=== PATIENT | female | born 1955 | race Caucasian/White ===

== ENCOUNTER → 2016-06-18 | Outpatient (CLI) | payer MEDICARE ==
[~2016-06-18] VITALS: Ht 170.2 cm; Wt 91.6 kg
[~2016-06-18] MED LIST: ADULT LOW DOSE81 MG PO; ALTACE10 M1 PO; AMLO2.5T PO; ASPIRIN 81MG TA81 MG PO; ATORVASTATIN CA20 M1 PO; AZITHROMYCIN250 MG PO; BISOPROLOL 5MG T5 MG PO; BUMETANIDE2 MG PO; BUMEX 1MG TAB1 MG PO; CARVEDILOL3.125 M1 PO; CLONAZEPAM 1MG T1 MG PO; CLOPIDOGREL75 M2 PO; DOXYCYCLINE100 M7 PO; FLEXERIL10 MG PO; FUROSEMIDE80 MG PO; HYDROCODONE W/1 TAB PO; IBUPROFEN800 MG PO; IRON236 MG PO; ISOSORBIDE MONO30 MG PO; ISOSORBIDE MONO60 M1 PO; LEVAQUIN500 MG PO; LIPITOR40 M1 PO; LOPRESSOR 25MG.25 MG PO; LOSARTAN POTAS100 MG PO; METHADONE HYDRO10 MG PO; MIRAPEX 1 MG TAB1 MG PO; NITROGLYCERIN0.4 MG SL; PERCOCET1 TA1 PO; PLAVIX 75MG TAB75 MG PO; PREDNISONE 20MG20 MG PO; PROMETHAZINE D118 ML PO; PROMETHAZINE HC25 M1 PO; PROMETHAZINE12.5 M1 PO; PROTONIX 40MG T40 MG PO; RANEXA500 M1 PO; TESSALON PERLE100 MG PO; TORSEMIDE100 MG PO; TRILEPTAL300 M1 PO; TRILEPTAL600 MG PO; VANCOMYCIN 101000 MG IV; ZITHROMAX Z PA250 MG PO
[2016-06-18 11:00] VITALS: BP 147/90
[2016-06-18 12:00] VITALS: BP 145/94
[2016-06-18 13:03] VITALS: BP 130/113
== END ==
LOC: COP 10:00
DX: T82.7XXA Infection and inflammatory reaction due to other cardiac and vascular devices, implants and grafts, initial encounter (principal); Z48.01 Encounter for change or removal of surgical wound dressing
CPT/HCPCS: G0463

== ENCOUNTER 2016-06-19 09:45 | Outpatient (CLI) | payer MEDICARE ==
[~2016-06-19 09:45] MED LIST changes: -AMLO2.5T PO; -AZITHROMYCIN250 MG PO; -BISOPROLOL 5MG T5 MG PO; -BUMETANIDE2 MG PO; -FUROSEMIDE80 MG PO; -ISOSORBIDE MONO60 M1 PO; -NITROGLYCERIN0.4 MG SL; -PLAVIX 75MG TAB75 MG PO; -PROMETHAZINE D118 ML PO; -PROMETHAZINE HC25 M1 PO; -RANEXA500 M1 PO; -TORSEMIDE100 MG PO
[2016-06-19 10:10] LABS: LYMPH # 2.2 K/mm3 (0.7-4.5); LYMPH % 32.3 % (10-50.0)
[2016-06-19 10:29] LABS: BUN 8 mg/dL (7-18); GFR (ESTIMATED) 46 ML/MIN (59-)
[2016-06-19 11:30] VITALS: BP 114/81
[2016-06-19 11:45] VITALS: BP 120/70
--- NOTE | 2016-06-19 12:10 | CONSULT NOTE ---
Pharmacokinetic Consult Date of consult: 06/19/16 Time of consult: 1208 Referring provider: DR. COATES Reason for consult: VANCOMYCIN TROUGH LEVEL Allergies: Coded Allergies: cephalexin (From KEFLEX) (Mild, 06/13/16) meloxicam (From MOBIC) (Mild, 06/13/16) simvastatin (From ZOCOR) (Mild, 06/13/16) penicillin G (06/13/16) Home Medications: Active Scripts Vancomycin Hcl (Vancomycin 1000MG Adv) 1 Dose IV DAILY #10 INJ Prov: 06/15/16 Reported Medications Cyclobenzaprine Hcl (Flexeril) 10 MG PO BID Pantoprazole Sodium (Protonix 40MG TAB) 40 MG PO DAILY Metoprolol Tartrate (Lopressor) 25 MG PO BID #60 TAB Clonazepam (Clonazepam 1MG) 1 MG PO BIDP PRN NEEDED FOR ANXIETY/SLEEP #60 METHADONE HCL (Methadone Hydrochloride) 10 MG PO 5XDAY #150 TAB Isosorbide Mononitrate (Isosorbide Mononitrate ER) 30 MG PO DAILY #30 Losartan Potassium (Losartan 100MG) 100 MG PO DAILY #30 Atorvastatin Calcium 20 MG PO QHS #30 TAB Discontinued Reported Medications Aspirin (Adult Low Dose Aspirin EC) 81 MG PO DAILY OXYCODONE HCL/ACETAMINOPHEN (Percocet 10-325 MG Tablet) 1 TAB PO Q4HP PRN PAIN Bumetanide (Bumex 1MG Tab) 1 MG PO DAILY PRN DIURETIC CLOPIDOGREL BISULFATE (Clopidogrel) 75 MG PO DAILY #30 DC: 06/15/16 0920 Height (feet): 5 Height (inches): 7.00 Medical History: CAD? Yes Angina: Yes [place]: No Hypertension? Yes Hyperlipidemia? Yes CHF? Yes DVT? No PE? No COPD? Yes Asthma? Yes Anemia? No GERD? Yes Gastric ulcers? No GI Bleed? No Hernia? No Thyroid Problems? No Hypothyroidism? No CVA? Yes Seizures? No Diabetes? No Renal Insuffiency? No UTI? Yes Stones? Yes BPH? No GB Disease: Yes Nephritic Syndrome? No Asplenia? No Hepatitis? No Sickle Cell Disease? No Arthritis? Yes Migraines? No Cataracts? No Glaucoma? No MRSA? No HIV? No TB? No Anxiety? No Depression? No Cancer? No More? No Additional hx: DDD of the lumbar spine cellulitis of the left lower leg Labs: Laboratory Tests 06/19/16 0955: Sodium 142, Potassium 4.0, Chloride 109 H, Carbon Dioxide 27, BUN 8, Creatinine 1.2 H, Estimated GFR (MDRD) 46 L, Glucose 101, Calcium 8.4 L, Total Bilirubin 0.3, AST 17, ALT 19, Alkaline Phosphatase 95, Total Protein 6.9, Albumin 2.9 L, Globulin 4.0 H, Albumin/Globulin Ratio 0.7 L, WBC 6.9, RBC 4.14 L, Hgb 12.0 L, Hct 36.8 L, MCV 88.9, RDW 15.2, Plt Count 280, MPV 9.2, Gran % 57.4, Gran # 4.0, Lymphocytes % 32.3, Monocytes % 4.8, Eosinophils % 4.4, Basophils % 1.0, Lymphocytes # 2.2, Monocytes # 0.3, Eosinophils # 0.3, Basophils # 0.1, PUBS MCHC 32.7, MCH 29.1 06/19/16 0600: Vancomycin Trough 19.8 Problem List: 1. Infected pacemaker Plan: BASED ON VANCOMYCIN TROUGH LEVEL, RECOMMEND DECREASING DOSE TO VANCOMYCIN 1500 MG IV Q24H. PHARMACY WILL CONTINUE TO MONITOR AND ADJUST APPROPRIATE. at 1210
[2016-06-19 12:15] VITALS: BP 120/79
[2016-06-19 12:45] VITALS: BP 115/67
[2016-06-19 13:15] VITALS: BP 129/82
[2016-06-19 13:50] VITALS: BP 152/92
[2016-07-10] MEDS ORDERED: PERCOCET1 TA1 PO (13:04)
[2016-07-20] MEDS ORDERED: BUMETANIDE2 MG PO (10:39)
[2016-07-31] MEDS ORDERED: PLAVIX 75MG TAB75 MG PO (13:57)
[2016-07-31] MEDS ORDERED: ASPIRIN 81MG TA81 MG PO (13:57)
[2016-07-31] MEDS ORDERED: ZITHROMAX Z PA250 MG PO (15:25)
[2016-07-31] MEDS ORDERED: PROMETHAZINE D118 ML PO (15:26)
[2016-08-01] MEDS ORDERED: RANEXA500 M1 PO (16:29)
[2016-08-03] MEDS ORDERED: AZITHROMYCIN250 MG PO (14:14)
[2016-08-21] MEDS ORDERED: PROMETHAZINE HC25 M1 PO (22:31)
[2016-08-21] MEDS ORDERED: LOPRESSOR 25MG.25 MG PO (22:46)
[2016-08-21] MEDS ORDERED: ISOSORBIDE MONO60 M1 PO (22:46)
[2016-09-09] MEDS ORDERED: FUROSEMIDE80 MG PO (22:52)
[2016-09-10] MEDS ORDERED: TORSEMIDE100 MG PO (14:45)
[2016-09-12] MEDS ORDERED: BISOPROLOL 5MG T5 MG PO (09:07)
[2016-09-12] MEDS ORDERED: AMLO2.5T PO (09:08)
== END 2016-06-19 14:00 | disposition home or self-care (01) ==
LOC: COP 09:45
PROVIDERS: Internal Medicine
DX: T82.7XXA Infection and inflammatory reaction due to other cardiac and vascular devices, implants and grafts, initial encounter (principal)
CPT/HCPCS: G0463

== ENCOUNTER 2016-06-20 09:10 | Outpatient (CLI) | payer MEDICARE ==
[2016-06-20 09:55] VITALS: BP 141/93
[2016-06-20 10:30] VITALS: BP 133/82
[2016-06-20 11:00] VITALS: BP 128/79
[2016-06-20 11:26] VITALS: BP 131/99
[2016-06-20 11:30] VITALS: BP 115/79
[2016-06-20 11:50] VITALS: BP 130/84
[2016-07-10] MEDS ORDERED: PERCOCET1 TA1 PO (13:04)
[2016-07-20] MEDS ORDERED: BUMETANIDE2 MG PO (10:39)
[2016-07-31] MEDS ORDERED: ASPIRIN 81MG TA81 MG PO (13:57)
[2016-07-31] MEDS ORDERED: PLAVIX 75MG TAB75 MG PO (13:57)
[2016-07-31] MEDS ORDERED: ZITHROMAX Z PA250 MG PO (15:25)
[2016-07-31] MEDS ORDERED: PROMETHAZINE D118 ML PO (15:26)
[2016-08-01] MEDS ORDERED: RANEXA500 M1 PO (16:29)
[2016-08-03] MEDS ORDERED: AZITHROMYCIN250 MG PO (14:14)
[2016-08-21] MEDS ORDERED: PROMETHAZINE HC25 M1 PO (22:31)
[2016-08-21] MEDS ORDERED: ISOSORBIDE MONO60 M1 PO (22:46)
[2016-08-21] MEDS ORDERED: LOPRESSOR 25MG.25 MG PO (22:46)
[2016-09-09] MEDS ORDERED: FUROSEMIDE80 MG PO (22:52)
[2016-09-10] MEDS ORDERED: TORSEMIDE100 MG PO (14:45)
[2016-09-12] MEDS ORDERED: BISOPROLOL 5MG T5 MG PO (09:07)
[2016-09-12] MEDS ORDERED: AMLO2.5T PO (09:08)
== END 2016-06-20 12:00 | disposition home or self-care (01) ==
LOC: COP 09:10
DX: T82.7XXA Infection and inflammatory reaction due to other cardiac and vascular devices, implants and grafts, initial encounter (principal)
CPT/HCPCS: J3370

== ENCOUNTER 2016-06-21 09:05 | Outpatient (CLI) | payer MEDICARE ==
[2016-06-21] VITALS (8 sets, daily range): BP systolic 93–126; BP diastolic 56–68
[2016-07-10] MEDS ORDERED: PERCOCET1 TA1 PO (13:04)
[2016-07-20] MEDS ORDERED: BUMETANIDE2 MG PO (10:39)
[2016-07-31] MEDS ORDERED: ASPIRIN 81MG TA81 MG PO (13:57)
[2016-07-31] MEDS ORDERED: PLAVIX 75MG TAB75 MG PO (13:57)
[2016-07-31] MEDS ORDERED: ZITHROMAX Z PA250 MG PO (15:25)
[2016-07-31] MEDS ORDERED: PROMETHAZINE D118 ML PO (15:26)
[2016-08-01] MEDS ORDERED: RANEXA500 M1 PO (16:29)
[2016-08-03] MEDS ORDERED: AZITHROMYCIN250 MG PO (14:14)
[2016-08-21] MEDS ORDERED: PROMETHAZINE HC25 M1 PO (22:31)
[2016-08-21] MEDS ORDERED: LOPRESSOR 25MG.25 MG PO (22:46)
[2016-08-21] MEDS ORDERED: ISOSORBIDE MONO60 M1 PO (22:46)
[2016-09-09] MEDS ORDERED: FUROSEMIDE80 MG PO (22:52)
[2016-09-10] MEDS ORDERED: TORSEMIDE100 MG PO (14:45)
[2016-09-12] MEDS ORDERED: BISOPROLOL 5MG T5 MG PO (09:07)
[2016-09-12] MEDS ORDERED: AMLO2.5T PO (09:08)
== END 2016-06-21 12:00 | disposition home or self-care (01) ==
LOC: COP 09:05
DX: T82.7XXA Infection and inflammatory reaction due to other cardiac and vascular devices, implants and grafts, initial encounter (principal); Z48.01 Encounter for change or removal of surgical wound dressing
CPT/HCPCS: G0463; J3370

== ENCOUNTER 2016-06-22 09:30 | Outpatient (CLI) | payer MEDICARE ==
[2016-06-22] VITALS (7 sets, daily range): BP systolic 90–104; BP diastolic 43–64
[2016-06-22 09:58] LABS: BUN 15 mg/dL (7-18); GFR (ESTIMATED) 38 ML/MIN (59-)
--- NOTE | 2016-06-22 10:51 | CONSULT NOTE ---
Pharmacokinetic Consult Date of consult: 06/22/16 Time of consult: 1044 Referring provider: DR. COATES Reason for consult: VANCOMYCIN TROUGH Allergies: Coded Allergies: cephalexin (From KEFLEX) (Mild, 06/13/16) meloxicam (From MOBIC) (Mild, 06/13/16) simvastatin (From ZOCOR) (Mild, 06/13/16) penicillin G (06/13/16) Home Medications: Active Scripts Vancomycin Hcl (Vancomycin 1000MG Adv) 1 Dose IV DAILY #10 INJ Prov: 06/15/16 Reported Medications Cyclobenzaprine Hcl (Flexeril) 10 MG PO BID Pantoprazole Sodium (Protonix 40MG TAB) 40 MG PO DAILY Metoprolol Tartrate (Lopressor) 25 MG PO BID #60 TAB Clonazepam (Clonazepam 1MG) 1 MG PO BIDP PRN NEEDED FOR ANXIETY/SLEEP #60 METHADONE HCL (Methadone Hydrochloride) 10 MG PO 5XDAY #150 TAB Isosorbide Mononitrate (Isosorbide Mononitrate ER) 30 MG PO DAILY #30 Losartan Potassium (Losartan 100MG) 100 MG PO DAILY #30 Atorvastatin Calcium 20 MG PO QHS #30 TAB Discontinued Reported Medications Aspirin (Adult Low Dose Aspirin EC) 81 MG PO DAILY OXYCODONE HCL/ACETAMINOPHEN (Percocet 10-325 MG Tablet) 1 TAB PO Q4HP PRN PAIN Bumetanide (Bumex 1MG Tab) 1 MG PO DAILY PRN DIURETIC CLOPIDOGREL BISULFATE (Clopidogrel) 75 MG PO DAILY #30 DC: 06/15/16 0920 Height (feet): 5 Height (inches): 7.00 Medical History: CAD? Yes Angina: Yes [place]: No Hypertension? Yes Hyperlipidemia? Yes CHF? Yes DVT? No PE? No COPD? Yes Asthma? Yes Anemia? No GERD? Yes Gastric ulcers? No GI Bleed? No Hernia? No Thyroid Problems? No Hypothyroidism? No CVA? Yes Seizures? No Diabetes? No Renal Insuffiency? No UTI? Yes Stones? Yes BPH? No GB Disease: Yes Nephritic Syndrome? No Asplenia? No Hepatitis? No Sickle Cell Disease? No Arthritis? Yes Migraines? No Cataracts? No Glaucoma? No MRSA? No HIV? No TB? No Anxiety? No Depression? No Cancer? No More? No Additional hx: DDD of the lumbar spine cellulitis of the left lower leg Labs: Laboratory Tests 06/22/16 0935: Sodium 142, Potassium 4.0, Chloride 111 H, Carbon Dioxide 24, BUN 15, Creatinine 1.4 H, Estimated GFR (MDRD) 38 L, Glucose 90, Calcium 7.9 L, Vancomycin Trough 19.3 Problem List: 1. Infected pacemaker Plan: BASED ON PATIENT FACTORS AND TROUGH LEVEL, RECOMMEND DECREASING VANCOMYCIN DOSE TO 1250MG IV Q24H. PHARMACY WILL CONTINUE TO MONITOR AND ADJUST DOSE NEEDED. at 1053
[2016-07-10] MEDS ORDERED: PERCOCET1 TA1 PO (13:04)
[2016-07-20] MEDS ORDERED: BUMETANIDE2 MG PO (10:39)
[2016-07-31] MEDS ORDERED: ASPIRIN 81MG TA81 MG PO (13:57)
[2016-07-31] MEDS ORDERED: PLAVIX 75MG TAB75 MG PO (13:57)
[2016-07-31] MEDS ORDERED: ZITHROMAX Z PA250 MG PO (15:25)
[2016-07-31] MEDS ORDERED: PROMETHAZINE D118 ML PO (15:26)
[2016-08-01] MEDS ORDERED: RANEXA500 M1 PO (16:29)
[2016-08-03] MEDS ORDERED: AZITHROMYCIN250 MG PO (14:14)
[2016-08-21] MEDS ORDERED: PROMETHAZINE HC25 M1 PO (22:31)
[2016-08-21] MEDS ORDERED: LOPRESSOR 25MG.25 MG PO (22:46)
[2016-08-21] MEDS ORDERED: ISOSORBIDE MONO60 M1 PO (22:46)
[2016-09-09] MEDS ORDERED: FUROSEMIDE80 MG PO (22:52)
[2016-09-10] MEDS ORDERED: TORSEMIDE100 MG PO (14:45)
[2016-09-12] MEDS ORDERED: BISOPROLOL 5MG T5 MG PO (09:07)
[2016-09-12] MEDS ORDERED: AMLO2.5T PO (09:08)
== END 2016-06-22 13:15 | disposition home or self-care (01) ==
LOC: COP 09:30
PROVIDERS: Internal Medicine Adolescent Medicine
DX: T82.7XXA Infection and inflammatory reaction due to other cardiac and vascular devices, implants and grafts, initial encounter (principal); Z48.01 Encounter for change or removal of surgical wound dressing
CPT/HCPCS: J3370

== ENCOUNTER 2016-06-23 10:23 | Outpatient (CLI) | payer MEDICARE ==
[2016-06-23 11:30] VITALS: BP 97/49
[2016-06-23 12:00] VITALS: BP 98/59
[2016-06-23 12:30] VITALS: BP 90/59
[2016-06-23 13:15] VITALS: BP 104/61
[2016-06-23 13:33] VITALS: BP 93/63
[2016-07-10] MEDS ORDERED: PERCOCET1 TA1 PO (13:04)
[2016-07-20] MEDS ORDERED: BUMETANIDE2 MG PO (10:39)
[2016-07-31] MEDS ORDERED: ASPIRIN 81MG TA81 MG PO (13:57)
[2016-07-31] MEDS ORDERED: PLAVIX 75MG TAB75 MG PO (13:57)
[2016-07-31] MEDS ORDERED: ZITHROMAX Z PA250 MG PO (15:25)
[2016-07-31] MEDS ORDERED: PROMETHAZINE D118 ML PO (15:26)
[2016-08-01] MEDS ORDERED: RANEXA500 M1 PO (16:29)
[2016-08-03] MEDS ORDERED: AZITHROMYCIN250 MG PO (14:14)
[2016-08-21] MEDS ORDERED: PROMETHAZINE HC25 M1 PO (22:31)
[2016-08-21] MEDS ORDERED: ISOSORBIDE MONO60 M1 PO (22:46)
[2016-08-21] MEDS ORDERED: LOPRESSOR 25MG.25 MG PO (22:46)
[2016-09-09] MEDS ORDERED: FUROSEMIDE80 MG PO (22:52)
[2016-09-10] MEDS ORDERED: TORSEMIDE100 MG PO (14:45)
[2016-09-12] MEDS ORDERED: BISOPROLOL 5MG T5 MG PO (09:07)
[2016-09-12] MEDS ORDERED: AMLO2.5T PO (09:08)
== END 2016-06-23 13:15 | disposition home or self-care (01) ==
LOC: COP 10:23
DX: T82.7XXA Infection and inflammatory reaction due to other cardiac and vascular devices, implants and grafts, initial encounter (principal); Z48.01 Encounter for change or removal of surgical wound dressing
CPT/HCPCS: J3370

== ENCOUNTER 2016-06-24 09:48 | Outpatient (CLI) | payer MEDICARE ==
[2016-06-24 10:15] VITALS: BP 129/59
[2016-06-24 10:44] VITALS: BP 129/59
[2016-06-24 12:09] VITALS: BP 115/71
[2016-07-10] MEDS ORDERED: PERCOCET1 TA1 PO (13:04)
[2016-07-20] MEDS ORDERED: BUMETANIDE2 MG PO (10:39)
[2016-07-31] MEDS ORDERED: PLAVIX 75MG TAB75 MG PO (13:57)
[2016-07-31] MEDS ORDERED: ASPIRIN 81MG TA81 MG PO (13:57)
[2016-07-31] MEDS ORDERED: ZITHROMAX Z PA250 MG PO (15:25)
[2016-07-31] MEDS ORDERED: PROMETHAZINE D118 ML PO (15:26)
[2016-08-01] MEDS ORDERED: RANEXA500 M1 PO (16:29)
[2016-08-03] MEDS ORDERED: AZITHROMYCIN250 MG PO (14:14)
[2016-08-21] MEDS ORDERED: PROMETHAZINE HC25 M1 PO (22:31)
[2016-08-21] MEDS ORDERED: LOPRESSOR 25MG.25 MG PO (22:46)
[2016-08-21] MEDS ORDERED: ISOSORBIDE MONO60 M1 PO (22:46)
[2016-09-09] MEDS ORDERED: FUROSEMIDE80 MG PO (22:52)
[2016-09-10] MEDS ORDERED: TORSEMIDE100 MG PO (14:45)
[2016-09-12] MEDS ORDERED: BISOPROLOL 5MG T5 MG PO (09:07)
[2016-09-12] MEDS ORDERED: AMLO2.5T PO (09:08)
== END 2016-06-24 12:13 | disposition home or self-care (01) ==
LOC: COP 09:48
DX: T82.7XXA Infection and inflammatory reaction due to other cardiac and vascular devices, implants and grafts, initial encounter (principal); Z48.01 Encounter for change or removal of surgical wound dressing
CPT/HCPCS: G0463; J3370

== ENCOUNTER 2016-06-25 09:15 | Outpatient (CLI) | payer MEDICARE ==
[2016-06-25 09:51] VITALS: BP 131/90
[2016-06-25 11:48] VITALS: BP 116/70
[2016-07-10] MEDS ORDERED: PERCOCET1 TA1 PO (13:04)
[2016-07-20] MEDS ORDERED: BUMETANIDE2 MG PO (10:39)
[2016-07-31] MEDS ORDERED: PLAVIX 75MG TAB75 MG PO (13:57)
[2016-07-31] MEDS ORDERED: ASPIRIN 81MG TA81 MG PO (13:57)
[2016-07-31] MEDS ORDERED: ZITHROMAX Z PA250 MG PO (15:25)
[2016-07-31] MEDS ORDERED: PROMETHAZINE D118 ML PO (15:26)
[2016-08-01] MEDS ORDERED: RANEXA500 M1 PO (16:29)
[2016-08-03] MEDS ORDERED: AZITHROMYCIN250 MG PO (14:14)
[2016-08-21] MEDS ORDERED: PROMETHAZINE HC25 M1 PO (22:31)
[2016-08-21] MEDS ORDERED: LOPRESSOR 25MG.25 MG PO (22:46)
[2016-08-21] MEDS ORDERED: ISOSORBIDE MONO60 M1 PO (22:46)
[2016-09-09] MEDS ORDERED: FUROSEMIDE80 MG PO (22:52)
[2016-09-10] MEDS ORDERED: TORSEMIDE100 MG PO (14:45)
[2016-09-12] MEDS ORDERED: BISOPROLOL 5MG T5 MG PO (09:07)
[2016-09-12] MEDS ORDERED: AMLO2.5T PO (09:08)
== END 2016-06-25 11:50 | disposition home or self-care (01) ==
LOC: COP 09:15
DX: T82.7XXA Infection and inflammatory reaction due to other cardiac and vascular devices, implants and grafts, initial encounter (principal); Z48.01 Encounter for change or removal of surgical wound dressing
CPT/HCPCS: J3370

== ENCOUNTER 2016-06-26 09:50 | Outpatient (CLI) | payer MEDICARE ==
[2016-06-26 10:05] VITALS: BP 130/74
[2016-06-26 10:40] LABS: HEMOGLOBIN 10.9 g/dL (12.2-16.2); LYMPH # 1.6 K/mm3 (0.7-4.5)
[2016-06-26 10:53] LABS: BUN 15 mg/dL (7-18); GFR (ESTIMATED) 38 ML/MIN (59-)
[2016-07-10] MEDS ORDERED: PERCOCET1 TA1 PO (13:04)
[2016-07-20] MEDS ORDERED: BUMETANIDE2 MG PO (10:39)
[2016-07-31] MEDS ORDERED: PLAVIX 75MG TAB75 MG PO (13:57)
[2016-07-31] MEDS ORDERED: ASPIRIN 81MG TA81 MG PO (13:57)
[2016-07-31] MEDS ORDERED: ZITHROMAX Z PA250 MG PO (15:25)
[2016-07-31] MEDS ORDERED: PROMETHAZINE D118 ML PO (15:26)
[2016-08-01] MEDS ORDERED: RANEXA500 M1 PO (16:29)
[2016-08-03] MEDS ORDERED: AZITHROMYCIN250 MG PO (14:14)
[2016-08-21] MEDS ORDERED: PROMETHAZINE HC25 M1 PO (22:31)
[2016-08-21] MEDS ORDERED: ISOSORBIDE MONO60 M1 PO (22:46)
[2016-08-21] MEDS ORDERED: LOPRESSOR 25MG.25 MG PO (22:46)
[2016-09-09] MEDS ORDERED: FUROSEMIDE80 MG PO (22:52)
[2016-09-10] MEDS ORDERED: TORSEMIDE100 MG PO (14:45)
[2016-09-12] MEDS ORDERED: BISOPROLOL 5MG T5 MG PO (09:07)
[2016-09-12] MEDS ORDERED: AMLO2.5T PO (09:08)
== END 2016-06-26 10:42 | disposition home or self-care (01) ==
LOC: COP 09:50
PROVIDERS: Internal Medicine Adolescent Medicine
DX: T82.7XXA Infection and inflammatory reaction due to other cardiac and vascular devices, implants and grafts, initial encounter (principal)
CPT/HCPCS: G0463

== ENCOUNTER → 2016-06-27 | Outpatient (CLI) | payer MEDICARE ==
[~2016-06-27] MED LIST changes: +AMLO2.5T PO; +AZITHROMYCIN250 MG PO; +BISOPROLOL 5MG T5 MG PO; +BUMETANIDE2 MG PO; +FUROSEMIDE80 MG PO; +ISOSORBIDE MONO60 M1 PO; +NITROGLYCERIN0.4 MG SL; +PLAVIX 75MG TAB75 MG PO; +PROMETHAZINE D118 ML PO; +PROMETHAZINE HC25 M1 PO; +RANEXA500 M1 PO; +TORSEMIDE100 MG PO
== END ==
LOC: COP 09:00
DX: T82.7XXA Infection and inflammatory reaction due to other cardiac and vascular devices, implants and grafts, initial encounter (principal); Z48.01 Encounter for change or removal of surgical wound dressing

== ENCOUNTER 2016-06-30 13:35 | Outpatient (CLI) | payer MEDICARE ==
[~2016-06-30 13:35] MED LIST changes: -AMLO2.5T PO; -AZITHROMYCIN250 MG PO; -BISOPROLOL 5MG T5 MG PO; -BUMETANIDE2 MG PO; -FUROSEMIDE80 MG PO; -ISOSORBIDE MONO60 M1 PO; -NITROGLYCERIN0.4 MG SL; -PLAVIX 75MG TAB75 MG PO; -PROMETHAZINE D118 ML PO; -PROMETHAZINE HC25 M1 PO; -RANEXA500 M1 PO; -TORSEMIDE100 MG PO
[2016-07-10] MEDS ORDERED: PERCOCET1 TA1 PO (13:04)
[2016-07-20] MEDS ORDERED: BUMETANIDE2 MG PO (10:39)
[2016-07-31] MEDS ORDERED: PLAVIX 75MG TAB75 MG PO (13:57)
[2016-07-31] MEDS ORDERED: ASPIRIN 81MG TA81 MG PO (13:57)
[2016-07-31] MEDS ORDERED: ZITHROMAX Z PA250 MG PO (15:25)
[2016-07-31] MEDS ORDERED: PROMETHAZINE D118 ML PO (15:26)
[2016-08-01] MEDS ORDERED: RANEXA500 M1 PO (16:29)
[2016-08-03] MEDS ORDERED: AZITHROMYCIN250 MG PO (14:14)
[2016-08-21] MEDS ORDERED: PROMETHAZINE HC25 M1 PO (22:31)
[2016-08-21] MEDS ORDERED: ISOSORBIDE MONO60 M1 PO (22:46)
[2016-08-21] MEDS ORDERED: LOPRESSOR 25MG.25 MG PO (22:46)
[2016-09-09] MEDS ORDERED: FUROSEMIDE80 MG PO (22:52)
[2016-09-10] MEDS ORDERED: TORSEMIDE100 MG PO (14:45)
[2016-09-12] MEDS ORDERED: BISOPROLOL 5MG T5 MG PO (09:07)
[2016-09-12] MEDS ORDERED: AMLO2.5T PO (09:08)
== END 2016-06-30 15:00 | disposition home or self-care (01) ==
LOC: COP 13:35
DX: T82.7XXA Infection and inflammatory reaction due to other cardiac and vascular devices, implants and grafts, initial encounter (principal); Z48.01 Encounter for change or removal of surgical wound dressing
CPT/HCPCS: G0463

== ENCOUNTER → 2016-07-01 | Outpatient (CLI) | payer MEDICARE ==
[~2016-07-01] MED LIST changes: +AMLO2.5T PO; +AZITHROMYCIN250 MG PO; +BISOPROLOL 5MG T5 MG PO; +BUMETANIDE2 MG PO; +FUROSEMIDE80 MG PO; +ISOSORBIDE MONO60 M1 PO; +NITROGLYCERIN0.4 MG SL; +PLAVIX 75MG TAB75 MG PO; +PROMETHAZINE D118 ML PO; +PROMETHAZINE HC25 M1 PO; +RANEXA500 M1 PO; +TORSEMIDE100 MG PO
[2016-07-01 11:30] VITALS: BP 136/93
== END ==
LOC: COP 11:34
DX: T82.7XXA Infection and inflammatory reaction due to other cardiac and vascular devices, implants and grafts, initial encounter (principal); Z48.01 Encounter for change or removal of surgical wound dressing
CPT/HCPCS: G0463

== ENCOUNTER → 2016-07-02 | Outpatient (CLI) | payer MEDICARE ==
[2016-07-02 11:50] VITALS: BP 144/96
== END ==
LOC: COP 11:37
DX: T82.7XXA Infection and inflammatory reaction due to other cardiac and vascular devices, implants and grafts, initial encounter (principal); Z48.01 Encounter for change or removal of surgical wound dressing
CPT/HCPCS: G0463

== ENCOUNTER 2016-07-03 11:05 | Outpatient (CLI) | payer MEDICARE ==
[~2016-07-03 11:05] MED LIST changes: -AMLO2.5T PO; -AZITHROMYCIN250 MG PO; -BISOPROLOL 5MG T5 MG PO; -BUMETANIDE2 MG PO; -FUROSEMIDE80 MG PO; -ISOSORBIDE MONO60 M1 PO; -NITROGLYCERIN0.4 MG SL; -PLAVIX 75MG TAB75 MG PO; -PROMETHAZINE D118 ML PO; -PROMETHAZINE HC25 M1 PO; -RANEXA500 M1 PO; -TORSEMIDE100 MG PO
[2016-07-10] MEDS ORDERED: PERCOCET1 TA1 PO (13:04)
[2016-07-20] MEDS ORDERED: BUMETANIDE2 MG PO (10:39)
[2016-07-31] MEDS ORDERED: PLAVIX 75MG TAB75 MG PO (13:57)
[2016-07-31] MEDS ORDERED: ASPIRIN 81MG TA81 MG PO (13:57)
[2016-07-31] MEDS ORDERED: ZITHROMAX Z PA250 MG PO (15:25)
[2016-07-31] MEDS ORDERED: PROMETHAZINE D118 ML PO (15:26)
[2016-08-01] MEDS ORDERED: RANEXA500 M1 PO (16:29)
[2016-08-03] MEDS ORDERED: AZITHROMYCIN250 MG PO (14:14)
[2016-08-21] MEDS ORDERED: PROMETHAZINE HC25 M1 PO (22:31)
[2016-08-21] MEDS ORDERED: ISOSORBIDE MONO60 M1 PO (22:46)
[2016-08-21] MEDS ORDERED: LOPRESSOR 25MG.25 MG PO (22:46)
[2016-09-09] MEDS ORDERED: FUROSEMIDE80 MG PO (22:52)
[2016-09-10] MEDS ORDERED: TORSEMIDE100 MG PO (14:45)
[2016-09-12] MEDS ORDERED: BISOPROLOL 5MG T5 MG PO (09:07)
[2016-09-12] MEDS ORDERED: AMLO2.5T PO (09:08)
== END 2016-07-03 11:40 | disposition home or self-care (01) ==
LOC: COP 11:05
DX: T82.7XXA Infection and inflammatory reaction due to other cardiac and vascular devices, implants and grafts, initial encounter (principal); Z48.01 Encounter for change or removal of surgical wound dressing
CPT/HCPCS: G0463

== ENCOUNTER 2016-07-05 15:00 | Outpatient (CLI) | payer MEDICARE ==
[2016-07-10] MEDS ORDERED: PERCOCET1 TA1 PO (13:04)
[2016-07-20] MEDS ORDERED: BUMETANIDE2 MG PO (10:39)
[2016-07-31] MEDS ORDERED: PLAVIX 75MG TAB75 MG PO (13:57)
[2016-07-31] MEDS ORDERED: ASPIRIN 81MG TA81 MG PO (13:57)
[2016-07-31] MEDS ORDERED: ZITHROMAX Z PA250 MG PO (15:25)
[2016-07-31] MEDS ORDERED: PROMETHAZINE D118 ML PO (15:26)
[2016-08-01] MEDS ORDERED: RANEXA500 M1 PO (16:29)
[2016-08-03] MEDS ORDERED: AZITHROMYCIN250 MG PO (14:14)
[2016-08-21] MEDS ORDERED: PROMETHAZINE HC25 M1 PO (22:31)
[2016-08-21] MEDS ORDERED: LOPRESSOR 25MG.25 MG PO (22:46)
[2016-08-21] MEDS ORDERED: ISOSORBIDE MONO60 M1 PO (22:46)
[2016-09-09] MEDS ORDERED: FUROSEMIDE80 MG PO (22:52)
[2016-09-10] MEDS ORDERED: TORSEMIDE100 MG PO (14:45)
[2016-09-12] MEDS ORDERED: BISOPROLOL 5MG T5 MG PO (09:07)
[2016-09-12] MEDS ORDERED: AMLO2.5T PO (09:08)
== END 2016-07-05 15:30 | disposition home or self-care (01) ==
LOC: COP 15:00
DX: T82.7XXA Infection and inflammatory reaction due to other cardiac and vascular devices, implants and grafts, initial encounter (principal); Z48.01 Encounter for change or removal of surgical wound dressing
CPT/HCPCS: G0463

== ENCOUNTER → 2016-07-06 | Outpatient (CLI) | payer MEDICARE ==
[~2016-07-06] MED LIST changes: +AMLO2.5T PO; +AZITHROMYCIN250 MG PO; +BISOPROLOL 5MG T5 MG PO; +BUMETANIDE2 MG PO; +FUROSEMIDE80 MG PO; +ISOSORBIDE MONO60 M1 PO; +NITROGLYCERIN0.4 MG SL; +PLAVIX 75MG TAB75 MG PO; +PROMETHAZINE D118 ML PO; +PROMETHAZINE HC25 M1 PO; +RANEXA500 M1 PO; +TORSEMIDE100 MG PO
== END ==
LOC: COP 14:00
DX: T82.7XXA Infection and inflammatory reaction due to other cardiac and vascular devices, implants and grafts, initial encounter (principal); Z48.01 Encounter for change or removal of surgical wound dressing
CPT/HCPCS: G0463

== ENCOUNTER 2016-07-07 12:00 | Outpatient (CLI) | payer MEDICARE ==
[~2016-07-07 12:00] MED LIST changes: -AMLO2.5T PO; -AZITHROMYCIN250 MG PO; -BISOPROLOL 5MG T5 MG PO; -BUMETANIDE2 MG PO; -FUROSEMIDE80 MG PO; -ISOSORBIDE MONO60 M1 PO; -NITROGLYCERIN0.4 MG SL; -PLAVIX 75MG TAB75 MG PO; -PROMETHAZINE D118 ML PO; -PROMETHAZINE HC25 M1 PO; -RANEXA500 M1 PO; -TORSEMIDE100 MG PO
[2016-07-10] MEDS ORDERED: PERCOCET1 TA1 PO (13:04)
[2016-07-20] MEDS ORDERED: BUMETANIDE2 MG PO (10:39)
[2016-07-31] MEDS ORDERED: ASPIRIN 81MG TA81 MG PO (13:57)
[2016-07-31] MEDS ORDERED: PLAVIX 75MG TAB75 MG PO (13:57)
[2016-07-31] MEDS ORDERED: ZITHROMAX Z PA250 MG PO (15:25)
[2016-07-31] MEDS ORDERED: PROMETHAZINE D118 ML PO (15:26)
[2016-08-01] MEDS ORDERED: RANEXA500 M1 PO (16:29)
[2016-08-03] MEDS ORDERED: AZITHROMYCIN250 MG PO (14:14)
[2016-08-21] MEDS ORDERED: PROMETHAZINE HC25 M1 PO (22:31)
[2016-08-21] MEDS ORDERED: LOPRESSOR 25MG.25 MG PO (22:46)
[2016-08-21] MEDS ORDERED: ISOSORBIDE MONO60 M1 PO (22:46)
[2016-09-09] MEDS ORDERED: FUROSEMIDE80 MG PO (22:52)
[2016-09-10] MEDS ORDERED: TORSEMIDE100 MG PO (14:45)
[2016-09-12] MEDS ORDERED: BISOPROLOL 5MG T5 MG PO (09:07)
[2016-09-12] MEDS ORDERED: AMLO2.5T PO (09:08)
== END 2016-07-07 12:30 | disposition home or self-care (01) ==
LOC: COP 12:00
DX: T82.7XXA Infection and inflammatory reaction due to other cardiac and vascular devices, implants and grafts, initial encounter (principal); Z48.01 Encounter for change or removal of surgical wound dressing; Z45.2 Encounter for adjustment and management of vascular access device
CPT/HCPCS: G0463

== ENCOUNTER 2016-07-08 12:52 | Outpatient (CLI) | payer MEDICARE ==
[2016-07-10] MEDS ORDERED: PERCOCET1 TA1 PO (13:04)
[2016-07-20] MEDS ORDERED: BUMETANIDE2 MG PO (10:39)
[2016-07-31] MEDS ORDERED: PLAVIX 75MG TAB75 MG PO (13:57)
[2016-07-31] MEDS ORDERED: ASPIRIN 81MG TA81 MG PO (13:57)
[2016-07-31] MEDS ORDERED: ZITHROMAX Z PA250 MG PO (15:25)
[2016-07-31] MEDS ORDERED: PROMETHAZINE D118 ML PO (15:26)
[2016-08-01] MEDS ORDERED: RANEXA500 M1 PO (16:29)
[2016-08-03] MEDS ORDERED: AZITHROMYCIN250 MG PO (14:14)
[2016-08-21] MEDS ORDERED: PROMETHAZINE HC25 M1 PO (22:31)
[2016-08-21] MEDS ORDERED: ISOSORBIDE MONO60 M1 PO (22:46)
[2016-08-21] MEDS ORDERED: LOPRESSOR 25MG.25 MG PO (22:46)
[2016-09-09] MEDS ORDERED: FUROSEMIDE80 MG PO (22:52)
[2016-09-10] MEDS ORDERED: TORSEMIDE100 MG PO (14:45)
[2016-09-12] MEDS ORDERED: BISOPROLOL 5MG T5 MG PO (09:07)
[2016-09-12] MEDS ORDERED: AMLO2.5T PO (09:08)
== END 2016-07-08 13:10 | disposition home or self-care (01) ==
LOC: COP 12:52
DX: T82.7XXA Infection and inflammatory reaction due to other cardiac and vascular devices, implants and grafts, initial encounter (principal); Z48.01 Encounter for change or removal of surgical wound dressing
CPT/HCPCS: G0463

== ENCOUNTER 2016-07-09 12:30 | Outpatient (CLI) | payer MEDICARE ==
[2016-07-10] MEDS ORDERED: PERCOCET1 TA1 PO (13:04)
[2016-07-20] MEDS ORDERED: BUMETANIDE2 MG PO (10:39)
[2016-07-31] MEDS ORDERED: PLAVIX 75MG TAB75 MG PO (13:57)
[2016-07-31] MEDS ORDERED: ASPIRIN 81MG TA81 MG PO (13:57)
[2016-07-31] MEDS ORDERED: ZITHROMAX Z PA250 MG PO (15:25)
[2016-07-31] MEDS ORDERED: PROMETHAZINE D118 ML PO (15:26)
[2016-08-01] MEDS ORDERED: RANEXA500 M1 PO (16:29)
[2016-08-03] MEDS ORDERED: AZITHROMYCIN250 MG PO (14:14)
[2016-08-21] MEDS ORDERED: PROMETHAZINE HC25 M1 PO (22:31)
[2016-08-21] MEDS ORDERED: LOPRESSOR 25MG.25 MG PO (22:46)
[2016-08-21] MEDS ORDERED: ISOSORBIDE MONO60 M1 PO (22:46)
[2016-09-09] MEDS ORDERED: FUROSEMIDE80 MG PO (22:52)
[2016-09-10] MEDS ORDERED: TORSEMIDE100 MG PO (14:45)
[2016-09-12] MEDS ORDERED: BISOPROLOL 5MG T5 MG PO (09:07)
[2016-09-12] MEDS ORDERED: AMLO2.5T PO (09:08)
== END 2016-07-09 12:55 | disposition home or self-care (01) ==
LOC: COP 12:30
DX: T82.7XXA Infection and inflammatory reaction due to other cardiac and vascular devices, implants and grafts, initial encounter (principal); Z45.2 Encounter for adjustment and management of vascular access device
CPT/HCPCS: G0463

== ENCOUNTER 2016-07-12 13:00 | Outpatient (CLI) | payer MEDICARE ==
[2016-07-12 13:05] VITALS: BP 104/70
[2016-07-12] MEDS ORDERED: NITROGLYCERIN0.4 MG SL (13:53)
[2016-07-20] MEDS ORDERED: BUMETANIDE2 MG PO (10:39)
[2016-07-31] MEDS ORDERED: ASPIRIN 81MG TA81 MG PO (13:57)
[2016-07-31] MEDS ORDERED: PLAVIX 75MG TAB75 MG PO (13:57)
[2016-07-31] MEDS ORDERED: ZITHROMAX Z PA250 MG PO (15:25)
[2016-07-31] MEDS ORDERED: PROMETHAZINE D118 ML PO (15:26)
[2016-08-01] MEDS ORDERED: RANEXA500 M1 PO (16:29)
[2016-08-03] MEDS ORDERED: AZITHROMYCIN250 MG PO (14:14)
[2016-08-21] MEDS ORDERED: PROMETHAZINE HC25 M1 PO (22:31)
[2016-08-21] MEDS ORDERED: LOPRESSOR 25MG.25 MG PO (22:46)
[2016-08-21] MEDS ORDERED: ISOSORBIDE MONO60 M1 PO (22:46)
[2016-09-09] MEDS ORDERED: FUROSEMIDE80 MG PO (22:52)
[2016-09-10] MEDS ORDERED: TORSEMIDE100 MG PO (14:45)
[2016-09-12] MEDS ORDERED: BISOPROLOL 5MG T5 MG PO (09:07)
[2016-09-12] MEDS ORDERED: AMLO2.5T PO (09:08)
== END 2016-07-12 13:30 | disposition home or self-care (01) ==
LOC: COP 13:00
DX: T82.7XXA Infection and inflammatory reaction due to other cardiac and vascular devices, implants and grafts, initial encounter (principal); Z45.2 Encounter for adjustment and management of vascular access device

== ENCOUNTER 2016-07-13 14:20 | Outpatient (CLI) | payer MEDICARE ==
[2016-07-13 14:20] VITALS: BP 112/79
[~2016-07-13 14:20] MED LIST changes: +NITROGLYCERIN0.4 MG SL
[2016-07-20] MEDS ORDERED: BUMETANIDE2 MG PO (10:39)
[2016-07-31] MEDS ORDERED: PLAVIX 75MG TAB75 MG PO (13:57)
[2016-07-31] MEDS ORDERED: ASPIRIN 81MG TA81 MG PO (13:57)
[2016-07-31] MEDS ORDERED: ZITHROMAX Z PA250 MG PO (15:25)
[2016-07-31] MEDS ORDERED: PROMETHAZINE D118 ML PO (15:26)
[2016-08-01] MEDS ORDERED: RANEXA500 M1 PO (16:29)
[2016-08-03] MEDS ORDERED: AZITHROMYCIN250 MG PO (14:14)
[2016-08-21] MEDS ORDERED: PROMETHAZINE HC25 M1 PO (22:31)
[2016-08-21] MEDS ORDERED: ISOSORBIDE MONO60 M1 PO (22:46)
[2016-08-21] MEDS ORDERED: LOPRESSOR 25MG.25 MG PO (22:46)
[2016-09-09] MEDS ORDERED: FUROSEMIDE80 MG PO (22:52)
[2016-09-10] MEDS ORDERED: TORSEMIDE100 MG PO (14:45)
[2016-09-12] MEDS ORDERED: BISOPROLOL 5MG T5 MG PO (09:07)
[2016-09-12] MEDS ORDERED: AMLO2.5T PO (09:08)
== END 2016-07-13 15:00 | disposition home or self-care (01) ==
LOC: COP 14:20
DX: T82.7XXA Infection and inflammatory reaction due to other cardiac and vascular devices, implants and grafts, initial encounter (principal); Z45.2 Encounter for adjustment and management of vascular access device
CPT/HCPCS: G0463

== ENCOUNTER 2016-07-14 13:00 | Outpatient (CLI) | payer MEDICARE ==
[2016-07-20] MEDS ORDERED: BUMETANIDE2 MG PO (10:39)
[2016-07-31] MEDS ORDERED: ASPIRIN 81MG TA81 MG PO (13:57)
[2016-07-31] MEDS ORDERED: PLAVIX 75MG TAB75 MG PO (13:57)
[2016-07-31] MEDS ORDERED: ZITHROMAX Z PA250 MG PO (15:25)
[2016-07-31] MEDS ORDERED: PROMETHAZINE D118 ML PO (15:26)
[2016-08-01] MEDS ORDERED: RANEXA500 M1 PO (16:29)
[2016-08-03] MEDS ORDERED: AZITHROMYCIN250 MG PO (14:14)
[2016-08-21] MEDS ORDERED: PROMETHAZINE HC25 M1 PO (22:31)
[2016-08-21] MEDS ORDERED: LOPRESSOR 25MG.25 MG PO (22:46)
[2016-08-21] MEDS ORDERED: ISOSORBIDE MONO60 M1 PO (22:46)
[2016-09-09] MEDS ORDERED: FUROSEMIDE80 MG PO (22:52)
[2016-09-10] MEDS ORDERED: TORSEMIDE100 MG PO (14:45)
[2016-09-12] MEDS ORDERED: BISOPROLOL 5MG T5 MG PO (09:07)
[2016-09-12] MEDS ORDERED: AMLO2.5T PO (09:08)
== END 2016-07-14 13:30 | disposition home or self-care (01) ==
LOC: COP 13:00
DX: T82.7XXA Infection and inflammatory reaction due to other cardiac and vascular devices, implants and grafts, initial encounter (principal); Z48.01 Encounter for change or removal of surgical wound dressing
CPT/HCPCS: G0463

== ENCOUNTER 2016-07-21 13:33 | Observation (INO) | payer MEDICARE ==
[~2016-07-21] VITALS: Ht 170.2 cm; Wt 104.9 kg
[~2016-07-21 13:33] MED LIST changes: +BUMETANIDE2 MG PO
[2016-07-21 13:34] VITALS: BP 125/68
--- NOTE | 2016-07-21 13:54 | Emergency Room Report ---
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 N Clinical Suspician of Infection? N Mental Status: 1 - Regular (Normal Baseline) Sepsis Risk:Low Sepsis Risk Have you (or family members/close friends) recently traveled outside the [place]? N If Yes, where/when: Have you had exposure to infectious disease within the past month? TB? Other? Specify: Patient seen in ED on 07/20/16 for similar episode; work up negative, including EKG and cardiac enzymes, D Dimer. Patient in elevator in hospital today when had acute SSCP radiating to jaw. Arrives appearing uncomfortable. States has had similar episodes in the past and this is not as severe as prior episodes. She is not SOB and no n/v. Hx stents as well as chronic renal insufficiency. ALLERGIES Coded Allergies: cephalexin (From KEFLEX) (Mild, 06/23/16) meloxicam (From MOBIC) (Mild, 06/23/16) simvastatin (From ZOCOR) (Mild, 06/23/16) penicillin G (06/23/16) Uncoded Allergies: CLOTH TAPE AND SILK TAPE (Mild, I-RASH 07/20/16) Home Medications Reported Medications Cyclobenzaprine Hcl (Flexeril) 10 MG PO BID Pantoprazole Sodium (Protonix 40MG TAB) 40 MG PO DAILY Metoprolol Tartrate (Lopressor) 25 MG PO BID #60 TAB NITROGLYCERIN (Nitrostat) 0.4 MG SL [id number] PRN CHEST PAIN Clonazepam (Clonazepam 1MG) 1 MG PO BIDP PRN NEEDED FOR ANXIETY/SLEEP #60 Bumetanide 2 MG PO DAILY #30 METHADONE HCL (Methadone Hydrochloride) 10 MG PO 5XDAY #150 TAB Isosorbide Mononitrate (Isosorbide Mononitrate ER) 30 MG PO DAILY #30 Losartan Potassium (Losartan 100MG) 100 MG PO DAILY #30 Atorvastatin Calcium 20 MG PO QHS #30 TAB History Medical History General CAD? Yes Angina: Yes [place]: No Hypertension? Yes Hyperlipidemia? Yes CHF? Yes DVT? No PE? No COPD? Yes Asthma? Yes Anemia? No GERD? Yes Gastric ulcers? No GI Bleed? No Hernia? No Thyroid Problems? No Hypothyroidism? No CVA? Yes Seizures? No Diabetes? No Renal Insuffiency? No End Stage Renal Disease? No UTI? Yes Stones? Yes BPH? No GB Disease: Yes Nephritic Syndrome? No Asplenia? No Hepatitis? No Sickle Cell Disease? No Arthritis? Yes Migraines? No Cataracts? No Glaucoma? No MRSA? No HIV? No TB? No Anxiety? No Depression? No Cancer? No More? No Additional hx: DDD of the lumbar spine cellulitis of the left lower leg Immunization Hx Ped.Immunizations UTD Yes DT/Tetanus Unknown Flu 2015-FSN Pneumonia Received In Past Surgical Hx Previous Surgery?Y HYSTERECTOMY R KNEE SURGERY GASTRIC BYPASS FLAP REMOVED FROM ABD CARDIAC STENTS X2 KIDNEY STENTS AND REMOVED PACE MAKER PLACEMENT Family History Family Hx Diabetes Yes CAD Yes Hypertension Yes Hyperlipidemia Yes Cancer Yes TB No Social History Smoking Hx Smoker: Never Smoker Tobacco: No Type N/A Packs/day N/A Alcohol Alcohol: No Review of Systems All Other Systems Reviewed and Negative Cardiovascular see HPI, other (PM recently removed: infected) Physical Exam Vital Signs Vital Signs Date Time Temp Pulse Resp B/P Pulse O2 O2 Flow FiO2 Ox Delivery Rate 07/21 1552 74 18 107/70 95 2 /03 1540 72 18 90/64 97 02/03 1539 72 18 90/65 98 02/03 1500 73 18 98/64 96 02/03 1402 76 18 99/71 96 02/03 1351 18 02/03 1334 97.8 71 18 125/68 92 General Appearance normal appearance, WD/WN, no apparent distress Eye Exam - bilateral eye normal exam, bilateral eye PERRL Neck normal inspection, non-tender, supple Respiratory Status Yes: trachea midline, chest symmetrical. No: respiratory distress, tender on palpation, use of accessory muscles, pain on inspiration, pain on expiration, productive cough. Lung Sounds bilateral: normal breath sounds, lungs clear. Cardiovascular normal exam, regular rate/rhythm, no peripheral edema, no gallop, no JVD, no murmur, no rub, normal peripheral pulses Peripheral Pulses Pulses normal Yes Gastrointestinal normal bowel sounds, normal exam, non tender, soft Extremities non-tender, normal range of motion, normal inspection, normal capillary refill, no calf tenderness, no pedal edema Neurologic alert, normal exam, no motor/sensory deficits, oriented x 3 Glascow Coma Scale Glascow Coma Scale Response Value EYE response: 4 Spontaneously 4 MOTOR response: 6 OBEYS 6 VERBAL response: 5 Oriented & Converses 5 Total 15 Skin intact (ant chest dressing clean/dry), pallor Medical Decision Making LABS/Meds/Orders Pt receiving controlled substance in ED? No [place] was queried for this patient? No Results/Orders Laboratory Tests 07/21/16 1538: Troponin I 0.02 07/21/16 1245: Sodium 140, Potassium 4.7, Chloride 105, Carbon Dioxide 29, BUN 40 H, Creatinine 1.8 H, Estimated Creat Clear 52, Estimated GFR (MDRD) 29 L, Glucose 84, Calcium 8.8, Total Bilirubin 0.1 L, AST 13 L, ALT 16, Alkaline Phosphatase 102, Creatine Kinase 58, CK-MB (CK-2) Rel Index 2.6, CK and CKMB Interp 1.5, Troponin I < 0.02, Total Protein 7.0, Albumin 3.2 L, Globulin 3.8 H, Albumin/ Globulin Ratio 0.8 L, WBC 7.6, RBC 4.15 L, Hgb 11.8 L, Hct 36.2 L, MCV 87.2, RDW 16.1, Plt Count 203, Gran % 59.1, Gran # 4.5, Lymphocytes % 33.9, Monocytes % 7.0, Lymphocytes # 2.6, Monocytes # 0.5, PUBS MCHC 32.6, MCH 28.4 Current Medication Orders Sig/Jaclyn Start time Last Medication Dose Route Stop Time Status Admin Sodium Chloride 1,000 ML .STK-MED ONE 07/21 1542 DC IV Morphine Sulfate 0 .STK-MED ONE 07/21 1541 DC .ROUTE Aspirin 243 MG ONCE ONE 07/21 1400 DCr 07/21 PO 07/21 1401 1352 Nitroglycerin 0.4 MG ONCE ONE 07/21 1345 DC 07/21 SL 07/21 1346 1351 Sodium Chloride 10 ML PRN PRN 07/21 1345 DC IV 07/22 1334 Aspirin 0 .STK-MED ONE 07/21 1338 DCr .ROUTE Orders Procedure Date/time Status TROPONIN I 07/21 1530 Complete HOLTER MONITOR BESSON-48HR 07/21 1515 Active CHEST(2 VIEWS-NOT PORTABLE) 07/21 1510 Active HOLTER MONITOR REQUEST 07/21 1453 Active ELECTROCARDIOGRAM REQUEST 07/21 1335 Active CBC WITH AUTO DIFF 07/21 1335 Complete CARDIAC ENZYMES 07/21 1335 Complete CHEM 12 PROFILE 07/21 1335 Complete 12 LEAD EKG-BESSON (INITIAL) 07/21 UNK Active CM/EKG CM/EKG EKG rate, NSR, rhythm, no evid. of ischemic chgs, no ectopy, normal QRS, normal MT, normal EKG, compared w/(date of old) ( poor R w progression), rate 71 XRAY/CT/US XRAY/CT/US XRAY chest XR interpretation by reviewed by me Xray Results no infiltrates (chronic changes seen 07/20/16), normal heart size, normal lung inflation amol Consult MD Physician Consult Time Called 1445 Reason Pt. Condition, Cardiology eval/care Comments repeat trop 2 hrs, 48 hr Holter, f/u Dr. Figueroa 07/24/16 per d/w Samuel. Progress ED Progress Notes 1 Date 07/21/16 Time 1604 Comment Complete relief s/p NTG x one SL; has PRN NTG already prescribed but didn't have it with her today ED Progress Notes 2 Date 07/21/16 Time 1604 Comment Second troponin normal. Holter placed. Resting comfortably. Departure Departure Time of Disposition 1605 Disposition DC Home or Self Care(routine) Clinical Impression Primary Impression: Stable angina Condition STABLE Referrals FRANK SEGUNDO (Family) Jose Figueroa MD Patient Instructions DI for Angina Additional Instructions Carry your nitroglycerin with you at all times. 48 Holter monitor, see Dr. Figueroa on July 24, 2016, call for appointment. ER MD spoke with Samuel about this today. Discharge Counseling Counseled pt/family regarding diagnosis, test results, medications/RX, home care, follow up needs ED Critical Care Critical Care No at 1600
[2016-07-21 14:09] LABS: HEMOGLOBIN 11.8 g/dL (12.2-16.2)
[2016-07-21 14:10] LABS: LYMPH # 2.6 K/mm3 (0.7-4.5); LYMPH % 33.9 % (10-50.0)
[2016-07-21 14:18] LABS: BUN 40 mg/dL (7-18)
[2016-07-21 14:34] LABS: GFR (ESTIMATED) 29 ML/MIN (59-)
--- NOTE | 2016-07-21 15:06 | RADIOLOGY REPORT PS360 ---
CHEST-PORTABLE HISTORY: Chest pain CP ORDERING PHYSICIAN: My Rodriguez MD PATIENT AGE: 61 years COMPARISON: 07-20-16 FINDINGS: Study is underpenetrated. There are low lung volumes. Patchy density noted in the right upper lobe suspicious for infiltrate. Please correlate clinically. Could be due to combination of hypoventilation and overlying soft tissue attenuation with poor penetration. Consider upright PA and lateral chest for further evaluation. The remaining lungs are clear. IMPRESSION: Suspect patchy right upper lobe infiltrate, see above
--- NOTE | 2016-07-21 16:27 | RADIOLOGY REPORT PS360 ---
CHEST(2 VIEWS-NOT PORTABLE) HISTORY: Chest pain; no fever no cough, follow-up abnormal chest ORDERING PHYSICIAN: My Rodriguez MD PATIENT AGE: 61 years COMPARISON: 07/21/2016 FINDINGS: The cardiomediastinal silhouette and pulmonary vascularity are within normal limits. No lobar consolidation or collapse is evident. Previously noted increased density right upper lobe is less apparent and was likely due to artifact from under penetration. No evidence of pneumothorax. Left upper 70 PICC line is present with the tip in region of SVC. Mild atelectatic changes are present in the right middle lobe. No acute bony abnormalities. IMPRESSION: Mild right middle lobe atelectasis otherwise negative
[2016-07-21 18:51] VITALS: BP 111/64
[2016-07-21 18:52] VITALS: BP 111/64
[2016-07-21 19:45] VITALS: BP 107/63
[2016-07-21 19:50] VITALS: BP 113/75
[2016-07-21 23:43] VITALS: BP 98/70
[2016-07-22] VITALS (9 sets, daily range): BP systolic 84–103; BP diastolic 47–78
[2016-07-22 06:52] LABS: LYMPH # 2.7 K/mm3 (0.7-4.5); LYMPH % 41.7 % (10-50.0)
[2016-07-22 07:22] LABS: HEMOGLOBIN 10.6 g/dL (12.2-16.2)
--- NOTE | 2016-07-22 08:44 | Discharge Summary Standard ---
Demographics: Admit date: 08/11/16 Chief complaint: Chest pain PRIMARY DIAGNOSIS: ANGINA Allergies: Coded Allergies: cephalexin (From KEFLEX) (Mild, 07/21/16) meloxicam (From MOBIC) (Mild, 07/21/16) simvastatin (From ZOCOR) (Mild, 07/21/16) penicillin G (07/21/16) Uncoded Allergies: CLOTH TAPE AND SILK TAPE (Mild, I-RASH 07/20/16) History of present illness: History of present illness: 61-year-old white female with recent complicated course RT cardiology services, who's had recurrent chest pain and orthostasis with presyncope. Pacemaker was placed for sinus node dysfunction about 6 weeks ago, but in spite of its efficacy RE chest pain syndrome and orthostasis symptoms this was removed because of a significant hematoma that had developed that became infected. She currently does not have a pacemaker and is going through evaluation with cardiology service to see about the need for replacement and timing of replacement given her recent skin infection/severe pacemaker pocket abscess. She came to the emergency department yesterday for the second time in 3 days for chest pain. She was evaluated with electrocardiogram and troponin testing that was repeated, and discharged from the ER but in the parking lot getting into her car had another episode of spreading chest pain that starts in the upper epigastric area and spreads to both costal margins in the upper chest and down both arms. She reports that this is the same pain that she had before her pacemaker was placed but apparently pacemaker placement and activation resolve these episodes of pain. She came back in the emergency department and it was decided to keep her overnight for monitoring. Also of note, she currently is wearing a Holter monitor that was placed early yesterday morning to evaluate her need for pacemaker implantation. She continues to wear this in the hospital setting. Currently she is pain-free, resting comfortably. Past medical history: Family HX Diabetes Yes CAD Yes Hypertension Yes Hyperlipidemia Yes Cancer Yes TB No Immunization HX Ped.Immunizations UTD Yes DT/Tetanus > 10 Years Ago Flu 2015-FSN Pneumonia Received In Past TB Test in last year No General CAD? Yes Angina: Yes [place]: No Hypertension? Yes Hyperlipidemia? Yes CHF? Yes DVT? No PE? No COPD? Yes Asthma? Yes Anemia? No GERD? Yes Gastric ulcers? No GI Bleed? No Hernia? No Thyroid Problems? No Hypothyroidism? No CVA? Yes Seizures? No Diabetes? No Renal Insuffiency? No UTI? Yes Stones? Yes BPH? No GB Disease: Yes Nephritic Syndrome? No Asplenia? No Hepatitis? No Sickle Cell Disease? No Arthritis? Yes Migraines? No Cataracts? No Glaucoma? No MRSA? No HIV? No TB? No Anxiety? No Depression? No Cancer? No More? Yes Additional hx: DDD of the lumbar spine cellulitis of the left lower leg Past Surgical HX Previous Surgery?Y HYSTERECTOMY R KNEE SURGERY GASTRIC BYPASS FLAP REMOVED FROM ABD CARDIAC STENTS X2 KIDNEY STENTS AND REMOVED PACE MAKER PLACEMENT Current home meds: Reported Medications Cyclobenzaprine Hcl (Flexeril) 10 MG PO BID Pantoprazole Sodium (Protonix 40MG TAB) 40 MG PO DAILY Metoprolol Tartrate (Lopressor) 25 MG PO BID #60 TAB NITROGLYCERIN (Nitrostat) 0.4 MG SL [id number] PRN CHEST PAIN Clonazepam (Clonazepam 1MG) 1 MG PO BIDP PRN NEEDED FOR ANXIETY/SLEEP #60 Bumetanide 2 MG PO DAILY #30 METHADONE HCL (Methadone Hydrochloride) 10 MG PO 5XDAY #150 TAB Isosorbide Mononitrate (Isosorbide Mononitrate ER) 30 MG PO DAILY #30 Losartan Potassium (Losartan 100MG) 100 MG PO DAILY #30 Atorvastatin Calcium 20 MG PO QHS #30 TAB Social Hx: Smoking HX Tobacco No Type N/A Packs/day N/A Are you/the child exposed to second-hand smoke: No Alcohol Alcohol: No Hx of Drug Use Drug Use? No Patien't marital status is Patient's support system is good Review of systems: Constitutional malaise, weakness. No: fever. Respiratory see HPI. Cardiovascular see HPI Gastrointestinal/Abdominal No no symptoms reported Genitourinary No: no symptoms reported. Musculoskeletal No: no symptoms reported. Neurological No: see HPI. Exam: Lab data for last 24 hours: Laboratory Tests 07/22/16 0620: Sodium 142, Potassium 4.2, Chloride 108 H, Carbon Dioxide 30, BUN 37 H, Creatinine 1.4 H, Estimated Creat Clear 70, Estimated GFR (MDRD) 38 L, Glucose 98, Calcium 8.4 L, WBC 6.5, RBC 3.83 L, Hgb 10.6 L, Hct 34.6 L, MCV 90.4, RDW 15.2, Plt Count 194, MPV 10.0, Gran % 47.5, Gran # 3.1, Lymphocytes % 41.7, Monocytes % 5.3, Eosinophils % 4.7, Basophils % 0.8, Lymphocytes # 2.7, Monocytes # 0.3, Eosinophils # 0.3, Basophils # 0.1, PUBS MCHC 30.6 L, MCH 27.7 07/21/16 1850: Troponin I 0.02 07/21/16 1538: Troponin I 0.02 07/21/16 1245: Sodium 140, Potassium 4.7, Chloride 105, Carbon Dioxide 29, BUN 40 H, Creatinine 1.8 H, Estimated Creat Clear 52, Estimated GFR (MDRD) 29 L, Glucose 84, Calcium 8.8, Total Bilirubin 0.1 L, AST 13 L, ALT 16, Alkaline Phosphatase 102, Creatine Kinase 58, CK-MB (CK-2) Rel Index 2.6, CK and CKMB Interp 1.5, Troponin I < 0.02, Total Protein 7.0, Albumin 3.2 L, Globulin 3.8 H, Albumin/ Globulin Ratio 0.8 L, WBC 7.6, RBC 4.15 L, Hgb 11.8 L, Hct 36.2 L, MCV 87.2, RDW 16.1, Plt Count 203, Gran % 59.1, Gran # 4.5, Lymphocytes % 33.9, Monocytes % 7.0, Lymphocytes # 2.6, Monocytes # 0.5, PUBS MCHC 32.6, MCH 28.4 Admission vital signs: 1ST Vital Signs Result Date Time Pulse Ox 92 07/21 1334 B/P 125/68 07/21 1334 Temp 97.8 07/21 1334 Pulse 71 07/21 1334 Resp 18 07/21 1334 O2 Flow Rate 2 07/21 1552 O2 Delivery ROOM AIR 07/21 1851 Additional information: Patient is pleasant, morbidly obese with BMI greater than 35, alert, oriented 3. Oropharynx clear, no JVD. Heart rate regular. Soft 2/6 holosystolic murmur as previously noted. Pacemaker wound site is open and being packed on a daily basis. Good granulation tissue, no stigmata of current infection with good healing and exudate around the edge of the wound. No distal red streaking. Abdomen is soft and nontender, no peripheral edema or clubbing. Neurologic exam intact with symmetric cranial nerves and good movement of all 4 extremities. Hospital Course Hospital Course: Patient was admitted overnight and troponins were negative for myocardial infarction and her electrocardiograms were unchanged. This morning she is comfortable. 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 I've instructed her to be sure that she is very detailed about her diary journal entries and to make sure she returns a Holter monitor so that her cardiovascular invasive specialist can evaluate her need for further pacemaker. Her chest pain has responded to nitroglycerin and she has a good supply of this at home. I instructed her on needs/situations in which she should return to the emergency department. Medications Medications: Discharge meds are as noted. Follow up Follow up in office in: 2 DAYS with: Jose Figueroa MD at 0844
[2016-07-31] MEDS ORDERED: PLAVIX 75MG TAB75 MG PO (13:57)
[2016-07-31] MEDS ORDERED: ASPIRIN 81MG TA81 MG PO (13:57)
[2016-07-31] MEDS ORDERED: ZITHROMAX Z PA250 MG PO (15:25)
[2016-07-31] MEDS ORDERED: PROMETHAZINE D118 ML PO (15:26)
[2016-08-01] MEDS ORDERED: RANEXA500 M1 PO (16:29)
[2016-08-03] MEDS ORDERED: AZITHROMYCIN250 MG PO (14:14)
[2016-08-21] MEDS ORDERED: PROMETHAZINE HC25 M1 PO (22:31)
[2016-08-21] MEDS ORDERED: LOPRESSOR 25MG.25 MG PO (22:46)
[2016-08-21] MEDS ORDERED: ISOSORBIDE MONO60 M1 PO (22:46)
[2016-09-09] MEDS ORDERED: FUROSEMIDE80 MG PO (22:52)
[2016-09-10] MEDS ORDERED: TORSEMIDE100 MG PO (14:45)
[2016-09-12] MEDS ORDERED: BISOPROLOL 5MG T5 MG PO (09:07)
[2016-09-12] MEDS ORDERED: AMLO2.5T PO (09:08)
== END 2016-07-22 11:36 | disposition home or self-care (01) ==
LOC: ER 13:33 → 2ND 17:52
PROVIDERS: Emergency Medicine
DX: I20.9 Angina pectoris, unspecified (principal); R07.9 Chest pain, unspecified; T82.7XXA Infection and inflammatory reaction due to other cardiac and vascular devices, implants and grafts, initial encounter; I44.2 Atrioventricular block, complete; I47.2 Ventricular tachycardia; I25.110 Atherosclerotic heart disease of native coronary artery with unstable angina pectoris; J44.9 Chronic obstructive pulmonary disease, unspecified; G89.4 Chronic pain syndrome; I10 Essential (primary) hypertension
CPT/HCPCS: G0378; G0463

== ENCOUNTER 2016-08-07 13:00 | Outpatient (CLI) | payer MEDICARE ==
[~2016-08-07 13:00] MED LIST changes: +AZITHROMYCIN250 MG PO; +PLAVIX 75MG TAB75 MG PO; +PROMETHAZINE D118 ML PO; +RANEXA500 M1 PO
[2016-08-21] MEDS ORDERED: PROMETHAZINE HC25 M1 PO (22:31)
[2016-08-21] MEDS ORDERED: ISOSORBIDE MONO60 M1 PO (22:46)
[2016-08-21] MEDS ORDERED: LOPRESSOR 25MG.25 MG PO (22:46)
[2016-09-09] MEDS ORDERED: FUROSEMIDE80 MG PO (22:52)
[2016-09-10] MEDS ORDERED: TORSEMIDE100 MG PO (14:45)
[2016-09-12] MEDS ORDERED: BISOPROLOL 5MG T5 MG PO (09:07)
[2016-09-12] MEDS ORDERED: AMLO2.5T PO (09:08)
== END 2016-08-07 13:30 | disposition home or self-care (01) ==
LOC: COP 13:00
DX: T82.7XXA Infection and inflammatory reaction due to other cardiac and vascular devices, implants and grafts, initial encounter (principal); Z48.01 Encounter for change or removal of surgical wound dressing

== ENCOUNTER 2016-10-15 18:12 | Emergency (ER) | payer MEDICARE ==
[~2016-10-15] VITALS: Ht 170.2 cm; Wt 101.6 kg
[~2016-10-15 18:12] MED LIST changes: +AMLO2.5T PO; +BISOPROLOL 5MG T5 MG PO; +FUROSEMIDE80 MG PO; +ISOSORBIDE MONO60 M1 PO; +PROMETHAZINE HC25 M1 PO; +TORSEMIDE100 MG PO
[2016-10-15 18:27] LABS: HEMOGLOBIN 10.5 g/dL (12.2-16.2); LYMPH # 2.2 K/mm3 (0.7-4.5); LYMPH % 35.1 % (10-50.0)
--- NOTE | 2016-10-15 18:28 | Emergency Room Report ---
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 N Clinical Suspician of Infection? N Mental Status: 1 - Regular (Normal Baseline) Sepsis Risk:Low Sepsis Risk Have you (or family members/close friends) recently traveled outside the [place]? N If Yes, where/when: Have you had exposure to infectious disease within the past month? N TB? Other? Specify: Source patient, RN notes reviewed Exam Limitations no limitations Comment [facility] of substernal chest pain that started about 1 hour ago while just walking through her house. She took 1 NTG when the chest pain started and took 1 baby ASA this AM and now comes to the ED stating her Chest pain is now rated 4/10 when it was 8/10. She has a history of CAD and has 3 stents and had a pacemaker put in in Apr but had to be removed in May. because it got infected. She is morbidly obese inspite of having had a Gastric Bypass in the past. She is not diaphoretic and her EKG does not show anything at this time that looks acute Cardiac Chest Pain Chest pain indicative of cardiac Yes Timing/Duration 1 hour Severity/Quality moderate ALLERGIES Coded Allergies: adhesive tape (Intermediate, I-RASH +CLOTH TAPE 09/10/16) cephalexin (From KEFLEX) (Mild, 08/21/16) meloxicam (From MOBIC) (Mild, 08/21/16) simvastatin (From ZOCOR) (Mild, 08/21/16) penicillin G (08/21/16) Home Medications Active Scripts BISOPROLOL FUMARATE (Bisoprolol 5MG) 5 MG PO DAILY #30 TAB Ref 1 Prov: 09/12/16 Amlodipine Besylate 2.5 MG PO DAILY #30 TAB Ref 1 Prov: 09/12/16 Reported Medications Pantoprazole Sodium (Protonix 40MG TAB) 40 MG PO QHS Cyclobenzaprine Hcl (Flexeril) 10 MG PO BID Isosorbide Mononitrate (Isosorbide Mononitrate ER) 60 MG PO DAILY #30 TAB PROMETHAZINE HCL (Promethazine 25mg Tab) 12.5 MG PO PRN PRN NAUSEA Torsemide 50 MG PO BID #30 TAB NITROGLYCERIN (Nitrostat) 0.4 MG SL [id number] PRN CHEST PAIN Clonazepam (Clonazepam 1MG) 1 MG PO BIDP PRN NEEDED FOR ANXIETY/SLEEP #60 METHADONE HCL (Methadone Hydrochloride) 10 MG PO 5XDAY #150 TAB Atorvastatin Calcium 20 MG PO QHS #30 TAB ASPIRIN (Aspirin) 81 MG PO DAILY CLOPIDOGREL BISULFATE (PLAVIX) 75 MG PO DAILY History Medical History General CAD? Yes Angina: Yes PR: No Hypertension? Yes Hyperlipidemia? Yes CHF? Yes DVT? No PE? No COPD? Yes Asthma? Yes Anemia? No GERD? Yes Gastric ulcers? No GI Bleed? No Hernia? Yes Thyroid Problems? No Hypothyroidism? No CVA? Yes Seizures? No Diabetes? No Renal Insuffiency? No End Stage Renal Disease? No UTI? Yes Stones? Yes GB Disease: Yes Nephritic Syndrome? No Asplenia? No Hepatitis? No Sickle Cell Disease? No Arthritis? Yes Migraines? No Cataracts? No Glaucoma? No MRSA? No HIV? No TB? No Anxiety? No Depression? No Cancer? No More? Yes Additional hx: 1. DDD of the lumbar spine 2. Cellulitis of the left lower leg 3. Pacemaker removal d/t infection 07/16/2016 4. Cardiac stents x 3 5. Neuropathy 6. 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 Family History Family Hx Diabetes Yes CAD Yes Hypertension Yes Hyperlipidemia Yes Cancer Yes TB No Social History Smoking Hx Smoker: Never Smoker Tobacco: No Packs/day N/A Alcohol Alcohol: No Review of Systems All Other Systems Reviewed and Negative Constitutional no symptoms reported, see HPI Cardiovascular see HPI Physical Exam Vital Signs Vital Signs Date Time Temp Pulse Resp B/P Pulse O2 O2 Flow FiO2 Ox Delivery Rate 10/15 1952 74 18 146/67 94 10/15 1857 72 18 146/74 94 10/15 182 77 18 131/77 92 10/15 1824 18 10/16 1811 98.1 77 18 131/86 93 General Appearance normal appearance, WD/WN, no apparent distress, obese Respiratory Status No: respiratory distress. Lung Sounds bilateral: normal breath sounds. 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 No Results/Orders Laboratory Tests 10/15/161829: B-Natriuretic Peptide 188 H, PT 10.4, INR 0.97 10/15/161819: Sodium 143, Potassium 3.6, Chloride 104, Carbon Dioxide 31, BUN 29 H, Creatinine 1.9 H, Estimated Creat Clear 50, Estimated GFR (MDRD) 27 L, Glucose 108 H, Calcium 8.0 L, Total Bilirubin 0.4, AST 17, ALT 19, Alkaline Phosphatase 113, Creatine Kinase 95, CK-MB (CK-2) Rel Index 0.9, CK and CKMB Interp 0.9, Troponin I < 0.02, Total Protein 7.8, Albumin 3.2 L, Globulin 4.6 H, Albumin/Globulin Ratio 0.7 L, WBC 6.2, RBC 3.63 L, Hgb 10.5 L, Hct 31.7 L , MCV 87.3, RDW 15.2, Plt Count 244, MPV 7.6, Gran % 54.2, Gran # 3.4, Lymphocytes % 35.1, Monocytes % 5.6, Eosinophils % 4.1, Basophils % 1.0, Lymphocytes # 2.2, Monocytes # 0.3, Eosinophils # 0.3, Basophils # 0.1, PUBS MCHC 33.1, MCH 28.9 Current Medication Orders Sig/Jaclyn Start time Last Medication Dose Route Stop Time Status Admin Aspirin 243 MG ONCE ONE 10/15 1829 DCr 10/15 PO 10/15 Nitroglycerin 0.4 MG [id number] PRN 10/15 1829 AC 10/15 SL 1824 Aspirin 0 .STK-MED ONE 10/15 1816 DCr .ROUTE Sodium Chloride 10 ML PRN PRN 10/15 1814 AC IV 10/16 1814 Orders Procedure Date/time Status PROTHROMBIN TIME 10/15 182 Complete BRAIN NATRIURETIC PEPTIDE 10/15 182 Complete ELECTROCARDIOGRAM REQUEST 10/16 1815 Active IV SALINE LOCK 10/16 1815 Active COMPLETE METABOLIC PANEL 10/16 1815 Complete CBC WITH AUTO DIFF 10/16 1815 Complete CARDIAC ENZYMES 10/16 1815 Complete 12 LEAD EKG-BESSON (INITIAL) 10/15 UNK Active CM/EKG CM/EKG EKG rate (77), NSR, NSR with LAFB and poor R wave progression Departure Departure Time of Disposition 2005 Disposition DC Home or Self Care(routine) Clinical Impression Primary Impression: CAD (coronary artery disease) Qualifiers: Coronary Disease-Associated Artery/Lesion type: unspecified vessel or lesion type [place] vs. transplanted heart: [place] heart Associated angina: with unspecified angina Qualified Code: I25.119 - Atherosclerotic heart disease of [place] coronary artery with unspecified angina pectoris Secondary Impressions: Atypical chest pain Condition STABLE Referrals Jose Figueroa MD Patient Instructions DI for Atypical Chest Pain Additional Instructions Advised to followup with Dr. Figueroa for re-evaluation but do not see anything acute at this time Discharge Counseling Counseled pt/family regarding diagnosis, test results, home care, follow up needs ED Critical Care Critical Care No If Critical Care minutes are documented, the time involved in the performance of seperately reportable procedures was not counted toward critical care time documented. I directly delivered medical care to this critically ill and/or injured patient. Timely evaluation and treatment was necessary to address the significant organ system(s) dysfunction present in this patient. at 2008
--- NOTE | 2016-10-15 18:28 | Emergency Room Report ---
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 N Clinical Suspician of Infection? N Mental Status: 1 - Regular (Normal Baseline) Sepsis Risk:Low Sepsis Risk Have you (or family members/close friends) recently traveled outside the [place]? N If Yes, where/when: Have you had exposure to infectious disease within the past month? N TB? Other? Specify: Source patient, RN notes reviewed Exam Limitations no limitations Comment [facility] substernal chest pain that started about 1 hour ago while just walking through her house. She took 1 NTG when the chest pain started and took 1 baby ASA this AM and now comes to the ED stating her Chest pain is now rated 4/10 when it was 8/10. She has a history of CAD and has 3 stents and had a pacemaker put in in Apr but had to be removed in May. because it got infected. She is morbidly obese inspite of having had a Gastric Bypass in the past. She is not diaphoretic and her EKG does not show anything at this time that looks acute Cardiac Chest Pain Chest pain indicative of cardiac Yes Timing/Duration 1 hour Severity/Quality moderate ALLERGIES Coded Allergies: adhesive tape (Intermediate, I-RASH +CLOTH TAPE 09/10/16) cephalexin (From KEFLEX) (Mild, 08/21/16) meloxicam (From MOBIC) (Mild, 08/21/16) simvastatin (From ZOCOR) (Mild, 08/21/16) penicillin G (08/21/16) Home Medications Active Scripts BISOPROLOL FUMARATE (Bisoprolol 5MG) 5 MG PO DAILY #30 TAB Ref 1 Prov: 09/12/16 Amlodipine Besylate 2.5 MG PO DAILY #30 TAB Ref 1 Prov: 09/12/16 Reported Medications Pantoprazole Sodium (Protonix 40MG TAB) 40 MG PO QHS Cyclobenzaprine Hcl (Flexeril) 10 MG PO BID Isosorbide Mononitrate (Isosorbide Mononitrate ER) 60 MG PO DAILY #30 TAB PROMETHAZINE HCL (Promethazine 25mg Tab) 12.5 MG PO PRN PRN NAUSEA Torsemide 50 MG PO BID #30 TAB NITROGLYCERIN (Nitrostat) 0.4 MG SL [id number] PRN CHEST PAIN Clonazepam (Clonazepam 1MG) 1 MG PO BIDP PRN NEEDED FOR ANXIETY/SLEEP #60 METHADONE HCL (Methadone Hydrochloride) 10 MG PO 5XDAY #150 TAB Atorvastatin Calcium 20 MG PO QHS #30 TAB ASPIRIN (Aspirin) 81 MG PO DAILY CLOPIDOGREL BISULFATE (PLAVIX) 75 MG PO DAILY History Medical History General CAD? Yes Angina: Yes [place]: No Hypertension? Yes Hyperlipidemia? Yes CHF? Yes DVT? No PE? No COPD? Yes Asthma? Yes Anemia? No GERD? Yes Gastric ulcers? No GI Bleed? No Hernia? Yes Thyroid Problems? No Hypothyroidism? No CVA? Yes Seizures? No Diabetes? No Renal Insuffiency? No End Stage Renal Disease? No UTI? Yes Stones? Yes GB Disease: Yes Nephritic Syndrome? No Asplenia? No Hepatitis? No Sickle Cell Disease? No Arthritis? Yes Migraines? No Cataracts? No Glaucoma? No MRSA? No HIV? No TB? No Anxiety? No Depression? No Cancer? No More? Yes Additional hx: 1. DDD of the lumbar spine 2. Cellulitis of the left lower leg 3. Pacemaker removal d/t infection 07/16/2016 4. Cardiac stents x 3 5. Neuropathy 6. 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 Family History Family Hx Diabetes Yes CAD Yes Hypertension Yes Hyperlipidemia Yes Cancer Yes TB No Social History Smoking Hx Smoker: Never Smoker Tobacco: No Packs/day N/A Alcohol Alcohol: No Review of Systems All Other Systems Reviewed and Negative Constitutional no symptoms reported, see HPI Cardiovascular see HPI Physical Exam Vital Signs Vital Signs Date Time Temp Pulse Resp B/P Pulse O2 O2 Flow FiO2 Ox Delivery Rate 10/15 1952 74 18 146/67 94 10/15 1857 72 18 146/74 94 10/15 182 77 18 131/77 92 10/15 1824 18 10/16 1811 98.1 77 18 131/86 93 General Appearance normal appearance, WD/WN, no apparent distress, obese Respiratory Status No: respiratory distress. Lung Sounds bilateral: normal breath sounds. 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 No Results/Orders Laboratory Tests 10/15/161829: B-Natriuretic Peptide 188 H, PT 10.4, INR 0.97 10/15/161819: Sodium 143, Potassium 3.6, Chloride 104, Carbon Dioxide 31, BUN 29 H, Creatinine 1.9 H, Estimated Creat Clear 50, Estimated GFR (MDRD) 27 L, Glucose 108 H, Calcium 8.0 L, Total Bilirubin 0.4, AST 17, ALT 19, Alkaline Phosphatase 113, Creatine Kinase 95, CK-MB (CK-2) Rel Index 0.9, CK and CKMB Interp 0.9, Troponin I < 0.02, Total Protein 7.8, Albumin 3.2 L, Globulin 4.6 H, Albumin/Globulin Ratio 0.7 L, WBC 6.2, RBC 3.63 L, Hgb 10.5 L, Hct 31.7 L , MCV 87.3, RDW 15.2, Plt Count 244, MPV 7.6, Gran % 54.2, Gran # 3.4, Lymphocytes % 35.1, Monocytes % 5.6, Eosinophils % 4.1, Basophils % 1.0, Lymphocytes # 2.2, Monocytes # 0.3, Eosinophils # 0.3, Basophils # 0.1, PUBS MCHC 33.1, MCH 28.9 Current Medication Orders Sig/Jaclyn Start time Last Medication Dose Route Stop Time Status Admin Aspirin 243 MG ONCE ONE 10/15 1829 DCr 10/15 PO 10/15 Nitroglycerin 0.4 MG [id number] PRN 10/15 1829 AC 10/15 SL 1824 Aspirin 0 .STK-MED ONE 10/15 1816 DCr .ROUTE Sodium Chloride 10 ML PRN PRN 10/15 1814 AC IV 10/16 1814 Orders Procedure Date/time Status PROTHROMBIN TIME 10/15 182 Complete BRAIN NATRIURETIC PEPTIDE 10/15 182 Complete ELECTROCARDIOGRAM REQUEST 10/16 1815 Active IV SALINE LOCK 10/16 1815 Active COMPLETE METABOLIC PANEL 10/16 1815 Complete CBC WITH AUTO DIFF 10/16 1815 Complete CARDIAC ENZYMES 10/16 1815 Complete 12 LEAD EKG-BESSON (INITIAL) 10/15 UNK Active CM/EKG CM/EKG EKG rate (77), NSR, NSR with LAFB and poor R wave progression Departure Departure Time of Disposition 2005 Disposition DC Home or Self Care(routine) Clinical Impression Primary Impression: CAD (coronary artery disease) Qualifiers: Coronary Disease-Associated Artery/Lesion type: unspecified vessel or lesion type [place] vs. transplanted heart: [place] heart Associated angina: with unspecified angina Qualified Code: I25.119 - Atherosclerotic heart disease of [place] coronary artery with unspecified angina pectoris Secondary Impressions: Atypical chest pain Condition STABLE Referrals Jose Figueroa MD Patient Instructions DI for Atypical Chest Pain Additional Instructions Advised to followup with Dr. Figueroa for re-evaluation but do not see anything acute at this time Discharge Counseling Counseled pt/family regarding diagnosis, test results, home care, follow up needs ED Critical Care Critical Care No If Critical Care minutes are documented, the time involved in the performance of seperately reportable procedures was not counted toward critical care time documented. I directly delivered medical care to this critically ill and/or injured patient. Timely evaluation and treatment was necessary to address the significant organ system(s) dysfunction present in this patient. at 2008
[2016-10-15 18:57] LABS: BUN 29 mg/dL (7-18); GFR (ESTIMATED) 27 ML/MIN (59-)
--- NOTE | 2016-10-15 19:10 | RADIOLOGY REPORT PS360 ---
CHEST-PORTABLE COMPARISON: Portable upright chest 09/09/2016 HISTORY: S pain TECHNIQUE: Portable upright chest FINDINGS: The patient is rather large and this is a somewhat poor inspiration. However the lung peña are grossly clear of infiltrate. Cardiac size is normal considering the body habitus and the vascularity is normal. There is no pleural fluid. IMPRESSION: Somewhat poor inspiration otherwise grossly negative portable chest
[2016-10-15 20:18] VITALS: BP 146/67
--- OUTSIDE RECORDS SUMMARY | 2016-10-16 07:56 | External Medical Summary Rpt ---
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 COMPL 0 RADIOLOGY SURENDRA AQT ABD W/S/E/D VIEWS 1 VIEW CH CHLORIDE 31982 [facility] BLD [address] [place] [address] CREATINE 87694 [facility] KINASE [address] [place] [address] TOTAL CREATININ 42556 [facility] BLOOD [address] [place] [address] RADIOLOGI 02698 [place] VINNIE MAT C 0 RADIOLOGY EXAMINATI ON CHEST SINGLE VIEW FRONTAL THER 81901 [facility] PROPH/DX [address] [place] [address] NJX IV PUSH SINGLE/1S T SBST/DRUG POTASSIUM [address] PLASMA/[place] [address] [facility] UREA [address] [place] [address] NITROGEN QUANTITAT STEFANO CREATINE 58522 [facility] KINASE MB [address] [place] [address] FRACTION ONLY INTRDUCR/ C1894 [facility] SHEATH [address] [place] [address] NOT GUID INTRACARD EP NON-LASR PLCMT G0269 [facility] OCCL DEVC [address] [place] [address] ROHAN/ART POST SURG/INTR VNL PROC ECG 68461 [facility] J ROUTINE 0 [place] ECG CLINIC W/LEAST PSC 12 LDS I&R ONLY BLOOD 59339 [facility] COUNT [address] [place] [address] COMPLETE AUTOMATED CLOSURE C1760 [facility] DEVICE [address] [place] [address] [place] [address] CARDIOLOG YARELY C-CATHJ 0 Y JR GAR F/SLCTV C ASSOCIATE ANGRPH S OF [facility] I SI&R 08392 CARDIOLOG YARELY F/NJX PX 0 Y JR GAR DURING ASSOCIATE C-CATHJ S OF [facility] VENTR&/AT R ANGRPH I SI&R 17062 CARDIOLOG YARELY F/NJX PX 0 Y JR GAR DURING ASSOCIATE C-CATHJ S OF [facility] PULM&/[place] [address] [facility] TROPONIN [address] [place] [address] QUANTITAT STEFANO SODIUM [address] PLASMA OR WHOLE BLOOD OBSERVATI 64276 CARDIOLOG LORRIE ON/INPATI 0 Y ADR ENT ASSOCIATE [facility] CARE 55 MINUTES INJECTION 24749 CARDIOLOG YARELY CARDIAC 0 Y JR GAR CATHJ L ASSOCIATE VENTR/L S OF [facility] ATR ANGIOGRAP H ECG 26888 [facility] ROUTINE [address] [place] [address] ECG W/LEAST 12 LDS TRCG ONLY W/O I&R L HRT 92425 CARDIOLOG YARELY CATHETERI 0 Y JR AL MURRIETA ASSOCIATE [facility] S [facility] E BRACHIAL PERQ BLOOD 35856 [facility] GASES ANY [address] [place] [address] COMBINATI ON PH PCO2 PO2 CO2 HCO3 URNLS DIP [address] STICK/TAB LET REAGENT AUTO MICROSCOP Y GLUCOSE 40918 [facility] QUANTITAT [address] [place] [address] STEFANO BLOOD XCPT REAGENT STRIP THERAPEUT 65467 [facility] IC 0 [place] PROPHYLAC TIC/DX INJECTION SUBQ/IM AVULSION 82673 [facility] NAIL 0 [facility] PLATE PARTIAL/C OMPLETE SIMPLE 1 RADEX TOE 55220 [facility] MINIMUM 0 [place] 2 VIEWS BASIC 09729 TALIB SEGUNDO METABOLIC 0 FAMILY CHU Ivan PANEL MEDICINE CALCIUM @ TATES TOTAL [place] INJECTION J3420 TALIB SEGUNDO, VIT B-12 0 FAMILY CHU Ivan MEDICINE CYANOCOBA @ TATES SID TO [place] 1000 MCG THERAPEUT 74236 T[facility] SEGUNDO IC 0 FAMILY CHU Ivan PROPHYLAC MEDICINE TIC/DX @ TATES INJECTION [place] SUBQ/[place] [address] [facility] SEGUNDO THYROID 0 FAMILY CHU Ivan STIMULATI MEDICINE NG @ TATES HORMONE [place] TSH COLLECTIO 22027 Maverick DIEZ VENOUS 0 FAMILY CHU Ivan BLOOD MEDICINE VENIPUNCT @ TATES URE [place] SEDIMENTA 51075 [facility] OF TION RATE 0 [facility] RBC AUTOMATED BLOOD 87839 [facility] SEGUNDO COUNT 0 FAMILY FLORES COMPLETE MEDICINE AUTO&AUTO @ TA DIFRNTL WBC BLOOD 00090 [facility] SEGUNDO, COUNT 0 FAMILY FLORESN Moncho COMPLETE MEDICINE AUTO&AUTO @ TATES DIFRNTL [place] WBC COLLECTIO 56724 Maverick DIEZ VENOUS 0 FAMILY CHU Ivan BLOOD MEDICINE VENIPUNCT @ [place] [address] TALIB SEGUNDO THYROID 0 FAMILY CHU Ivan STIMULATI MEDICINE NG @ TATES HORMONE [place] TSH COMPREHEN 55926 TALIB SEGUNDO SIVE 0 FAMILY CHU Ivan METABOLIC MEDICINE PANEL @ TATES [place] THERAPEUT 54680 TALIB SEGUNDO, IC 0 FAMILY CHU Ivan PROPHYLAC MEDICINE TIC/DX @ TATES INJECTION [place] SUBQ/IM INJECTION J3420 TALIB SEGUNDO VIT B-12 0 FAMILY CHU Ivan MEDICINE CYANOCOBA @ TATES SID TO [place] 1000 MCG INJECTION J3420 TALIB SEGUNDO VIT B-12 0 FAMILY CHU Ivan MEDICINE CYANOCOBA @ TATES SID TO [place] 1000 MCG THERAPEUT 39086 TALIB SEGUNDO, IC 0 FAMILY CHU Ivan PROPHYLAC MEDICINE TIC/DX @ TATES INJECTION [place] SUBQ/IM HOSPITAL 00277 [facility], DISCHARGE 0 INPATIENT [facility] MEDICINE MANAGEMEN ASSOC T 30 MIN/< ECG 55311 TALIB ROY, ROUTINE 0 FAMILY HUY A ECG MEDICINE W/LEAST @ TATES 12 LDS [place] W/I&R SBSQ 89751 [facility] 0 INPATIENT [facility] 25 ASSOC MINUTES SBSQ 89895 [facility] 0 [facility]PATIENT [facility] 15 ASSOC MINUTES SBSQ 06634 [facility] 0 L SURGIAL [facility] CARE/DAY 15 ASSOCIATE MINUTES S SBSQ 21285 [facility] 0 INPATIENT [facility] MEDICINE 25 ASSOC MINUTES LEVEL III 97781 MICK JOSE MANUEL, SURG 0 [facility]Y CLINIC PSC GROSS&KEITH ROSCOPIC EXAM LAPAROSCO 45122 [facility] 0 JESSICA Temple CHOLECYST SURGICAL ECTOMY ASSOCIATE S ANES 86794 ANESTHESI POWERS, INTRAPERI 0 Sara Montaño TONEAL ASSOCIATE UPPER S, PSC ABDOMEN W/LAPS NOS ECG 84995 INTERNAL KO, ROUTINE 0 MED MAUREEN ECG ASSOCIATE W/LEAST S 12 LDS I&R ONLY LAPAROSCO 5451 [facility] PIC LYSIS 0 [facility] L ADHESIONS LAPAROSCO 5123 [facility] PIC 0 HOSPITAL HOSPITAL CHOLECYST ECTOMY INITIAL 49066 [facility] 0 [facility] CARE/DAY SURGICAL 50 ASSOCIATE MINUTES S SBSQ 92996 [facility] 0 INPATIENT CARE/DAY MEDICINE 25 ASSOC MINUTES SBSQ 50471 [facility] 0 [facility] CARE/DAY 15 ASSOCIATE MINUTES S SBSQ 26893 [facility] 0 [facility] CARE/DAY 15 ASSOCIATE MINUTES S SBSQ 61962 [facility] 0 INPATIENT CARE/DAY MEDICINE 25 ASSOC MINUTES HEPATBL 03841 [facility] [place] JONASERFIE DUX SYS 0 RADIOLOGY LD, A D IMG GLBLDR 52895 [facility] [place] WE[place] ABDOMINAL 0 RADIOLOGY LD, A D REAL TIME W/IMAGE LIMITED SBSQ 95810 [facility] 0 INPATIENT CARE/DAY MEDICINE 25 ASSOC MINUTES SBSQ [address] [facility] [facility], [facility] 0 L [facility] CARE/DAY 15 ASSOCIATE MINUTES S SBSQ [address] CARE/DAY CLINIC 15 PSC MINUTES RADEX ABD 45224 [facility] [place] DAISY, COMPL 0 RADIOLOGY AURY R AQT ABD W/S/E/D VIEWS 1 VIEW CH SBSQ [address] [facility], [facility] 0 L [facility] CARE/DAY 15 ASSOCIATE MINUTES S SBSQ 44512 [facility] 0 INPATIENT CARE/DAY MEDICINE [place] [address] [facility] [place] KOSTELIC, TRACT UPR 0 RADIOLOGY ERLIN K W/SM INT W/MULT SERIAL IMAGES ESOPHAGOG 58252 [facility] ASTRODUOD 0 [facility] ENOSCOPY CLINIC TRANSORAL PSC DIAGNOSTI C OTHER 4513 [facility] ENDOSCOPY 0 [facility] OF SMALL INTESTINE INITIAL 63220 [facility] 0 [place] S[facility] S CARE/DAY CLINIC 50 PSC MINUTES SBSQ 07673 [facility], [facility] 0 L SURGIAL JEANIE CARE/DAY 25 ASSOCIATE MINUTES S SBSQ 94502 [facility] 0 INPATIENT CARE/DAY MEDICINE 25 ASSOC MINUTES SBSQ 59261 [facility], [facility] 0 L SURGIAL [facility] CARE/DAY [address] PELVIS 58583 [facility] GABE ACOSTA, 0 RADIOLOGY ANI Goldsmith W/[place] [address] [facility] [place] KARLA, ABDOMEN 0 RADIOLOGY ANI W W/CONTRAS T MATERIAL INITIAL 01143 [facility] 0 INPATIENT ROEL CARE/DAY MEDICINE [address] PELVIS 49092 [facility] GABE GROSS, 0 RADIOLOGY PRIMITIVO Sharpe W/[place] [address] [facility] [place], ABDOMEN 0 RADIOLOGY PRIMITIVO Sharpe W/CONTRAS T MATERIAL RADIOLOGI 77178 Danyel OROPEZA EXAM 0 [place] [facility] COMPLETE PSC 4/MORE VIEWS RADIOLOGI 24908 Danyel COMBS EXAM 0 RADIOLOGY AURY R KNEE COMPLETE 4/[place] [address] TALIB SEGUNDO THYROID 9 FAMILY CHU Ivan STIMULATI MEDICINE NG @ TAT HORMONE [place] TSH COLLECTIO 53451 Maverick DIEZ VENOUS 9 FAMILY CHU Ivan BLOOD MEDICINE VENIPUNCT @ TATES URE [place] COMPREHEN 39776 MELISSA DIEZ 9 FAMILY CHU Ivan METABOLIC MEDICINE PANEL @ TATES [place] INJECTION J3420 TALIB SEGUNDO VIT B-12 9 FAMILY CHU Ivan MEDICINE CYANOCOBA @ [facility] [place] 1000 MCG THERAPEUT 16948 BENITEZ DIEZ 9 FAMILY CHU Ivan PROPHYLAC MEDICINE TIC/DX @ TATES INJECTION [place] SUBQ/IM LIPID 99842 BOGDAN DIEZ 9 FAMILY CHU Ivan MEDICINE @ SERENA [place] BLOOD 14020 TALIB SEGUNDO, COUNT 9 FAMILY CHU Ivan COMPLETE MEDICINE AUTO&AUTO @ SERENA DIFRNTL [place] WBC THERAPEUT 97148 TALIB SEGUNDO IC 9 FAMILY CHU Ivan PROPHYLAC MEDICINE TIC/DX @ [facility] INJECTION [place] SUBQ/IM INJECTION J3420 TALIB SEGUNDO, VIT B-12 9 FAMILY CHU Ivan MEDICINE CYANOCOBA @ [facility] SID TO [place] 1000 MCG IAADIADOO 65113 TALIB SEGUNDO, 9 FAMILY CHU Ivan INFLUENZA MEDICINE @ [facility] [place] ALBUTEROL J7613 TERRY DRAPER INHAL 9 PHARMACY PHARMACY NON-CP PROD THRU DME U DOSE 1 MG PHARM G0333 TERRY DRAPER DISPEN 9 PHARMACY PHARMACY FEE INHAL RX; INITIAL 30-DAY [facility] 11331 CARDIOLOG LORRIE, DISCHARGE 9 Y CARRIE W DAY ASSOCIATE MANAGEMEN S OF T 30 [place] MIN/< ECHO 74435 CARDIOLOG JACKIE N TTHRC R-T 9 Y A 2D ASSOCIATE W/WOM-MOD S OF E COMPL [place] SPEC&COLR D ECG 04793 CARDIOLOG Maverick MEJIA ROUTINE 9 Y A ECG ASSOCIATE W/LEAST S OF 12 LDS [place] I&R ONLY ECG 32568 [facility] JOSE, ROUTINE 9 EMERGENCY SHELBI J ECG PHYS PSC W/LEAST 12 LDS I&R ONLY RADIOLOGI 00450 [facility] JAKE C 9 RADIOLOGY J S EXAMINATI ASSOC ON CHEST SINGLE VIEW FRONTAL RADEX 29037 MARION FARRELL FINGR 9 JAMAICA O, MINIMUM 2 &THEODORA SHERMAN VIEWS [facility] PROTHROMB 97491 [facility] IN TIME 9 [facility] H[facility]P CREATINE 22571 [facility] KINASE MB 9 EPISCOPALIAN EPISCOPALIAN FRACTION HOSP HOSP ONLY COLLECTIO 86301 [facility] N VENOUS 9 EPISCOPALIAN EPISCOPALIAN BLOOD HOSP HOSP VENIPUNCT URE COMPREHEN 88969 [facility] SIVE 9 EPISCOPALIAN EPISCOPALIAN METABOLIC HOSP HOSP PANEL ECG 16153 [facility] FORMAN, ROUTINE 9 EMERGENCY RENE J ECG PHYS PSC W/LEAST 12 LDS I&R ONLY BLOOD 94437 [facility] COUNT 9 EPISCOPALIAN EPISCOPALIAN COMPLETE HOSP HOSP AUTO&[place] [address] [facility] TROPONIN 9 EPISCOPALIAN EPISCOPALIAN QUANTITAT HOSP HOSP STEFANO MYOGLOBIN 05730 [facility] 9 EPISCOPALIAN EPISCOPALIAN HOSP HOSP THROMBOPL 20502 [facility] ASTIN 9 EPISCOPALIAN EPISCOPALIAN TIME HOSP HOSP PARTIAL PLASMA/WH OLE BLOOD ECG 10153 [facility] ROUTINE 9 EPISCOPALIAN EPISCOPALIAN ECG HOSP HOSP W/LEAST 12 LDS TRCG ONLY W/O I&R RADEX 85368 MARION FARRELL FINGR 9 JAMAICA O, MINIMUM 2 &[address] LANE VIE[facility] RADEX 98932 MARLA KELLEY 9 TRAVIS S MINIMUM 2 RADIOLOGY VIEWS ASSOCIATE S [facility] RADEX 47884 [facility] SPINE 9 EPISCOPALIAN EPISCOPALIAN CERVICAL HOSP HOSP 2 OR 3 VIEWS EXPLORATI 07091 [facility] ON 9 EPISCOPALIAN EPISCOPALIAN PENETRATI HOSP [place] [address] HEMA PETTIT HEAD/BRAI 9 TRAVIS S N W/O RADIOLOGY CONTRAST MATERIAL ASSOCIATE S [facility] RADEX 00340 [facility] JOSEPH, HAND 9 RADIOLOGY J S MINIMUM 3 ASSOC VIEWS INJECTION 89696 [facility] STAN ANEBraden 9 EMERGENCY MALACHI A OTHER PHYS PSC PERIPHERA L NERVE/BRA NCH CT ORBIT 86524 [facility] SELLA/POS 9 EPISCOPALIAN EPISCOPALIAN T HOSP HOSP FOSSA/EAR W/O CONTRAST MATRL RADEX 11868 HEMA PETTIT SPINE 9 TRAVIS S CERVICAL RADIOLOGY 4 OR 5 VIEWS ASSOCIATE S [facility] GROUND A0425 [facility] MILEAGE 9 [facility] STATUTE MILE AMBULANCE A0429 [facility] SERVICE 9 [facility] EMERGENCY TRANSPORT RADEX ABD 41675 [facility] MELENDEZ, COMPL 9 RADIOLOGY VI AQT ABD ASSOC C W/S/E/D VIEWS 1 [place] [address] LAB [facility] HOMOCYSTE 9 AMERIC [place] [address] [facility] THYROXINE 9 AMERIC AMERIC TOTAL HOLDING HOLDING CYANOCOBA 43157 [facility] SID 9 AMERIC AMERIC VITAMIN HOLDING HOLDING B-12 ORGANIC 38478 [facility] ACID 1 9 AMERIC AMERIC QUANTITAT HOLDING HOLDING STEFANO EXTRACTAB 74988 [facility] LE 9 AMERIC AMERIC NUCLEAR HOLDING HOLDING [place] [address] [facility] THYROID 9 AMERIC AMERIC STIMULATI HOLDING HOLDING NG HORMONE TSH COLLECTIO 46499 [facility] N VENOUS 9 AMERIC AMERIC BLOOD [place] [address] [facility] FOLIC 9 AMERIC AMERIC ACID HOLDING HOLDING SERUM ANGIOTENS 36484 [facility] IN 9 AMERIC AMERIC I-CONVERT HOLDING HOLDING ING ENZYME COMPREHEN 24921 [facility] SIVE 9 AMERIC AMERIC METABOLIC HOLDING HOLDING PANEL IMMUNOFIX 25651 [facility] J 9 AMERIC AMERIC ELECTROPH HOLDING HOLDING ORESIS SERUM BLOOD 03459 [facility] COUNT 9 AMERIC AMERIC COMPLETE HOLDING HOLDING AUTO&AUTO DIFRNTL WBC THYROID 82955 [facility] HORM 9 AMERIC AMERIC UPTK/THYR HOLDING HOLDING OID HORMONE BINDING RATIO SEDIMENTA 13312 [facility] TION RATE 9 AMERIC AMERIC RBC HOLDING HOLDING AUTOMATED ANTINUCLE 75637 [facility] AR 9 AMERIC AMERIC ANTIBODIE HOLDING HOLDING S CARLOS ENRIQUE ANTIBODY 92517 LAB [facility] LAB REM[facility] BORRELIA 9 AMERIC AMERIC BURGDORFE HOLDING [place] [address] [facility] GAMMAGLOB 9 AMERIC AMERIC ULIN IGA HOLDING HOLDING IGD IGG IGM EACH MYOGLOBIN 30818 [facility] 8 [place] [address] [facility] INFUSION 8 EPISCOPALIAN EPISCOPALIAN HYDRATION HOSP HOSP INITIAL 31 MIN-1 HR NONINVASI 13007 [facility] VE 8 EPISCOPALIAN EPISCOPALIAN EAR/PULSE HOSP HOSP OXIMETRY MULTIPLE DETER THROMBOPL 70059 [facility] ASTIN 8 EPISCOPALIAN EPISCOPALIAN TIME HOSP HOSP PARTIAL PLASMA/WH OLE BLOOD ECG 14754 [facility] ROUTINE 8 EPISCOPALIAN EPISCOPALIAN ECG HOSP HOSP W/LEAST 12 LDS TRCG ONLY W/O I&[place] [address] [facility] TROPONIN 8 EPISCOPALIAN EPISCOPALIAN QUANTITAT HOSP HOSP STEFANO BLOOD 00413 [facility] COUNT 8 EPISCOPALIAN EPISCOPALIAN COMPLETE HOSP HOSP AUTO&[place] [address] [facility] AMYLASE 8 EPISCOPALIAN EPISCOPALIAN HOSP HOSP COMPREHEN 39578 [facility] SIVE 8 EPISCOPALIAN EPISCOPALIAN METABOLIC HOSP HOSP PANEL COLLECTIO 83632 [facility] N VENOUS 8 EPISCOPALIAN EPISCOPALIAN BLOOD HOSP HOSP VENIPUNCT URE CREATINE 87016 [facility] KINASE MB 8 EPISCOPALIAN EPISCOPALIAN [place] [address] [facility]EN[facility] THYROID 8 EPISCOPALIAN EPISCOPALIAN STIMULATI HOSP HOSP NG HORMONE TSH PROTHROMB 60941 [facility] IN TIME 8 EPISCOPALIAN [place] [address] [facility]EN[facility] LIPASE 8 EPISCOPALIAN EPISCOPALIAN HOSP HOSP RADIOLOGI 44527 [facility] C 8 EPISCOPALIAN EPISCOPALIAN EXAMINATI HOSP HOSP ON CHEST SINGLE VIEW FRONTAL ANOSCOPY 29060 [facility], DX 8 L SURGIAL JEANIE More W/COLLJ SPEC ASSOCIATE BR/WA SPX S WHEN PRFRMD NATRIURET 21908 [facility] IC 8 [facility] PEPTIDE THER 33099 [facility] PROPH/DX 8 [facility] NJX EA SEQL IV PUSH SBST/DRUG SUBCUTANE 28636 [facility] OUS 8 [facility] INFUSION EACH ADDITIONA L IV PUSH THER [address] JESSICA PROPH/DX 8 [facility] NJX IV PUSH 1ST SBST/DRUG ECG [address] JESSICA ROUTINE 8 [facility] ECG W/LEAST 12 LDS TRCG ONLY W/O I&R IV NFUS [address] JESSICA HYDRATION 8 [facility] [address] JESSICA TROPONIN 8 [facility] QUANTITAT STEFANO BLOOD [address] JESSICA COUNT 8 [facility] COMPLETE AUTO&AUTO DIFRNTL WBC GROUND A0425 [facility] MILEAGE 8 [place] PER URBAN URBAN STATUTE COGOVT COGOVT MILE ECG 44393 MICK KENNY, ROUTINE 8 [place] [facility] P ECG CLINIC W/LEAST PSC 12 LDS I&R ONLY AMB A0427 LUIS LUIS SERVICE 8 FAYETTE FAYETTE ALS [facility] EMERGENCY [facility] COGOVT TRANSPORT LEVEL [address] PELVIS [address]681 [facility] [place], W/O 8 RADIOLOGY VALERIANO D CONTRAST MATERIAL RADIOLOGI [address] JESSICA C 8 [facility] EXAMINATI ON [place] [address] JESSICA LIPASE 8 [facility] CREATINE [address] JESSICA KINASE 8 [place] [place] [address] [facility] [place], ABDOMEN 8 RADIOLOGY VALERIANO D W/O CONTRAST MATERIAL INJECTION J2765 [address] JESSICA 8 [facility] METOCLOPR AMIDE HCL UP TO [address] JESSICA SIVE 8 [facility] [place] [address] JESSICA AMYLASE 8 [facility] CREATINE [address] JESSICA KINASE MB 8 [facility] FRACTION ONLY INJECTION J24[address] JESSICA 8 [facility] ONDANSETR ON HCL PER [address] JESSICA 8 [facility] PROMETHAZ INE HCL UP TO 50 MG ECG 53704 CARDIOLOG LORRIE, ROUTINE 8 Y CARRIE W ECG ASSOCIATE W/LEAST S OF 12 [facility] W/I&R RADEX 34118 NASREEN SLIM, ANKLE 8 MEDICAL GREGG P COMPLETE IMAGING MINIMUM 3 ASSOCIATE VIEWS S RADEX 16093 NASREEN SMALLS, FOOT 8 MEDICAL GREGG P COMPLETE IMAGING MINIMUM 3 ASSOCIATE VIEWS S RADIOLOGI 99025 CENTRAL CENTRAL C 8 RADIOLOGY RADIOLOGY EXAMINATI ASSOC ASSOC ON KNEE 1/[address] [place] [address] CENTRAL CENTRAL HEAD/BRAI 8 RADIOLOGY RADIOLOGY N W/[place] [address] CENTRAL CENTRAL HEAD/BRAI 8 RADIOLOGY RADIOLOGY N W/O ASSOC ASSOC CONTRAST MATERIAL RADIOLOGI 29162 CENTRAL CENTRAL C 8 RADIOLOGY RADIOLOGY EXAMINATI ASSOC ASSOC ON CHEST SINGLE VIEW FRONTAL INJECTION J1170 CENTRAL CENTRAL 8 EPISCOPALIAN EPISCOPALIAN HYDROMORP HOSP HOSP MING UP [place] 4 [place] [address] CENTRAL CENTRAL LIPASE 8 EPISCOPALIAN EPISCOPALIAN HOSP HOSP PROTHROMB 72048 CENTRAL CENTRAL IN TIME 8 EPISCOPALIAN EPISCOPALIAN HOSP HOSP CREATINE 03800 CENTRAL CENTRAL KINASE MB 8 EPISCOPALIAN EPISCOPALIAN FRACTION HOSP HOSP ONLY COLLECTIO 93372 CENTRAL CENTRAL N VENOUS 8 EPISCOPALIAN EPISCOPALIAN BLOOD HOSP HOSP VENIPUNCT URE INJECTION J2550 CENTRAL CENTRAL 8 EPISCOPALIAN EPISCOPALIAN PROMETHAZ HOSP HOSP INE HCL UP TO [address] [place] [address] CENTRAL CENTRAL AMYLASE 8 EPISCOPALIAN EPISCOPALIAN HOSP HOSP COMPREHEN 23549 CENTRAL CENTRAL SIVE 8 EPISCOPALIAN EPISCOPALIAN METABOLIC HOSP HOSP PANEL THER 77584 CENTRAL CENTRAL PROPH/DX 8 EPISCOPALIAN EPISCOPALIAN NJX IV HOSP HOSP PUSH 1ST SBST/DRUG SUBCUTANE 84557 CENTRAL CENTRAL OUS 8 EPISCOPALIAN EPISCOPALIAN INFUSION HOSP HOSP EACH ADDITIONA L IV PUSH THER 01381 CENTRAL CENTRAL PROPH/DX 8 EPISCOPALIAN EPISCOPALIAN NJX EA HOSP HOSP SEQL IV PUSH SBST/DRUG NONINVASI 70105 CENTRAL CENTRAL VE 8 EPISCOPALIAN EPISCOPALIAN EAR/PULSE HOSP HOSP OXIMETRY MULTIPLE DETER MYOGLOBIN 29485 CENTRAL CENTRAL 8 EPISCOPALIAN EPISCOPALIAN HOSP HOSP IV NFUS 75628 CENTRAL CENTRAL HYDRATION 8 EPISCOPALIAN EPISCOPALIAN EA HR HOSP HOSP THROMBOPL 11030 CENTRAL CENTRAL ASTIN 8 EPISCOPALIAN EPISCOPALIAN TIME HOSP HOSP PARTIAL PLASMA/WH OLE BLOOD ECG 40043 CENTRAL CENTRAL ROUTINE 8 EPISCOPALIAN EPISCOPALIAN ECG HOSP HOSP W/LEAST 12 LDS TRCG ONLY W/O I&R AMB A0427 LUIS LUIS SERVICE 8 FAYETTE FAYETTE [facility] COG[facility]T TRANSPORT LEVEL 1 GROUND A0425 LUIS LUIS MILEAGE 8 FAYETTE FAYETTE PER URBAN URBAN STATUTE COGOVT COGOVT MILE BLOOD 20846 CENTRAL [facility]TRAL COUNT 8 EPISCOPALIAN EPISCOPALIAN COMPLETE HOSP HOSP AUTO&[place] [address] C[facility]AL [facility]TR[facility] TROPONIN 8 EPISCOPALIAN EPISCOPALIAN QUANTITAT HOSP HOSP STEFANO Encounters Encounter Start End Date Code Location Performer Type Date OFFICE 18848 [facility]COP[facility] OUTPATIEN 1 1 FAMILY ALA T VISIT MEDICINE 15 @ TA MINUTES OFFICE 32354 EPISCOP[facility] SANY[facility] OUTPATIEN 1 1 FAMILY ALA T VISIT MEDICINE 15 @ [facility] - 1 1 [facility] T OFFICE 93437 [facility] OUTPATIEN 1 1 FAMILY ALA T VISIT MEDICINE 25 @ TA MINUTES EMERGENCY 89029 [facility] DEPT 0 0 INES KRI VISIT EMERGENCY HIGH SERV SEVERITY& THREAT [facility] [place] [address] HOSPITAL OUTPATIEN T EMERGENCY [address] DEPARTMEN T VISIT HIGH/URGE NT SEVERITY EMERGENCY [address]31 [place] [address] 0 INES KRI DEPARTMEN EMERGENCY T VISIT SERVI HIGH/URGE NT SEVERITY [facility] - 0 0 HOSPITAL OUTPATIEN T EMERGENCY 62745 [facility] 0 0 INES KRI DEPARTMEN EMERGENCY T VISIT SERV MODERATE SEVERITY [facility] - 0 0 HOSPITAL OUTPATI T OFFICE 35171 [facility] OUTPATIEN 0 0 JESSICA ADR T VISIT CARDIOLOG 25 Y CLINIC MINUTES EMERGENCY 75649 [facility] DEPT 0 0 INES VISIT EMERGENCY HIGH PHYS SEVERITY& THREAT FUN EMERGENCY 16102 [place] [address] 0 [facility] DEPARTMEN T VISIT HIGH/URGE NT SEVERITY [facility] 0 0 [facility] EP[facility] OUTPATIEN 0 0 FAMILY ALA T VISIT MEDICINE 25 @ TA MINUTES OFFICE 37950 [facility] OUTPATIEN 0 0 FAMILY ALA T VISIT MEDICINE 15 @ TA MINUTES EMERGENCY 26956 [facility] DEPT 0 0 INES VISIT EMERGENCY HIGH PHYS SEVERITY& THREAT [facility] 0 0 HOSPITAL INPATIENT OFFICE 24531 EPISCOP[facility]IAN SANYA OUTPATIEN 0 0 FAMILY ALA T VISIT MEDICINE 15 @ TA MINUTES EMERGENCY 62039 [facility] DEPT 0 0 HOSPITAL VISIT HIGH SEVERITY& THREAT [facility] 0 0 [facility] - 0 0 [facility] EMERGENCY 42991 [facility] 0 0 [facility] VISIT MODERATE SEVERITY OFFICE 20034 EPISCOP[facility]IAN SANY[facility], OUTPATIEN 0 0 FAMILY CHU D T VISIT MEDICINE 25 @ TATES MINUTES [facility] OFFICE 48975 EPISCOP[facility]IAN SANY[facility], OUTPATIEN 0 0 FAMILY CHU D T VISIT MEDICINE 25 @ TATES MINUTES [place] OFFICE 59842 TALIB SEGUNDO OUTPATIEN 0 0 FAMILY CHU D T VISIT MEDICINE 15 @ TATES MINUTES [place] OFFICE 73885 TALIB SEGUNDO OUTPATIEN 0 0 FAMILY CHU D T VISIT MEDICINE 15 @ TATES MINUTES [place] OFFICE 85670 TALIB SEGUNDO OUTPATIEN 0 0 FAMILY CHU D T VISIT MEDICINE 25 @ TATES MINUTES [facility] OFFICE 12812 [facility] BYNUMPATIEN 0 0 FAMILY HUY A T VISIT MEDICINE 15 @ TATES MINUTES [facility] [address] INPATIENT HOSPITAL [address] OUTPATIEN T EMERGENCY [address] DEPARTMEN T VISIT LOW/MODER SEVERITY OFFICE 53780 MICK NANCE OUTPATIEN 0 0 SAVITA MILES C T NEW 30 CLINIC MINUTES PSC OFFICE 41709 [place] [facility] OUTPATIEN 0 0 [place] MARYCRUZ A T NEW 30 CLINIC MINUTES PSC OFFICE 39176 JUAN DIEZ 9 9 FAMILY CHU D T VISIT MEDICINE 25 @ TATES MINUTES [place] OFFICE 95471 JUAN DIEZ 9 9 FAMILY CHU D T VISIT MEDICINE 25 @ TATES MINUTES [place] OFFICE 97528 JUAN GOETZ 9 9 FAMILY ALIZE R T VISIT MEDICINE 15 @ TATES MINUTES [place] OFFICE 54802 JUAN DIEZ 9 9 FAMILY CHU D T VISIT MEDICINE 25 @ TATES MINUTES [place] OFFICE 55264 [facility]OC IN JUAN HARRISON 9 9 NEUROLOGY MARYCRUZ A T VISIT PSC 40 MINUTES EMERGENCY 43830 [facility] JOSE DEPT 9 9 EMERGENCY SHELBI J VISIT PHYS PSC HIGH SEVERITY& THREAT [facility] OFFICE 81428 MARION FARRELL OUTPATIEN 9 9 JAMAICA Lockett T VISIT &THEODORA SHERMAN 15 DCARE MINUTES [facility] - 9 9 EPISCOPALIAN OUTPATIEN HOSP T EMERGENCY 90683 [facility] DEPT 9 9 EPISCOPALIAN VISIT HOSP HIGH SEVERITY& THREAT [facility] OFFICE 41626 MARION FARRELL CONSULTAT 9 9 JAMAICA Lockett ION &THEODORA SHERMAN NEW/ESTAB [facility] PATIENT PLL 40 MIN EMERGENCY 29958 [facility] 9 9 EPISCOPALIAN DEPARTMEN HOSP T VISIT MODERATE SEVERITY EMERGENCY 46744 [facility] STAN DEPT 9 9 EMERGENCY [place]ACH[place] A VISIT PHYS PSC HIGH SEVERITY& THREAT [facility] - 9 9 EPISCOPALIAN OUTPATIEN HOSP T EMERGENCY 92598 [facility] JOSE DEPT 9 9 EMERGENCY SHELBI J VISIT PHYS PSC HIGH SEVERITY& THREAT [facility] OFFICE 82238 [facility]OC IN [place], CONSULTAT 9 9 NEUROLOGY MARYCRUZ A ION PSC NEW/ESTAB PATIENT 60 MIN EMERGENCY 26046 [facility] DEPT 8 8 EPISCOPALIAN VISIT HOSP HIGH SEVERITY& THREAT [facility] [place] - 8 8 EPISCOPALIAN OUTPATIEN HOSP T OFFICE 50131 COLORECTA SHANNON OUTMAIDA 8 8 L SURGIAL JEANIE T T VISIT 10 ASSOCIATE MINUTES S EMERGENCY 29083 LARRY EDMONDSON, DEPT 8 8 PRIMARY MARA C VISIT CARE HIGH PHYSICANS SEVERITY& [place]ST THREAT PSC [facility] - 8 8 EAST OUTPATI T EMERGENCY 50219 [facility] 8 8 EAST DEPARTMEN T VISIT MODERATE SEVERITY OFFICE 91929 CARDIOLOG JUAN ANDREW 8 8 Y CARRIE Goldsmith T VISIT ASSOCIATE 25 S OF MINUTES [place] EMERGENCY 79686 [place] 8 8 [facility] VISIT LOW/MODER SEVERITY [facility] - 8 8 [facility] 8 8 EPISCOPALIAN OUTPATIEN HOSP T EMERGENCY 70881 [facility] EPISCOPALIAN VISIT HOSP HIGH SEVERITY& THREAT [facility] 8 8 EPISCOPALIAN OUTPATIEN HOSP T
--- OUTSIDE RECORDS SUMMARY | 2016-10-16 07:56 | External Medical Summary Rpt ---
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 0 L SURGIAL [facility] CARE/DAY [address] PELVIS 42693 [facility] GABE ACOSTA, 0 RADIOLOGY ANI Goldsmith W/[place] [address] [facility] [place] KARLA, ABDOMEN 0 RADIOLOGY ANI W W/CONTRAS T MATERIAL INITIAL 17700 [facility] 0 INPATIENT ROEL CARE/DAY MEDICINE [address] PELVIS 27972 [facility] GABE GROSS, 0 RADIOLOGY PRIMITIVO Sharpe W/[place] [address] [facility] [place] GROSS, ABDOMEN 0 RADIOLOGY PRIMITIVO Sharpe W/CONTRAS T MATERIAL RADIOLOGI 73911 Danyel OROPEZA EXAM 0 [facility] COMPLETE PSC 4/MORE VIEWS RADIOLOGI 77243 Danyel COMBS EXAM 0 RADIOLOGY AURY R KNEE COMPLETE 4/[place] [address] TALIB SEGUNDO THYROID 9 FAMILY CHU Ivan STIMULATI MEDICINE NG @ TAT HORMONE [place] TSH COLLECTIO 31459 Maverick DIEZ VENOUS 9 FAMILY CHU Ivan BLOOD MEDICINE VENIPUNCT @ TATES URE [place] COMPREHEN 77189 MELISSA DIEZ 9 FAMILY CHU Ivan METABOLIC MEDICINE PANEL @ TATES [place] INJECTION J3420 TALIB SEGUNDO VIT B-12 9 FAMILY CHU Ivan MEDICINE CYANOCOBA @ [facility] S[facility] [place] 1000 MCG THERAPEUT 93876 BENITEZ DIEZ 9 FAMILY CHU Ivan PROPHYLAC MEDICINE TIC/DX @ TATES INJECTION [place] SUBQ/IM LIPID 49988 BOGDAN DIEZ 9 FAMILY CHU Ivan MEDICINE @ SERENA [place] BLOOD 16117 TALIB SEGUNDO, COUNT 9 FAMILY CHU Ivan COMPLETE MEDICINE AUTO&AUTO @ SERENA DIFRNTL [place] WBC THERAPEUT 77925 TALIB SEGUNDO IC 9 FAMILY CHU Ivan PROPHYLAC MEDICINE TIC/DX @ [facility] INJECTION [place] SUBQ/IM INJECTION J3420 TALIB SEUGNDO, VIT B-12 9 FAMILY CHU Ivan MEDICINE CYANOCOBA @ [facility] SID TO [place] 1000 MCG IAADIADOO 61913 TALIB SEGUNDO, 9 FAMILY CHU Ivan INFLUENZA MEDICINE @ [facility] [place] ALBUTEROL J7613 TERRY DRAPER INHAL 9 PHARMACY PHARMACY NON-CP PROD THRU DME U DOSE 1 MG PHARM G0333 TERRY DRAPER DISPEN 9 PHARMACY PHARMACY FEE INHAL RX; INITIAL 30-[facility] 67807 CARDIOLOG LORRIE, DISCHARGE 9 Y CARRIE W DAY ASSOCIATE MANAGEMEN S OF T 30 [place] MIN/< ECHO 75389 CARDIOLOG JACKIE N TTHRC R-T 9 Y A 2D ASSOCIATE W/WOM-MOD S OF E COMPL [place] SPEC&COLR D ECG 67652 CARDIOLOG Maverick MEJIA ROUTINE 9 Y A ECG ASSOCIATE W/LEAST S OF 12 LDS [place] I&R ONLY ECG 55693 [facility] JOSE, ROUTINE 9 EMERGENCY SHELBI J ECG PHYS PSC W/LEAST 12 LDS I&R ONLY RADIOLOGI 49564 [facility] JAKE C 9 RADIOLOGY J S EXAMINATI ASSOC ON CHEST SINGLE VIEW FRONTAL RADEX 21260 MARION FARRELL FINGR 9 JAMAICA O, MINIMUM 2 &THEODORA SHERMAN VIEWS [facility] PROTHROMB 65139 [facility] IN TIME 9 [facility]P CREATINE 36492 [facility] KINASE MB 9 [facility]ARSANISM Y[facility]ISM FRACTION HOSP HOSP ONLY COLLECTIO 21683 [facility] N VENOUS 9 YARSANISM YARSANISM BLOOD HOSP HOSP VENIPUNCT URE COMPREHEN 65306 [facility] SIVE 9 YARSANISM Y[facility]ISM METABOLIC HOSP HOSP PANEL ECG 82528 [facility] FORMAN, ROUTINE 9 EMERGENCY RENE J ECG PHYS PSC W/LEAST 12 LDS I&R ONLY BLOOD 48548 [facility] COUNT 9 YARSANISM YARSANISM COMPLETE HOSP HOSP AUTO&[place] [address] [facility] TROPONIN 9 YARSANISM YARS[facility]ISM QUANTITAT HOSP HOSP STEFANO MYOGLOBIN 14049 [facility]AL 9 [facility] HOSP THROMBOPL 31409 [facility] ASTIN 9 YARSANISM YARSANISM TIME HOSP HOSP PARTIAL PLASMA/WH OLE BLOOD ECG 70589 [facility] ROUTINE 9 YARSANISM YARSANISM ECG HOSP HOSP W/LEAST 12 LDS TRCG ONLY W/O I&R RADEX 54706 MARION FARRELL FINGR 9 JAMAICA O, MINIMUM 2 &ASSOCHAN LANE VIE[facility] RADEX 20857 MARLA KELLEY 9 TRAVIS S MINIMUM 2 RADIOLOGY VIEWS ASSOCIATE S [facility] RADEX 10559 [facility]EN[facility] SPINE 9 YARSANISM YARSANISM CERVICAL HOSP HOSP 2 OR 3 VIEWS EXPLORATI 44599 [facility] ON 9 YARSANISM YARSANISM PENETRATI HOSP [place] [address] HEMA PETTIT HEAD/BRAI 9 TRAVIS S N W/O RADIOLOGY CONTRAST MATERIAL ASSOCIATE S [facility] RADEX 35381 C[facility]AL JOSEPH, HAND 9 RADIOLOGY J S MINIMUM 3 ASSOC VIEWS INJECTION 16725 CENTRAL STAN ANEBraden 9 EMERGENCY MALACHI A OTHER PHYS PSC PERIPHERA L NERVE/BRA NCH CT ORBIT 16359 CENTRAL CENTRAL SELLA/POS 9 YARSANISM YARSANISM T HOSP HOSP FOSSA/EAR W/O CONTRAST MATRL RADEX 99283 HEMA PETTIT SPINE 9 TRAVIS S CERVICAL RADIOLOGY 4 OR 5 VIEWS ASSOCIATE S [facility] GROUND A0425 [facility] MILEAGE 9 [facility] STATUTE MILE AMBULANCE A0429 [facility] SERVICE 9 EMS [facility] EMERGENCY TRANSPORT RADEX ABD 89667 CENTRAL MELENDEZ, COMPL 9 RADIOLOGY VI AQT ABD ASSOC C W/S/E/D VIEWS 1 [place] [address] [facility] HOMOCYSTE 9 AMERIC [place] [address] [facility] THYROXINE 9 AMERIC AMERIC TOTAL HOLDING HOLDING CYANOCOBA 68056 [facility] SID 9 AMERIC AMERIC VITAMIN HOLDING HOLDING B-12 ORGANIC 34113 [facility] ACID 1 9 AMERIC AMERIC QUANTITAT HOLDING HOLDING STEFANO EXTRACTAB 42560 [facility] LE 9 AMERIC AMERIC NUCLEAR HOLDING HOLDING [place] [address] [facility] THYROID 9 AMERIC AMERIC STIMULATI HOLDING HOLDING NG HORMONE TSH COLLECTIO 22889 [facility] N VENOUS 9 AMERIC AMERIC BLOOD [place] [address] [facility] FOLIC 9 AMERIC AMERIC ACID HOLDING HOLDING SERUM ANGIOTENS 10119 [facility] IN 9 AMERIC AMERIC I-CONVERT HOLDING HOLDING ING ENZYME COMPREHEN 58249 [facility] SIVE 9 AMERIC AMERIC METABOLIC HOLDING HOLDING PANEL IMMUNOFIX 45086 [facility] J 9 AMERIC AMERIC ELECTROPH HOLDING HOLDING ORESIS SERUM BLOOD 88445 [facility] COUNT 9 AMERIC AMERIC COMPLETE HOLDING HOLDING AUTO&AUTO DIFRNTL WBC THYROID 93707 [facility] HORM 9 AMERIC AMERIC UPTK/THYR HOLDING HOLDING OID HORMONE BINDING RATIO SEDIMENTA 86135 LAB [facility] TION RATE 9 AMERIC AMERIC RBC HOLDING HOLDING AUTOMATED ANTINUCLE 96688 LAB [facility] AR 9 AMERIC AMERIC ANTIBODIE HOLDING HOLDING S CARLOS ENRIQUE ANTIBODY 91351 LAB [facility] BORRELIA 9 AMERIC AMERIC BURGDORFE HOLDING [place] [address] [facility] GAMMAGLOB 9 AMERIC AMERIC ULIN IGA HOLDING HOLDING IGD IGG IGM EACH MYOGLOBIN 03122 [facility] CENTRAL 8 [place] [address] CENTRAL [facility]TR[facility] INFUSION 8 YARSANISM Y[facility]ISM HYDRATION HOSP HOSP INITIAL 31 MIN-1 HR NONINVASI 92935 [facility]EN[facility]AL [facility] VE 8 YARSANISM YARSANISM EAR/PULSE HOSP HOSP OXIMETRY MULTIPLE DETER THROMBOPL 03456 CENTRAL [facility]ENTRAL ASTIN 8 YARSANISM YARSANISM TIME HOSP HOSP PARTIAL PLASMA/WH OLE BLOOD ECG 74107 CEN[facility]AL [facility] ROUTINE 8 YARSANISM YARSANISM ECG HOSP HOSP W/LEAST 12 LDS TRCG ONLY W/O I&[place] [address] CENTRAL [facility] TROPONIN 8 YARSANISM YARSANISM QUANTITAT HOSP HOSP STEFANO BLOOD 36460 CENTRAL [facility] COUNT 8 YARSANISM YARSANISM COMPLETE HOSP HOSP AUTO&[place] [address] CENTRAL [facility] AMYLASE 8 [facility]ANISM YARSANISM HOSP HOSP COMPREHEN 45566 CENTRAL CENTR[facility] SIVE 8 YARSANISM YARSANISM METABOLIC HOSP HOSP PANEL COLLECTIO 87241 CENTRAL CENTRAL N VENOUS 8 YARSANISM YARSANISM BLOOD HOSP HOSP VENIPUNCT URE CREATINE 99957 CENTRAL CENTRAL KINASE MB 8 YARSANISM YARSANISM [place] [address] CENTRAL CENTRAL THYROID 8 YARSANISM YARSANISM STIMULATI HOSP HOSP NG HORMONE TSH PROTHROMB 06397 CENTRAL [facility] IN TIME 8 [facility]ARS[facility] [address] CENTRAL CENTRAL LIPASE 8 YARSANISM YARSANISM HOSP HOSP RADIOLOGI 12783 CENTRAL CENTRAL C 8 YARSANISM YARSANISM EXAMINATI HOSP HOSP ON CHEST SINGLE VIEW FRONTAL ANOSCOPY 42155 [facility] SHANNON, DX 8 L SURGIAL JEANIE More W/COLLJ SPEC ASSOCIATE BR/WA SPX S WHEN PRFRMD NATRIURET 19559 [facility] IC 8 [facility] PEPTIDE THER 61943 [facility] PROPH/DX 8 [facility] NJX EA SEQL IV PUSH SBST/DRUG SUBCUTANE 61469 [facility] OUS 8 [facility] EACH ADDITIONA L IV PUSH THER [address] JESSICA PROPH/DX 8 [facility] NJX IV PUSH 1ST SBST/DRUG ECG [address] JESSICA ROUTINE 8 [facility] ECG W/LEAST 12 LDS TRCG ONLY W/O I&R IV NFUS [address] JESSICA HYDRATION 8 [facility] [place] [address] JESSICA TROPONIN 8 [facility] QUANTITAT STEFANO BLOOD [address] JESSICA COUNT 8 [facility] COMPLETE AUTO&AUTO DIFRNTL WBC GROUND A0425 [facility] MILEAGE 8 [place]AY[place] FAYETTE PER URBAN URBAN STATUTE COGOVT COGOVT MILE ECG 88618 MICK KENNY, ROUTINE 8 [place] YILING P ECG CLINIC W/LEAST PSC 12 LDS I&R ONLY AMB A0427 LUIS LUIS SERVICE 8 FAYETTE FAYETTE ALS URBAN URBAN EMERGENCY COGOVT COGOVT TRANSPORT LEVEL [address] PELVIS 67994 [facility] [place] RELL, W/O 8 RADIOLOGY VALERIANO D CONTRAST MATERIAL RADIOLOGI [address] JESSICA C 8 [facility] EXAMINATI ON [place] [address] JESSICA LIPASE 8 [facility] CREATINE [address] JESSICA KINASE 8 [place] [address] [place] RELL, ABDOMEN 8 RADIOLOGY VALERIANO D W/O CONTRAST MATERIAL INJECTION J2765 [address] JESSICA [address] JESSICA 8 [facility] METOCLOPR AMIDE HCL UP TO [address] JESSICA SIVE 8 [facility] [place] [address] JESSICA AMYLASE 8 [facility] CREATINE [address] JESSICA KINASE MB 8 [facility] FRACTION ONLY INJECTION J24[address] JESSICA 8 [facility] ONDANSETR ON HCL PER [address] JESSICA 8 [facility] PROMETHAZ INE HCL UP TO 50 MG ECG 76391 CARDIOLOG LORRIE, ROUTINE 8 Y CARRIE W ECG ASSOCIATE W/LEAST S OF 12 [facility] W/I&R RADEX 55731 NASREEN SLIM, ANKLE 8 MEDICAL GREGG P COMPLETE IMAGING MINIMUM 3 ASSOCIATE VIEWS S RADEX 71660 NASREEN SMALLS, FOOT 8 MEDICAL GREGG P COMPLETE IMAGING MINIMUM 3 ASSOCIATE VIEWS S RADIOLOGI 81519 [facility] C 8 RADIOLOGY RADIOLOGY EXAMINATI ASSOC ASSOC ON KNEE 1/[address] [place] [address] CENTRAL C[facility]TR[facility] HEAD/BRAI 8 RADIOLOGY RADIOLOGY N W/[place] [address] CENTRAL CENTRAL HEAD/BRAI 8 RADIOLOGY RADIOLOGY N W/O ASSOC ASSOC CONTRAST MATERIAL RADIOLOGI 97023 CENTRAL C[facility]TRAL C 8 RADIOLOGY RADIOLOGY EXAMINATI ASSOC ASSOC ON CHEST SINGLE VIEW FRONTAL INJECTION J1170 CENTRAL CENTRAL 8 [facility]ARSANISM YARSANISM HYDROMORP HOSP HOSP MING UP TO 4 [place] [address] CENTRAL C[facility] LIPASE 8 [facility]ISM YARS[facility]ISM HOSP HOSP PROTHROMB 72694 CENTRAL CENTRAL IN TIME 8 YARSANISM YARSANISM HOSP HOSP CREATINE 71910 CENTRAL CENTRAL KINASE MB 8 YARSANISM YARSANISM FRACTION HOSP HOSP ONLY COLLECTIO 60188 CENTRAL CENTRAL N VENOUS 8 YARSANISM YARSANISM BLOOD HOSP HOSP VENIPUNCT URE INJECTION J2550 CENTRAL CENTRAL 8 YARSANISM YARSANISM PROMETHAZ HOSP HOSP INE HCL UP TO 50 [place] [address] CENTRAL CENTRAL AMYLASE 8 [facility]ISM HOSP HOSP COMPREHEN 11932 CENTRAL [facility] SIVE 8 [facility]ARSANISM Y[facility]ISM METABOLIC HOSP HOSP PANEL THER 27531 CEN[facility]AL [facility] PROPH/DX 8 [facility]ARSANISM YARSANISM NJX IV HOSP HOSP PUSH 1ST SBST/DRUG SUBCUTANE 95001 CEN[facility]AL [facility] OUS 8 YARSANISM YARSANISM INFUSION HOSP HOSP EACH ADDITIONA L IV PUSH THER 95506 CENTRAL [facility] PROPH/DX 8 YARSANISM Y[facility]ISM NJX EA HOSP HOSP SEQL IV PUSH SBST/DRUG NONINVASI 27651 CENTRAL C[facility]TR[facility] VE 8 YARSANISM YARSANISM EAR/PULSE HOSP HOSP OXIMETRY MULTIPLE DETER MYOGLOBIN 70479 CENTRAL CENTRAL 8 YARSANISM YARSANISM HOSP HOSP IV NFUS 82112 CENTRAL [facility] HYDRATION 8 YARSANISM YARSANISM EA HR HOSP HOSP THROMBOPL 55455 CENTRAL CENTRAL ASTIN 8 YARSANISM YARSANISM TIME HOSP HOSP PARTIAL PLASMA/WH OLE BLOOD ECG 97648 CENTRAL [facility] ROUTINE 8 YARSANISM YARSANISM ECG HOSP HOSP W/LEAST 12 LDS TRCG ONLY W/O I&R AMB A0427 LUIS LUIS SERVICE 8 FAYETTE FAYETTE ALS [facility] EMERGENCY COGOVT COGOVT TRANSPORT LEVEL 1 GROUND A0425 LUIS LUIS MILEAGE 8 FAYETTE FAYETTE PER URBAN URBAN STATUTE COGOVT COGOVT MILE BLOOD 21327 CENTRAL [facility]TR[facility] COUNT 8 [facility]ARSANISM Y[facility]ISM COMPLETE HOSP HOSP AUTO&[place] [address] CENTRAL [facility] TROPONIN 8 [facility]ANISM Y[facility] QUANTITAT HOSP HOSP STEFANO Encounters Encounter Start End Date Code Location Performer Type Date OFFICE 49395 YARSANISM SANYA OUTPATIEN 1 1 FAMILY ALA T VISIT MEDICINE 15 @ TA MINUTES OFFICE 11156 YARSANISM SANYA OUTPATIEN 1 1 FAMILY ALA T VISIT MEDICINE 15 @ TA MINUTES [facility]OSPITAL [facility] - 1 1 [facility] OUTPATIEN HOSP T OFFICE 85088 YARSANISM SANYA OUTPATIEN 1 1 FAMILY ALA T VISIT MEDICINE 25 @ TA MINUTES EMERGENCY 98861 [facility] DEPT 0 0 INES KRI VISIT EMERGENCY HIGH SERV SEVERITY& THREAT [facility] [place] [address] HOSPITAL OUTPATIEN T EMERGENCY [address] DEPARTMEN T VISIT HIGH/URGE NT SEVERITY EMERGENCY [address]10[address] [place] [address] 0 INES KRI DEPARTMEN EMERGENCY T VISIT SERVI HIGH/URGE NT SEVERITY [place] [facility] - 0 0 HOSPITAL OUTPATIEN T EMERGENCY 60219 [facility] 0 0 INES KRI DEPARTMEN EMERGENCY T VISIT SERV MODERATE SEVERITY HOSPITAL [facility] - 0 0 HOSPITAL OUTPATI T OFFICE 58164 [facility] 0 0 JESSICA ADR T VISIT CARDIOLOG 25 Y CLINIC MINUTES EMERGENCY 26725 [facility] DEPT 0 0 INES VISIT EMERGENCY HIGH PHYS SEVERITY& THREAT FUN EMERGENCY [address] [place] [address] 0 [place] [facility] DEPARTMEN T VISIT HIGH/URGE NT SEVERITY [facility]OSPITAL [facility] 0 0 [place] [facility] 84769 YARSANISM SANYA OUTPATIEN 0 0 FAMILY ALA T VISIT MEDICINE 25 @ TA MINUTES OFFICE 92155 YARSANISM SANYA OUTPATIEN 0 0 FAMILY ALA T VISIT MEDICINE 15 @ TA MINUTES EMERGENCY 83276 [facility] DEPT 0 0 INES VISIT EMERGENCY HIGH PHYS SEVERITY& THREAT [facility] 0 0 HOSPITAL INPATIENT OFFICE 65395 YARSANISM SANYA OUTPATIEN 0 0 FAMILY ALA T VISIT MEDICINE 15 @ TA MINUTES EMERGENCY 99830 [facility] DEPT 0 0 HOSPITAL VISIT HIGH SEVERITY& THREAT [facility] 0 0 [place] [facility] [address] [facility] EMERGENCY 86642 [facility] MODERATE SEVERITY OFFICE 65790 YARSANISM SANYA, OUTPATIEN 0 0 FAMILY CHU D T VISIT MEDICINE 25 @ TATES MINUTES [place] OFFICE 60540 YARSANISM SANYA, OUTPATIEN 0 0 FAMILY CHU D T VISIT MEDICINE 25 @ TATES MINUTES [place] OFFICE 91881 TALIB SEGUNDO OUTPATIEN 0 0 FAMILY CHU D T VISIT MEDICINE 15 @ TATES MINUTES [place] OFFICE 45439 TALIB SEGUNDO OUTPATIEN 0 0 FAMILY CHU D T VISIT MEDICINE 15 @ TATES MINUTES [place] OFFICE 86490 TALIB SEGUNDO OUTPATIEN 0 0 FAMILY CHU D T VISIT MEDICINE 25 @ TATES MINUTES [place] OFFICE 95784 [facility] BYNUMPATIEN 0 0 FAMILY HUY A T VISIT MEDICINE 15 @ TATES MINUTES [facility] [address] INPATIENT HOSPITAL [address] OUTPATIEN T EMERGENCY [address] DEPARTMEN T VISIT LOW/MODER SEVERITY OFFICE 73888 MICK NANCE OUTPATIEN 0 0 SAVITA MILES C T NEW 30 CLINIC MINUTES PSC OFFICE 58508 [facility] OUTPATIEN 0 0 [place] MARYCRUZ A T NEW 30 CLINIC MINUTES PSC OFFICE 11778 JUAN DIEZ 9 9 FAMILY CHU D T VISIT MEDICINE 25 @ TATES MINUTES [place] OFFICE 67093 JUAN DIEZ 9 9 FAMILY CHU D T VISIT MEDICINE 25 @ TATES MINUTES [place] OFFICE 96597 JUAN GOETZ 9 9 FAMILY ALIZE R T VISIT MEDICINE 15 @ TATES MINUTES [place] OFFICE 19106 JUAN DIEZ 9 9 FAMILY CHU D T VISIT MEDICINE 25 @ TATES MINUTES [place] OFFICE 89951 ASSOC IN JUAN HARRISON 9 9 NEUROLOGY MARYCRUZ A T VISIT PSC 40 MINUTES EMERGENCY 24712 [facility] JOSE DEPT 9 9 EMERGENCY SHELBI J VISIT PHYS PSC HIGH SEVERITY& THREAT [facility] OFFICE 26422 MARION FARRELL OUTPATIEN 9 9 JAMAICA Lockett T VISIT &THEODORA SHERMAN 15 DCARE MINUTES [facility] CENTRAL - 9 9 YARSANISM OUTPATIEN HOSP T EMERGENCY 04094 [facility]ENTR[facility] DEPT 9 9 YARSANISM VISIT HOSP HIGH SEVERITY& THREAT [facility] OFFICE 10407 MARION FARRELL CONSULTAT 9 9 JAMAICA Lockett ION &THEODORA SHERMNA NEW/ESTAB DCARE PATIENT PLL 40 MIN EMERGENCY 77163 [facility]AL 9 9 YARSANISM DEPARTMEN HOSP T VISIT MODERATE SEVERITY EMERGENCY 90932 [facility] STAN DEPT 9 9 EMERGENCY MALACHI A VISIT PHYS PSC HIGH SEVERITY& THREAT [facility] CENTRAL - 9 9 YARSANISM OUTPATIEN HOSP T EMERGENCY 48279 [facility] JOSE DEPT 9 9 EMERGENCY SHELBI J VISIT PHYS PSC HIGH SEVERITY& THREAT [facility] OFFICE 61528 ASSOC IN [place], CONSULTAT 9 9 NEUROLOGY MARYCRUZ A ION PSC NEW/ESTAB PATIENT 60 MIN EMERGENCY 87797 [facility]AL DEPT 8 8 YARSANISM VISIT HOSP HIGH SEVERITY& THREAT [facility] OPHIR - 8 8 [facility]ISM OUTPATIEN HOSP T OFFICE 17908 COLORECTA SHANNON OUTMAIDA 8 8 L SURGIAL JEANIE T T VISIT 10 ASSOCIATE MINUTES S EMERGENCY 53081 LARRY EDMONDSON, DEPT 8 8 PRIMARY MARA C VISIT CARE HIGH PHYSICANS SEVERITY& MIDWEST THREAT PSC [facility] - 8 8 EAST OUTPATI T EMERGENCY 53952 [facility] 8 8 EAST DEPARTMEN T VISIT MODERATE SEVERITY OFFICE 24480 CARDIOLOG JUAN ANDREW 8 8 Y CARRIE Goldsmith T VISIT ASSOCIATE 25 S OF MINUTES [place] EMERGENC[facility] [address]3391 [place] 8 8 [facility] VISIT LOW/MODER SEVERITY [facility]OSPITAL [place] - 8 8 [facility] 8 8 YARSANISM OUTPATIEN HOSP T EMERGENCY 29983 [facility] 8 YARSANISM VISIT HOSP HIGH [facility]VERITY& THREAT [facility] 8 8 Y[facility]ISM OUTPATIEN HOSP T
--- OUTSIDE RECORDS SUMMARY | 2016-10-16 08:01 | External Medical Summary Rpt ---
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 [place] [address] [facility] GABE GROSS, ABDOMEN 0 RADIOLOGY PRIMITIVO Sharpe W/CONTRAS T MATERIAL CT PELVIS 84316 [facility] GABE GROSS, 0 RADIOLOGY PRIMITIVO Sharpe W/CONTRAS T MATERIAL RADIOLOGI 59385 Danyel OROPEZA EXAM 0 [facility] COMPLETE PSC 4/MORE VIEWS RADIOLOGI 42776 [facility] Danyel BERNAL EXAM 0 RADIOLOGY AURY Hansen KNEE COMPLETE 4/[place] [address] TALIB SEGUNDO THYROID 9 FAMILY CHU Ivan STIMULATI MEDICINE NG @ TATES HORMONE PALA TSH INJECTION J3420 TALIB SEGUNDO VIT B-12 9 FAMILY CHU Ivan MEDICINE CYANOCOBA @ TATMARY ANN SID TO PALA 1000 MCG BLOOD 72210 TALIB SEGUNDO, COUNT 9 FAMILY CHU Ivan COMPLETE MEDICINE AUTO&AUTO @ TATES DIFRNTL PALA WBC THERAPEUT 33324 BENITEZ DIEZ 9 FAMILY CHU Ivan PROPHYLAC MEDICINE TIC/DX @ TATES INJECTION PALA SUBQ/IM LIPID 02299 TALIB SEGUNDO, PANEL 9 FAMILY CHU Ivan MEDICINE @ TATES PALA COLLECTIO 56017 Maverick DIEZ VENOUS 9 FAMILY CHU Ivan BLOOD MEDICINE VENIPUNCT @ TATES URE PALA COMPREHEN 04097 LEN DIEZE 9 FAMILY CHU Ivan METABOLIC MEDICINE PANEL @ TATES PALA THERAPEUT 51792 BENITEZ DIEZ 9 FAMILY CHU Ivan PROPHYLAC MEDICINE TIC/DX @ TATES INJECTION PALA SUBQ/IM INJECTION J3420 TALIB SEGUNDO, VIT B-12 9 FAMILY CHU Ivan MEDICINE CYANOCOBA @ [facility] 1000 MCG IAADIADOO 85574 TALIB SEGUNDO, 9 FAMILY CHU Ivan INFLUENZA MEDICINE @ TATES PALA PHARM G0333 TERRY DRAPER DISPEN 9 PHARMACY PHARMACY FEE INHAL 278 RX; INITIAL 30-DAY SUPPLY ALBUTEROL J7613 TERRY DRAPER INHAL 9 PHARMACY PHARMACY NON-CP 10278 PROD THRU DME U DOSE 1 MG ECHO 19717 CARDIOLOG Maverick MEJIA TTHRC R-T 9 Y A 2D ASSOCIATE W/WOM-MOD S OF E COMPL [place] SPEC&COLR D ECG 34207 CARDIOLOG Maverick MEJIA ROUTINE 9 Y A ECG ASSOCIATE W/LEAST S OF 12 PS[facility]AT[facility]IC I&R ONLY HOSPITAL 90445 CARDIOLOG LORRIE, DISCHARGE 9 Y CARRIE W DAY ASSOCIATE MANAGEMEN S OF T 30 [place] MIN/< ECG 28617 [facility]AL JOSE, ROUTINE 9 EMERGENCY SHELBI J ECG PHYS PSC W/LEAST 12 LDS I&R ONLY RADIOLOGI 45242 [facility] Danyel JOSEPH 9 RADIOLOGY J S EXAMINATI ASSOC ON CHEST SINGLE VIEW FRONTAL RADEX 12289 MARION FARRELL FINGR 9 JAMAICA O, MINIMUM 2 &ASSOCHAN LANE VIEWS [facility] ECG 78058 [facility]AL FORMAN, ROUTINE 9 EMERGENCY RENE J ECG PHYS PSC W/LEAST 12 LDS I&R ONLY BLOOD 87447 [facility] COUNT 9 [facility] COMPLETE HOSP HOSP AUTO&[place] [address] [facility] TROPONIN 9 YAZDANISM [facility] QUANTITAT HOSP HOSP STEFANO ECG 37489 [facility] ROUTINE 9 [facility]ANISM [facility] ECG HOSP HOSP W/LEAST 12 LDS TRCG ONLY W/O I&R PROTHROMB 22798 [facility] IN TIME 9 [facility] HOSP HOSP THROMBOPL 41094 [facility] ASTIN 9 [facility] TIME HOSP HOSP PARTIAL PLASMA/WH OLE BLOOD COMPREHEN 99323 [facility] SIVE 9 [facility] METABOLIC HOSP HOSP PANEL COLLECTIO 44365 [facility] N VENOUS 9 [facility]ISM [facility] BLOOD HOSP HOSP VENIPUNCT URE CREATINE 79161 [facility]EN[facility]ENTRAL KINASE MB 9 Y[facility]ANISM [facility] FRACTION HOSP HOSP ONLY MYOGLOBIN 80049 [facility]ENTRAL CENTRAL 9 [facility]ISM [facility]ISM HOSP HOSP RADEX 35611 MARION FARRELL FINGR 9 JAMAICA O, MINIMUM 2 &ASSOCH[address] LANE [facility] RADEX 88850 [facility]EN[facility]AL [facility]AL SPINE 9 [facility] CERVICAL HOSP HOSP 2 OR 3 VIEWS INJECTION 44472 CENTRAL SPANDARLYN ANEBraden 9 EMERGENCY MALACHI A OTHER PHYS PSC PERIPHERA L NERVE/BRA NCH CT ORBIT 12391 CENTRAL [facility]TR[facility] SELLA/POS 9 YAZDANISM YAZDANISM T HOSP HOSP FOSSA/EAR W/O CONTRAST MATRL RADEX 99734 CENTRAL JOSEPH, SPINE 9 RADIOLOGY J S CERVICAL ASSOC 4 OR 5 VIEWS RADEX 00921 MARLA KELLEY 9 TRAVIS S MINIMUM 2 RADIOLOGY VIEWS ASSOCIATE S PSC RADEX 78509 [facility] JOSEPH, HAND 9 RADIOLOGY J S MINIMUM [address] [place] [address] [place] PET[facility], HEAD/BRAI 9 TRAVIS S N W/O RADIOLOGY CONTRAST MATERIAL ASSOCIATE S PSC EXPLORATI CENTRAL CENTRAL ON 9 [facility]ISM [facility] PENETRATI HOSP HOSP NG WOUND SPX EXTREMITY GROUND A0425 [facility] MILEAGE 9 EMS [facility] STATUTE MILE AMBULANCE A0429 [facility] SERVICE 9 [facility] EMERGENCY TRANSPORT RADEX ABD 41575 CENTRAL MELENDEZ, COMPL 9 RADIOLOGY VI AQT ABD ASSOC C W/S/E/D VIEWS 1 VIEW CH IMMUNOFIX 08967 [facility] J 9 AMERIC AMERIC ELECTROPH HOLDING HOLDING ORESIS SERUM BLOOD 13254 [facility] COUNT 9 AMERIC AMERIC COMPLETE HOLDING HOLDING AUTO&AUTO DIFRNTL WBC THYROID 21298 [facility] HORM 9 AMERIC AMERIC UPTK/THYR HOLDING HOLDING [place] [address] [facility] THYROID 9 AMERIC AMERIC STIMULATI HOLDING [place] [address] [facility] FOLIC 9 AMERIC AMERIC ACID HOLDING HOLDING SERUM ANGIOTENS 58101 [facility] IN 9 AMERIC AMERIC I-CONVERT [place] [address] [facility] GAMMAGLOB 9 AMERIC AMERIC ULIN IGA HOLDING HOLDING IGD IGG IGM EACH ANTINUCLE 38829 [facility] AR 9 AMERIC AMERIC ANTIBODIE HOLDING HOLDING S CARLOS ENRIQUE ANTIBODY 06539 [facility] BORRELIA 9 AMERIC AMERIC BURGDORFE HOLDING HOLDING RI LYME DISEASE COLLECTIO 07254 [facility] N VENOUS 9 AMERIC AMERIC BLOOD HOLDING HOLDING VENIPUNCT URE COMPREHEN 03743 [facility] SIVE 9 AMERIC AMERIC METAB[place] [address] [facility] HOMOCYSTE 9 AMERIC AMERIC INE HOLDING HOLDING ORGANIC 16468 [facility] ACID 1 9 AMERIC AMERIC QUANTITAT HOLDING HOLDING STEFANO CYANOCOBA 16975 [facility] SID 9 AMERIC AMERIC VITAMIN HOLDING HOLDING B-12 [place] [address] [facility] THYROXINE 9 AMERIC AMERIC TOTAL HOLDING HOLDING SEDIMENTA 72135 [facility] TION RATE 9 AMERIC AMERIC RBC HOLDING HOLDING AUTOMATED EXTRACTAB 51700 [facility] LE 9 AMERIC AMERIC NUCLEAR HOLDING HOLDING ANTIGEN ANTIBODY ANY METHOD PROTHROMB 05417 CENTRAL [facility]TRAL IN TIME 8 [facility] [place] [address] CENTRAL [facility] LIPASE 8 [facility] HOSP HOSP COLLECTIO 47836 CENTRAL [facility]TRAL N VENOUS 8 [facility] BLOOD HOSP HOSP VENIPUNCT URE COMPREHEN 57868 [facility]EN[facility]AL [facility] SIVE 8 [facility] METABOLIC HOSP HOSP PANEL THROMBOPL 79233 [facility]EN[facility] ASTIN 8 [facility]ISM Y[facility]ISM TIME HOSP HOSP PARTIAL PLASMA/[place] [address] CENTRAL CENTRAL AMYLASE 8 YAZ[facility]ANISM YAZ[facility]ANISM HOSP HOSP MYOGLOBIN 46843 CENTRAL CENTRAL 8 Y[facility]ISM [facility]ISM HOSP HOSP NONINVASI 39234 CENTRAL CENTRAL VE 8 YAZDANISM YAZDANISM EAR/PULSE HOSP HOSP [place] [address] CENTRAL CENTRAL THYROID 8 YAZDANISM YAZDANISM STIMULATI HOSP HOSP NG HORMONE TSH ECG 42187 CENTRAL CENTRAL ROUTINE 8 YAZDANISM YAZDANISM ECG HOSP HOSP W/LEAST 12 LDS TRCG ONLY W/O I&R CREATINE 37949 CENTRAL CENTRAL KINASE MB 8 YAZDANISM YAZDAN[place] [address] CENTRAL CENTRAL INFUSION 8 YAZDANISM [facility]ISM HYDRATION HOSP HOSP INITIAL 31 MIN-1 [place] [address] CENTRAL CENTRAL TROPONIN 8 YAZDANISM Y[facility] QUANTITAT HOSP HOSP STEFANO RADIOLOGI 21279 CENTRAL CENTRAL C 8 Y[facility]ANISM Y[facility] EXAMINATI HOSP HOSP ON CHEST SINGLE VIEW FRONTAL BLOOD 66930 CEN[facility]AL C[facility]TRAL COUNT 8 [facility]ISM [facility] COMPLETE HOSP HOSP AUTO&AUTO DIFRNTL WBC ANOSCOPY 72789 [facility] SHANNON, DX 8 L SURGIAL JEANIE T W/COLLJ SPEC ASSOCIATE BR/WA SPX S WHEN PRFRMD AMB A0427 LUIS LUIS SERVICE 8 FAYETTE FAYETTE ALS URBAN URBAN EMERGENCY COGOVT COGOVT TRANSPORT LEVEL 1 COMPREHEN [address] [facility] [address] JESSICA SIVE 8 [facility] METABOLIC PANEL NATRIURET [address] [facility] [address] JESSICA IC 8 [facility] PEPTIDE GROUND A0425 LUIS LUIS MILEAGE 8 FAYETTE FAYETTE PER URBAN URBAN [place] [address] [facility] [address] JESSICA AMYLASE 8 [place] [address] [facility] [address] JESSICA LIPASE 8 [facility] CREATINE [address] [facility] [address] JESSICA KINASE 8 [facility] TOTAL BLOOD [address] [facility] [address] JESSICA COUNT 8 [facility] COMPLETE AUTO&AUTO DIFRNTL WBC ECG 11167 JOSEPH SCHWARTZ 8 [facility] CLINIC W/LEAST PSC 12 LDS I&R ONLY IV NFUS [address] [facility] [address] JESSICA HYDRATION 8 [facility] EA HR RADIOLOGI 07693 [facility] [place] [facility] 8 RADIOLOGY LD, A D EXAMINATI ON CHEST SINGLE VIEW FRONTAL CT PELVIS [address] [facility] [address] JESSICA W/O [address] [place] [address] [place] [address] [facility] [address] JESSICA TROPONIN 8 [facility] QUANTITAT STEFANO THER [address] JESSICA PROPH/DX 8 [facility] NJX IV PUSH 1ST SBST/DRUG INJECTION J2550 [facility] JESSICA 8 [facility] PROMETHAZ INE HCL UP TO [address] [address] JESSICA 8 [facility] METOCLOPR AMIDE HCL UP TO [address] JESSICA PROPH/DX 8 [facility] NJX EA SEQL IV PUSH SBST/[place] [address] [facility] [address] JESSICA ABDOMEN 8 [facility] W/O CONTRAST MATERIAL SUBCUTANE [address] J[facility] OUS 8 [facility] INFUSION EACH ADDITIONA L IV PUSH CREATINE 76136 [facility] KINASE MB 8 [facility] FRACTION ONLY ECG 90429 [facility] ROUTINE 8 [facility]AST [facility] ECG W/LEAST 12 LDS TRCG ONLY W/O I&R INJECTION J2405 [facility] 8 [facility] [place] ONDANSETR ON HCL PER 1 MG ECG 09368 CARDIOLOG MESSERRANJANA, ROUTINE 8 Y CARRIE W ECG ASSOCIATE W/LEAST S OF 12 LDS [place] W/I&R RADEX 80367 CHAITANYA TAVARES ANKLE 8 MEM HOSP MEM HOSP COMPLETE INC INC MINIMUM 3 VIEWS RADEX 43814 NASREEN SMALLS, FOOT 8 MEDICAL GREGG P COMPLETE IMAGING MINIMUM 3 ASSOCIATE VIEWS S RADIOLOGI 57547 [facility] C 8 [facility]ISM [facility] EXAMINATI HOSP HOSP ON KNEE 1/[address] [place] [address] CENTRAL CENTRAL HEAD/BRAI 8 RADIOLOGY RADIOLOGY N W/[place] [address] CENTRAL CENTRAL HEAD/BRAI 8 RADIOLOGY RADIOLOGY N W/O ASSOC ASSOC CONTRAST MATERIAL GROUND A0425 LUIS LUIS MILEAGE 8 FAYETTE FAYETTE PER URBAN URBAN STATUTE COGOVT COGOVT MILE MYOGLOBIN 73852 [facility] CENTRAL 8 [facility] HOSP HOSP CREATINE 73627 [facility] KINASE MB 8 [facility] [place] [address] CENTRAL C[facility]TRAL AMYLASE 8 [facility]ISM [facility]ISM HOSP HOSP COMPREHEN 58448 CEN[facility]AL [facility] SIVE 8 [facility]ISM [facility] METABOLIC HOSP HOSP PANEL COLLECTIO 61747 CENTRAL CENTRAL N VENOUS 8 [facility] BLOOD [place] [address] CENTRAL C[facility]TR[facility] LIPASE 8 [facility] HOSP HOSP AMB A0427 LUIS LUIS SERVICE 8 FAYETTE FAYETTE ALS URBAN URBAN EMERGENCY COGOVT COGOVT TRANSPORT LEVEL 1 THROMBOPL 66989 [facility]EN[facility]TRAL ASTIN 8 [facility] TIME HOSP HOSP PARTIAL PLASMA/WH OLE BLOOD PROTHROMB 34963 [facility] IN TIME 8 [facility] HOSP HOSP IV NFUS 94310 [facility] HYDRATION 8 [facility]ISM [facility]ISM EA HR HOSP HOSP BLOOD 81821 [facility] COUNT 8 [facility] COMPLETE HOSP HOSP AUTO&AUTO DIFRNTL WBC THER 11735 [facility]TR[facility] PROPH/DX 8 [facility]ISM Y[facility]ISM NJX IV HOSP HOSP PUSH 1ST SBST/[place] [address] CENTRAL CENTRAL TROPONIN 8 Y[facility]ANISM Y[facility] QUANTITAT HOSP HOSP STEFANO RADIOLOGI 73683 CENTRAL CENTRAL C 8 [facility]ISM [facility] EXAMINATI HOSP HOSP ON CHEST SINGLE VIEW FRONTAL INJECTION J1170 CENTRAL CENTRAL 8 [facility]ISM [facility] HYDROMORP HOSP HOSP MING UP TO 4 MG THER 85012 CEN[facility]AL [facility]TRAL PROPH/DX 8 [facility]DANISM NJX EA HOSP HOSP SEQL IV PUSH SBST/DRUG SUBCUTANE 82577 CENTRAL [facility]TRAL OUS 8 [facility] INFUSION HOSP HOSP EACH ADDITIONA L IV PUSH INJECTION J2550 CENTRAL CENTRAL 8 [facility]ISM [facility] PROMETHAZ HOSP HOSP INE HCL UP TO 50 MG ECG 61337 [facility] ROUTINE 8 [facility]ISM [facility]ISM ECG HOSP HOSP W/LEAST 12 LDS TRCG ONLY W/O I&R NONINVASI 71587 [facility] VE 8 [facility]ISM [facility] EAR/PULSE HOSP HOSP OXIMETRY MULTIPLE DETER Encounters Encounter Start End Date Code Location Performer Type Date OFFICE 34525 [facility] OUTPATIEN 1 1 FAMILY ALA T VISIT MEDICINE 15 @ TA MINUTES OFFICE 51735 [facility] OUTPATIEN 1 1 FAMILY ALA T VISIT MEDICINE 15 @ TA MINUTES [facility]OSPITAL [facility] - 1 1 [facility] HOSP T OFFICE 59417 [facility] OUTPATIEN 1 1 FAMILY ALA T VISIT MEDICINE 25 @ TA MINUTES EMERGENCY 11609 [facility] 0 0 INES KRI VISIT EMERGENCY HIGH SERV SEVERITY& THREAT FUNCJ EMERGENCY 75785 [facility] 0 0 HOSPITAL DEPARTMEN T VISIT HIGH/URGE NT SEVERITY [facility] [place] [address] 0 [facility]OSPITAL OUTPAT[facility]EN T [facility] [place] [address] 0 [facility] 35778 [facility] 0 0 INES KRI DEPARTMEN EMERGENCY T VISIT SERVI HIGH/URGE NT SEVERITY EMERGENCY 36019 [facility] 0 0 INES KRI DEPARTMEN EMERGENCY T VISIT SERV MODERATE SEVERITY [facility] [place] [address] 0 [facility] 79920 [facility] 0 JESSICA ADR T VISIT CARDIOLOG 25 Y CLINIC MINUTES EMERGENCY [address]9947 [place] [address] 0 HOSPITAL DEPARTMEN T VISIT HIGH/URGE NT SEVERITY [facility] [place] [address] 0 [facility] 42409 [facility] 0 INES VISIT EMERGENCY HIGH PHYS SEVERITY& THREAT FUNCJ OFFICE 42481 [facility]ANY[facility] OUTPATIEN 0 0 FAMILY ALA T VISIT MEDICINE 25 @ TA MINUTES OFFICE 12561 [facility] OUTPATIEN 0 0 FAMILY ALA T VISIT MEDICINE 15 @ TA MINUTES [facility] [place] [address] 0 HOSPITAL INPATIENT EMERGENCY 71935 [facility] DEPT 0 0 INES VISIT EMERGENCY HIGH PHYS SEVERITY& THREAT FUNCJ OFFICE 23789 [facility] OUTPATIEN 0 0 FAMILY ALA T VISIT MEDICINE 15 @ TA MINUTES [facility] [place] [address] 0 [facility] 19837 [facility] DEPT 0 0 HOSPITAL VISIT HIGH SEVERITY& THREAT FUNCJ EMERGENCY 32908 [place] [address] 0 [facility] C[facility]TRAL T VISIT MODERATE SEVERITY [facility] 0 0 [facility] 67337 CHRISTOS DIEZPATIEN 0 0 FAMILY CHU D T VISIT MEDICINE 25 @ TATES MINUTES PALA OFFICE 54881 CHRISTOS DIEZPATINIKKO 0 0 FAMILY CHU D T VISIT MEDICINE 25 @ TATES MINUTES PALA OFFICE 85483 [facility]DANISMCHRISTOS KEANEPATIEN 0 0 FAMILY CHU D T VISIT MEDICINE 15 @ TATES MINUTES PALA OFFICE 01006 JUAN DIEZ 0 0 FAMILY CHU D T VISIT MEDICINE 15 @ TATES MINUTES PALA OFFICE 51975 JUAN DIEZ 0 0 FAMILY CHU D T VISIT MEDICINE 25 @ TATES MINUTES PALA OFFICE 91454 JUAN BYNUM 0 0 FAMILY HUY A T VISIT MEDICINE 15 @ TATES MINUTES [facility] [address] INPATIENT EMERGENCY [address] DEPARTMERIT HEALTH CENTRAL T VISIT LOW/MODER SEVERITY HOSPITAL [address] OUTPATIEN T OFFICE 02048 [facility]ICK NANCE OUTPATIEN 0 0 SAVITA Montaño T NEW 30 CLINIC MINUTES [facility] OFFICE 20330 MICK HARRISON OUTPATIEN 0 0 SAVITA Ruiz T NEW 30 CLINIC MINUTES PSC OFFICE 10599 JUAN DIEZ 9 9 FAMILY CHU D T VISIT MEDICINE 25 @ TATES MINUTES [facility] OFFICE 51391 JUAN DIEZ 9 9 FAMILY CHU D T VISIT MEDICINE 25 @ TATES MINUTES [facility] OFFICE 11236 MAXWELL GOETZEN 9 9 FAMILY ALIZE More VISIT MEDICINE 15 @ TATES MINUTES [facility] OFFICE 19245 YAZDANISM SANYA OUTPATIEN 9 9 FAMILY CHU Ivan T VISIT MEDICINE 25 @ TATES MINUTES [facility] OFFICE 09923 [facility], OUTPATIEN 9 9 NEUROLOGY MARYCRUZ A T VISIT PSC 40 MINUTES EMERGENCY 97491 [facility] JOSE, DEPT 9 9 EMERGENCY SHELBI J VISIT PHYS PSC HIGH SEVERITY& THREAT FUNCJ OFFICE 16493 MARION FARRELL OUTPATIEN 9 9 Argenis HERNÁNDEZ VISIT &THEODORA SHERMAN 15 DCARE MINUTES PLL HOSPITAL [facility] - 9 9 YAZDANISM OUTPATIEN HOSP T EMERGENCY 40503 OROFINO DASIA DEPT 9 9 EMERGENCY RENE J VISIT PHYS PSC HIGH SEVERITY& THREAT FUNCJ OFFICE 59099 MARION AFRRELL CONSULTAT 9 9 RADHA HERNÁNDEZ &THEODORA SHERMAN NEW/ESTAB [facility] PATIENT PLL[facility] 40 MIN EMERGENCY 88791 [facility] STAN DEPT 9 9 EMERGENCY MALACHI A VISIT PHYS PSC HIGH SEVERITY& THREAT FUNCJ EMERGENCY 80165 [facility] 9 9 YAZDANISM DEPARTMEN HOSP T VISIT MODERATE SEVERITY HOSPITAL [facility] - 9 9 YAZDANISM OUTPATIEN HOSP T EMERGENCY 86455 [facility] JOSE DEPT 9 9 EMERGENCY SHELBI J VISIT PHYS PSC HIGH SEVERITY& THREAT FUNCJ OFFICE 31403 [facility], CONSULTAT 9 9 NEUROLOGY MARYCRUZ A ION PSC NEW/ESTAB PATIENT 60 MIN HOSPITAL [facility] - 8 8 YAZDANISM OUTPATIEN HOSP T EMERGENCY 07903 [facility] DEPT 8 8 YAZDANISM VISIT HOSP HIGH SEVERITY& THREAT FUNCJ OFFICE 62309 JUAN BRANDON 8 8 L SURGIAL JEANIE T VISIT 10 ASSOCIATE MINUTES S EMERGENCY 44960 LARRY EDMONDSON, DEPT 8 8 PRIMARY MARA Montaño VISIT CARE HIGH PHYSICANS SEVERITY& MIDWEST THREAT PSC FUNJ EMERGENCY 78549 [facility] 8 8 [facility] VISIT MODERATE SEVERITY HOSPITAL [facility] - 8 8 [facility] OFFICE 85248 CARDIOLOG JUAN ANDREW 8 8 Y CARRIE Goldsmith T VISIT ASSOCIATE 25 S OF MINUTES [facility] [facility] 18668 [facility] 8 8 [facility] VISIT LOW/MODER SEVERITY HOSPITAL [facility] - [address] [facility] - 8 8 YAZDANISM OUTPATIEN [facility] - 8 8 YAZDANISM OUTPATIEN HOSP EMERGENCY 58172 [facility] DEPT 8 8 YAZDANISM VISIT HOSP HIGH SEVERITY& THREAT FUNJ
--- OUTSIDE RECORDS SUMMARY | 2016-10-16 08:01 | External Medical Summary Rpt ---
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 COMPLETE MEDICINE AUTO&AUTO @ TATES DIFRNTL COUNCIL WBC THERAPEUT 53871 BENITEZ DIEZ 9 FAMILY CHU Ivan PROPHYLAC MEDICINE TIC/DX @ TATES INJECTION COUNCIL SUBQ/IM LIPID 25546 TALIB SEGUNDO, PANEL 9 FAMILY CHU Ivan MEDICINE @ TATES COUNCIL COLLECTIO 13669 Maverick DIEZ VENOUS 9 FAMILY CHU Ivan BLOOD MEDICINE VENIPUNCT @ TATES URE COUNCIL COMPREHEN 04821 LEN DIEZE 9 FAMILY HCU Ivan METABOLIC MEDICINE PANEL @ TATES COUNCIL THERAPEUT 52986 BENITEZ DIEZ 9 FAMILY CHU Ivan PROPHYLAC MEDICINE TIC/DX @ TATES INJECTION COUNCIL SUBQ/IM INJECTION J3420 TALIB SEGUNDO, VIT B-12 9 FAMILY CHU Ivan [facility]IC[facility]BA [facility] 1000 MCG IAADIADOO 38581 TALIB SEGUNDO, 9 FAMILY CHU Ivan INFLUENZA MEDICINE @ TATES COUNCIL PHARM G0333 TERRY DRAPER DISPEN 9 PHARMACY PHARMACY FEE INHAL 278 RX; INITIAL 30-DAY SUPPLY ALBUTEROL J7613 TERRY DRAPER INHAL 9 PHARMACY PHARMACY NON-CP 10278 PROD THRU DME U DOSE 1 MG ECHO 05468 CARDIOLOG Maverick MEJIA TTHRC R-T 9 Y A 2D ASSOCIATE W/WOM-MOD S OF E COMPL [place] SPEC&COLR D ECG 92877 CARDIOLOG Maverick MEJIA ROUTINE 9 Y A ECG ASSOCIATE W/LEAST S OF 12 [facility] I&R ONLY HOSPITAL 63892 CARDIOLOG LORRIE, DISCHARGE 9 Y CARRIE W DAY ASSOCIATE MANAGEMEN S OF T 30 [place] MIN/< ECG 72909 [facility] JOSE, ROUTINE 9 EMERGENCY SHELBI J ECG PHYS PSC W/LEAST 12 LDS I&R ONLY RADIOLOGI 75473 [facility] Danyel JOSEPH 9 RADIOLOGY J S EXAMINATI ASSOC ON CHEST SINGLE VIEW FRONTAL RADEX 71651 MARION FARRELL FINGR 9 JAMAICA O, MINIMUM 2 &ASSOCH[address] LANE VIEWS [facility] ECG 95555 [facility] FORMAN, ROUTINE 9 EMERGENCY RENE J ECG PHYS PSC W/LEAST 12 LDS I&R ONLY BLOOD 97910 [facility] COUNT 9 [facility]TE [facility] HOSP AUTO&[place] [address] [facility] TROPONIN 9 [facility] QUANTITAT HOSP HOSP STEFANO ECG 73290 [facility] ROUTINE 9 [facility]ATION[facility] ECG HOSP HOSP W/LEAST 12 LDS TRCG ONLY W/O I&R PROTHROMB 98553 [facility] IN TIME 9 [facility] HOSP THROMBOPL 24845 [facility] ASTIN 9 [facility] TIME [facility]OSP HOSP PARTIAL PLASMA/WH OLE BLOOD COMPREHEN 69891 [facility] SIVE 9 [facility] METABOLIC HOSP HOSP PANEL COLLECTIO 49974 [facility] N VENOUS 9 [facility] BLOOD HOSP HOSP VENIPUNCT URE CREATINE 99120 [facility] KINASE MB 9 [facility] FRACTION HOSP HOSP ONLY MYOGLOBIN 40324 [facility] CENTRAL 9 [facility] HOSP RADEX 75122 MARION FARRELL FINGR 9 JAMAICA O, MINIMUM 2 &[address] LANE [facility] RADEX 99612 [facility] SPINE 9 [facility] CERVICAL [facility]P HOSP 2 OR 3 VIEWS INJECTION 14762 CENTRAL SPANDARLYN ANEBraden 9 EMERGENCY MALACHI A OTHER PHYS PSC PERIPHERA L NERVE/BRA NCH CT ORBIT 07288 [facility] SELLA/POS 9 [facility] T HOSP HOSP FOSSA/EAR W/O CONTRAST MATRL RADEX 85668 [facility] JOSEPH, SPINE 9 RADIOLOGY J S CERVICAL ASSOC 4 OR 5 VIEWS RADEX 14026 MARLA KELLEY 9 TRAVIS S MINIMUM 2 RADIOLOGY VIEWS ASSOCIATE S PSC RADEX 04711 [facility] JOSEPH, HAND 9 RADIOLOGY J S MINIMUM [address] [place] [address] [place] PETTIT, HEAD/BRAI 9 TRAVIS S N W/O RADIOLOGY CONTRAST MATERIAL ASSOCIATE S PSC EXPLORATI CENTRAL [facility] ON 9 [facility] PENETRATI HOSP HOSP NG WOUND SPX EXTREMITY GROUND A0425 [facility] MILEAGE 9 EMS [facility] STATUTE MILE AMBULANCE A0429 [facility] SERVICE 9 [facility] EMERGENCY TRANSPORT RADEX ABD 24861 [facility]AL MELENDEZ, COMPL 9 RADIOLOGY VI AQT ABD ASSOC C W/S/E/D VIEWS 1 VIEW CH IMMUNOFIX 74373 LAB [facility] LAB REMBERTO J 9 AMERIC AMERIC ELECTROPH HOLDING HOLDING ORESIS SERUM BLOOD 87598 LAB [facility] LAB REMBERTO COUNT 9 AMERIC AMERIC COMPLETE HOLDING HOLDING AUTO&AUTO DIFRNTL WBC THYROID 86496 [facility] LAB REM[facility]ERT[facility] HORM 9 AMERIC AMERIC UPTK/THYR HOLDING HOLDING [place] [address] LAB [facility] LAB [facility] THYROID 9 AMERIC AMERIC STIMULATI HOLDING [place] [address] [facility] LAB [facility] FOLIC 9 AMERIC AMERIC ACID HOLDING HOLDING SERUM ANGIOTENS 32700 LAB [facility] LAB REMBERT[facility] IN 9 AMERIC AMERIC I-CONVERT [place] [address] LAB [facility] LAB [facility] GAMMAGLOB 9 AMERIC AMERIC ULIN IGA HOLDING HOLDING IGD IGG IGM EACH ANTINUCLE 98221 [facility] LAB REMBERTO AR 9 AMERIC AMERIC ANTIBODIE HOLDING HOLDING S CARLOS ENRIQUE ANTIBODY 24487 [facility] LAB REMBERTO BORRELIA 9 AMERIC AMERIC BURGDORFE HOLDING HOLDING RI LYME DISEASE COLLECTIO 90061 [facility] LAB REM[facility]ERT[facility] N VENOUS 9 AMERIC AMERIC BLOOD HOLDING HOLDING VENIPUNCT URE COMPREHEN 18727 LAB [facility] LAB REMBERTO SIVE 9 AMERIC AMERIC [place] [address] LAB [facility] LAB REMBERT[facility] HOMOCYSTE 9 AMERIC AMERIC INE HOLDING HOLDING ORGANIC 82879 LAB [facility] LAB REMBERTO ACID 1 9 AMERIC AMERIC QUANTITAT HOLDING HOLDING STEFANO CYANOCOBA 10054 LAB [facility] LAB REMBERTO SID 9 AMERIC AMERIC VITAMIN HOLDING HOLDING B-12 [place] [address] LAB REM[facility] LAB [facility] THYROXINE 9 AMERIC AMERIC TOTAL HOLDING HOLDING SEDIMENTA 97930 LAB [facility] LAB REMBERT[facility] TION RATE 9 AMERIC AMERIC RBC HOLDING HOLDING AUTOMATED EXTRACTAB 98911 LAB [facility] LAB REMBERTO LE 9 AMERIC AMERIC NUCLEAR HOLDING HOLDING ANTIGEN ANTIBODY ANY METHOD PROTHROMB 89120 [facility]EN[facility] IN TIME 8 [facility] [place] [address] CENTRAL [facility] LIPASE 8 [facility]P HOSP COLLECTIO 20854 [facility]EN[facility]AL [facility] N VENOUS 8 [facility]IST [facility]IST BLOOD HOSP HOSP VENIPUNCT URE COMPREHEN 39459 CENTRAL [facility] SIVE 8 [facility] METABOLIC HOSP HOSP PANEL THROMBOPL 37127 CENTRAL CENTRAL ASTIN 8 REST[facility]IST RESTORATIONIST TIME HOSP HOSP PARTIAL PLASMA/[place] [address] CENTRAL CENTRAL AMYLASE 8 [facility]IST RESTORATIONIST HOSP HOSP MYOGLOBIN 68162 CENTRAL CENTRAL 8 [facility]ORATIONIST HOSP HOSP NONINVASI 06831 CENTRAL CENTRAL VE 8 RESTORATIONIST RESTORATIONIST EAR/PULSE HOSP HOSP [place] [address] CENTRAL CENTRAL THYROID 8 RESTORATIONIST RESTORATIONIST STIMULATI HOSP HOSP NG HORMONE TSH ECG 97850 CEN[facility]AL [facility] ROUTINE 8 [facility]ATIONIST RESTORATIONIST ECG HOSP HOSP W/LEAST 12 LDS TRCG ONLY W/O I&R CREATINE 93360 CEN[facility]AL CENTRAL KINASE MB 8 [facility]ATIONIST REST[place]ATION[place] [address] CENTRAL [facility] INFUSION 8 [facility]IST [facility] HYDRATION HOSP HOSP INITIAL 31 MIN-1 [place] [address] CENTRAL CENTRAL TROPONIN 8 RESTORATIONIST [facility]IST QUANTITAT HOSP HOSP STEFANO RADIOLOGI 47814 CENTRAL CENTRAL C 8 [facility]ORATIONIST RESTORATIONIST EXAMINATI HOSP HOSP ON CHEST SINGLE VIEW FRONTAL BLOOD 25410 [facility]AL [facility] COUNT 8 [facility]IST [facility]IST COMPLETE HOSP HOSP AUTO&AUTO DIFRNTL WBC ANOSCOPY 21021 [facility] SHANNON, DX 8 L SURGIAL JEANIE T W/COLLJ SPEC ASSOCIATE BR/WA SPX S WHEN PRFRMD AMB A0427 LUIS LUIS SERVICE 8 [facility]AY[facility]TE FAYETTE ALS URBAN URBAN EMERGENCY COGOVT COGOVT TRANSPORT LEVEL [address] [facility] [address] JESSICA SIVE 8 [facility] METABOLIC PANEL NATRIURET [address] [facility] [address] JESSICA IC 8 [facility] PEPTIDE GROUND A0425 LUIS LUIS MILEAGE 8 FAYETTE FAYETTE PER URBAN URBAN [place] [address] [facility] [address] JESSICA AMYLASE 8 [facility] [place] [address] [facility] [address] JESSICA LIPASE 8 [facility] CREATINE [address] [facility] [address] JESSICA KINASE 8 [facility] TOTAL BLOOD [address] [facility] [address] JESSICA COUNT 8 [facility] COMPLETE AUTO&AUTO DIFRNTL WBC ECG 08999 [facility]PH SCHWARTZ 8 [facility] W/LEAST PSC 12 LDS I&R ONLY IV NFUS [address] [facility] [address] JESSICA HYDRATION 8 [facility] EA HR RADIOLOGI 00384 [facility] [place] [facility] 8 RADIOLOGY LD, A D EXAMINATI ON CHEST SINGLE VIEW FRONTAL CT PELVIS [address] [facility] [address] JESSICA W/O [address] [place] [address] [place] [address] [facility] [address] JESSICA TROPONIN 8 [facility] QUANTITAT STEFANO THER [address] JESSICA PROPH/DX 8 [facility] NJX IV PUSH 1ST SBST/DRUG INJECTION J2550 [facility] JESSICA 8 [facility] PROMETHAZ INE HCL UP TO [address] JESSICA 8 [facility] METOCLOPR AMIDE HCL UP TO [address] JESSICA PROPH/DX 8 [facility] NJX EA SEQL IV PUSH SBST/[place] [address] [facility] [address] JESSICA ABDOMEN 8 [facility] W/O CONTRAST MATERIAL SUBCUTANE [address] JESSICA OUS 8 [facility] INFUSION EACH ADDITIONA L IV PUSH CREATINE 63446 [facility] KINASE MB 8 [facility] FRACTION ONLY ECG 72892 [facility] ROUTINE 8 [facility] ECG W/LEAST 12 LDS TRCG ONLY W/O I&R INJECTION J2405 [facility] 8 [facility] [place] ONDANSETR ON HCL PER 1 MG ECG 75366 CARDIOLOG MESSERRANJANA, ROUTINE 8 Y CARRIE W ECG ASSOCIATE W/LEAST S OF 12 LDS [place] W/I&R RADEX 28271 CHAITANYA TAVARES ANKLE 8 MEM [facility] MEM HOSP COMPLETE INC INC MINIMUM 3 VIEWS RADEX 86460 NASREEN SMALLS, FOOT 8 MEDICAL GREGG P COMPLETE IMAGING MINIMUM 3 ASSOCIATE VIEWS S RADIOLOGI 04085 [facility] C 8 [facility]IST REST[facility] EXAMINATI HOSP HOSP ON KNEE 1/[address] [place] [address] C[facility]AL [facility] HEAD/BRAI 8 RADIOLOGY RADIOLOGY N W/[place] [address] [facility] HEAD/BRAI 8 RADIOLOGY RADIOLOGY N W/O ASSOC ASSOC CONTRAST MATERIAL GROUND A0425 LUIS LUIS MILEAGE 8 FAYETTE FAYETTE PER URBAN URBAN STATUTE COGOVT COGOVT MILE MYOGLOBIN 34836 [facility] CENTRAL 8 [facility] HOSP CREATINE 16688 [facility]AL KINASE MB 8 [facility]IST [place] [address] CENTRAL [facility] AMYLASE 8 [facility] HOSP COMPREHEN 88811 CEN[facility]AL [facility] SIVE 8 [facility] METABOLIC HOSP HOSP PANEL COLLECTIO 91823 CEN[facility]AL [facility] N VENOUS 8 [facility] BLOOD [place] [address] CENTRAL [facility] LIPASE 8 [facility] H[facility]P HOSP AMB A0427 LUIS LUIS SERVICE 8 FAYETTE FAYETTE ALS URBAN URBAN EMERGENCY COGOVT COGOVT TRANSPORT LEVEL 1 THROMBOPL 26561 [facility]AL [facility]TRAL ASTIN 8 [facility] TIME HOSP HOSP PARTIAL PLASMA/WH OLE BLOOD PROTHROMB 80476 [facility] IN TIME 8 [facility]P HOSP IV NFUS 96574 [facility] HYDRATION 8 [facility]IST RESTORATIONIST EA HR HOSP HOSP BLOOD 00445 [facility]AL [facility] COUNT 8 [facility] COMPLETE HOSP HOSP AUTO&AUTO DIFRNTL WBC THER 20059 [facility] PROPH/DX 8 [facility]IST RESTORATIONIST NJX IV HOSP HOSP PUSH 1ST SBST/[place] [address] CENTRAL CENTRAL TROPONIN 8 RESTORATIONIST RESTORATIONIST QUANTITAT HOSP HOSP STEFANO RADIOLOGI 61701 CEN[facility]AL CENTRAL C 8 [facility]ORATIONIST RESTORATIONIST EXAMINATI HOSP HOSP ON CHEST SINGLE VIEW FRONTAL INJECTION J1170 CENTRAL CENTRAL 8 [facility]IST RESTORATIONIST HYDROMORP HOSP HOSP MING UP TO 4 MG THER 64172 [facility] PROPH/DX 8 [facility]ORATIONIST RESTORATIONIST NJX EA HOSP HOSP SEQL IV PUSH SBST/DRUG SUBCUTANE 96905 [facility]EN[facility]AL [facility] OUS 8 [facility] INFUSION HOSP HOSP EACH ADDITIONA L IV PUSH INJECTION J2550 CEN[facility]AL CENTRAL 8 [facility]IST [facility]ATIONIST PROMETHAZ HOSP HOSP INE HCL UP TO 50 MG ECG 04110 [facility] ROUTINE 8 [facility]IST RESTORATIONIST ECG HOSP HOSP W/LEAST 12 LDS TRCG ONLY W/O I&R NONINVASI 42414 [facility] VE 8 [facility]IST RESTORATIONIST EAR/PULSE HOSP HOSP OXIMETRY MULTIPLE DETER Encounters Encounter Start End Date Code Location Performer Type Date OFFICE 63126 [facility] 1 1 FAMILY ALA T VISIT MEDICINE 15 @ TA MINUTES OFFICE 81919 [facility] OUTPAT[facility] 1 1 FAMILY ALA T VISIT MEDICINE 15 @ TA MINUTES [facility]OSPITAL [facility] - 1 1 [facility] T OFFICE 98954 [facility] OUTPATIEN 1 1 FAMILY ALA T VISIT MEDICINE 25 @ TA MINUTES EMERGENCY 65826 [facility] 0 0 INES KRI VISIT EMERGENCY HIGH SERV SEVERITY& THREAT FUNCJ EMERGENCY 41669 [facility] 0 HOSPITAL DEPARTMEN T VISIT HIGH/URGE NT SEVERITY [facility] [place] [address] 0 [facility] OUTPAT[facility] [place] [address] [facility] 48988 [facility] 0 0 INES KRI DEPARTMEN EMERGENCY T VISIT SERVI HIGH/URGE NT SEVERITY EMERGENCY 08308 [facility] 0 0 INES KRI DEPARTMEN EMERGENCY T VISIT SERV MODERATE SEVERITY [facility] [place] [address] 0 [facility] 83613 [facility] JESSICA ADR T VISIT CARDIOLOG 25 Y CLINIC MINUTES EMERGENCY 68867 [place] [address] 0 HOSPITAL DEPARTMEN T VISIT HIGH/URGE NT SEVERITY [facility] [place] [address] 0 [facility] 87948 [facility] DE[facility] 0 0 INES VISIT EMERGENCY HIGH PHYS SEVERITY& THREAT FUNCJ OFFICE 51715 [facility] OUT[facility] 0 0 FAMILY ALA T VISIT MEDICINE 25 @ TA MINUTES OFFICE 68777 [facility] OUTPAT[facility]EN 0 0 FAMILY ALA T VISIT MEDICINE 15 @ TA MINUTES [facility] [place] [address] 0 HOSPITAL INPATIENT EMERGENCY 49989 [facility] ADRIANE W DEPT 0 0 INES VISIT EMERGENCY HIGH PHYS SEVERITY& THREAT FUNCJ OFFICE 32134 [facility] OUTPATIEN 0 0 FAMILY ALA T VISIT MEDICINE 15 @ TA MINUTES [facility] [place] [address] 0 [facility] 94045 [facility] 0 0 HOSPITAL VISIT HIGH SEVERITY& THREAT FUNCJ EMERGENCY 14421 [place] [address] 0 [facility] V[facility] MODERATE SEVERITY [facility] 0 0 [facility] 20181 [facility] DIEZPATIEN 0 0 FAMILY CHU D T VISIT MEDICINE 25 @ TATES MINUTES COUNCIL OFFICE 92147 CHRISTOS DIEZPATINIKKO 0 0 FAMILY CHU D T VISIT MEDICINE 25 @ TATES MINUTES COUNCIL OFFICE 25624 [facility] KEANEPATIEN 0 0 FAMILY CHU D T VISIT MEDICINE 15 @ TATES MINUTES COUNCIL OFFICE 89555 JUAN DIEZ 0 0 FAMILY CHU D T VISIT MEDICINE 15 @ TATES MINUTES COUNCIL OFFICE 22701 JUAN DIEZ 0 0 FAMILY CHU D T VISIT MEDICINE 25 @ TATES MINUTES COUNCIL OFFICE 38020 JUAN BYNUM 0 0 FAMILY HUY A T VISIT MEDICINE 15 @ TATES MINUTES [facility] [address] INPATIENT EMERGENCY [address] [facility] T VISIT LOW/MODER SEVERITY HOSPITAL [address] OUTPATIEN T OFFICE 81838 [facility] OUTPATIEN 0 0 SAVITA Montaño T NEW 30 CLINIC MINUTES [facility] OFFICE 45483 MICK [facility]ARRISON OUTPATIEN 0 0 SAVITA Ruiz T NEW 30 CLINIC MINUTES PSC OFFICE 76351 JUAN DIEZ 9 9 FAMILY CHU D T VISIT MEDICINE 25 @ TATES MINUTES COUNCIL OFFICE 09878 JUAN DIEZ 9 9 FAMILY CHU D T VISIT MEDICINE 25 @ TATES MINUTES COUNCIL OFFICE 68553 MAXWELL GOETZEN 9 9 FAMILY ALIZE More VISIT MEDICINE 15 @ TATES MINUTES COUNCIL OFFICE 13005 [facility] OUTPATIEN 9 9 FAMILY CHU Ivan T VISIT MEDICINE 25 @ TATES MINUTES COUNCIL OFFICE 99663 [facility] [place], OUTPATIEN 9 9 NEUROLOGY MARYCRUZ A T VISIT PSC 40 MINUTES EMERGENCY 99621 [facility] JOSE, DEPT 9 9 EMERGENCY SHELBI J VISIT PHYS PSC HIGH SEVERITY& THREAT FUNCJ OFFICE 64114 [facility] FARRELL OUTPATIEN 9 9 Argenis HERNÁNDEZ VISIT &THEODORA SHERMAN 15 DCARE MINUTES PLL HOSPITAL [facility] - 9 9 [facility] OUTPATIEN HOSP T EMERGENCY 20008 [place] DASIA DEPT 9 9 EMERGENCY RENE J VISIT PHYS PSC HIGH SEVERITY& THREAT FUNCJ OFFICE 42579 [facility] FARRELL CONSULTAT 9 9 RADHA HERNÁNDEZ &THEODORA SHERMAN NEW/ESTAB [facility] PATIENT PLLC 40 MIN EMERGENCY 62527 [facility] STAN DEPT 9 9 EMERGENCY MALACHI A VISIT PHYS PSC HIGH SEVERITY& THREAT FUNCJ EMERGENCY 24461 [facility] 9 9 [facility] VISIT MODERATE SEVERITY [facility]OSPITAL [facility] - 9 9 [facility] EMERGENCY 89153 [facility] JOSE DEPT 9 9 EMERGENCY SHELBI J VISIT PHYS PSC HIGH SEVERITY& THREAT FUNCJ OFFICE 91361 [facility] [place], CONSULTAT 9 9 NEUROLOGY MARYCRUZ A ION PSC NEW/ESTAB PATIENT 60 MIN [facility] - 8 8 [facility] EMERGENCY 03307 [facility] DE[facility] 8 8 [facility]IST VISIT HOSP HIGH SEVERITY& THREAT FUNCJ OFFICE 16448 JUAN BRANDON 8 8 L SURGIAL JEANIE T VISIT 10 ASSOCIATE MINUTES S EMERGENCY 66546 [facility]Y ED[facility], DEPT 8 8 PRIMARY MARA Montaño VISIT CARE HIGH PHYSICANS SEVERITY& MIDWEST THREAT PSC FUNJ EMERGENCY 59493 [facility] 8 8 [facility] VISIT MODERATE [facility]VERITY [facility] - 8 8 [facility] OFFICE 12859 CARDIOLOG JUAN ANDREW 8 8 Y CARRIE Goldsmith T VISIT ASSOCIATE 25 S OF MINUTES [facility] 92294 [place] 8 8 [facility] VISIT LOW/MODER SEVERITY [facility]OSPITAL [facility] - 8 8 [facility] - 8 8 [facility]IST OUTPATIEN [facility] - 8 8 [facility] OUTPATIEN HOSP EMERGENCY 51914 [facility] DEPT 8 8 [facility] VISIT HOSP HIGH SEVERITY& THREAT FUNJ
--- OUTSIDE RECORDS SUMMARY | 2016-10-16 08:02 | External Medical Summary Rpt ---
Author Author [facility], [employer] Organization [employer] Address Unknown Phone Unavailable
--- OUTSIDE RECORDS SUMMARY | 2016-10-16 08:02 | External Medical Summary Rpt ---
Demographics Preferred Language [place] Marital Status Unknown Jainism Affiliation Unknown Race Unknown Ethnic Group Unknown Author Author , Organization [employer] Address Unknown Phone Unavailable Purpose Continuity of Care Document - through 2016 Immunization No patient found.
--- OUTSIDE RECORDS SUMMARY | 2016-10-16 08:02 | External Medical Summary Rpt ---
Demographics Preferred Language Italian Marital Status Unknown [facility] Affiliation Unknown Race Unknown Ethnic Group Unknown Author Author , Organization [employer] Address Unknown Phone Unavailable Purpose Continuity of Care Document - through 2016 Immunization No patient found.
--- OUTSIDE RECORDS SUMMARY | 2016-10-16 08:10 | External Medical Summary Rpt ---
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 EXAMINATI ON CHEST SINGLE VIEW FRONTAL L HRT 31169 CARDIOLOG YARELY CATHETERI 0 Y JR GAR ZATION ASSOCIATE [place]ROGR[place] [address] CARDIOLOG YARELY C-CATHJ 0 Y JR GAR F/SLCTV C ASSOCIATE ANGRPH S OF [place] I SI&R 63552 CARDIOLOG YARELY F/NJX PX 0 Y JR GAR DURING ASSOCIATE C-CATHJ S OF [place] VENTR&/AT R ANGRPH I SI&R 40607 CARDIOLOG YARELY F/NJX PX 0 Y JR GAR DURING ASSOCIATE C-CATHJ S [facility] [place] PULM&/OR SELECT CREATINE 48544 [facility] KINASE MB [address] [place] [address] FRACTION ONLY CLOSURE C1760 [facility] DEVICE [address] [place] [address] VASCULAR THER 09760 [facility] PROPH/DX [address] [place] [address] NJX IV PUSH SINGLE/1S T SBST/DRUG BLOOD 90646 [facility] COUNT [address] [place] [address] COMPLETE AUTOMATED SODIUM [address] [address] [facility] TROPONIN [address] [place] [address] QUANTITAT STEFANO INJECTION 93388 CARDIOLOG YARELY CARDIAC 0 Y JR GAR CATHJ L ASSOCIATE VENTR/L S OF [place] ATR ANGIOGRAP H PLCMT G0269 [facility] OCCL DEVC [address] [place] [address] ROHAN/ART POST SURG/INTR VNL PROC ECG 00932 [facility] J ROUTINE 0 [place] ECG CLINIC W/LEAST PSC 12 LDS I&R ONLY POTASSIUM [address] PLASMA/WH OLE BLOOD OBSERVATI 34323 CARDIOLOG LORRIE ON/INPATI 0 Y ADR ENT ASSOCIATE [facility] CARE 55 MINUTES INTRDUCR/ C1894 [facility] SHEATH [address] [place] [address] NOT GUID INTRACARD EP NON-LASR URNLS DIP [address] STICK/TAB LET REAGENT AUTO MICROSCOP Y GLUCOSE 63445 [facility] QUANTITAT [address] [place] [address] STEFANO BLOOD XCPT REAGENT STRIP CHLORIDE 06547 [facility] BLD [address] [place] [address] BLOOD 18485 [facility] GASES ANY [address] [place] [address] COMBINATI ON PH PCO2 PO2 CO2 HCO3 ECG 97272 [facility] ROUTINE [address] [place] [address] ECG W/LEAST 12 LDS TRCG ONLY W/O I&R CREATINE 01736 [facility] KINASE [address] [place] [address] TOTAL CREATININ 31259 [facility] E BLOOD [address] [place] [address] THERAPEUT 46769 [facility] IC 0 [place] PROPHYLAC TIC/DX INJECTION SUBQ/IM AVULSION 35524 [facility] NAIL 0 [facility] PLATE PARTIAL/C OMPLETE SIMPLE 1 RADEX TOE 18799 [facility] MINIMUM 0 [place] 2 VIEWS INJECTION J3420 TALIB SEGUNDO, VIT B-12 0 FAMILY CHU Ivan MEDICINE CYANOCOBA @ TAT SID TO [facility] 1000 MCG THERAPEUT 16446 TALIB SEGUNDO IC 0 FAMILY CHU Ivan PROPHYLAC MEDICINE TIC/DX @ TATES INJECTION MCGRATH SUBQ/IM COLLECTIO 07249 Maverick DIEZ VENOUS 0 FAMILY CHU Ivan BLOOD MEDICINE VENIPUNCT @ [place] [address] TALIB SEGUNDO THYROID 0 FAMILY CHU Ivan STIMULATI MEDICINE NG @ TATES HORMONE [facility] TSH SEDIMENTA 80208 [facility] OF TION RATE 0 [facility] RBC AUTOMATED BASIC 14546 TALIB SEGUNDO METABOLIC 0 FAMILY CHU Ivan PANEL MEDICINE CALCIUM @ TATES TOTAL [facility] BLOOD 08603 TALIB SEGUNDO COUNT 0 FAMILY FLORES COMPLETE MEDICINE AUTO&AUTO @ TA DIFRNTL WBC BLOOD 94188 TALIB SEGUNDO, COUNT 0 FAMILY FLORESN Moncho COMPLETE MEDICINE AUTO&AUTO @ [place] [address] TALIB SEGUNDO THYROID 0 FAMILY CHU Ivan STIMULATI MEDICINE NG @ TATES HORMONE [facility] TSH COLLECTIO 39216 Maverick DIEZ VENOUS 0 FAMILY CHU Ivan BLOOD MEDICINE VENIPUNCT @ TATES URE [facility] THERAPEUT 09319 TALIB SEGUNDO, IC 0 FAMILY CHU Ivan PROPHYLAC MEDICINE TIC/DX @ TATES INJECTION [facility] SUBQ/IM INJECTION J3420 TALIB SEGUNDO, VIT B-12 0 FAMILY CHU Ivan MEDICINE CYANOCOBA @ TATES SID TO [facility] 1000 MCG COMPREHEN 93549 TALIB SEGUNDO SIVE 0 FAMILY CHU Ivan METABOLIC MEDICINE PANEL @ TATES [facility] INJECTION J3420 TALIB SEGUNDO VIT B-12 0 FAMILY CHU Ivan MEDICINE CYANOCOBA @ TATES SID TO [facility] 1000 MCG THERAPEUT 68139 TALIB SEGUNDO, IC 0 FAMILY CHU Ivan PROPHYLAC MEDICINE TIC/DX @ TATES INJECTION [facility] SUBQ/IM [facility]OSP[facility] 78111 [facility] 0 INPATIENT [facility] MEDICINE MANAGEMEN ASSOC T 30 MIN/< ECG 48830 TALIB ROY, JOSEPH 0 FAMILY HUY A ECG MEDICINE W/LEAST @ TATES 12 LDS [facility] W/I&R SBS 60572 [facility] 0 INPATIENT [facility] MEDICINE 25 ASSOC MINUTES SBSQ 13493 [facility] 0 INPATIENT [facility] MEDICINE 15 ASSOC MINUTES SBSQ 03860 [facility] 0 L SURGIAL JEANIE T CARE/DAY 15 ASSOCIATE MINUTES S LAPAROSCO 5451 [facility] PIC LYSIS 0 [facility] ADHESIONS LAPAROSCO 5123 [facility] 0 [facility] CHOLECYST ECTOMY LEVEL III 07636 [facility] [place], SURG 0 [place] [facility] PSC GROSS&KEITH ROSCOPIC EXAM SBSQ 23786 [facility] 0 INPATIENT [facility] MEDICINE 25 ASSOC MINUTES LAPAROSCO 87166 [facility] 0 JESSICA RISHI N CHOLECYST SURGICAL ECTOMY ASSOCIATE S ECG 32930 INTERNAL KO, ROUTINE 0 MED MAUREEN ECG ASSOCIATE W/LEAST S 12 LDS I&R ONLY ANES 74768 ANESTHESI POWERS, INTRAPERI 0 A CRICKET C TONEAL ASSOCIATE UPPER S, PSC ABDOMEN W/LAPS NOS SBSQ 58533 [facility] 0 INPATIENT CARE/DAY MEDICINE 25 ASSOC MINUTES INITIAL 86468 [facility] 0 [facility] N CARE/DAY SURGICAL 50 ASSOCIATE MINUTES S SBSQ 81816 [facility] 0 L [facility] CARE/DAY 15 ASSOCIATE MINUTES S SBSQ 92831 [facility] 0 L [facility] CARE/DAY 15 ASSOCIATE MINUTES S HEPATBL 90766 [facility] [place] [facility] 0 RADIOLOGY LD, A D [facility]G [facility] 24129 [facility] 0 INPATIENT CARE/DAY [place] [address] [facility] [place] ABDOMINAL 0 RADIOLOGY LD, A D REAL TIME W/IMAGE LIMITED SBSQ 74151 [facility] 0 INPATIENT CARE/DAY MEDICINE 25 ASSOC MINUTES SBSQ 41224 [facility] 0 L SURGIAL [facility] CARE/DAY 15 ASSOCIATE MINUTES S SBSQ 75937 [facility] 0 L SURGIAL [facility] CARE/DAY 15 ASSOCIATE MINUTES S RADEX ABD 50853 [facility] [place] DAIS[place], COMPL 0 RADIOLOGY AURY R AQT ABD W/S/E/D V[place]WS 1 [place] [address] [facility] [place], TRACT UPR 0 RADIOLOGY ERLIN K W/SM INT W/MULT SERIAL IMAGES ESOPHAGOG 74583 [facility] RODRIGUEZ 0 SAVITA Feliciano ENOSCOPY CLINIC TRANSORAL PSC DIAGNOSTI C SBSQ 30411 [facility] 0 L SURGIAL JEANIE T CARE/DAY 15 ASSOCIATE MINUTES S OTHER 4513 [facility] ENDOSCOPY 0 [facility] INTESTINE SBSQ 44022 [facility] 0 INPATIENT CARE/DAY MEDICINE 25 ASSOC MINUTES SBSQ 45637 [facility] 0 INPATIENT CARE/DAY MEDICINE 25 ASSOC MINUTES INITIAL 90719 [facility] 0 [facility] CARE/DAY CLINIC [address] [place] [address] [facility] [place], ABDOMEN 0 RADIOLOGY ANI W W/CONTRAS T MATERIAL CT PELVIS 47037 [facility] [place], 0 RADIOLOGY ANI W W/CONTRAS T MATERIAL SBSQ 44215 [facility] 0 [facility] CARE/DAY 35 ASSOCIATE MINUTES S SBSQ 83014 [facility] 0 INPATIENT CARE/DAY MEDICINE 25 ASSOC MINUTES INITIAL 68745 [facility] 0 INPATIENT ROEL CARE/DAY MEDICINE [address] PELVIS 06266 [facility] GABE [facility], 0 RADIOLOGY PRIMITIVO Sharpe W/[place] [address] [facility] GABE [facility], ABDOMEN 0 RADIOLOGY PRIMITIVO Sharpe W/CONTRAS T MATERIAL RADIOLOGI 14970 Danyel OROPEZA EXAM 0 [facility] KNEE CLINIC COMPLETE PSC 4/MORE VIEWS RADIOLOGI 32957 CNTRDanyel FRANCO EXAM 0 RADIOLOGY AURY R KNEE COMPLETE 4/MORE VIEWS THERAPEUT 65162 BENITEZ DIEZ 9 FAMILY CHU Ivan PROPHYLAC MEDICINE TIC/DX @ TATES INJECTION [facility] SUBQ/IM INJECTION J3420 LAURA DIEZ B-12 9 FAMILY CHU Ivan MEDICINE CYANOCOBA @ TAT SID TO [facility] 1000 MCG COMPREHEN 64407 MELISSA DIEZ 9 FAMILY CHU Ivan METABOLIC MEDICINE PANEL @ TATES [facility] LIPID 81196 BOGDAN DIEZ 9 FAMILY CHU Ivan MEDICINE @ TATES [facility] COLLECTIO 34611 Maverick DIEZ VENOUS 9 FAMILY CHU Ivan BLOOD MEDICINE VENIPUNCT @ [facility] [place] [address] TALIB SEGUNDO, THYROID 9 FAMILY CHU Ivan STIMULATI MEDICINE NG @ [facility] HORMONE [facility] TSH BLOOD 98968 TALIB SEGUNDO, COUNT 9 FAMILY CHU Ivan COMPLETE MEDICINE AUTO&AUTO @ [facility] DIFRNTL [facility] WBC IAADIADOO 65914 TALIB SEGUNDO, 9 FAMILY CHU Ivan INFLUENZA MEDICINE @ TATES [facility] INJECTION J3420 TALIB SEGUNDO, VIT B-12 9 FAMILY CHU Ivan MEDICINE CYANOCOBA @ [facility] SID TO [facility] 1000 MCG THERAPEUT 09712 TALIB SEGUNDO, IC 9 FAMILY CHU Ivan PROPHYLAC MEDICINE TIC/DX @ TAT INJECTION [facility] SUBQ/IM ALBUTEROL J7613 TERRY DRAPER INHAL 9 PHARMACY PHARMACY NON-CP PROD THRU DME U DOSE 1 MG PHARM G0333 TERRY STEWART MART DISPEN 9 PHARMACY PHARMACY FEE INHAL RX; INITIAL 30-DAY SUPPLY ECHO 53761 CARDIOLOG Maverick MEJIA TTHRC R-T 9 Y A 2D ASSOCIATE W/WOM-MOD S OF E COMPL [place] SPEC&COLR D ECG 28343 CARDIOLOG Maverick MEJIA ROUTINE 9 Y A ECG ASSOCIATE W/LEAST S OF 12 [facility] I&R ONLY HOSPITAL 74178 CARDIOLOG LORRIE, DISCHARGE 9 Y CARRIE W DAY ASSOCIATE MANAGEMEN S OF T 30 [place] MIN/< ECG 81788 [facility] JOSE, ROUTINE 9 EMERGENCY SHELBI J ECG PHYS PSC W/LEAST 12 LDS I&R ONLY RADIOLOGI 52848 [facility] Danyel JOSEPH 9 RADIOLOGY J S EXAMINATI ASSOC ON CHEST SINGLE VIEW FRONTAL RADEX 01178 MARION FARRELL FINGR 9 JAMAICA O, MINIMUM [address] V[facility]WS [facility] MYOGLOBIN 88238 [facility] COMPREHEN 80059 [facility] SIVE 9 [facility] METABOLIC [facility]OSP PANEL CREATINE 69815 [facility] KINASE MB 9 [facility] FRACTION [facility] HOSP ONLY COLLECTIO 27962 [facility] N VENOUS 9 [facility] BLOOD [facility]P HOSP VENIPUNCT URE ECG 07969 [facility] ROUTINE 9 [facility] ECG [facility]OSP HOSP W/LEAST 12 LDS TRCG ONLY W/O I&R ECG 86876 [facility] FORMAN, ROUTINE 9 EMERGENCY RENE J ECG PHYS PSC W/LEAST 12 LDS I&R ONLY BLOOD 95207 [facility] COUNT 9 [facility] COMPLETE [facility]OS[facility] HOSP AUTO&[place] [address] [facility] TROPONIN 9 [facility] QUANTITAT [facility] HOSP STEFANO PROTHROMB 25182 [facility] IN TIME 9 [facility] THROMBOPL 05605 [facility] ASTIN 9 [facility] TIME [facility] HOSP PARTIAL PLASMA/WH OLE BLOOD RADEX 02286 MARION FARRELL FINGR 9 JAMAICA O, MINIMUM 2 &[address] VIEWS [facility] RADEX 86176 MARLA KELLEY S MINIMUM 2 RADIOLOGY VIEWS ASSOCIATE S [facility] RADEX 09398 [facility] SPINE 9 [facility] CERVICAL [facility]OS[facility] HOSP 2 OR 3 VIEWS INJECTION 21495 [facility] STEPHANIA PIERCE 9 EMERGENCY MALACHI A OTHER PHYS PSC PERIPHERA L NERVE/BRA NCH CT ORBIT 27970 [facility] SELLA/POS 9 [facility] T [facility]OSP FOSSA/EAR W/O CONTRAST MATRL RADEX 02770 [facility] JOSEPH, SPINE 9 RADIOLOGY J S CERVICAL ASSOC 4 OR 5 VIEWS RADEX 76408 [facility] JOSEPH, HAND 9 RADIOLOGY J S MINIMUM 3 ASSOC VIEWS EXPLORATI 62825 [facility] ON 9 [facility] PENETRATI [facility] [address] HEMA PETTIT HEAD/BRAI 9 TRAVIS S N W/O RADIOLOGY CONTRAST MATERIAL ASSOCIATE S [facility] AMBULANCE A0429 [facility] SERVICE 9 [facility] EMERGENCY TRANSPORT GROUND A0425 [facility] MILEAGE 9 [facility] STATUTE MILE RADEX ABD 34802 [facility] MELENDEZ, COMPL 9 RADIOLOGY VI AQT ABD ASSOC C W/S/E/D VIEWS 1 VIEW CH COMPREHEN 38328 LAB [facility] LAB REM[facility] SIVE 9 AMERIC AMERIC [place]AB[place] [address] [facility] FOLIC 9 AMERIC AMERIC ACID HOLDING HOLDING SERUM ANGIOTENS 29748 [facility] IN 9 AMERIC AMERIC I-CONVERT HOLDING HOLDING ING ENZYME ORGANIC 58102 [facility] ACID 1 9 AMERIC AMERIC QUANTIT[place] [address] [facility] THYROID 9 AMERIC AMERIC STIMULATI HOLDING HOLDING NG HORMONE TSH COLLECTIO 28878 [facility] N VENOUS 9 AMERIC AMERIC BLOOD HOLDING HOLDING VENIPUNCT URE CYANOCOBA 42377 [facility] SID 9 AMERIC AMERIC VITAMIN HOLDING HOLDING B-12 [place] [address] [facility] GAMMAGLOB 9 AMERIC AMERIC ULIN IGA HOLDING [place] [address] [facility] THYROXINE 9 AMERIC AMERIC TOTAL HOLDING HOLDING SEDIMENTA 11457 [facility] TION RATE 9 AMERIC AMERIC RBC HOLDING HOLDING AUTOMATED IMMUNOFIX 14785 [facility] LAB REM[facility]ERT[facility] J 9 AMERIC AMERIC ELECTROPH HOLDING HOLDING ORESIS SERUM THYROID 86553 [facility] HORM 9 AMERIC AMERIC UPTK/THYR HOLDING HOLDING OID HORMONE BINDING RATIO BLOOD 59204 [facility] LAB REM[facility] COUNT 9 AMERIC AMERIC COMPLETE HOLDING HOLDING AUTO&AUTO DIFRNTL WBC ANTINUCLE 13515 [facility] AR 9 AMERIC AMERIC ANTIBODIE HOLDING HOLDING S CARLOS ENRIQUE ANTIBODY 78948 [facility] BORRELIA 9 AMERIC AMERIC BURGDORFE HOLD[place] [address] [facility] HOMOCYSTE 9 AMERIC AMERIC INE HOLDING HOLDING EXTRACTAB 39236 [facility] LE 9 AMERIC AMERIC NUCLEAR HOLDING HOLDING ANTIGEN ANTIBODY ANY METHOD PROTHROMB 59517 [facility] IN TIME 8 [facility] THROMBOPL 74975 [facility] ASTIN 8 [facility] TIME [facility] HOSP PARTIAL PLASMA/WH OLE BLOOD BLOOD 53109 [facility] COUNT 8 [facility] COMPLETE [facility]OSP HOSP AUTO&[place] [address] [facility] TROPONIN 8 [facility] QUANTITAT HOSP HOSP STEFANO ECG 18381 [facility] ROUTINE 8 [facility] ECG HOSP HOSP W/LEAST 12 LDS TRCG ONLY W/O I&[place] [address] [facility] LIPASE 8 [facility]P COLLECTIO 49144 [facility] N VENOUS 8 [facility] BLOOD [place] [address] [facility] THYROID 8 [facility] STIMULATI HOSP HOSP NG HORMONE TSH RADIOLOGI 52242 [facility] C 8 [facility] EXAMINATI HOSP HOSP [place] [address] [facility] AMYLASE 8 [facility]P NONINVASI 82411 [facility] VE 8 [facility] EAR/PULSE HOSP HOSP OXIMETRY MULTIPLE DETER CREATINE 80524 [facility] KINASE MB 8 [facility] FRACTION [facility]OS[facility] HOSP ONLY COMPREHEN 83545 [facility] SIVE 8 [facility] METABOLIC HOSP HOSP PANEL MYOGLOBIN 42876 [facility]AL 8 [place] [address] [facility] INFUSION 8 [facility] HYDRATION HOSP HOSP INITIAL 31 MIN-1 HR ANOSCOPY 30154 [facility], DX 8 L JENNIFER More W/FELIPA SPEC ASSOCIATE BR/WA SPX S WHEN PRFRMD COMPREHEN 23103 [facility] SIVE 8 [facility] METABOLIC PANEL GROUND A0425 [facility] MILEAGE 8 [place] PER URBAN URBAN STATUTE COGOVT COGOVT MILE CREATINE [address] JESSICA KINASE MB 8 [facility] [place] [address] JESSICA LIPASE 8 [place] [address] JESSICA AMYLASE 8 [facility] SUBCUTANE [address] JESSICA OUS 8 [facility] INFUSION EACH ADDITIONA L IV PUSH THER [address] JESSICA PROPH/DX 8 [facility] NJX EA SEQL IV PUSH SBST/DRUG NATRIURET [address] JESSICA IC [address] [facility] [address] P[address]VIS [address] JESSICA W/O 8 [facility] CONTRAST MATERIAL INJECTION J2550 [address] JESSICA 8 [facility] PROMETHAZ INE HCL UP TO [address] JESSICA 8 [facility] METOCLOPR AMIDE HCL UP [place] [address] [place] [address] JESSICA ABDOMEN 8 [facility] W/O CONTRAST MATERIAL INJECTION J24[address] JESSICA 8 [facility] ONDANSETR ON HCL PER 1 MG RADIOLOGI 38075 [facility] C 8 RADIOLOGY LD, A D EXAMINATI ON CHEST SINGLE VIEW FRONTAL AMB A0427 [facility] SERVICE 8 [facility] ALS URBAN URBAN EMERGENCY COGOVT COGOVT TRANSPORT LEVEL [address] JESSICA KINASE 8 [facility] TOTAL ECG [address] JESSICA ROUTINE 8 [facility] ECG W/LEAST 12 LDS TRCG ONLY W/O I&[place] [address] JESSICA TROPONIN 8 [facility] QUANTITAT STEFANO BLOOD [address] JESSICA COUNT 8 [facility] COMPLETE AUTO&AUTO DIFRNTL WBC ECG 12871 MICK KENNY, ROUTINE 8 [place] YILING P ECG CLINIC W/LEAST PSC 12 LDS I&R ONLY IV NFUS [address] JESSICA HYDRATION 8 [facility] EA HR THER [address] JESSICA PROPH/DX 8 [facility] NJX IV PUSH 1ST SBST/DRUG ECG 32409 CARDIOLOG MESSERLI, ROUTINE 8 Y CARRIE W ECG ASSOCIATE W/LEAST S OF 12 LDS [place] W/I&R RADEX 97127 CHAITANYA TAVARES ANKLE 8 [facility] COMPLETE INC INC MINIMUM 3 VIEWS RADEX 36116 NASREEN SLIM, FOOT 8 MEDICAL GREGG P COMPLETE IMAGING MINIMUM 3 ASSOCIATE VIEWS S RADIOLOGI 95646 [facility] C 8 [facility] EXAMINATI [facility]P HOSP ON KNEE 1/[address] [place] [address] [facility] HEAD/BRAI 8 RADIOLOGY RADIOLOGY N W/[place] [address] [facility] CENTRAL HEAD/BRAI 8 RADIOLOGY RADIOLOGY N W/O ASSOC ASSOC CONTRAST MATERIAL RADIOLOGI 37593 [facility] C 8 [facility] EXAMINATI [facility] HOSP [place] [address] [facility] LIPASE 8 [facility] HOSP COLLECTIO 54477 [facility] N VENOUS 8 [facility] BLOOD [facility] HOSP VENIPUNCT URE ECG 05748 [facility] ROUTINE 8 [facility] ECG [facility]OSP HOSP W/LEAST 12 LDS TRCG ONLY W/O I&R AMB [id number] LUIS LUIS SERVICE 8 JASWINDERPaul [facility] COG[facility]T TRANSPORT LEVEL 1 THER 06436 [facility] PROPH/DX 8 [facility] NJX IV HOSP HOSP PUSH 1ST SBST/DRUG PROTHROMB 50216 [facility] IN TIME 8 [facility] H[facility]P THROMBOPL 47598 [facility] ASTIN 8 [facility] TIME [facility]OSP HOSP PARTIAL PLASMA/[place] B[place] NFUS 66633 [facility] HYDRATION 8 [facility] EA HR [facility]OSP HOSP BLOOD 84535 [facility] COUNT 8 [facility] COMPLETE [facility] HOSP AUTO&[place] [address] [facility] TROPONIN 8 [facility] QUANTITAT [facility] HOSP STEFANO MYOGLOBIN 15363 [facility] 8 [facility] SUBCUTANE 53307 [facility] OUS 8 [facility] INFUSION [facility] HOSP EACH ADDITIONA L IV PUSH THER 69044 [facility] PROPH/DX 8 [facility] NJX EA HOSP HOSP SEQL [place] PUSH SBST/[place] [address] [facility] AMYLASE 8 [facility]P NONINVASI 20675 [facility] VE 8 [facility] EAR/PULSE HOSP HOSP OXIMETRY MULTIPLE DETER CREATINE 40621 [facility] KINASE MB 8 [facility] FRACTION [facility] ONLY COMPREHEN 53313 [facility] SIVE 8 [facility] METABOLIC [facility]P PANEL GROUND A0425 LUIS LUIS MILEAGE 8 [place]AY[place] FAYETTE PER URBAN URBAN STATUTE COGOVT COGOVT MILE INJECTION J2550 [facility]AL 8 [facility] PROMETHAZ [facility] HOSP INE HCL UP TO 50 MG INJECTION J1170 [facility] 8 [facility] HYDROMORP [facility] HOSP MING UP TO 4 MG Encounters Encounter Start End Date Code Location Performer Type Date OFFICE 89741 [facility] 1 1 FAMILY ALA T VISIT MEDICINE 15 @ TA MINUTES OFFICE 69309 [facility] 1 1 FAMILY ALA T VISIT MEDICINE 15 @ TA MINUTES [facility] 1 1 [facility] T OFFICE 48752 [facility] 1 1 FAMILY ALA T VISIT MEDICINE 25 @ [facility] VISIT EMERGENCY HIGH SERV SEVERITY& THREAT FUN EMERGENCY [address] VISIT HIGH/URGE NT [facility] [address] [facility] - 0 0 HOSPITAL OUTPATIEN T EMERGENCY 02575 [facility] 0 0 INES KRI DEPARTMEN EMERGENCY T VISIT SERVI HIGH/URGE NT SEVERITY EMERGENCY 55143 [facility] 0 0 INES KRI DEPARTMEN EMERGENCY T VISIT SERV MODERATE SEVERITY HOSPITAL [facility] - 0 0 [facility] OUTPATIEN T OFFICE 17543 [facility] OUTPATIEN 0 0 JESSICA ADR T VISIT CARDIOLOG 25 Y CLINIC MINUTES EMERGENCY 18670 [facility] 0 0 HOSPITAL DEPARTMEN T VISIT HIGH/URGE NT SEVERITY EMERGENCY 33283 [facility] DEPT 0 0 INES VISIT EMERGENCY HIGH PHYS SEVERITY& THREAT [facility] - 0 0 [facility] T OFFICE 12543 [facility] 0 0 FAMILY ALA T VISIT MEDICINE 25 @ TA MINUTES OFFICE 16076 [facility] OUTPATIEN 0 0 FAMILY ALA T VISIT MEDICINE 15 @ TA MINUTES EMERGENCY 70540 [facility] W DEPT 0 0 INES VISIT EMERGENCY HIGH PHYS SEVERITY& THREAT [facility] - 0 0 HOSPITAL INPATIENT OFFICE 52006 [facility] OUTPATIEN 0 0 FAMILY ALA T VISIT MEDICINE 15 @ TA MINUTES EMERGENCY 51641 [facility] DEPT 0 0 HOSPITAL VISIT HIGH SEVERITY& THREAT [facility] - 0 0 [facility] [facility] - 0 0 [facility] 57080 [facility] 0 0 [facility] DEPARTMEN T VISIT MODERATE SEVERITY OFFICE 48908 TEMPLECHRISTOS CESARPATIEN 0 0 FAMILY CHU D T VISIT MEDICINE 25 @ TATES MINUTES [facility] OFFICE 57856 TEMPLEBEENA SEGUNDO OUTPATIEN 0 0 FAMILY CHU D T VISIT MEDICINE 25 @ TATES MINUTES [facility] OFFICE 45607 [facility] SANYA OUTPATIEN 0 0 FAMILY CHU D T VISIT MEDICINE 15 @ TATES MINUTES [facility] OFFICE 73873 TEMPLECHRISTOS KEANEPATIEN 0 0 FAMILY CHU D T VISIT MEDICINE 15 @ TATES MINUTES [facility] OFFICE 61162 [facility] SANYA OUTPATIEN 0 0 FAMILY CHU D T VISIT MEDICINE 25 @ TATES MINUTES [facility] OFFICE 62376 CHRISTOS BYNUMPATINIKKO 0 0 FAMILY HUY A T VISIT MEDICINE 15 @ TATES MINUTES [facility] [address] INPATIENT EMERGENCY [id number] DEPARTMEN T VISIT LOW/MODER SEVERITY HOSPITAL [address] OUTPATIEN T OFFICE 69905 [place], OUTPATIEN 0 0 SAVITA Montaño T NEW 30 CLINIC MINUTES [facility] OFFICE 02997 [place] HARRISONPATIEN 0 0 [facility] CLINIC MINUTES [facility] OFFICE 24068 JUAN DIEZ 9 9 FAMILY CHU D T VISIT MEDICINE 25 @ TATES MINUTES [facility] OFFICE 47672 CHRISTOS DIEZPATINIKKO 9 9 FAMILY CHU D T VISIT MEDICINE 25 @ TATES MINUTES [facility] OFFICE 44130 JUAN GOETZ 9 9 FAMILY ALIZE R T VISIT MEDICINE 15 @ TATES MINUTES [facility] OFFICE 58524 JUAN DIEZ 9 9 FAMILY CHU D T VISIT MEDICINE 25 @ TATES MINUTES [facility] OFFICE 38987 [facility] [place], OUTPATIEN 9 9 NEUROLOGY MARYCRUZ A T VISIT PSC 40 MINUTES EMERGENCY 95447 [facility] JOSE DEPT 9 9 EMERGENCY SHELBI J VISIT PHYS PSC HIGH SEVERITY& THREAT FUNCJ OFFICE 54574 [facility] FARRELL OUTPATIEN 9 9 Argenis HERNÁNDEZ VISIT &THEODORA SHERMAN 15 DCARE MINUTES PLLC EMERGENCY 70204 [place] DASIA DEPT 9 9 EMERGENCY RENE J VISIT PHYS PSC HIGH SEVERITY& THREAT FUNCJ HOSP[facility] - 9 9 [facility] T OFFICE 31242 [facility] CONSULTAT 9 9 RADHA HERNÁNDEZ &THEODORA SHERMAN NEW/ESTAB [facility] PATIENT [facility] 40 MIN [facility] - 9 9 [facility] EMERGENCY 52586 [place] 9 [facility] MODERATE SEVERITY EMERGENCY 66945 [place] STAN DEPT 9 9 EMERGENCY MALACHI A VISIT PHYS PSC HIGH SEVERITY& THREAT FUN EMERGENCY 28128 [place] RADHA GARCIAT 9 9 EMERGENCY SHELBI J VISIT PHYS PSC HIGH SEVERITY& THREAT FUNJ OFFICE 73246 [facility] [place], CONSULTAT 9 9 NEUROLOGY MARYCRUZ A ION PSC NEW/ESTAB PATIENT 60 MIN [facility] - 8 8 [facility] T EMERGENCY 70424 [facility] DEPT 8 8 [facility] VISIT HOSP HIGH SEVERITY& THREAT FUNJ OFFICE 46064 TANNER ORTEGA OUTMAIDA 8 8 L SURGIAL JEANIE T T VISIT 10 ASSOCIATE MINUTES S EMERGENCY 92423 [facility] 8 8 EAST DEPARTMEN T VISIT MODERATE SEVERITY EMERGENCY 76991 [facility], DEPT 8 8 PRIMARY MARA C VISIT CARE HIGH PHYSICANS SEVERITY& [place] THREAT [facility] - 8 8 [facility] OUTPATIEN T OFFICE 33916 CARDIOLOG JUAN ANDREW 8 8 Y CARRIE Goldsmith T VISIT ASSOCIATE 25 S OF MINUTES [facility] - 8 8 [facility] OUTPATIEN INC T EMERGENCY 85950 VENICE 8 8 [facility] DEPARTMEN INC T VISIT LOW/MODER SEVERITY [facility] [place] - 8 8 [facility] T EMERGENCY 17371 [facility] DEPT 8 8 [facility] VISIT HOSP HIGH SEVERITY& THREAT [facility] [place] - 8 8 [facility] OUT[facility] HOSP T
--- OUTSIDE RECORDS SUMMARY | 2016-10-16 08:10 | External Medical Summary Rpt ---
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 [facility] 0 [facility] CARE/DAY 35 ASSOCIATE MINUTES S SBSQ 23107 [facility] 0 INPATIENT CARE/DAY MEDICINE 25 ASSOC MINUTES INITIAL 60327 [facility] 0 INPATIENT ROEL CARE/DAY MEDICINE [address] PELVIS 31950 [facility] GAB[facility], 0 RADIOLOGY PRIMITIVO Sharpe W/[place] [address] [facility] GABE [facility], ABDOMEN 0 RADIOLOGY PRIMITIVO Sharpe W/CONTRAS T MATERIAL RADIOLOGI 11935 Danyel OROPEZA EXAM 0 [facility] KNEE CLINIC COMPLETE PSC 4/MORE VIEWS RADIOLOGI 32425 CNTRDanyel FRANCO EXAM 0 RADIOLOGY AURY R KNEE COMPLETE 4/MORE VIEWS THERAPEUT 60208 BENITEZ DIEZ 9 FAMILY CHU Ivan PROPHYLAC MEDICINE TIC/DX @ TATES INJECTION [place] SUBQ/IM INJECTION J3420 LAURA DIEZ B-12 9 FAMILY CHU Ivan MEDICINE CYANOCOBA @ TAT SID TO [place] 1000 MCG COMPREHEN 49727 MELISSA DIEZ 9 FAMILY CHU Ivan METABOLIC MEDICINE PANEL @ TATES [place] LIPID 98499 BOGDAN DIEZ 9 FAMILY CHU Ivan MEDICINE @ TATES [place] COLLECTIO 18070 Maverick DIEZ VENOUS 9 FAMILY CHU Ivan BLOOD MEDICINE VENIPUNCT @ [facility] [place] [address] TALIB SEGUNDO, THYROID 9 FAMILY CHU Ivan STIMULATI MEDICINE NG @ [facility] HORMONE [place] TSH BLOOD 56645 TALIB SEGUNDO, COUNT 9 FAMILY CHU Ivan COMPLETE MEDICINE AUTO&AUTO @ [facility] DIFRNTL [place] WBC IAADIADOO 23647 TALIB SEGUNDO, 9 FAMILY CHU Ivan INFLUENZA MEDICINE @ TATES [place] INJECTION J3420 TALIB SEGUNDO, VIT B-12 9 FAMILY CHU Ivan MEDICINE CYANOCOBA @ [facility] SID TO [place]UH[place]VIATAM 1000 MCG THERAPEUT 84088 TALIB SEGUNDO, IC 9 FAMILY CHU Ivan PROPHYLAC MEDICINE TIC/DX @ TAT INJECTION Y[place] SUBQ/IM ALBUTEROL J7613 TERRY DRAPER INHAL 9 PHARMACY PHARMACY NON-CP PROD THRU DME U DOSE 1 MG PHARM G0333 TERRY STEWART MART DISPEN 9 PHARMACY PHARMACY FEE INHAL RX; INITIAL 30-DAY SUPPLY ECHO 16672 CARDIOLOG Maverick MEJIA TTHRC R-T 9 Y A 2D ASSOCIATE W/WOM-MOD S OF E COMPL [place] SPEC&COLR D ECG 10242 CARDIOLOG Maverick MEJIA ROUTINE 9 Y A ECG ASSOCIATE W/LEAST S OF 12 [facility] I&R ONLY HOSPITAL 31831 CARDIOLOG LORRIE, DISCHARGE 9 Y CARRIE W DAY ASSOCIATE MANAGEMEN S OF T 30 [place] MIN/< ECG 67691 [facility] JOSE, ROUTINE 9 EMERGENCY SHELBI J ECG PHYS PSC W/LEAST 12 LDS I&R ONLY RADIOLOGI 35616 [facility] Danyel JOSEPH 9 RADIOLOGY J S EXAMINATI ASSOC ON CHEST SINGLE VIEW FRONTAL RADEX 56636 [facility] FARRELL FINGR 9 JAMAICA O, MINIMUM 2 &[address] L[address] [facility] MYOGLOBIN 48469 [facility] 9 [facility] COMPREHEN 01079 [facility] SIVE 9 [facility] METABOLIC HOSP HOSP PANEL CREATINE 60241 CENTRAL [facility]AL KINASE MB 9 MOR[facility]ISM [facility] FRACTION HOSP HOSP ONLY COLLECTIO 65850 C[facility] N VENOUS 9 [facility] BLOOD HOSP HOSP VENIPUNCT URE ECG 21318 [facility] ROUTINE 9 [facility] ECG HOSP HOSP W/LEAST 12 LDS TRCG ONLY W/O I&R ECG 73897 [facility] FORMAN, ROUTINE 9 EMERGENCY RENE J ECG PHYS PSC W/LEAST 12 LDS I&R ONLY BLOOD 41256 [facility] COUNT 9 [facility] COMPLETE HOSP HOSP AUTO&[place] [address] [facility] TROPONIN 9 [facility] QUANTITAT HOSP HOSP STEFANO PROTHROMB 65299 [facility] IN TIME 9 [facility] HOSP THROMBOPL 66219 [facility] ASTIN 9 [facility] TIME HOSP HOSP PARTIAL PLASMA/WH OLE BLOOD RADEX 91791 MARION FARRELL FINGR 9 JAMAICA O, MINIMUM 2 &ASSO[address] LANE [facility] RADEX 14815 MARLA KELLEY S MINIMUM 2 RADIOLOGY VIEWS ASSOCIATE S [facility] RADEX 68203 CEN[facility] SPINE 9 [facility] CERVICAL HOSP HOSP 2 OR 3 VIEWS INJECTION 53754 CEN[facility]AL STEPHANIA PIERCE 9 EMERGENCY MALACHI A OTHER PHYS PSC PERIPHERA L NERVE/BRA NCH CT ORBIT 38881 [facility] SELLA/POS 9 [facility] T HOSP HOSP FOSSA/EAR W/O CONTRAST MATRL RADEX 04421 [facility] JOSEPH, SPINE 9 RADIOLOGY J S CERVICAL ASSOC 4 OR 5 VIEWS RADEX 17181 [facility] JOSEPH, HAND 9 RADIOLOGY J S MINIMUM 3 ASSOC VIEWS EXPLORATI 81842 [facility] ON 9 [facility] PENETRATI HOSP [place] [address] HEMA PETTIT HEAD/BRAI 9 TRAVIS S N W/O RADIOLOGY CONTRAST MATERIAL ASSOCIATE S [facility] AMBULANCE A0429 [facility] SERVICE 9 [facility] EMERGENCY TRANSPORT GROUND A0425 [facility] MILEAGE 9 [facility] STATUTE MILE RADEX ABD 01013 CENTRAL MELENDEZ, COMPL 9 RADIOLOGY VI AQT ABD ASSOC C W/S/E/D VIEWS 1 VIEW CH COMPREHEN 73117 [facility] SIVE 9 AMERIC AMERIC METAB[place] [address] [facility] FOLIC 9 AMERIC AMERIC ACID HOLDING HOLDING SERUM ANGIOTENS 09078 [facility] IN 9 AMERIC AMERIC I-CONVERT HOLDING HOLDING ING ENZYME ORGANIC 35421 [facility] ACID 1 9 AMERIC AMERIC QUANTIT[place] [address] [facility] THYROID 9 AMERIC AMERIC STIMULATI HOLDING HOLDING NG HORMONE TSH COLLECTIO 83289 [facility] N VENOUS 9 AMERIC AMERIC BLOOD HOLDING HOLDING VENIPUNCT URE CYANOCOBA 17833 [facility] REM[facility] SID 9 AMERIC AMERIC VITAMIN HOLDING HOLDING B-12 [place] [address] [facility] GAMMAGLOB 9 AMERIC AMERIC ULIN IGA HOLDING [place] [address] [facility] THYROXINE 9 AMERIC AMERIC TOTAL HOLDING HOLDING SEDIMENTA 57270 [facility] TION RATE 9 AMERIC AMERIC RBC HOLDING HOLDING AUTOMATED IMMUNOFIX 82441 [facility] J 9 AMERIC AMERIC ELECTROPH HOLDING HOLDING ORESIS SERUM THYROID 54489 [facility] HORM 9 AMERIC AMERIC UPTK/THYR HOLDING HOLDING OID HORMONE BINDING RATIO BLOOD 78633 [facility] COUNT 9 AMERIC AMERIC COMPLETE HOLDING HOLDING AUTO&AUTO DIFRNTL WBC ANTINUCLE 94749 [facility] AR 9 AMERIC AMERIC ANTIBODIE HOLDING HOLDING S CARLOS ENRIQUE ANTIBODY 59771 [facility] BORRELIA 9 AMERIC AMERIC BURGDORFE HOLD[place] [address] [facility] HOMOCYSTE 9 AMERIC AMERIC INE HOLDING HOLDING EXTRACTAB 94437 [facility] LE 9 AMERIC AMERIC NUCLEAR HOLDING HOLDING ANTIGEN ANTIBODY ANY METHOD PROTHROMB 35241 [facility] IN TIME 8 [facility]ISM HOSP HOSP THROMBOPL 56956 [facility] ASTIN 8 [facility] TIME HOSP HOSP PARTIAL PLASMA/WH OLE BLOOD BLOOD 14511 [facility] COUNT 8 [facility] COMPLETE HOSP HOSP AUTO&[place] [address] CEN[facility]AL [facility] TROPONIN 8 MORMONISM [facility] QUANTITAT HOSP HOSP STEFANO ECG 09584 CEN[facility]AL [facility] ROUTINE 8 MORMONISM MORMONISM ECG HOSP HOSP W/LEAST 12 LDS TRCG ONLY W/O I&[place] [address] [facility] LIPASE 8 [facility]P HOSP COLLECTIO 44492 [facility] N VENOUS 8 [facility] [place]OD [place] [address] CENTRAL [facility] THYROID 8 MORMONISM MORMONISM STIMULATI HOSP HOSP NG HORMONE TSH RADIOLOGI 49165 CENTRAL [facility]TR[facility] C 8 MORMONISM MORMONISM EXAMINATI HOSP HOSP [place] [address] CENTRAL [facility] AMYLASE 8 [facility]ISM HOSP HOSP NONINVASI 74098 [facility] VE 8 [facility] EAR/PULSE HOSP HOSP OXIMETRY MULTIPLE DETER CREATINE 87183 CENTRAL CENTRAL KINASE MB 8 [facility]ISM [facility] FRACTION HOSP HOSP ONLY COMPREHEN 36289 [facility]AL [facility] SIVE 8 [facility] METABOLIC HOSP HOSP PANEL MYOGLOBIN 50418 CENTRAL CENTRAL 8 [place] [address] [facility]ENTRAL [facility] INFUSION 8 [facility] HYDRATION HOSP HOSP INITIAL 31 MIN-1 HR ANOSCOPY 63062 [facility], DX 8 L JENNIFER More W/FELIPA SPEC ASSOCIATE BR/WA SPX S WHEN PRFRMD COMPREHEN 84856 [facility] SIVE 8 [facility] METABOLIC PANEL GROUND A0425 LUIS LUIS MILEAGE 8 [place] PER URBAN URBAN STATUTE COGOVT COGOVT MILE CREATINE [address] JESSICA KINASE MB 8 [facility] [place] [address] JESSICA LIPASE 8 [place] [address] JESSICA AMYLASE 8 [facility] SUBCUTANE [address] JESSICA OUS 8 [facility] INFUSION EACH ADDITIONA L IV PUSH THER [address] JESSICA PROPH/DX 8 [facility] NJX EA SEQL IV PUSH SBST/DRUG NATRIURET [address] JESSICA IC [address] [facility] [address] JESSICA W/O 8 [facility] CONTRAST MATERIAL INJECTION J2550 [address] JESSICA 8 [facility] PROMETHAZ INE HCL UP TO [address] JESSICA 8 [facility] METOCLOPR AMIDE HCL UP [place] [address] [place] [address] JESSICA ABDOMEN 8 [facility] W/O CONTRAST MATERIAL INJECTION J24[address] JESSICA 8 [facility] ONDANSETR ON HCL PER 1 MG RADIOLOGI 70884 [facility] C 8 RADIOLOGY LD, A D EXAMINATI ON CHEST SINGLE VIEW FRONTAL AMB A0427 LUIS LUIS SERVICE 8 [facility] ALS URBAN URBAN EMERGENCY COGOVT COGOVT TRANSPORT LEVEL [address] JESSICA KINASE 8 [facility] TOTAL ECG [address] JESSICA ROUTINE 8 [facility] ECG W/LEAST 12 LDS TRCG ONLY W/O I&[place] [address] JESSICA TROPONIN 8 [facility] QUANTITAT STEFANO BLOOD [address] JESSICA COUNT 8 [facility] COMPLETE AUTO&AUTO DIFRNTL WBC ECG 30438 MICK KENNY, ROUTINE 8 [place] YILING P ECG CLINIC W/LEAST PSC 12 LDS I&R ONLY [place] NFUS [address] JESSICA HYDRATION 8 [facility] EA HR THER [address] JESSICA PROPH/DX 8 [facility] NJX IV PUSH 1ST SBST/DRUG ECG 14830 CARDIOLOG MESSERLI, ROUTINE 8 Y CARRIE W ECG ASSOCIATE W/LEAST S OF 12 LDS [place] W/I&R RADEX 33033 CHAITANYA TAVARES ANKLE 8 [facility] COMPLETE INC INC MINIMUM 3 VIEWS RADEX 47352 NASREEN SLIM, FOOT 8 MEDICAL GREGG P COMPLETE IMAGING MINIMUM 3 ASSOCIATE VIEWS S RADIOLOGI 05169 [facility] C 8 [facility] EXAMINATI HOSP HOSP ON KNEE 1/[address] [place] [address] C[facility] HEAD/BRAI 8 RADIOLOGY RADIOLOGY N W/[place] [address] CEN[facility]AL [facility] HEAD/BRAI 8 RADIOLOGY RADIOLOGY N W/O ASSOC ASSOC CONTRAST MATERIAL RADIOLOGI 28633 [facility] C 8 [facility] EXAMINATI HOSP HOSP [place] [address] CENTRAL [facility] LIPASE 8 [facility] MORMONISM HOSP HOSP COLLECTIO 95279 CENTRAL [facility] N VENOUS 8 [facility] BLOOD HOSP HOSP VENIPUNCT URE ECG 22375 [facility] ROUTINE 8 [facility]ISM ECG HOSP HOSP W/LEAST 12 LDS TRCG ONLY W/O I&R AMB A0427 LUIS LUIS SERVICE 8 JASWINDERPaul [facility]Paul ALS URBAN URBAN EMERGENCY COGOVT COGOVT TRANSPORT LEVEL 1 THER 27013 [facility] PROPH/DX 8 [facility] NJX IV HOSP HOSP PUSH 1ST SBST/DRUG PROTHROMB 72514 [facility] IN TIME 8 [facility] HOSP HOSP THROMBOPL 11135 [facility] ASTIN 8 [facility] TIME HOSP HOSP PARTIAL PLASMA/WH OLE BLOOD IV NFUS 14498 [facility] HYDRATION 8 [facility] EA HR HOSP HOSP BLOOD 40412 [facility] COUNT 8 [facility] COMPLETE HOSP HOSP AUTO&[place] [address] CENTRAL [facility] TROPONIN 8 [facility] QUANTITAT HOSP HOSP STEFANO MYOGLOBIN 25242 CENTRAL CENTRAL 8 [facility]ISM HOSP HOSP SUBCUTANE 41902 [facility]EN[facility]AL [facility] OUS 8 [facility] INFUSION HOSP HOSP EACH ADDITIONA L IV PUSH THER 08679 [facility]EN[facility]AL [facility] PROPH/DX 8 [facility] NJX EA HOSP HOSP SEQL IV PUSH SBST/[place] [address] CENTRAL [facility] AMYLASE 8 [facility] HOSP HOSP NONINVASI 03050 [facility] VE 8 [facility] EAR/PULSE HOSP HOSP OXIMETRY MULTIPLE DETER CREATINE 24160 CENTRAL CENTRAL KINASE MB 8 [facility] FRACTION HOSP HOSP ONLY COMPREHEN 34456 CEN[facility]AL [facility] SIVE 8 [facility] METABOLIC HOSP HOSP PANEL GROUND A0425 LUIS LUIS MILEAGE 8 [place] PER URBAN URBAN STATUTE COGOVT COGOVT MILE INJECTION J2550 CENTRAL CENTRAL 8 [facility] PROMETHAZ HOSP HOSP INE HCL UP TO 50 MG INJECTION J1170 CEN[facility]AL CENTRAL 8 [facility] HYDROMORP HOSP HOSP MING UP TO 4 MG Encounters Encounter Start End Date Code Location Performer Type Date OFFICE 10789 [facility] 1 1 FAMILY ALA T VISIT MEDICINE 15 @ TA MINUTES OFFICE 55745 [facility] 1 1 FAMILY ALA T VISIT MEDICINE 15 @ TA MINUTES [facility]OSPITAL [facility] - 1 1 [facility]P T OFFICE 37774 [facility] OUTPATIEN 1 1 FAMILY ALA T VISIT MEDICINE 25 @ TA MINUTES [facility]GENCY 47600 [facility] V[facility] EMERGENCY HIGH SERV SEVERITY& THREAT FUN EMERGENCY [address] VISIT HIGH/URGE NT [facility] [address] JESSICA - 0 0 HOSPITAL OUTPATIEN T EMERGENCY 24286 [facility] 0 0 INES KRI DEPARTMEN EMERGENCY T VISIT SERVI HIGH/URGE NT SEVERITY EMERGENCY 05986 [facility] 0 0 INES KRI DEPARTMEN EMERGENCY T VISIT SERV MODERATE SEVERITY HOS[facility]ITAL [facility] 0 [facility] OUTPATI[facility] T OFFICE 52656 [facility] OUTPATIEN 0 0 JESSICA ADR T VISIT CARDIOLOG 25 Y CLINIC MINUTES EMERGENCY 40394 [facility] 0 0 HOSPITAL DEPARTMEN T VISIT HIGH/URGE NT SEVERITY EMERGENCY 97223 [facility] DEPT 0 0 INES VISIT EMERGENCY HIGH PHYS SEVERITY& THREAT [facility] 72908 [facility] SEGUNDO OUTPATIEN 0 0 FAMILY ALA T VISIT MEDICINE 25 @ TA MINUTES OFFICE 45982 [facility] OUTPATIEN 0 0 FAMILY ALA T VISIT MEDICINE 15 @ TA MINUTES EMERGENCY 72881 [facility] W DEPT 0 0 INES VISIT EMERGENCY HIGH PHYS SEVERITY& THREAT [facility] HOSPITAL INPATIENT OFFICE 35160 [facility]ISMArgenis SEGUNDO OUTPATIEN 0 0 FAMILY ALA T VISIT MEDICINE 15 @ TA MINUTES EMERGENCY 32542 [facility] 0 0 HOSPITAL VISIT HIGH SEVERITY& THREAT [facility] 70963 [facility] 0 0 [facility] DEPARTMEN T VISIT MODERATE SEVERITY OFFICE 75448 [facility]ISM[facility]RISTOS CESARPATIEN 0 0 FAMILY CHU D T VISIT MEDICINE 25 @ TATES MINUTES [place] OFFICE 55440 MORMONISMBEENA SEGUNDO OUTPATIEN 0 0 FAMILY CHU D T VISIT MEDICINE 25 @ TATES MINUTES [place] OFFICE 46004 [facility] OUTPATIEN 0 0 FAMILY CHU D T VISIT MEDICINE 15 @ TATES MINUTES [place] OFFICE 42484 [facility]MONISMCHRISTOS KEANEPATIEN 0 0 FAMILY CHU D T VISIT MEDICINE 15 @ TATES MINUTES [place] OFFICE 10233 [facility] SANAY OUTPATIEN 0 0 FAMILY CHU D T VISIT MEDICINE 25 @ TATES MINUTES [place] OFFICE 30139 [facility] BYNUMPATINIKKO 0 0 FAMILY HUY A T VISIT MEDICINE 15 @ TATES MINUTES [facility] [address] INPATIENT EMERGENCY [address] DEPARTMEN T VISIT LOW/MODER SEVERITY HOSPITAL [address] OUTPATIEN T OFFICE 75637 [place], OUTPATIEN 0 0 SAVITA Montaño T NEW 30 CLINIC MINUTES [facility] OFFICE 98315 [facility] HARRISONPATIEN 0 0 COUNT INCLUDES [facility] T NEW 30 CLINIC MINUTES [facility] OFFICE 53253 JUAN DIEZ 9 9 FAMILY CHU D T VISIT MEDICINE 25 @ TATES MINUTES [facility] OFFICE 59669 CHRISTOS DIEZPATINIKKO 9 9 FAMILY CHU D T VISIT MEDICINE 25 @ TATES MINUTES [facility] OFFICE 96514 JUAN GOETZ 9 9 FAMILY ALIZE R T VISIT MEDICINE 15 @ TATES MINUTES [facility] OFFICE 09211 JUAN DIEZ 9 9 FAMILY CHU D T VISIT MEDICINE 25 @ TATES MINUTES [facility] OFFICE 75161 [facility] [place], OUTPATIEN 9 9 NEUROLOGY MARYCRUZ A T VISIT PSC 40 MINUTES EMERGENCY 03105 [facility] JOSE DEPT 9 9 EMERGENCY SHELBI J VISIT PHYS PSC HIGH SEVERITY& THREAT FUNCJ OFFICE 60424 MARION FARRELL OUTPATIEN 9 9 Argenis HERNÁNDEZ VISIT &THEODORA SHERMAN 15 DCARE MINUTES PLLC EMERGENCY 55213 [facility] DASIA DEPT 9 9 EMERGENCY RENE J VISIT PHYS PSC HIGH SEVERITY& THREAT FUNCJ HOSPITAL [facility] - 9 9 [facility] T OFFICE 95676 [facility] FARRELL CONSULTAT 9 9 RADHA HERNÁNDEZ &THEODORA SHERMAN NEW/ESTAB DCARE PATIENT PLLC 40 MIN [facility] - 9 9 [facility] OUT[facility] T EMERGENCY 14692 [facility] MODERATE SEVERITY EMERGENCY 51392 [facility] STAN DEPT 9 9 EMERGENCY MALACHI A VISIT PHYS PSC HIGH SEVERITY& THREAT FUN EMERGENCY 29043 [facility] RADHA GARCIAT 9 9 EMERGENCY SHELBI J VISIT PHYS PSC HIGH SEVERITY& THREAT FUNJ OFFICE 20064 [facility] [place], CONSULTAT 9 9 NEUROLOGY MARYCRUZ A ION PSC NEW/ESTAB PATIENT 60 MIN [facility] - 8 8 [facility] OUT[facility]IEN [facility] T EMERGENCY 92250 [facility] DEPT 8 8 [facility] VISIT HOSP HIGH SEVERITY& THREAT FUNJ OFFICE 42641 TANNER ORTEGA OUTMAIDA 8 8 L SURGIAL JEANIE T T VISIT 10 ASSOCIATE MINUTES S EMERGENCY 12661 [facility] 8 8 EAST DEPARTMEN T VISIT MODERATE SEVERITY EMERGENCY 62914 [facility], DEPT 8 8 PRIMARY MARA C VISIT CARE HIGH PHYSICANS SEVERITY& MIDWEST THREAT [facility] 8 8 [facility] OUTPATIEN T OFFICE 62650 CARDIOLOG JUAN ANDREW 8 8 Y CARRIE Goldsmith T VISIT ASSOCIATE 25 S OF MINUTES [facility] - 8 8 [facility] OUTPATIEN INC T EMERGENCY 58890 [place] [facility] 8 8 [facility] DEPARTMEN INC T VISIT LOW/MODER SEVERITY [facility] - 8 8 [facility] OUTPATIEN HOSP T EMERGENCY 08380 [facility] DE[facility] 8 8 [facility] VISIT HOSP HIGH SEVERITY& THREAT [facility] - 8 8 [facility] OUTPATIEN HOSP T
--- OUTSIDE RECORDS SUMMARY | 2016-10-16 08:16 | External Medical Summary Rpt ---
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 W/CONTRAS T MATERIAL SBSQ 16716 [facility] 0 [facility]/DAY [address] PELVIS 29728 [facility] GABE ACOSTA, 0 RADIOLOGY ANI Goldsmith W/CONTRAS T MATERIAL INITIAL 07664 [facility] 0 INPATIENT ROEL CARE/DAY MEDICINE [address] PELVIS 17611 [facility] GABE GROSS, 0 RADIOLOGY PRIMITIVO Sharpe W/[place] [address] [facility] GABE GROSS, ABDOMEN 0 RADIOLOGY PRIMITIVO Sharpe W/CONTRAS T MATERIAL RADIOLOGI 26836 Danyel OROPEZA EXAM 0 [facility] KNEE [facility] COMPLETE PSC 4/MORE VIEWS RADIOLOGI 10532 FELICITARDanyel FRANCO EXAM 0 RADIOLOGY AURY Hansen KNEE COMPLETE 4/MORE VIEWS LIPID 02136 TALIB SEGUNDO, PANEL 9 FAMILY CHU Ivan MEDICINE @ [place] [address] TALIB SEGUNDO, THYROID 9 FAMILY CHU Ivan STIMULATI MEDICINE NG @ Etece HORMONE [place] TSH COLLECTIO 77013 Maverick DIEZ VENOUS 9 FAMILY CHU Ivan BLOOD MEDICINE VENIPUNCT @ TATES URE [place] THERAPEUT 11401 TALIB SEGUNDO, IC 9 FAMILY CHU Ivan PROPHYLAC MEDICINE TIC/DX @ TATES INJECTION [place] SUBQ/IM COMPREHEN 26306 LEN DIEZE 9 FAMILY CHU Ivan METABOLIC MEDICINE PANEL @ TATES [place] INJECTION J3420 TALIB SEGUNDO, VIT B-12 9 FAMILY CHU Ivan MEDICINE CYANOCOBA @ TATES SID TO [place] 1000 MCG BLOOD 50898 TALIB SEGUNDO COUNT 9 FAMILY CHU Ivan COMPLETE MEDICINE AUTO&AUTO @ TATES DIFRNTL [place] WBC INJECTION J3420 TALIB SEGUNDO, VIT B-12 9 FAMILY CHU Ivan MEDICINE CYANOCOBA @ TATES SID TO [place] 1000 MCG THERAPEUT 84205 TALIB SEGUNDO, BENITEZ 9 FAMILY CHU Ivan PROPHYLAC MEDICINE TIC/DX @ TATES INJECTION [place] SUBQ/IM IAADIADOO 14238 TALIB SEGUNDO, 9 FAMILY CHU Ivan INFLUENZA MEDICINE @ TATES [place] PHARM G0333 TERRY DRAPER DISPEN 9 PHARMACY PHARMACY FEE INHAL 278 RX; INITIAL 30-DAY SUPPLY ALBUTEROL J7613 TERRY DRAPER INHAL 9 PHARMACY PHARMACY NON-CP 10278 PROD THRU DME U DOSE 1 MG ECG 74989 CARDIOLOG Maverick MEJIA ROUTINE 9 Y A ECG ASSOCIATE W/LEAST S OF 12 LDS [place] I&R ONLY ECHO 24371 CARDIOLOG Maverick MEJIA TTHRC R-T 9 Y A 2D ASSOCIATE W/WOM-MOD S OF E COMPL [place] [facility] 14836 CARDIOLOG LORRIE, DISCHARGE 9 Y CARRIE W DAY ASSOCIATE MANAGEMEN S OF T 30 SAVITA MIN/< RADIOLOGI 09122 [facility], C 9 RADIOLOGY J S EXAMINATI ASSOC ON CHEST SINGLE VIEW FRONTAL ECG 67615 [facility] JOSE, ROUTINE 9 EMERGENCY SHELBI J ECG PHYS PSC W/LEAST 12 LDS I&R ONLY RADEX 76221 MARION FARRELL FINGR 9 JAMAICA O, MINIMUM 2 &[address] VIEWS [facility] THROMBOPL 46418 [facility] ASTIN 9 [facility] TIME [facility] HOSP PARTIAL PLASMA/WH OLE BLOOD ECG 92254 [facility] ROUTINE 9 [facility] ECG HOSP HOSP W/LEAST 12 LDS TRCG ONLY W/O I&R ECG 74355 [facility] FORMAN, ROUTINE 9 EMERGENCY RENE J ECG PHYS PSC W/LEAST 12 LDS I&R ONLY BLOOD 24240 [facility] COUNT 9 [facility] COMPLETE HOSP HOSP AUTO&[place] [address] [facility] TROPONIN 9 [facility] QUANTITAT HOSP HOSP STEFANO COMPREHEN 75800 C[facility] SIVE 9 [facility] METABOLIC HOSP HOSP PANEL CREATINE 44453 [facility] KINASE MB 9 [facility] FRACTION HOSP HOSP ONLY COLLECTIO 33460 [facility] N VENOUS 9 [facility] BLOOD HOSP HOSP VENIPUNCT URE PROTHROMB 04298 [facility] IN TIME 9 [facility] HOSP MYOGLOBIN 91051 [facility]EN[facility]AL 9 [facility] HOSP RADEX 42995 MARION FARRELL FINGR 9 JAMAICA O, MINIMUM 2 &ASSMARK SHERMAN VIEWS [facility] RADEX 75083 MANDY KELLEYR 9 TRAVIS S MINIMUM 2 RADIOLOGY VIEWS [place]OCI[place] [address] HEMA PETTIT, HEAD/BRAI 9 TRAVIS S N W/O RADIOLOGY CONTRAST MATERIAL ASSOCIATE S PSC RADEX 97235 [facility] SPINE 9 [facility] CERVICAL HOSP HOSP 2 OR 3 VIEWS EXPLORATI 20093 [facility] ON 9 [facility] PENETRATI HOSP HOSP NG WOUND SPX EXTREMITY INJECTION 23558 [facility] STEPHANIA PIERCE 9 EMERGENCY MALACHI A OTHER PHYS PSC PERIPHERA L NERVE/BRA IDH CT ORBIT 34651 [facility] SELLA/POS 9 [facility] T HOSP HOSP FOSSA/EAR W/O CONTRAST MATRL RADEX 36531 [facility], SPINE 9 RADIOLOGY J S CERVICAL ASSOC 4 OR 5 VIEWS RADEX 11833 [facility], HAND 9 RADIOLOGY J S MINIMUM 3 ASSOC VIEWS GROUND A0425 [facility] MILEAGE 9 [facility] STATUTE MILE AMBULANCE A0429 [facility] SERVICE 9 [facility] EMERGENCY TRANSPORT RADEX ABD 99551 [facility] MELENDEZ, COMPL 9 RADIOLOGY VI AQT ABD ASSOC C W/S/E/D VIEWS 1 VIEW CH ANTINUCLE 73377 LAB [facility] AR 9 AMERIC AMERIC ANTIBODIE HOLDING HOLDING S CARLOS ENRIQUE ANTIBODY 27812 [facility] BORRELIA 9 AMERIC AMERIC BURGDORFE HOLDING HOLDING RI LYME DISEASE THYROID 27720 [facility] HORM 9 AMERIC AMERIC UPTK/THYR HOLDING HOLDING [place] [address] [facility] HOMOCYSTE 9 AMERIC AMERIC INE HOLDING HOLDING BLOOD 55539 [facility] COUNT 9 AMERIC AMERIC COMPLETE HOLDING HOLDING AUTO&AUTO DIFRNTL WBC IMMUNOFIX 70955 [facility] J 9 AMERIC AMERIC ELECTROPH [place] [address] LAB [facility] THYROXINE 9 AMERIC AMERIC TOTAL HOLDING HOLDING SEDIMENTA 18033 LAB [facility] TION RATE 9 AMERIC AMERIC [place] [address] [facility] GAMMAGLOB 9 AMERIC AMERIC ULIN IGA HOLDING [place] [address] LAB [facility] THYROID 9 AMERIC AMERIC STIMULATI HOLDING HOLDING NG HORMONE TSH EXTRACTAB 15945 [facility] LE 9 AMERIC AMERIC NUCLEAR HOLDING HOLDING ANTIGEN ANTIBODY ANY METHOD COLLECTIO 91813 [facility] N VENOUS 9 AMERIC AMERIC BLOOD HOLDING HOLDING VENIPUNCT URE ANGIOTENS 15911 LAB [facility] IN 9 AMERIC AMERIC I-CONVERT HOLDING HOLDING ING ENZYME COMPREHEN 52671 LAB [facility] LAB REM[facility] SIVE 9 AMERIC AMERIC METAB[place] [address] LAB REM[facility] LAB [facility] FOLIC 9 AMERIC AMERIC ACID HOLDING HOLDING SERUM ORGANIC 67283 LAB [facility] ACID 1 9 AMERIC AMERIC QUANTITAT HOLDING HOLDING STEFANO CYANOCOBA 27371 LAB [facility] LAB REMBERT[facility] SID 9 AMERIC AMERIC VITAMIN HOLDING HOLDING B-12 [place] [address] CENTRAL [facility] LIPASE 8 [facility] HOSP CREATINE 69441 CEN[facility]AL [facility] KINASE MB 8 [facility] FRACTION HOSP HOSP ONLY NONINVASI 25090 [facility] VE 8 [facility] EAR/PULSE HOSP HOSP OXIMETRY MULTIPLE DETER COMPREHEN 39809 [facility] SIVE 8 [facility] [place]AB[place] [address] CENTRAL C[facility] AMYLASE 8 [facility] HOSP COLLECTIO 22511 CENTRAL CENTRAL N VENOUS 8 BUD[facility]IST BUDDHIST BLOOD HOSP HOSP VENIPUNCT URE PROTHROMB 31788 CENTRAL [facility] IN TIME 8 [facility] [address] CENTRAL CENTRAL THYROID 8 [facility]UD[facility] STIMULATI HOSP HOSP NG HORMONE TSH MYOGLOBIN 38496 CENTRAL CENTRAL 8 [place] [address] CENTRAL [facility] INFUSION 8 [facility] HYDRATION HOSP HOSP INITIAL 31 MIN-1 [place] [address] CENTRAL [facility]AL TROPONIN 8 [facility]UD[facility] QUANTITAT HOSP HOSP STEFANO BLOOD 80196 [facility]AL [facility] COUNT 8 [facility] COMPLETE HOSP HOSP AUTO&AUTO DIFRNTL WBC THROMBOPL 91016 [facility]AL ASTIN 8 [facility]UD[facility] TIME HOSP HOSP PARTIAL PLASMA/WH OLE BLOOD RADIOLOGI 29085 [facility] C 8 [facility] BUD[facility]IST EXAMINATI HOSP HOSP ON CHEST SINGLE VIEW FRONTAL ECG 67940 [facility]EN[facility] ROUTINE 8 [facility]UD[facility]IST BUDDHIST ECG HOSP HOSP W/LEAST 12 LDS TRCG ONLY W/O I&R ANOSCOPY 74904 COLORECTA SHANNON, DX 8 L SURGIAL JEANIE T W/COLLJ SPEC ASSOCIATE BR/WA SPX S WHEN PRFRMD CREATINE [address] JESSICA KINASE MB 8 [facility] FRACTION ONLY CREATINE [address] JESSICA KINASE 8 [facility] [place] [address] [facility]ESS[facility] AMYLASE 8 [facility] COMPREHEN [address] JESSICA SIVE 8 [facility] [place] [address] JESSICA LIPASE 8 [facility] THER [address] JESSICA PROPH/DX 8 [facility] NJX EA SEQL IV PUSH SBST/[place] [address] JESSICA ABDOMEN 8 [facility] W/O CONTRAST MATERIAL SUBCUTANE [address] JESSICA OUS 8 [facility] INFUSION EACH ADDITIONA L IV PUSH NATRIURET [address] JESSICA IC 8 [facility] PEPTIDE ECG [address] JESSICA ROUTINE 8 [facility] ECG W/LEAST 12 LDS TRCG ONLY W/O I&R THER [address] JESSICA PROPH/DX 8 [facility] NJX IV PUSH 1ST SBST/DRUG RADIOLOGI 18585 [facility] [place] DRAYTONERE C 8 RADIOLOGY LD, A D EXAMINATI ON CHEST SINGLE VIEW FRONTAL CT PELVIS [address] JESSICA W/O [address] [place] [address] CONTRAST MATERIAL [place] NFUS [address] JESSICA HYDRATION 8 [facility] EA HR BLOOD [address] JESSICA COUNT 8 [facility] COMPLETE AUTO&[place] [address] JESSICA TROPONIN 8 [facility] QUANTITAT STEFANO GROUND A0425 LUIS LUIS MILEAGE 8 [place] PER URBAN URBAN STATUTE COGOVT COGOVT MILE AMB A0427 LUIS LUIS SERVICE 8 [place] ALS URBAN URBAN EMERGENCY COGOVT COGOVT TRANSPORT LEVEL [address] JESSICA 8 [facility] PROMETHAZ INE HCL UP TO 50 MG INJECTION J2765 [facility] 8 [facility] METOCLOPR AMIDE HCL UP TO 10 MG ECG 68125 MICK KENNY, ROUTINE 8 [place] MEIR P ECG CLINIC W/LEAST PSC 12 LDS I&R ONLY INJECTION J2405 [facility] 8 [facility] ONDANSETR ON HCL PER 1 MG ECG 51922 CARDIOLOG LORRIE, ROUTINE 8 Y CARRIE W ECG ASSOCIATE W/LEAST S OF 12 LDS [place] W/I&R RADEX 86518 CHAITANYA TAVARES ANKLE 8 [facility]OS[facility] COMPLETE INC INC MINIMUM 3 VIEWS RADEX 22395 NASREEN SMALLS, FOOT 8 MEDICAL GREGG P COMPLETE IMAGING MINIMUM 3 ASSOCIATE VIEWS S RADIOLOGI 10220 [facility] C 8 [facility] EXAMINATI HOSP HOSP ON KNEE 1/[address] [place] [address] [facility] HEAD/BRAI 8 RADIOLOGY RADIOLOGY N W/[place] [address] [facility] HEAD/BRAI 8 RADIOLOGY RADIOLOGY N W/O ASSOC ASSOC CONTRAST MATERIAL THROMBOPL 33583 [place] [facility] ASTIN 8 [facility] TIME HOSP HOSP PARTIAL PLASMA/WH OLE BLOOD RADIOLOGI 08428 [facility] C 8 [facility] EXAMINATI HOSP HOSP ON CHEST SINGLE [place]AL [place] NFUS 37523 [facility] HYDRATION 8 [facility] EA HR HOSP HOSP THER 01771 [facility] PROPH/DX 8 [facility] NJX IV HOSP HOSP PUSH 1ST SBST/DRUG ECG 90007 [place] [facility] ROUTINE 8 [facility] ECG HOSP HOSP W/LEAST 12 LDS TRCG ONLY W/O I&R INJECTION J1170 [facility] CENTRAL 8 [facility] HYDROMORP HOSP HOSP MING UP TO 4 MG INJECTION J2550 [facility] 8 [facility]UD[facility]IST BUD[facility]IST PROMETHAZ HOSP HOSP INE HCL UP TO 50 MG AMB A0427 LUIS LUIS SERVICE 8 [place] EZEKIEL ALS URBAN URBAN EMERGENCY COGOVT COGOVT TRANSPORT LEVEL 1 GROUND A0425 LUIS LUIS MILEAGE 8 [place]AY[place] FAYETTE PER URBAN URBAN [place] [address] CENTRAL CENTRAL TROPONIN 8 [facility] QUANTITAT HOSP HOSP STEFANO BLOOD 43220 [facility] COUNT 8 [facility] COMPLETE HOSP HOSP AUTO&AUTO DIFRNTL WBC SUBCUTANE 72628 CEN[facility]AL [facility] OUS 8 [facility] INFUSION HOSP HOSP EACH ADDITIONA L IV PUSH THER 95194 [facility] PROPH/DX 8 [facility] NJX EA HOSP HOSP SEQL IV PUSH SBST/DRUG MYOGLOBIN 55436 [facility] CENTRAL 8 [facility] HOSP HOSP PROTHROMB 18641 [facility] IN TIME 8 [facility]P HOSP COLLECTIO 15072 CEN[facility] N VENOUS 8 [facility] [place]LOOD [place] [address] CEN[facility] LIPASE 8 [facility] HOSP HOSP COMPREHEN 44484 CENTRAL [facility] SIVE 8 [facility] [place] [address] CENTRAL CENTRAL AMYLASE 8 [facility] HOSP HOSP CREATINE 14523 CENTRAL CENTRAL KINASE MB 8 [facility] FRACTION HOSP HOSP ONLY NONINVASI 64123 [facility] VE 8 [facility] EAR/PULSE HOSP HOSP OXIMETRY MULTIPLE DETER Encounters Encounter Start End Date Code Location Performer Type Date OFFICE 69775 [facility] 1 1 FAMILY ALA T VISIT MEDICINE 15 @ TA MINUTES OFFICE 63786 [facility] 1 1 FAMILY ALA T VISIT MEDICINE 15 @ TA MINUTES HOSPITAL [facility] - 1 1 [facility] T OFFICE 46575 [facility] OUT[facility] 1 1 FAMILY ALA T VISIT MEDICINE 25 @ TA MINUTES EMERGENCY 75158 [facility] DE[facility] 0 0 INES KRI VISIT EMERGENCY HIGH SERV SEVERITY& THREAT [facility] [place] [address] 0 [facility] [address] DEPARTMEN T VISIT HIGH/URGE NT SEVERITY EMERGENCY 60454 [facility] 0 0 INES KRI DEPARTMEN EMERGENCY T VISIT SERVI HIGH/URGE NT SEVERITY HOSPITAL [address] [facility] 19791 [facility] 0 0 INES KRI DEPARTMEN EMERGENCY T VISIT SERV MODERATE SEVERITY HOSPITAL [address] OFFICE [address] T VISIT CARDIOLOG 25 Y CLINIC MINUTES EMERGENCY [address] DEPARTMEN T VISIT HIGH/URGE NT SEVERITY EMERGENCY 04095 [facility] DEPT 0 0 INES VISIT EMERGENCY HIGH PHYS SEVERITY& THREAT [facility] [address] OFFICE [address]142 [facility] 0 FAMILY ALA T VISIT MEDICINE 25 @ TA MINUTES OFFICE 59864 [facility] OUT[facility] 0 0 FAMILY ALA T VISIT MEDICINE 15 @ TA MINUTES HOSPITAL [place] [address] HOSPITAL INPATIENT EMERGENCY 06944 [facility] ADRIANE W DEPT 0 0 INES VISIT EMERGENCY HIGH PHYS SEVERITY& THREAT [facility] OFFICE 97876 [facility] OUTPATIEN 0 0 FAMILY ALA T VISIT MEDICINE 15 @ TA MINUTES EMERGENCY 53656 [facility] DEPT 0 0 HOSPITAL VISIT HIGH SEVERITY& THREAT [facility] [address] [facility] [place] [address] 0 [facility] T EMERGENCY [address] [place] [address] 0 [facility] T VISIT MODERATE SEVERITY OFFICE 21142 [facility] DIEZPATIEN 0 0 FAMILY CHU D T VISIT MEDICINE 25 @ TATES MINUTES [place] OFFICE 91668 [facility] DIEZPATIEN 0 0 FAMILY CHU D T VISIT MEDICINE 25 @ TATES MINUTES [place] OFFICE 11465 [facility] KEANEPATIEN 0 0 FAMILY CHU D T VISIT MEDICINE 15 @ TATES MINUTES [place] OFFICE 18661 [facility]OS DIEZPATINIKKO 0 0 FAMILY CHU D T VISIT MEDICINE 15 @ TATES MINUTES [place] OFFICE 91708 JUAN DIEZ 0 0 FAMILY CHU D T VISIT MEDICINE 25 @ TATES MINUTES [place] OFFICE 77690 JUAN BYNUM 0 0 FAMILY HUY A T VISIT MEDICINE 15 @ TATES MINUTES [facility] [place] [address] HOSPITAL INPATIENT HOSPITAL [address] [facility] [address] T VISIT LOW/MODER SEVERITY OFFICE 19245 [place], OUTPATIEN 0 0 SAVITA Montaño T NEW 30 CLINIC MINUTES PSC OFFICE 93838 MICK HARRISON OUTPATIEN 0 0 SAVITA Ruiz T NEW 30 CLINIC MINUTES PSC OFFICE 54799 JUAN DIEZ 9 9 FAMILY CHU D T VISIT MEDICINE 25 @ TATES MINUTES [facility] OFFICE 86219 JUAN DIEZ 9 9 FAMILY CHU D T VISIT MEDICINE 25 @ TATES MINUTES [facility] OFFICE 02933 MAXWELL GOETZEN 9 9 FAMILY ALIZE More VISIT MEDICINE 15 @ TATES MINUTES [facility] OFF[facility] 53761 [facility] SANYA OUTPATIEN 9 9 FAMILY CHU Ivan T VISIT MEDICINE 25 @ TATES MINUTES [facility] OFFICE 01244 [facility] [place], OUTPATIEN 9 9 NEUROLOGY MARYCRUZ A T VISIT PSC 40 MINUTES EMERGENCY 66729 [facility], DEPT 9 9 EMERGENCY SHELBI J VISIT PHYS PSC HIGH SEVERITY& THREAT FUNCJ OFFICE 66771 MARION FARRELL OUTPATIEN 9 9 Argenis HERNÁNDEZ VISIT &THEODORA SHERMAN 15 DCARE MINUTES PLLC EMERGENCY 65368 DENVER DASIA DEPT 9 9 EMERGENCY RENE J VISIT PHYS PSC HIGH SEVERITY& THREAT [facility] - 9 9 [facility] OUT[facility] T OFFICE 39778 [facility] FARRELL CONSULTAT 9 9 RADHA HERNÁNDEZ &THEODORA SHERMAN NEW/ESTAB [facility] PAT[facility] 40 MIN EMERGENCY 81173 [facility] STAN DEPT 9 9 EMERGENCY MALACHI A VISIT PHYS PSC HIGH SEVERITY& THREAT [facility] - 9 9 [facility] T EMERGENCY 54263 [facility] MODERATE SEVERITY EMERGENCY 55136 [facility] JOSE DEPT 9 9 EMERGENCY SHELBI J VISIT PHYS PSC HIGH SEVERITY& THREAT FUNJ OFFICE 66634 [facility] [place], CONSULTAT 9 9 NEUROLOGY MARYCRUZ A ION PSC NEW/ESTAB PATIENT 60 MIN [facility]OSPITAL [facility] - 8 8 [facility] OUT[facility] T EMERGENCY 72085 [facility] DEPT 8 8 [facility] VISIT HOSP HIGH SEVERITY& THREAT FUNCJ OFFICE 84150 JUAN BRANDON 8 8 L SURGIAL JEAINE T T VISIT 10 ASSOCIATE MINUTES S EMERGENCY 66897 LARRY EDMONDSON, DEPT 8 8 PRIMARY MARA Montaño VISIT CARE HIGH PHYSICANS SEVERITY& [facility] THREAT [facility] EMERGENCY 43832 [facility] 8 8 [facility] VISIT MODERATE [facility]VERITY [facility]OSPITAL [facility] - 8 8 [facility] 71347 CARDIOLOG JUAN ANDREW 8 8 Y CARRIE Goldsmith T VISIT ASSOCIATE 25 S OF MINUTES [facility] - 8 8 [facility] T EMERGENCY 56463 [facility] 8 8 [facility] T VISIT LOW/MODER SEVERITY [facility]OSPITAL [facility] - 8 8 [facility] T EMERGENCY 55903 [facility] DEPT 8 8 [facility] VISIT HOSP HIGH SEVERITY& THREAT [facility] - 8 8 [facility] T
--- OUTSIDE RECORDS SUMMARY | 2016-10-16 08:16 | External Medical Summary Rpt ---
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 LIPID 15192 TALIB SEGUNDO, PANEL 9 FAMILY CHU Ivan MEDICINE @ [place] [address] TALIB SEGUNDO, THYROID 9 FAMILY CHU Ivan STIMULATI MEDICINE NG @ [employer] HORMONE [facility] TSH COLLECTIO 96905 Maverick DIEZ VENOUS 9 FAMILY CHU Ivan BLOOD MEDICINE VENIPUNCT @ TATES URE [facility] THERAPEUT 91536 TALIB SEGUNDO, IC 9 FAMILY CHU Ivan PROPHYLAC MEDICINE TIC/DX @ TATES INJECTION [facility] SUBQ/IM COMPREHEN 95755 LEN DIEZE 9 FAMILY CHU Ivan METABOLIC MEDICINE PANEL @ TATES [facility] INJECTION [id number] TALIB SEGUNDO, VIT B-12 9 FAMILY CHU Ivna MEDICINE CYANOCOBA @ TATES SID TO [facility] 1000 MCG BLOOD 99750 TALIB SEGUNDO COUNT 9 FAMILY CHU Ivan COMPLETE MEDICINE AUTO&AUTO @ TATES DIFRNTL [facility] WBC INJECTION J3420 TALIB SEGUNDO, VIT B-12 9 FAMILY CHU Ivan MEDICINE CYANOCOBA @ TATES SID TO [facility] 1000 MCG THERAPEUT 62920 TALIB SEGUNDO, BENITEZ 9 FAMILY CHU Ivan PROPHYLAC MEDICINE TIC/DX @ TATES INJECTION [facility] SUBQ/IM IAADIADOO 85333 TALIB SEGUNDO, 9 FAMILY CHU Ivan INFLUENZA MEDICINE @ TATES [facility] PHARM G0333 TERRY DRAPER DISPEN 9 PHARMACY PHARMACY FEE INHAL 278 RX; INITIAL 30-DAY SUPPLY ALBUTEROL J7613 TERRY DRAPER INHAL 9 PHARMACY PHARMACY NON-CP 10278 PROD THRU DME U DOSE 1 MG ECG 24462 CARDIOLOG Maverick MEJIA ROUTINE 9 Y A ECG ASSOCIATE W/LEAST S OF 12 LDS VEVAY I&R ONLY ECHO 59158 CARDIOLOG Maverick MEJIA TTHRC R-T 9 Y A 2D ASSOCIATE W/WOM-MOD S OF E COMPL VEVAY [facility] 43586 CARDIOLOG LORRIE, DISCHARGE 9 Y CARRIE W DAY ASSOCIATE MANAGEMEN S OF T 30 SAVITA MIN/< RADIOLOGI 58329 [facility] JOSEPH, C 9 RADIOLOGY J S EXAMINATI ASSOC ON CHEST SINGLE VIEW FRONTAL ECG 99826 [facility] JOSE, ROUTINE 9 EMERGENCY SHELBI J ECG PHYS PSC W/LEAST 12 LDS I&R ONLY RADEX 43124 MARION FARRELL FINGR 9 JAMAICA O, MINIMUM 2 &[address] L[address] VIEWS [facility] THROMBOPL 47132 [facility] ASTIN 9 WORSHIP [facility] TIME HOSP HOSP PARTIAL PLASMA/WH OLE BLOOD ECG 51211 [facility] ROUTINE 9 WORSHIP WORSHIP ECG HOSP HOSP W/LEAST 12 LDS TRCG ONLY W/O I&R ECG 03329 [facility] FORMAN, ROUTINE 9 EMERGENCY RENE J ECG PHYS PSC W/LEAST 12 LDS I&R ONLY BLOOD 02971 [facility] COUNT 9 [facility]IP [facility]IP COMPLETE HOSP HOSP AUTO&[place] [address] [facility] TROPONIN 9 WORSHIP WORSHIP QUANTITAT HOSP HOSP STEFANO COMPREHEN 91066 [facility] SIVE 9 WORSHIP WORSHIP METABOLIC HOSP HOSP PANEL CREATINE 05128 CEN[facility] KINASE MB 9 WORSHIP WORSHIP FRACTION HOSP HOSP ONLY COLLECTIO 62245 [facility] N VENOUS 9 WORSHIP WORSHIP BLOOD HOSP HOSP VENIPUNCT URE PROTHROMB 78479 [facility] IN TIME 9 WORSHIP WORSHIP HOSP HOSP MYOGLOBIN 57631 [facility] 9 WORSHIP WORSHIP HOSP HOSP RADEX 60363 MARION FARRELL FINGR 9 JAMAICA O, MINIMUM 2 &ASSMARK SHERMAN VIE[facility] RADEX 83746 MANDY KELLEYR 9 TRAVIS S MINIMUM 2 RADIOLOGY VIEWS ASSOCIATE [place] [address] HEMA PETTIT, HEAD/BRAI 9 TRAVIS S N W/O RADIOLOGY CONTRAST MATERIAL ASSOCIATE S PSC RADEX 03180 [facility] SPINE 9 WORSHIP WOR[facility]IP CERVICAL HOSP HOSP 2 OR 3 VIEWS EXPLORATI 20093 [facility] ON 9 WORSHIP WORSHIP PENETRATI HOSP HOSP NG WOUND SPX EXTREMITY INJECTION 18750 [facility] STEPHANIA PIERCE 9 EMERGENCY MALACHI A OTHER PHYS PSC PERIPHERA L NERVE/BRA OHH CT ORBIT 91239 [facility] SELLA/POS 9 WORSHIP WORSHIP T HOSP HOSP FOSSA/EAR W/O CONTRAST MATRL RADEX 47541 [facility] JOSEPH, SPINE 9 RADIOLOGY J S CERVICAL ASSOC 4 OR 5 VIEWS RADEX 23290 [facility], HAND 9 RADIOLOGY J S MINIMUM 3 ASSOC VIEWS GROUND A0425 [facility] MILEAGE 9 [facility] STATUTE MILE AMBULANCE A0429 [facility] SERVICE 9 [facility] EMERGENCY TRANSPORT RADEX ABD 28238 [facility] MELENDEZ, COMPL 9 RADIOLOGY VI AQT ABD ASSOC C W/S/E/D VIEWS 1 VIEW CH ANTINUCLE 37804 [facility] AR 9 AMERIC AMERIC ANTIBODIE HOLDING HOLDING S CARLOS ENRIQUE ANTIBODY 56075 [facility] BORRELIA 9 AMERIC AMERIC BURGDORFE HOLDING HOLDING RI LYME DISEASE THYROID 04385 [facility] HORM 9 AMERIC AMERIC UPTK/THYR HOLDING HOLDING [place] [address] [facility] HOMOCYSTE 9 AMERIC AMERIC INE HOLDING HOLDING BLOOD 83605 [facility] COUNT 9 AMERIC AMERIC COMPLETE HOLDING HOLDING AUTO&AUTO DIFRNTL WBC IMMUNOFIX 88416 [facility] J 9 AMERIC AMERIC ELECTROPH [place] [address] [facility] THYROXINE 9 AMERIC AMERIC TOTAL HOLDING HOLDING SEDIMENTA 19339 [facility] TION RATE 9 AMERIC AMERIC [place] [address] [facility] GAMMAGLOB 9 AMERIC AMERIC ULIN IGA HOLDING [place] [address] [facility] THYROID 9 AMERIC AMERIC STIMULATI HOLDING HOLDING NG HORMONE TSH EXTRACTAB 82636 [facility] LE 9 AMERIC AMERIC NUCLEAR HOLDING HOLDING ANTIGEN ANTIBODY ANY METHOD COLLECTIO 28226 [facility] N VENOUS 9 AMERIC AMERIC BLOOD HOLDING HOLDING VENIPUNCT URE ANGIOTENS 19561 [facility] IN 9 AMERIC AMERIC I-CONVERT HOLDING HOLDING ING ENZYME COMPREHEN 43719 [facility] SIVE 9 AMERIC AMERIC METAB[place] [address] [facility] FOLIC 9 AMERIC AMERIC ACID HOLDING HOLDING SERUM ORGANIC 90158 [facility] ACID 1 9 AMERIC AMERIC QUANTITAT HOLDING HOLDING STEFANO CYANOCOBA 65393 [facility] SID 9 AMERIC AMERIC VITAMIN HOLDING HOLDING B-12 [place] [address] CEN[facility]AL [facility] LIPASE 8 WORSHIP WORSHIP HOSP HOSP CREATINE 79162 [facility]EN[facility] KINASE MB 8 WORSHIP WORSHIP FRACTION HOSP HOSP ONLY NONINVASI 59966 [facility] VE 8 WORSHIP WORSHIP EAR/PULSE HOSP HOSP OXIMETRY MULTIPLE DETER COMPREHEN 06241 [facility] SIVE 8 WORSHIP WORSHIP [place] [address] CEN[facility]AL [facility] AMYLASE 8 WORSHIP WORSHIP HOSP HOSP COLLECTIO 53518 CENTRAL [facility] N VENOUS 8 WORSHIP WORSHIP BLOOD HOSP HOSP VENIPUNCT URE PROTHROMB 57620 C[facility] IN TIME 8 [place] [address] CENTRAL [facility] THYROID 8 WORSHIP WORSHIP STIMULATI HOSP HOSP NG HORMONE TSH MYOGLOBIN 11587 [facility] C[facility]AL 8 [place] [address] CENTRAL [facility] INFUSION 8 WORSHIP WORSHIP HYDRATION HOSP HOSP INITIAL 31 MIN-1 [place] [address] [facility]AL [facility] TROPONIN 8 WORSHIP WORSHIP QUANTITAT HOSP HOSP STEFANO BLOOD 02688 [facility] COUNT 8 WORSHIP WORSHIP COMPLETE HOSP HOSP AUTO&AUTO DIFRNTL WBC THROMBOPL 43322 [facility] ASTIN 8 WORSHIP WORSHIP TIME HOSP HOSP PARTIAL PLASMA/WH OLE BLOOD RADIOLOGI 00432 [facility] C 8 WORSHIP WORSHIP EXAMINATI HOSP HOSP ON CHEST SINGLE VIEW FRONTAL ECG 63607 [facility] ROUTINE 8 WORSHIP WORSHIP ECG HOSP HOSP W/LEAST 12 LDS TRCG ONLY W/O I&R ANOSCOPY 02046 COLORECTA SHANNON, DX 8 L SURGIAL JEANIE T W/COLLJ SPEC ASSOCIATE BR/WA SPX S WHEN PRFRMD CREATINE [address] JESSICA KINASE MB 8 [facility] FRACTION ONLY CREATINE [address] JESSICA KINASE 8 [facility] [place] [address] [facility]ESS[facility] AMYLASE 8 [facility] COMPREHEN [address] JESSICA SIVE 8 [facility] [place] [address] JESSICA LIPASE 8 [facility] THER [address] JESSICA PROPH/DX 8 [facility] NJX EA SEQL IV PUSH SBST/[place] [address] JESSICA ABDOMEN 8 [facility] W/O CONTRAST MATERIAL SUBCUTANE [address] JESSICA OUS 8 [facility] INFUSION EACH ADDITIONA L IV PUSH NATRIURET [address] JESSICA IC 8 [facility] PEPTIDE ECG [address] JESSICA ROUTINE 8 [facility] ECG W/LEAST 12 LDS TRCG ONLY W/O I&R THER [address] JESSICA PROPH/DX 8 [facility] NJX IV PUSH 1ST SBST/DRUG RADIOLOGI 70252 [facility] [place] C 8 RADIOLOGY LD, A D EXAMINATI ON CHEST SINGLE VIEW FRONTAL CT PELVIS [address] JESSICA W/O [address] [place] [address] CONTRAST MATERIAL [place] NFUS [address] JESSICA HYDRATION 8 [facility] EA HR BLOOD [address] JESSICA COUNT 8 [facility] COMPLETE AUTO&[place] [address] JESSICA TROPONIN 8 [facility] QUANTITAT STEFANO GROUND A0425 LUIS LUIS MILEAGE 8 [place] FAYETTE PER URBAN URBAN STATUTE COGOVT COGOVT MILE AMB A0427 LUIS LUIS SERVICE 8 [place] FAYET[place] ALS URBAN URBAN EMERGENCY COGOVT COGOVT TRANSPORT LEVEL [address] JESSICA 8 [facility] PROMETHAZ INE HCL UP TO 50 MG INJECTION J2765 [facility] 8 [facility] METOCLOPR AMIDE HCL UP TO 10 MG ECG 50050 MICK KENNY, ROUTINE 8 [place] MEIR P ECG CLINIC W/LEAST PSC 12 LDS I&R ONLY INJECTION J2405 [facility] 8 [facility] ONDANSETR ON HCL PER 1 MG ECG 40572 CARDIOLOG LORRIE, ROUTINE 8 Y CARRIE W ECG ASSOCIATE W/LEAST S OF 12 LDS [place] W/I&R RADEX 57913 CHAITANYA TAVARES ANKLE 8 [facility] COMPLETE INC INC MINIMUM 3 VIEWS RADEX 52796 NASREEN SMALLS, FOOT 8 MEDICAL GREGG P COMPLETE IMAGING MINIMUM 3 ASSOCIATE VIEWS S RADIOLOGI 34117 [facility] C 8 WORSHIP WORSHIP EXAMINATI HOSP HOSP ON KNEE 1/[address] [place] [address] [facility] HEAD/BRAI 8 RADIOLOGY RADIOLOGY N W/[place] [address] [facility] HEAD/BRAI 8 RADIOLOGY RADIOLOGY N W/O ASSOC ASSOC CONTRAST MATERIAL THROMBOPL 62668 [place] [facility] ASTIN 8 WORSHIP WORSHIP TIME HOSP HOSP PARTIAL PLASMA/WH OLE BLOOD RADIOLOGI 55791 [facility] C 8 WORSHIP WORSHIP EXAMINATI HOSP HOSP [place] NFUS 60089 [facility] [facility] HYDRATION 8 WORSHIP WORSHIP EA HR HOSP HOSP THER 82573 [facility] [facility] PROPH/DX 8 WORSHIP WORSHIP NJX IV HOSP HOSP PUSH 1ST SBST/DRUG ECG 99152 [facility] CENTRAL ROUTINE 8 WORSHIP WORSHIP ECG HOSP HOSP W/LEAST 12 LDS TRCG ONLY W/O I&R INJECTION J1170 [facility] 8 WORSHIP WORSHIP HYDROMORP HOSP HOSP MING UP TO 4 MG INJECTION J2550 [facility] 8 WORSHIP WORSHIP PROMETHAZ HOSP HOSP INE HCL UP TO 50 MG AMB A0427 LUIS LUIS SERVICE 8 [place]AY[place] EZEKIEL ALS URBAN URBAN EMERGENCY COGOVT COGOVT TRANSPORT LEVEL 1 GROUND A0425 LUIS LUIS MILEAGE 8 [place] FAYETTE PER URBAN URBAN [place] [address] [facility] TROPONIN 8 WORSHIP WORSHIP QUANTITAT HOSP HOSP STEFANO BLOOD 15932 [facility] COUNT 8 WORSHIP WORSHIP COMPLETE HOSP HOSP AUTO&AUTO DIFRNTL WBC SUBCUTANE 77830 [facility] OUS 8 WORSHIP WORSHIP INFUSION HOSP HOSP EACH ADDITIONA L IV PUSH THER 84416 [facility] PROPH/DX 8 WORSHIP WORSHIP NJX EA HOSP HOSP SEQL IV PUSH SBST/DRUG MYOGLOBIN 83137 [facility] C[facility]AL 8 WORSHIP WORSHIP HOSP HOSP PROTHROMB 74517 [facility] IN TIME 8 WORSHIP WORSHIP HOSP HOSP COLLECTIO 88144 C[facility]AL [facility]TR[facility] N VENOUS 8 WORSHIP WORSHIP [place]LOOD [place] [address] CENTRAL [facility]TRAL LIPASE 8 WORSHIP WORSHIP HOSP HOSP COMPREHEN 58224 CENTRAL [facility] SIVE 8 WORSHIP WORSHIP [place] [address] CENTRAL CENTRAL AMYLASE 8 WORSHIP WORSHIP HOSP HOSP CREATINE 27320 CENTRAL C[facility]TRAL KINASE MB 8 WORSHIP WORSHIP FRACTION HOSP HOSP ONLY NONINVASI 99408 [facility] VE 8 WORSHIP WORSHIP EAR/PULSE HOSP HOSP OXIMETRY MULTIPLE DETER Encounters Encounter Start End Date Code Location Performer Type Date OFFICE 91269 [facility] 1 1 FAMILY ALA T VISIT MEDICINE 15 @ TA MINUTES OFFICE 35725 [facility] 1 1 FAMILY ALA T VISIT MEDICINE 15 @ TA MINUTES HOSPITAL [facility] - 1 1 [facility] T OFFICE 65377 [facility] OUT[facility] 1 1 FAMILY ALA T VISIT MEDICINE 25 @ TA MINUTES EMERGENCY 83432 [facility] 0 0 INES KRI VISIT EMERGENCY HIGH SERV SEVERITY& THREAT [facility] [place] [address] 0 [facility] [address] DEPARTMEN T VISIT HIGH/URGE NT SEVERITY EMERGENCY 81554 [facility] 0 0 INES KRI DEPARTMEN EMERGENCY T VISIT SERVI HIGH/URGE NT SEVERITY HOSPITAL [address] [facility] 84664 [facility] 0 0 INES KRI DEPARTMEN EMERGENCY T VISIT SERV MODERATE SEVERITY HOSPITAL [address] OFFICE [address] T VISIT CARDIOLOG 25 Y CLINIC MINUTES EMERGENCY [address] DEPARTMEN T VISIT HIGH/URGE NT SEVERITY EMERGENCY 98858 [facility] 3[facility] DEPT 0 0 INES VISIT EMERGENCY HIGH PHYS SEVERITY& THREAT [facility] [address] OFFICE 15576 [facility] FAMILY ALA T VISIT MEDICINE 25 @ TA MINUTES OFFICE 15931 [facility] OUT[facility] 0 0 FAMILY ALA T VISIT MEDICINE 15 @ TA MINUTES [facility]OSP[facility] [place] [address] HOSPITAL INPATIENT EMERGENCY 53232 [facility] ADRIANE W DEPT 0 0 INES VISIT EMERGENCY HIGH PHYS SEVERITY& THREAT [facility] OFFICE 04845 [facility] OUTPATIEN 0 0 FAMILY ALA T VISIT MEDICINE 15 @ TA MINUTES EMERGENCY 48820 [facility] DEPT 0 0 HOSPITAL VISIT HIGH SEVERITY& THREAT [facility] [address] [facility] [place] [address] 0 [facility] T EMERGENCY [address] [place] [address] 0 [facility] T VISIT MODERATE SEVERITY OFFICE 60867 [facility] DIEZPATI[facility] 0 0 FAMILY CHU D T VISIT MEDICINE 25 @ TATES MINUTES [facility] 85121 [facility] DIEZPATI[facility] 0 0 FAMILY CHU D T VISIT MEDICINE 25 @ TATES MINUTES [facility] OFFICE 08786 [facility] KEANEPATIEN 0 0 FAMILY CHU D T VISIT MEDICINE 15 @ TATES MINUTES [facility] OFFICE 75500 [facility] DIEZPATINIKKO 0 0 FAMILY CHU D T VISIT MEDICINE 15 @ TATES MINUTES [facility] OFFICE 90142 JUAN DIEZ 0 0 FAMILY CHU D T VISIT MEDICINE 25 @ TATES MINUTES [facility] OFFICE 24967 JUAN BYNUM 0 0 FAMILY HUY A T VISIT MEDICINE 15 @ TATES MINUTES [facility] [place] [address] HOSPITAL INPATIENT H[facility] [address] [facility]ER[facility] [address] T VISIT LOW/MODER SEVERITY OFFICE 19231 [place], OUTPATIEN 0 0 SAVITA Montaño T NEW 30 CLINIC MINUTES PSC OFFICE 18033 MICK HARRISON OUTPATIEN 0 0 SAVITA Ruiz T NEW 30 CLINIC MINUTES PSC OFFICE 71401 JUAN DIEZ 9 9 FAMILY CHU D T VISIT MEDICINE 25 @ TATES MINUTES [facility] OFFICE 95526 JUAN DIEZ 9 9 FAMILY CHU D T VISIT MEDICINE 25 @ TATES MINUTES [facility] OFFICE 63245 MAXWELL GOETZEN 9 9 FAMILY ALIZE Moer VISIT MEDICINE 15 @ TATES MINUTES [facility] OFFICE 92434 [facility] OUTPATIEN 9 9 FAMILY CHU Ivan T VISIT MEDICINE 25 @ TATES MINUTES [facility] OFFICE 75349 [facility], OUTPATIEN 9 9 NEUROLOGY MARYCRUZ A T VISIT PSC 40 MINUTES EMERGENCY 03022 [facility] JOSE, DEPT 9 9 EMERGENCY SHELBI J VISIT PHYS PSC HIGH SEVERITY& THREAT FUNCJ OFFICE 36704 [facility] FARRELL OUTPATIEN 9 9 Argenis HERNÁNDEZ VISIT &THEODORA SHERMAN 15 DCARE MINUTES PLLC EMERGENCY 70232 [facility] DASIA DEPT 9 9 EMERGENCY RENE J VISIT PHYS PSC HIGH SEVERITY& THREAT [facility] - 9 9 WORSHIP OUTPATIEN HOSP T OFFICE 21743 [facility] FARRELL CONSULTAT 9 9 RADHA HERNÁNDEZ &THEODORA SHERMAN NEW/ESTAB [facility] PATIENT [facility] 40 MIN EMERGENCY 50523 [facility] STAN DEPT 9 9 EMERGENCY MALACHI A VISIT PHYS PSC HIGH SEVERITY& THREAT [facility] - 9 9 [facility] EMERGENCY 93138 [facility] 9 9 [facility] VISIT MODERATE SEVERITY EMERGENCY 58172 [facility] JOSE DEPT 9 9 EMERGENCY SHELBI J VISIT PHYS PSC HIGH SEVERITY& THREAT [facility] OFFICE 20300 [facility], CONSULTAT 9 9 NEUROLOGY MARYCRUZ A ION PSC NEW/ESTAB PATIENT 60 MIN [facility]PITAL [facility] - 8 8 [facility] T EMERGENCY 24530 [facility] DEPT 8 8 WORSHIP VISIT HOSP HIGH SEVERITY& THREAT [facility] OFFICE 05176 JUAN BRANDON 8 8 L SURGIAL JEANIE T T VISIT 10 ASSOCIATE MINUTES S EMERGENCY 74969 LARRY EDMONDSON, DEPT 8 8 PRIMARY MARA Montaño VISIT CARE HIGH PHYSICANS SEVERITY& [facility] THREAT [facility] 25473 [facility] [address] [facility] V[facility] MODERATE [facility]VERITY [facility]OSPITAL [facility] - 8 8 [facility] OFF[facility] 67966 CARDIOLOG JUAN ANDREW 8 8 Y CARRIE Goldsmith T VISIT ASSOCIATE 25 S OF MINUTES [facility] - 8 8 [facility] T EMERGENCY 81450 [facility] 8 8 [facility] VISIT LOW/MODER SEVERITY [facility]OSPITAL [facility] - 8 8 [facility] OUTPATI[facility] T EMERGENCY 97681 [facility] DEPT 8 8 [facility]IP VISIT HOSP HIGH SEVERITY& THREAT [facility] - 8 8 [facility] T
--- OUTSIDE RECORDS SUMMARY | 2016-10-16 08:17 | External Medical Summary Rpt ---
Demographics Preferred Language South Korean Marital Status Unknown Episcopal Affiliation Unknown Race Unknown Ethnic Group Unknown Author Author , Organization [employer] Address Unknown Phone Unavailable Purpose Continuity of Care Document - through 2016 Immunization No patient found.
--- OUTSIDE RECORDS SUMMARY | 2016-10-16 08:17 | External Medical Summary Rpt ---
Demographics Preferred Language Bahraini Marital Status Unknown Denominational Affiliation Unknown Race Unknown Ethnic Group Unknown Author Author , Organization [employer] Address Unknown Phone Unavailable Purpose Continuity of Care Document - through 2016 Immunization No patient found.
== END 2016-10-15 20:27 | disposition home or self-care (01) ==
LOC: ER 18:12
PROVIDERS: General Practice
DX: I25.119 Atherosclerotic heart disease of native coronary artery with unspecified angina pectoris (principal); R07.9 Chest pain, unspecified; I10 Essential (primary) hypertension; Z95.818 Presence of other cardiac implants and grafts; Z79.82 Long term (current) use of aspirin; Z79.899 Other long term (current) drug therapy

== ENCOUNTER 2017-02-23 16:31 | Emergency (ER) | payer MEDICARE ==
[~2017-02-23] VITALS: Ht 170.2 cm; Wt 99.8 kg
[~2017-02-23 16:31] MED LIST changes: +ALLOPURINOL100 MG PO; +DOXYCYCLINE HY100 M4 PO; +GUAIFENESIN AN118 ML PO
--- NOTE | 2017-02-23 16:56 | Emergency Room Report ---
History of Present Illness Time Seen by MD James Presenting Problem in Triage Pt arrived:Walked Presenting Problem:PT REPORTS ITCHING ALL OVER BODY X2 DAYS. 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 N Clinical Suspician of Infection? N Mental Status: 1 - Regular (Normal Baseline) Sepsis Risk:Low Sepsis Risk Have you (or family members/close friends) recently traveled outside the [place]? N If Yes, where/when: Have you had exposure to infectious disease within the past month? N TB? Other? Specify: Comment The patient complains of diffuse pruritus for 2 days. She cannot determine a cause. No new medications, foods, skin care products, soaps or detergents, clothes or linens. She noticed a small blister appear on her LEFT wrist and one on her RIGHT hand, which she says popped RIGHT away, no other rash noted. No hives. No other symptoms. No fever. No trouble breathing. No vomiting or diarrhea. She says that she had a scope done about a month ago by a urologist because of stage II renal failure. She thinks her last creatinine was 2.5. She is diabetic. She does not check her blood sugar, but says when it was checked by her physician a month or 2 ago it was 90. She has tried Benadryl, but she feels like it made it worse. No other family members or contacts have a rash or itching. No pets. No exposure to animals or other humans with pruritus or rash. sleeps in the same bed and does not have symptoms. Itching is predominantly arms and legs, lower back, and scalp. ALLERGIES Coded Allergies: adhesive tape (Intermediate, I-RASH +CLOTH TAPE 12/30/16) cephalexin (From KEFLEX) (Mild, 12/30/16) meloxicam (From MOBIC) (Mild, 12/30/16) simvastatin (From ZOCOR) (Mild, 12/30/16) penicillin G (12/30/16) Home Medications Active Scripts BISOPROLOL FUMARATE (Bisoprolol 5MG) 5 MG PO DAILY #30 TAB Ref 1 Prov: 09/12/16 Amlodipine Besylate 2.5 MG PO DAILY #30 TAB Ref 1 Prov: 09/12/16 Reported Medications Pantoprazole Sodium (Protonix 40MG TAB) 40 MG PO QHS Cyclobenzaprine Hcl (Flexeril) 10 MG PO BID Isosorbide Mononitrate (Isosorbide Mononitrate ER) 60 MG PO DAILY #30 TAB Torsemide 50 MG PO BID #30 TAB NITROGLYCERIN (Nitrostat) 0.4 MG SL [id number] PRN CHEST PAIN Clonazepam (Clonazepam 1MG) 1 MG PO BIDP PRN NEEDED FOR ANXIETY/SLEEP #60 Atorvastatin Calcium 25 MG PO QHS #30 TAB Allopurinol 300 MG PO DAILY METHADONE HCL (Methadone Hydrochloride) 10 MG PO 5XDAY #150 TAB ASPIRIN (Aspirin) 81 MG PO DAILY CLOPIDOGREL BISULFATE (PLAVIX) 75 MG PO DAILY History Medical History General CAD? Yes Angina: Yes [place]: No Hypertension? Yes Hyperlipidemia? Yes CHF? Yes DVT? No PE? No COPD? Yes Asthma? Yes Anemia? No GERD? Yes Gastric ulcers? No GI Bleed? No Hernia? Yes Thyroid Problems? No Hypothyroidism? No CVA? Yes Seizures? No Diabetes? No Renal Insuffiency? No End Stage Renal Disease? No UTI? Yes Stones? Yes GB Disease: Yes Nephritic Syndrome? No Asplenia? No Hepatitis? No Sickle Cell Disease? No Arthritis? Yes Migraines? No Cataracts? No Glaucoma? No MRSA? No HIV? No TB? No Anxiety? No Depression? No Cancer? No More? Yes Additional hx: 1. DDD of the lumbar spine 2. Cellulitis of the left lower leg 3. Pacemaker removal d/t infection 07/16/2016 4. Cardiac stents x 3 5. Neuropathy 6. 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 Skin see HPI Physical Exam Vital Signs Vital Signs Date Time Temp Pulse Resp B/P Pulse O2 O2 Flow FiO2 Ox Delivery Rate 02/23 1743 97.9 90 18 159/113 96 02/23 1637 97.9 99 18 156/81 94 General Appearance normal appearance, WD/WN Eye Exam - bilateral eye normal exam, bilateral eye PERRL, bilateral eye EOMI Ear, Nose, Throat hearing grossly normal, normal ENT inspection Neck normal inspection, non-tender, supple, full range of motion Respiratory Status Yes: trachea midline, chest symmetrical, non tender chest. No: respiratory distress. Lung Sounds bilateral: normal breath sounds, lungs clear. Cardiovascular normal exam, regular rate/rhythm, no peripheral edema, no gallop, no JVD, no murmur, no rub, normal peripheral pulses Peripheral Pulses Pulses normal Yes Gastrointestinal normal bowel sounds, normal exam, non tender, soft, no organomegaly Back normal inspection Extremities normal inspection Neurologic alert, normal exam, oriented x 3 Mental status normal mood/affect Skin intact, normal color, warm/dry, no rash, petechiae, purpura, or vesicles. No scabs. No urticaria. No burrows to suggest scabies. Lymphatic no adenopathy Medical Decision Making LABS/Meds/Orders Pt receiving controlled substance in ED? No Results/Orders Laboratory Tests 02/23/17 1616: Sodium 141, Potassium 4.0, Chloride 100, Carbon Dioxide 30, BUN 24 H, Creatinine 1.6 H, Estimated Creat Clear 58, Estimated GFR (MDRD) 33 L, Glucose 106, Calcium 8.6, Total Bilirubin 0.4, AST 21, ALT 16, Alkaline Phosphatase 142 H, Total Protein 8.8 H, Albumin 3.9, Globulin 4.9 H, Albumin/Globulin Ratio 0.8 L, WBC 8.0, RBC 4.97, Hgb 12.4, Hct 40.9, MCV 82.3, RDW 16.9, Plt Count 340 , MPV 9.2, Gran % 65.6, Gran # 5.3, Lymphocytes % 27.4, Monocytes % 5.1, Eosinophils % 1.0, Basophils % 0.9, Lymphocytes # 2.2, Monocytes # 0.4, Eosinophils # 0.1, Basophils # 0.1, PUBS MCHC 30.4 L, MCH 25.0 L Current Medication Orders Sig/Jaclyn Start time Last Medication Dose Route Stop Time Status Admin Hydroxyzine Pamoate 50 MG ONCE ONE 02/23 1800 AC PO 02/23 1801 Methylprednisolone 125 MG ONCE ONE 02/23 1800 AC Sodium Succinate IV 02/23 180 Sodium Chloride 10 ML PRN PRN 02/23 171 AC IV 02/24 1703 Orders Procedure Date/time Status IV SALINE LOCK 02/23 170 Active CBC WITH AUTO DIFF 02/23 170 Complete CHEM 12 PROFILE 02/23 170 Complete Departure Departure Disposition DC Home or Self Care(routine) Clinical Impression Primary Impression: Pruritus Condition STABLE Referrals FRANK SEGUNDO (Family) Patient Instructions DI for Itching Additional Instructions Follow-up with her primary care physician next week, call Sunday for appointment Prescriptions Current Visit Scripts Prednisone (Prednisone 20MG Tab) 20 MG PO BID #10 TAB HYDROXYZINE HCL (Hydroxyzine Hydrochloride) 50 MG PO Q6HP PRN itching #28 TAB ED Critical Care Critical Care No
[2017-02-23 17:26] LABS: HEMOGLOBIN 12.4 g/dL (12.2-16.2); LYMPH # 2.2 K/mm3 (0.7-4.5); LYMPH % 27.4 % (10-50.0)
[2017-02-23] MEDS ORDERED: HYDROXYZINE HYD50 MG PO (17:57)
[2017-02-23] MEDS ORDERED: PREDNISONE20 MG PO (17:57)
[2017-02-23 18:09] VITALS: BP 141/98
== END 2017-02-23 18:10 | disposition home or self-care (01) ==
LOC: ER 16:31
PROVIDERS: Emergency Medicine
DX: L29.9 Pruritus, unspecified (principal); I25.10 Atherosclerotic heart disease of native coronary artery without angina pectoris; E78.5 Hyperlipidemia, unspecified; I11.0 Hypertensive heart disease with heart failure; I50.9 Heart failure, unspecified; J44.9 Chronic obstructive pulmonary disease, unspecified; E11.40 Type 2 diabetes mellitus with diabetic neuropathy, unspecified; K21.9 Gastro-esophageal reflux disease without esophagitis; Z86.73 Personal history of transient ischemic attack (TIA), and cerebral infarction without residual deficits; Z87.442 Personal history of urinary calculi; Z95.5 Presence of coronary angioplasty implant and graft; Z79.02 Long term (current) use of antithrombotics/antiplatelets; Z79.82 Long term (current) use of aspirin; Z79.899 Other long term (current) drug therapy; Z88.0 Allergy status to penicillin; Z88.8 Allergy status to other drugs, medicaments and biological substances; Z91.048 Other nonmedicinal substance allergy status

== ENCOUNTER 2017-03-02 18:10 | Emergency (ER) | payer MEDICARE ==
[~2017-03-02] VITALS: Ht 170.2 cm; Wt 99.8 kg
[~2017-03-02 18:10] MED LIST changes: +HYDROXYZINE HYD50 MG PO; +PREDNISONE20 MG PO
[2017-03-02 18:38] LABS: LYMPH # 2.3 K/mm3 (0.7-4.5); LYMPH % 28.2 % (10-50.0)
[2017-03-02 18:45] LABS: HEMOGLOBIN 10.6 g/dL (12.2-16.2)
--- NOTE | 2017-03-02 18:47 | Emergency Room Report ---
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 N Clinical Suspician of Infection? N Mental Status: 1 - Regular (Normal Baseline) Sepsis Risk:Low Sepsis Risk Have you (or family members/close friends) recently traveled outside the [place]? N If Yes, where/when: Have you had exposure to infectious disease within the past month? N TB? Other? Specify: Patient with sharp midsternal chest pain last night, relieved with NTG. It returned today, and was also relieved with NTG SL. She has had similar pain in the past, and states she feels very anxious today. She takes Klonopin for this type of anxiety. She has had similar episodes, including and ER visit in December. She has had a LHC in the past year showing patent stents per Samuel Freitas note. When she becomes anxious, she has some SOB and feeling "jumpy". No calf pain. No n/v, no diaphoresis. She has already taken ASA and Plavix in the past 24 hours. ALLERGIES Coded Allergies: adhesive tape (Intermediate, I-RASH +CLOTH TAPE 12/30/16) cephalexin (From KEFLEX) (Mild, 12/30/16) meloxicam (From MOBIC) (Mild, 12/30/16) simvastatin (From ZOCOR) (Mild, 12/30/16) penicillin G (12/30/16) Home Medications Active Scripts BISOPROLOL FUMARATE (Bisoprolol 5MG) 5 MG PO DAILY #30 TAB Ref 1 Prov: 09/12/16 Amlodipine Besylate 2.5 MG PO DAILY #30 TAB Ref 1 Prov: 09/12/16 Prednisone (Prednisone 20MG Tab) 20 MG PO BID #10 TAB Prov: 02/23/17 HYDROXYZINE HCL (Hydroxyzine Hydrochloride) 50 MG PO Q6HP PRN itching #28 TAB Prov: 02/23/17 Reported Medications Pantoprazole Sodium (Protonix 40MG TAB) 40 MG PO QHS Cyclobenzaprine Hcl (Flexeril) 10 MG PO BID Isosorbide Mononitrate (Isosorbide Mononitrate ER) 60 MG PO DAILY #30 TAB Torsemide 50 MG PO BID #30 TAB NITROGLYCERIN (Nitrostat) 0.4 MG SL [id number] PRN CHEST PAIN Clonazepam (Clonazepam 1MG) 1 MG PO BIDP PRN NEEDED FOR ANXIETY/SLEEP #60 Atorvastatin Calcium 25 MG PO QHS #30 TAB Allopurinol 300 MG PO DAILY METHADONE HCL (Methadone Hydrochloride) 10 MG PO 5XDAY #150 TAB ASPIRIN (Aspirin) 81 MG PO DAILY CLOPIDOGREL BISULFATE (PLAVIX) 75 MG PO DAILY History Medical History General CAD? Yes Angina: Yes [place]: No Hypertension? Yes Hyperlipidemia? Yes CHF? Yes DVT? No PE? No COPD? Yes Asthma? Yes Anemia? No GERD? Yes Gastric ulcers? No GI Bleed? No Hernia? Yes Thyroid Problems? No Hypothyroidism? No CVA? Yes Seizures? No Diabetes? No Renal Insuffiency? No End Stage Renal Disease? No UTI? Yes Stones? Yes GB Disease: Yes Nephritic Syndrome? No Asplenia? No Hepatitis? No Sickle Cell Disease? No Arthritis? Yes Migraines? No Cataracts? No Glaucoma? No MRSA? No HIV? No TB? No Anxiety? No Depression? No Cancer? No More? Yes Additional hx: 1. DDD of the lumbar spine 2. Cellulitis of the left lower leg 3. Pacemaker removal d/t infection 07/16/2016 4. Cardiac stents x 3 5. Neuropathy 6. 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 Family History Family Hx Diabetes Yes CAD Yes Hypertension Yes Hyperlipidemia Yes Cancer Yes TB No Social History Smoking Hx Smoker: Never Smoker Tobacco: No Packs/day N/A Alcohol Alcohol: No Review of Systems All Other Systems Reviewed and Negative Cardiovascular see HPI Psychiatric/Neurological anxiety Physical Exam Vital Signs Vital Signs Date Time Temp Pulse Resp B/P Pulse O2 O2 Flow FiO2 Ox Delivery Rate 03/02 1922 97.4 73 20 148/104 97 03/02 1919 20 09/15 1812 97.4 81 18 153/111 93 General Appearance normal appearance, WD/WN, no apparent distress Eye Exam - bilateral eye normal exam Neck normal inspection, non-tender, supple, full range of motion Respiratory Status Yes: trachea midline, chest symmetrical, non tender chest. No: respiratory distress, tender on palpation, use of accessory muscles, pain on inspiration, pain on expiration, productive cough, non productive cough. Lung Sounds bilateral: normal breath sounds, lungs clear. Cardiovascular normal exam, regular rate/rhythm, no peripheral edema, no gallop, no JVD, no murmur, no rub, normal peripheral pulses Peripheral Pulses Pulses normal Yes Gastrointestinal normal bowel sounds, normal exam, non tender, soft, no organomegaly, no pulsatile mass, no guarding (moderately obese), no rebound Extremities non-tender, normal range of motion, normal inspection, normal capillary refill, no calf tenderness, no pedal edema Strength 5 Upper Ext (L), 5 Upper Ext (R), 5 Lower Ext (L), 5 Lower Ext (R) Neurologic alert, normal exam, no motor/sensory deficits, oriented x 3 Glascow Coma Scale Glascow Coma Scale Response Value EYE response: 4 Spontaneously 4 MOTOR response: 6 OBEYS 6 VERBAL response: 5 Oriented & Converses 5 Total 15 Mental status normal mood/affect (anxious) Skin intact, normal color, warm/dry Medical Decision Making LABS/Meds/Orders Pt receiving controlled substance in ED? No Results/Orders Laboratory Tests 03/02/17 1820: Sodium 143, Potassium 4.1, Chloride 109 H, Carbon Dioxide 26, BUN 14, Creatinine 1.2 H, Estimated Creat Clear 78, Estimated GFR (MDRD) 46 L, Glucose 90, Calcium 8.1 L, Total Bilirubin 0.3, AST 14 L, ALT 27, Alkaline Phosphatase 109, Creatine Kinase 43, CK-MB (CK-2) Rel Index 1.2, CK and CKMB Interp < 0.5, Troponin I < 0.02, Total Protein 6.5, Albumin 2.9 L, Globulin 3.6 H, Albumin/ Globulin Ratio 0.8 L, WBC 8.2, RBC 4.15 L, Hgb 10.6 L, Hct 33.6 L, MCV 80.8 L, RDW 17.0, Plt Count 321, MPV 9.5, Gran % 63.2, Gran # 5.2, Lymphocytes % 28.2 , Monocytes % 5.8, Eosinophils % 2.5, Basophils % 0.3, Lymphocytes # 2.3, Monocytes # 0.5, Eosinophils # 0.2, Basophils # 0.0, PUBS MCHC 31.7 L, MCH 25.6 L Current Medication Orders Sig/Jaclyn Start time Last Medication Dose Route Stop Time Status Admin Lorazepam 0 .STK-MED ONE 03/02 1917 DC .ROUTE Lorazepam 1 MG ONCE ONE 03/02 184 DC 03/02 IV 03/02 1846 191 Aspirin 162 MG ONCE ONE 03/02 183 DCr 03/02 PO 03/02 1831 182 Sodium Chloride 10 ML PRN PRN 03/02 1830 AC IV 03/03 1821 Aspirin 0 .STK-MED ONE 03/02 1821 DCr .ROUTE Orders Procedure Date/time Status ELECTROCARDIOGRAM REQUEST 03/02 1821 Active CHEST(2 VIEWS-NOT PORTABLE) 03/02 1821 Active IV SALINE LOCK 03/02 1821 Active CBC WITH AUTO DIFF 03/02 1821 Complete CARDIAC ENZYMES 03/02 1821 Complete CHEM 12 PROFILE 03/02 1821 Complete CM/EKG CM/EKG EKG rate, NSR, rhythm, no evid. of ischemic chgs, no ectopy, normal QRS, normal UT, normal EKG (LAFB) XRAY/CT/US XRAY/CT/US XRAY chest XR interpretation by reviewed by me Xray Results no infiltrates, normal heart size, normal lung inflation amol (no change from prior) Progress ED Progress Notes Date 03/02/17 Time 1925 Comment No chest pain, feeling better. Anxiety completely gone. Departure Departure Time of Disposition 1927 Disposition DC Home or Self Care(routine) Clinical Impression Primary Impression: Chest pain Qualifiers: Chest pain type: unspecified Qualified Code: R07.9 - Chest pain, unspecified Secondary Impressions: Anxiety, History of anxiety Condition STABLE Referrals FRANK SEGUNDO (Family) Patient Instructions DI for Chest Pain Additional Instructions See your family doctor to recheck in the next few days, and also see Dr. Figueroa. Continue NTG as needed, as well as Klonopin. Discharge Counseling Counseled pt/family regarding diagnosis, test results, medications/RX, home care, follow up needs ED Critical Care Critical Care No at 1930
[2017-03-02 19:00] LABS: BUN 14 mg/dL (7-18)
[2017-03-02 19:01] LABS: GFR (ESTIMATED) 46 ML/MIN (59-)
[2017-03-02 19:45] VITALS: BP 148/104
--- NOTE | 2017-03-03 09:43 | RADIOLOGY REPORT PS360 ---
CHEST(2 VIEWS-NOT PORTABLE) COMPARISON: PA and lateral chest 11/12/2016 HISTORY: S pain TECHNIQUE: PA and lateral chest FINDINGS: This is a poor inspiration however lung peña are clear of infiltrate. Cardiac size is likely normal considering the poor aspiration and the vascularity is normal. There is no pleural fluid. There is kyphotic curvature of the thoracic spine as noted previously. IMPRESSION: Nonacute chest findings
--- NOTE | 2017-03-03 09:43 | RADIOLOGY REPORT PS360 ---
CHEST(2 VIEWS-NOT PORTABLE) COMPARISON: PA and lateral chest 11/12/2016 HISTORY: S pain TECHNIQUE: PA and lateral chest FINDINGS: This is a poor inspiration however lung epña are clear of infiltrate. Cardiac size is likely normal considering the poor aspiration and the vascularity is normal. There is no pleural fluid. There is kyphotic curvature of the thoracic spine as noted previously. IMPRESSION: Nonacute chest findings
== END 2017-03-02 19:45 | disposition home or self-care (01) ==
LOC: ER 18:10
PROVIDERS: Emergency Medicine
DX: R07.9 Chest pain, unspecified (principal); F41.9 Anxiety disorder, unspecified; Z79.02 Long term (current) use of antithrombotics/antiplatelets; Z79.82 Long term (current) use of aspirin; Z79.899 Other long term (current) drug therapy; I25.10 Atherosclerotic heart disease of native coronary artery without angina pectoris; E78.5 Hyperlipidemia, unspecified; I11.0 Hypertensive heart disease with heart failure; I50.9 Heart failure, unspecified; J44.9 Chronic obstructive pulmonary disease, unspecified; Z86.73 Personal history of transient ischemic attack (TIA), and cerebral infarction without residual deficits; Z95.5 Presence of coronary angioplasty implant and graft

== ENCOUNTER 2017-03-15 13:23 | Emergency (ER) | payer MEDICARE ==
[~2017-03-15] VITALS: Ht 170.2 cm; Wt 99.8 kg
--- NOTE | 2017-03-15 13:42 | Emergency Room Report ---
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 Clinical Suspician of Infection? Mental Status: Sepsis Risk: Have you (or family members/close friends) recently traveled outside the [place]? If Yes, where/when: Have you had exposure to infectious disease within the past month? TB? Other? Specify: 61 years old white female was left alone at home she was trying to ambulate got off the chair and fell to the ground and landed on her mid back RIGHT ribs and RIGHT hip. She denies head injury or neck pain. She denies nausea or vomiting. He denies abdominal pain, no numbness or tingling of the upper or lower extremities. No loss of urine or bowel control. Source patient, RN notes reviewed, family Exam Limitations no limitations ALLERGIES Coded Allergies: adhesive tape (Intermediate, I-RASH +CLOTH TAPE 12/30/16) cephalexin (From KEFLEX) (Mild, 12/30/16) meloxicam (From MOBIC) (Mild, 12/30/16) simvastatin (From ZOCOR) (Mild, 12/30/16) penicillin G (12/30/16) Home Medications Active Scripts BISOPROLOL FUMARATE (Bisoprolol 5MG) 5 MG PO DAILY #30 TAB Ref 1 Prov: 09/12/16 Amlodipine Besylate 2.5 MG PO DAILY #30 TAB Ref 1 Prov: 09/12/16 Prednisone (Prednisone 20MG Tab) 20 MG PO BID #10 TAB Prov: 02/23/17 HYDROXYZINE HCL (Hydroxyzine Hydrochloride) 50 MG PO Q6HP PRN itching #28 TAB Prov: 02/23/17 Reported Medications Pantoprazole Sodium (Protonix 40MG TAB) 40 MG PO QHS Cyclobenzaprine Hcl (Flexeril) 10 MG PO BID Isosorbide Mononitrate (Isosorbide Mononitrate ER) 60 MG PO DAILY #30 TAB Torsemide 50 MG PO BID #30 TAB NITROGLYCERIN (Nitrostat) 0.4 MG SL [id number] PRN CHEST PAIN Clonazepam (Clonazepam 1MG) 1 MG PO BIDP PRN NEEDED FOR ANXIETY/SLEEP #60 Atorvastatin Calcium 25 MG PO QHS #30 TAB Allopurinol 300 MG PO DAILY METHADONE HCL (Methadone Hydrochloride) 10 MG PO 5XDAY #150 TAB ASPIRIN (Aspirin) 81 MG PO DAILY CLOPIDOGREL BISULFATE (PLAVIX) 75 MG PO DAILY History Medical History General CAD? Yes Angina: Yes [place]: No Hypertension? Yes Hyperlipidemia? Yes CHF? Yes DVT? No PE? No COPD? Yes Asthma? Yes Anemia? No GERD? Yes Gastric ulcers? No GI Bleed? No Hernia? Yes Thyroid Problems? No Hypothyroidism? No CVA? Yes Seizures? No Diabetes? No Renal Insuffiency? No End Stage Renal Disease? No UTI? Yes Stones? Yes GB Disease: Yes Nephritic Syndrome? No Asplenia? No Hepatitis? No Sickle Cell Disease? No Arthritis? Yes Migraines? No Cataracts? No Glaucoma? No MRSA? No HIV? No TB? No Anxiety? No Depression? No Cancer? No More? Yes Additional hx: 1. DDD of the lumbar spine 2. Cellulitis of the left lower leg 3. Pacemaker removal d/t infection 07/16/2016 4. Cardiac stents x 3 5. Neuropathy 6. 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 Respiratory no symptoms reported Cardiovascular no symptoms reported Gastrointestinal no symptoms reported Genitourinary no symptoms reported. Musculoskeletal see HPI, back pain, joint pain (r hip) Skin no symptoms reported, see HPI Psychiatric/Neurological no symptoms reported Physical Exam Vital Signs Vital Signs Date Time Temp Pulse Resp B/P Pulse O2 O2 Flow FiO2 Ox Delivery Rate 03/15 1430 100 18 127/75 94 03/15 1338 97.4 100 18 132/76 94 - WBC >12,000 or <4,000 or 10% bands? 2 or more SIRS Criteria Met? B/P: MAP: Creatinine >2.0? UA output<0.5ml/kg/hr for 2 hrs? Platelet count >100,000? Lactate >2.0mmol/1? INR >1.2 or PTT > than 60 sec? Evidence of Organ Dysfunction? Provider documented clinical suspician of infection? Sepsis Criteria Count: Sepsis Risk: General Appearance normal appearance, WD/WN Eye Exam - bilateral eye normal exam, bilateral eye PERRL, bilateral eye EOMI Ear, Nose, Throat hearing grossly normal, normal ENT inspection Neck normal inspection, non-tender, supple, full range of motion, tender midline , no cervical spine tenderness Respiratory Status Yes: trachea midline, chest symmetrical, non tender chest. No: respiratory distress. Lung Sounds bilateral: normal breath sounds, lungs clear. 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 No Results/Orders Current Medication Orders Sig/Jaclyn Start time Last Medication Dose Route Stop Time Status Admin Hydrocodone Bitart/ 1 TAB ONCE ONE 03/15 1445 AC Acetaminophen PO 03/15 1446 Orders Procedure Date/time Status DIET-NOTHING BY MOUTH 03/[address] SCAN REQ 03/15 1337 Complete XRAY/CT/US XRAY/CT/US XRAY hip, rib XR interpretation by reviewed by me, discussed w/radiologist Xray Results no fracture seen Departure Departure Time of Disposition 1431 Disposition DC Home or Self Care(routine) Clinical Impression Primary Impression: Contusion of rib on right side Secondary Impressions: Chronic pain disorder, Contusion of hip, right, DJD ( degenerative joint disease), DJD (degenerative joint disease) of thoracic spine Condition STABLE Referrals FRANK SEGUNDO Additional Instructions The patietn is on methadone 10 mg 5 times aday, refused tylenol and was given lortab 5 mg. I discussed with her that hse has no fractures and she was discharged with her family. follow up with pcp and pain amangement. Discharge Counseling Counseled pt/family regarding diagnosis, test results, medications/RX, home care, follow up needs ED Critical Care Critical Care No If Critical Care minutes are documented, the time involved in the performance of seperately reportable procedures was not counted toward critical care time documented. I directly delivered medical care to this critically ill and/or injured patient. Timely evaluation and treatment was necessary to address the significant organ system(s) dysfunction present in this patient. at 2555
--- NOTE | 2017-03-15 14:16 | RADIOLOGY REPORT PS360 ---
HIP RT 2-3V W/PELVIS IF PERFOR HISTORY: Right hip pain r ribs from chair fall ORDERING PHYSICIAN: Molly Gonzales MD PATIENT AGE: 61 years COMPARISON: None FINDINGS: No fracture or dislocation is evident. There are minimal osteoarthritic changes of the right hip. Calcification is present in the right groin and could be lymph nodes. Surgical clips are present. IMPRESSION: No acute finding. Minimal osteoarthritic change
--- NOTE | 2017-03-15 14:19 | RADIOLOGY REPORT PS360 ---
[id number] VIEWS HISTORY: Right rib pain following injury r ribs from chair fall ORDERING PHYSICIAN: Molly Gonzales MD PATIENT AGE: 61 years COMPARISON: None FINDINGS: A frontal view of the chest shows bilateral lower lobe atelectasis right greater than left. Multiple views of the right ribs were obtained. No fracture or dislocation. No lytic or blastic change. There are old left-sided rib fractures of the left. And sixth ribs IMPRESSION: 1. No acute displaced rib fracture.. 2. Bibasilar atelectasis right more extensive than left
--- NOTE | 2017-03-15 14:32 | RADIOLOGY REPORT PS360 ---
CT THORACIC SPINE W/O CONTRAST INDICATION: Back pain following injury, mid thoracic back pain FELL OUT OF A CHAIR ORDERING PHYSICIAN: Molly Gonzales MD PATIENT AGE: 61 years COMPARISON: None TECHNIQUE: Axial images are obtained without contrast. Sagittal and coronal reformatted images are reviewed as well. FINDINGS: There is mild thoracic scoliosis convex right and there is also mild thoracic kyphosis. There is minor decrease in height anteriorly of T6, T7, and T8. There are small osteophytes at these levels. This decrease in height may very well be chronic in nature. No definite cortical disruption is apparent. No paravertebral hematoma evident. The thoracic kyphosis is similar when compared to the lateral chest radiograph of 03/02/2017. There is mild multilevel degenerative disc disease with endplate osteophytes No definite fracture, dislocation, or bony destructive process. Incidental coronary artery calcification is present. Surgical clips are present in the epigastric region. IMPRESSION: 1. No acute fracture. 2. Mild chronic kyphoscoliosis with degenerative disc disease and thoracic spondylosis
--- NOTE | 2017-03-15 14:34 | RADIOLOGY REPORT PS360 ---
ANKLE-LT-3 VIEWS HISTORY: Left ankle pain following injury PAIN ORDERING PHYSICIAN: Molly Gonzales MD PATIENT AGE: 61 years COMPARISON: 10/17/2007 FINDINGS: There is an old avulsion fracture of the tip of the lateral malleolus. Mild soft tissue swelling is present laterally. No acute fracture or dislocation evident. IMPRESSION: 1. No acute fracture. 2. Old avulsion fracture of the tip the lateral malleolus
[2017-03-15 14:44] VITALS: BP 127/75
== END 2017-03-15 14:45 | disposition home or self-care (01) ==
LOC: ER 13:23
DX: S20.211A Contusion of right front wall of thorax, initial encounter (principal); S70.01XA Contusion of right hip, initial encounter; W07.XXXA Fall from chair, initial encounter; Y92.019 Unspecified place in single-family (private) house as the place of occurrence of the external cause; M47.9 Spondylosis, unspecified; K21.9 Gastro-esophageal reflux disease without esophagitis; J44.9 Chronic obstructive pulmonary disease, unspecified; I10 Essential (primary) hypertension; I25.10 Atherosclerotic heart disease of native coronary artery without angina pectoris; Z79.82 Long term (current) use of aspirin; Z88.0 Allergy status to penicillin; Z88.1 Allergy status to other antibiotic agents; Z88.6 Allergy status to analgesic agent

== ENCOUNTER 2017-05-07 16:06 | Observation (INO) | payer MEDICARE ==
[~2017-05-07] VITALS: Ht 170.2 cm; Wt 106.7 kg
[~2017-05-07 16:06] MED LIST changes: -ALLOPURINOL100 MG PO; +ZYLOPRIM300 MG PO
[2017-05-07 16:07] VITALS: BP 129/90
[2017-05-07 16:34] LABS: LYMPH # 1.5 K/mm3 (0.7-4.5); LYMPH % 28.3 % (10-50.0)
[2017-05-07 16:45] LABS: HEMOGLOBIN 9.5 g/dL (12.2-16.2)
--- OUTSIDE RECORDS SUMMARY | 2017-05-07 16:51 | External Medical Summary Rpt | CCD ---
Author Author , [facility] Organization [facility] Address Unknown Phone [email or web address] Purpose Continuity of Care Document - 04-02-2016 through 2016 Problems Code Diagnosis DOS Provider Status B96.20 Unspecified Escherichia coli [E. 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 I48.91 Unspecified atrial fibrillatio n J18.9 Pneumonia, unspecified organism J44.0 Chronic obstructive pulmonary disease with acute lower respiratory infection J98.11 ATELECTASIS L03.032 Cellulitis of left toe L03.116 Cellulitis of left lower limb L03.90 Cellulitis, unspecified L29.9 PRURITUS, UNSPECIFIED M10.9 GOUT, UNSPECIFIED M19.90 UNSPECIFIED OSTEOARTHRI TIS, UNSPECIFIED SITE 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, THORACIC REGION N17.9 Acute kidney failure, unspecified N28.9 Disorder of kidney and ureter, unspecified N30.00 Acute cystitis without hematuria N39.0 Urinary tract infection, site not specified R07.89 OTHER CHEST PAIN R07.9 CHEST PAIN, UNSPECIFIED R09.1 PLEURISY R10.9 Unspecified abdominal pain R40.0 Somnolence R55 Syncope and collapse R60.9 EDEMA, UNSPECIFIED S20.211A CONTUSION OF RIGHT FRONT WALL OF THORAX, INITIAL ENCOUNTER S70.01XA CONTUSION OF RIGHT HIP, INITIAL ENCOUNTER S80.12XA Contusion of left lower leg, initial encounter S90.32XA Contusion of left foot, initial encounter T82.7XXA INFECT/INFL M REACT D/T OTH CARDI/VASC DEV/IMPLNT/ GRFT, INIT Z23 Encounter for immunizatio n 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 Z79.52 USP (current) use of systemic steroids Z79.82 USP (current) use of aspirin Z79.899 Other group home (current) drug therapy Z86.59 PERSONAL HISTORY OF OTHER MENTAL AND BEHAVIORAL DISORDERS Z88.0 Allergy status to penicillin Z88.1 Allergy status to other antibiotic agents status Z88.6 Allergy status to analgesic agent status Z88.8 Allergy status to other drugs, medicaments and biological substances status Z95.0 Presence of cardiac pacemaker Z98.890 Other specified postprocedu ral states Results Labs Lab Lab Date Result Refere Interp Status Commen Order Detail nces retati t Range on CBC W Diff pnl,unspecified Bld (04-17-2017 14:48) Imm 10-31-2 0.01 0.00-0. complet Granulo 017 10*3/mm 03 ed cytes # 14:48 3 Bld Basophi 10-2 0.03 0.00-0. complet ls # 017 10*3/mm 20 ed Bld 14:48 3 Auto Eosinop 10-31-2 0.12 0.00-0. complet hil # 017 10*3/mm 30 ed Bld 14:48 3 Auto Monocyt 10-31-2 0.43 0.00-1. complet es # 017 10*3/mm 00 ed Bld 14:48 3 Auto Lymphoc 10-31-2 1.25 0.60-4. complet ytes # 017 10*3/mm 80 ed Bld 14:48 3 Auto Neutrop 10-31-2 5.48 1.50-8. complet hils # 017 10*3/mm 30 ed Bld 14:48 3 Auto Imm 10-31-2 0.1 % 0.0-0.6 complet Granulo 017 ed cytes/l 14:48 euk NFr Bld Basophi 10-31-2 0.4 % 0.0-1.0 complet ls/leuk 017 ed NFr 14:48 Bld Auto Eosinop 04-17-2 1.6 % 0.0-3.0 complet hil/juanjose 017 ed k NFr 14:48 Bld Auto Monocyt 04-17-2 5.9 % 0.0-12. complet es/leuk 017 0 ed NFr 14:48 Bld Auto Lymphoc 04-17-2 17.1 % 24.0-44 complet ytes/le 017 .0 ed uk NFr 14:48 Bld Auto Neutrop 04-17-2 74.9 % 41.0-71 complet hils/le 017 .0 ed uk NFr 14:48 Bld Auto Platele 04-17- 311 150-450 complet t # Bld 017 10*3/mm ed Auto 14:48 3 PMV Bld 04-17- 10.4 fL 6.0-12. complet Auto 017 0 ed 14:48 RDW RBC 04-17-2 48.9 fl 37.0-54 complet Auto 017 .0 ed 14:48 RDW RBC 04-17-2 16.9 % 11.3-14 complet 017 .5 ed Auto-Rt 14:48 o MCHC 04-17-2 29.6 32.0-36 complet RBC 017 g/dL .0 ed Auto-mC 14:48 nc MCH RBC 04-17-2 23.3 pg 27.0-31 complet Qn 017 .0 ed Auto 14:48 MCV RBC 04-17-2 78.9 fL 80.0-99 complet Auto 017 .0 ed 14:48 Hct VFr 04-17-2 32.1 % 34.5-44 complet Bld 017 .0 ed Auto 14:48 Hgb 04-17-2 9.5 11.5-15 complet Bld-mCn 017 g/dL .5 ed c 14:48 RBC # 31-2 4.07 3.89-5. complet Bld 017 10*6/mm 14 ed Auto 14:48 3 WBC 31-2 7.32 3.50-10 complet nRBC 017 10*3/mm .80 ed cor # 14:48 3 Bld Comp Metab 1998 Pnl SerPl (04-17-2017 14:47) Anion 31-2 12.0 3.0-11. complet Gap3 017 mmol/L 0 ed SerPl-s 14:47 Cnc BUN/Cre 12.0 7.0-25. complet at 017 0 ed SerPl 14:47 Albumin 1.2 1.5-2.5 complet /Glob 017 g/dL ed SerPl 14:47 Globuli 3.2 complet n Ur 017 gm/dL ed Elph-mC 14:47 nc GFR/BSA 56 >60 complet .pred 017 mL/min/ ed SerPl 14:47 1.73 MDRD-Ar VRat Bilirub 0.3 0.3-1.2 complet 017 mg/dL ed SerPl-m 14:47 Cnc ALP 128 U/L 25-100 complet SerPl-c 017 ed Cnc 14:47 AST 25 U/L 0-33 complet SerPl-c 017 ed Cnc 14:47 ALT 13 U/L 7-40 complet SerPl w 017 ed 14:47 P-5'-P- cCnc Albumin 3.80 3.20-4. complet 017 g/dL 80 ed SerPl-m 14:47 Cnc Prot 7.0 5.7-8.2 complet SerPl-m 017 g/dL ed Cnc 14:47 Calcium 8.7 8.7-10. complet 017 mg/dL 4 ed XXX-sCn 14:47 c CO2 19.0 20.0-31 complet SerPl-s 017 mmol/L .0 ed Cnc 14:47 Chlorid 106 99-109 complet e 017 mmol/L ed SerPl-s 14:47 Cnc Potassi 4.2 3.5-5.5 complet um 017 mmol/L ed Bld-sCn 14:47 c Sodium 137 132-146 complet Bld-sCn 017 mmol/L ed c 14:47 Creat 1.00 0.60-1. complet Bld-mCn 017 mg/dL 30 ed c 14:47 BUN 12 9-23 complet Bld-mCn 017 mg/dL ed c 14:47 Glucose 94 70-100 complet 017 mg/dL ed Bld-mCn 14:47 c UA Microscopic Pnl # Ur Auto (12-11-2016 23:34) Ref lab Automat complet test 017 ed ed method 23:34 Microsc opy Hyaline 0-6 0-6 complet Casts 017 /LPF ed Ur Ql 23:34 Auto Squamou 0-2 None complet s 017 /HPF Seen, ed #/area 23:34 0-2 UrnS HPF Bacteri [id number] None complet a Ur Ql 017 00 Not Seen, ed Auto 23:34 detecte Trace d SCT /HPF WBC Ur 0-2 None complet Ql Auto 017 /HPF Seen ed 23:34 RBC # Too None complet Ur 017 Numerou Seen, ed 23:34 s to 0-2 Count /HPF UA Dipstick Pnl Ur (12-11-2016 23:34) Urobili 0.2 0.2 - complet nogen 017 E.U./dL 1.0 ed Ur Ql 23:34 E.U./dL Strip Nitrite [id number] Negativ complet Ur Ql 017 09 e ed Strip 23:34 Negativ e SCT Leukocy [id number] Negativ complet te 017 09 e ed esteras 23:34 Negativ e Ur Ql e SCT Strip.a uto Prot Ur [id number] Negativ complet Ql 017 09 e ed Strip 23:34 Negativ e SCT Hgb Ur [id number] Negativ complet Ql 017 01 e ed Strip.a 23:34 Large uto SCT Bilirub [id number] Negativ complet Ur Ql 017 09 e ed Strip 23:34 Negativ e SCT Ketones 9009916 Negativ complet Ur Ql 017 09 e ed Strip 23:34 Negativ e SCT Glucose [id number] Negativ complet Ur 017 09 e ed Strip-m 23:34 Negativ Cnc e SCT Sp Gr 1.012 1.001-1 complet Ur 017 .030 ed Strip 23:34 pH Ur 6.0 5.0-8.0 complet Strip.a 017 ed uto 23:34 Clarity [id number] Clear complet Ur 017 01 ed 23:34 Clear SCT Color [id number] Yellow, complet Ur 017 09 Straw ed 23:34 Yellow color SCT Troponin T SerPl Ql (12-11-2016 20:00) Troponi 2 0.00 0.00-0. complet n I 017 ng/mL 07 ed SerPl-m 20:00 Cnc BNP SerPl-mCnc (12-11-2016 19:58) BNP 2 136.0 0.0-100 complet SerPl-m 017 pg/mL .0 ed Cnc 19:58 CBC W Diff pnl,unspecified Bld (12-11-2016 19:58) Imm 12-11-2 0.01 0.00-0. complet Granulo 017 10*3/mm 03 ed cytes # 19:58 3 Bld Basophi 12-11-2 0.05 0.00-0. complet ls # 017 10*3/mm 20 ed Bld 19:58 3 Auto Eosinop 26-2 0.24 0.00-0. complet hil # 017 10*3/mm 30 ed Bld 19:58 3 Auto Monocyt 12-11-2 0.48 0.00-1. complet es # 017 10*3/mm 00 ed Bld 19:58 3 Auto Lymphoc 12-11-2 1.75 0.60-4. complet ytes # 017 10*3/mm 80 ed Bld 19:58 3 Auto Neutrop 26-2 3.00 1.50-8. complet hils # 017 10*3/mm 30 ed Bld 19:58 3 Auto Imm 12-11-2 0.2 % 0.0-0.6 complet Granulo 017 ed cytes/l 19:58 euk NFr Bld Basophi 12-11-2 0.9 % 0.0-1.0 complet ls/leuk 017 ed NFr 19:58 Bld Auto Eosinop -26-2 4.3 % 0.0-3.0 complet hil/juanjose 017 ed k NFr 19:58 Bld Auto Monocyt 06-26-2 8.7 % 0.0-12. complet es/leuk 017 0 ed NFr 19:58 Bld Auto Lymphoc 2 31.6 % 24.0-44 complet ytes/le 017 .0 ed uk NFr 19:58 Bld Auto Neutrop 12-11-2 54.3 % 41.0-71 complet hils/le 017 .0 ed uk NFr 19:58 Bld Auto Platele 315 150-450 complet t # Bld 017 10*3/mm ed Auto 19:58 3 PMV Bld 10.8 fL 6.0-12. complet Auto 017 0 ed 19:58 RDW RBC 2 48.9 fl 37.0-54 complet Auto 017 .0 ed 19:58 RDW RBC 12-11-2 16.0 % 11.3-14 complet 017 .5 ed Auto-Rt 19:58 o MCHC 12-11-2 31.3 32.0-36 complet RBC 017 g/dL .0 ed Auto-mC 19:58 nc MCH RBC 12-11-2 26.6 pg 27.0-31 complet Qn 017 .0 ed Auto 19:58 MCV RBC 12-11-2 84.9 fL 80.0-99 complet Auto 017 .0 ed 19:58 Hct VFr 2 31.6 % 34.5-44 complet Bld 017 .0 ed Auto 19:58 Hgb 12-11-2 9.9 11.5-15 complet Bld-mCn 017 g/dL .5 ed c 19:58 RBC # 12-11-2 3.72 3.89-5. complet Bld 017 10*6/mm 14 ed Auto 19:58 3 WBC 12-11-2 5.53 3.50-10 complet nRBC 017 10*3/mm .80 ed cor # 19:58 3 Bld Comp Metab 1997 Pnl SerPl (12-11-2016 19:58) Anion 12-11-2 10.0 3.0-11. complet Gap3 017 mmol/L 0 ed SerPl-s 19:58 Cnc BUN/Cre 12-11-2 12.9 7.0-25. complet at 017 0 ed SerPl 19:58 Albumin 12-11-2 1.3 1.5-2.5 complet /Glob 017 g/dL ed SerPl 19:58 Globuli 3.1 complet n Ur 017 gm/dL ed Elph-mC 19:58 nc GFR/BSA 38 >60 complet .pred 017 mL/min/ ed SerPl 19:58 1.73 MDRD-Ar VRat Bilirub 0.3 0.3-1.2 complet 017 mg/dL ed SerPl-m 19:58 Cnc ALP 126 U/L 25-100 complet SerPl-c 017 ed Cnc 19:58 AST 122 U/L 0-33 complet SerPl-c 017 ed Cnc 19:58 ALT 40 U/L 7-40 complet SerPl w 017 ed 19:58 P-5'-P- cCnc Albumin 3.90 3.20-4. complet 017 g/dL 80 ed SerPl-m 19:58 Cnc Prot 7.0 5.7-8.2 complet SerPl-m 017 g/dL ed Cnc 19:58 Calcium 9.6 8.7-10. complet 017 mg/dL 4 ed XXX-sCn 19:58 c CO2 23.0 20.0-31 complet SerPl-s 017 mmol/L .0 ed Cnc 19:58 Chlorid 106 99-109 complet e 017 mmol/L ed SerPl-s 19:58 Cnc Potassi 4.7 3.5-5.5 complet um 017 mmol/L ed Bld-sCn 19:58 c Sodium 139 132-146 complet Bld-sCn 017 mmol/L ed c 19:58 Creat 2 1.40 0.60-1. complet Bld-mCn 017 mg/dL 30 ed c 19:58 BUN 2 18 9-23 complet Bld-mCn 017 mg/dL ed c 19:58 Glucose 90 70-100 complet 017 mg/dL ed Bld-mCn 19:58 c Troponin T SerPl Ql (12-07-2016 22:43) Troponi 06-22-2 0.00 0.00-0. complet n I 017 ng/mL 07 ed SerPl-m 22:43 Cnc BNP SerPl-mCnc (12-07-2016 22:39) BNP 268.0 0.0-100 complet SerPl-m 017 pg/mL .0 ed Cnc 22:39 CRP SerPl-mCnc (12-07-2016 22:39) CRP 0.99 0.00-1. complet SerPl-m 017 mg/dL 00 ed Cnc 22:39 LPL SerPl-cCnc (12-07-2016 22:39) Lipase 31 U/L 6-51 complet SerPl-c 017 ed Cnc 22:39 Comp Metab 1998 Pnl SerPl (12-07-2016 22:39) BUN/Cre 13.0 7.0-25. complet at 017 0 ed SerPl 22:39 Albumin 1.1 1.5-2.5 complet /Glob 017 g/dL ed SerPl 22:39 Globuli 3.6 complet n Ur 017 gm/dL ed Elph-mC 22:39 nc GFR/BSA 56 >60 complet .pred 017 mL/min/ ed SerPl 22:39 1.73 MDRD-Ar VRat Bilirub 0.2 0.3-1.2 complet 017 mg/dL ed SerPl-m 22:39 Cnc ALP 139 U/L 25-100 complet SerPl-c 017 ed Cnc 22:39 AST 21 U/L 0-33 complet SerPl-c 017 ed Cnc 22:39 ALT 17 U/L 7-40 complet SerPl w 017 ed 22:39 P-5'-P- cCnc Albumin 4.10 3.20-4. complet 017 g/dL 80 ed SerPl-m 22:39 Cnc Prot 7.7 5.7-8.2 complet SerPl-m 017 g/dL ed Cnc 22:39 Calcium 9.4 8.7-10. complet 017 mg/dL 4 ed XXX-sCn 22:39 c CO2 21.0 20.0-31 complet SerPl-s 017 mmol/L .0 ed Cnc 22:39 Chlorid 109 99-109 complet e 017 mmol/L ed SerPl-s 22:39 Cnc Potassi 3.7 3.5-5.5 complet um 017 mmol/L ed Bld-sCn 22:39 c Sodium 140 132-146 complet Bld-sCn 017 mmol/L ed c 22:39 Creat 1.00 0.60-1. complet Bld-mCn 017 mg/dL 30 ed c 22:39 BUN 13 9-23 complet Bld-mCn 017 mg/dL ed c 22:39 Glucose 85 70-100 complet 017 mg/dL ed Bld-mCn 22:39 c Anion 10.0 3.0-11. complet Gap3 017 mmol/L 0 ed SerPl-s 22:39 Cnc CBC W Diff pnl,unspecified Bld (12-07-2016 22:39) Imm 0.3 % 0.0-0.6 complet Granulo 017 ed cytes/l 22:39 euk NFr Bld Basophi 0.5 % 0.0-1.0 complet ls/leuk 017 ed NFr 22:39 Bld Auto Eosinop 4.6 % 0.0-3.0 complet hil/juanjose 017 ed k NFr 22:39 Bld Auto Monocyt 5.1 % 0.0-12. complet es/leuk 017 0 ed NFr 22:39 Bld Auto Lymphoc 36.1 % 24.0-44 complet ytes/le 017 .0 ed uk NFr 22:39 Bld Auto Neutrop 53.4 % 41.0-71 complet hils/le 017 .0 ed uk NFr 22:39 Bld Auto Platele 270 150-450 complet t # Bld 017 10*3/mm ed Auto 22:39 3 PMV Bld 11.3 fL 6.0-12. complet Auto 017 0 ed 22:39 RDW RBC 06-22-2 50.8 fl 37.0-54 complet Auto 017 .0 ed 22:39 RDW RBC 22-2 16.0 % 11.3-14 complet 017 .5 ed Auto-Rt 22:39 o MCHC 12-07-2 30.8 32.0-36 complet RBC 017 g/dL .0 ed Auto-mC 22:39 nc MCH RBC 12-07-2 26.9 pg 27.0-31 complet Qn 017 .0 ed Auto 22:39 MCV RBC 12-07-2 87.3 fL 80.0-99 complet Auto 017 .0 ed 22:39 Hct VFr 12-07-2 33.8 % 34.5-44 complet Bld 017 .0 ed Auto 22:39 Hgb 12-07-2 10.4 11.5-15 complet Bld-mCn 017 g/dL .5 ed c 22:39 RBC # 22-2 3.87 3.89-5. complet Bld 017 10*6/mm 14 ed Auto 22:39 3 WBC 22-2 7.45 3.50-10 complet nRBC 017 10*3/mm .80 ed cor # 22:39 3 Bld Imm 22-2 0.02 0.00-0. complet Granulo 017 10*3/mm 03 ed cytes # 22:39 3 Bld Basophi 22-2 0.04 0.00-0. complet ls # 017 10*3/mm 20 ed Bld 22:39 3 Auto Eosinop -22-2 0.34 0.10-0. complet hil # 017 10*3/mm 30 ed Bld 22:39 3 Auto Monocyt -22-2 0.38 0.00-1. complet es # 017 10*3/mm 00 ed Bld 22:39 3 Auto Lymphoc -22-2 2.69 0.60-4. complet ytes # 017 10*3/mm 80 ed Bld 22:39 3 Auto Neutrop -22-2 3.98 1.50-8. complet hils # 017 10*3/mm 30 ed Bld 22:39 3 Auto Bacterial Susc Pnl Islt KEITH (12-07-2016 21:23) TMP SMX <= 2 / complet Susc 017 38 ed Islt 21:23 ug/ml Tobramy 12-07-2 <= 4 complet linwood 017 ug/ml ed Susc 21:23 Islt Tetracy 2 > 8 complet guzmán 017 ug/ml ed Susc 21:23 Islt Pip+Woodrow 12-07-2 <= 16 complet o Susc 017 ug/ml ed Islt 21:23 Nitrofu 12-07-2 > 64 complet rantoin 017 ug/ml ed Susc 21:23 Islt Meropen 12-07-2 <= 1 complet em Susc 017 ug/ml ed Islt 21:23 Levoflo 12-07-2 <= 2 complet xacin 017 ug/ml ed Susc 21:23 Islt Gentami 12-07-2 <= 4 complet linwood 017 ug/ml ed Susc 21:23 Islt Ertapen 12-07-2 <= 1 complet em Susc 017 ug/ml ed Islt 21:23 Cephalo 12-07-2 <= 8 complet thin 017 ug/ml ed Susc 21:23 Islt Cefurox 12-07-2 <= 4 complet pankaj 017 ug/ml ed Hi 21:23 r Susc Islt Ceftria 12-07-2 <= 8 complet xone 017 ug/ml ed Susc 21:23 Islt Cefotax 12-07-2 <= 2 complet pankaj 017 ug/ml ed Susc 21:23 Islt Cefepim 12-07-2 <= 8 complet e Susc 017 ug/ml ed Islt 21:23 Aztreon 2 <= 8 complet am Susc 017 ug/ml ed Islt 21:23 Ampicil 12-07-2 <= 8 / complet isabel+Sul 017 4 ug/ml ed leesa 21:23 Susc Islt Ampicil 12-07-2 <= 8 complet isabel 017 ug/ml ed Susc 21:23 Islt Bacteria Ur Cult (12-07-2016 21:23) Bacteri [id number] complet a XXX 017 8 ed Aerobe 21:23 Proteus Cult mirabil is SCT UA Microscopic Pnl # Ur Auto (12-07-2016 21:23) Ref lab Automat complet test 017 ed ed method 21:23 Microsc opy Hyaline 06-22-2 0-6 0-6 complet Casts 017 /LPF ed Ur Ql 21:23 Auto Squamou 0-2 None complet s 017 /HPF Seen, ed #/area 21:23 0-2 UrnS HPF Bacteri [id number] None complet a Ur Ql 017 00 Not Seen, ed Auto 21:23 detecte Trace d SCT /HPF WBC Ur Too None complet Ql Auto 017 Numerou Seen ed 21:23 s to Count /HPF RBC # 12-07- 3-6 None complet Ur 017 /HPF Seen, ed 21:23 0-2 UA Dipstick Pnl Ur (12-07-2016 21:23) Urobili 0.2 0.2 - complet nogen 017 E.U./dL 1.0 ed Ur Ql 21:23 E.U./dL Strip Nitrite [id number] Negativ complet Ur Ql 017 09 e ed Strip 21:23 Negativ e SCT Leukocy 3325081 Negativ complet te 017 01 e ed esteras 21:23 Large e Ur Ql SCT Strip.a uto Prot Ur 30 Negativ complet Ql 017 mg/dL e ed Strip 21:23 (1+) Hgb Ur [id number] Negativ complet Ql 017 06 e ed Strip.a 21:23 Trace uto SCT Bilirub 4427802 Negativ complet Ur Ql 017 09 e ed Strip 21:23 Negativ e SCT Ketones 7217588 Negativ complet Ur Ql 017 09 e ed Strip 21:23 Negativ e SCT Glucose 9549612 Negativ complet Ur 017 09 e ed Strip-m 21:23 Negativ Cnc e SCT Sp Gr 1.018 1.001-1 complet Ur 017 .030 ed Strip 21:23 pH Ur 5.5 5.0-8.0 complet Strip.a 017 ed uto 21:23 Clarity 3619973 Clear complet Ur 017 5 ed 21:23 Cloudy SCT Color 4529685 Yellow, complet Ur 017 09 Straw ed 21:23 Yellow color SCT Bacterial Susc Pnl Islt KEITH (11-22-2016 21:53) TMP SMX --2 <= 2 / complet Susc 017 38 ed Islt 21:53 ug/ml Tobramy -07-2 <= 4 complet linwood 017 ug/ml ed Susc 21:53 Islt Tetracy 11-22-2 > 8 complet guzmán 017 ug/ml ed Susc 21:53 Islt Pip+Woodrow 11-22-2 <= 16 complet o Susc 017 ug/ml ed Islt 21:53 Nitrofu 11-22-2 > 64 complet rantoin 017 ug/ml ed Susc 21:53 Islt Meropen -07-2 <= 1 complet em Susc 017 ug/ml ed Islt 21:53 Levoflo -07-2 <= 2 complet xacin 017 ug/ml ed Susc 21:53 Islt Gentami 07-2 <= 4 complet linwood 017 ug/ml ed Susc 21:53 Islt Ertapen 07-2 <= 1 complet em Susc 017 ug/ml ed Islt 21:53 Cephalo -07-2 <= 8 complet thin 017 ug/ml ed Susc 21:53 Islt Cefurox -07-2 <= 4 complet pankaj 017 ug/ml ed Hi 21:53 r Susc Islt Ceftria 11-22-2 <= 8 complet xone 017 ug/ml ed Susc 21:53 Islt Cefotax 07-2 <= 2 complet pankaj 017 ug/ml ed Susc 21:53 Islt Cefepim 07-2 <= 8 complet e Susc 017 ug/ml ed Islt 21:53 Aztreon 07-2 <= 8 complet am Susc 017 ug/ml ed Islt 21:53 Ampicil -07-2 <= 8 / complet isabel+Sul 017 4 ug/ml ed leesa 21:53 Susc Islt Ampicil 07-2 16 complet isabel 017 ug/ml ed Susc 21:53 Islt Bacteria Ur Cult (11-22-2016 21:53) Bacteri [id number] complet a XXX 017 8 ed Aerobe 21:53 Proteus Cult mirabil is SCT UA Dipstick Pnl Ur (11-22-2016 21:53) Urobili 0.2 0.2 - complet nogen 017 E.U./dL 1.0 ed Ur Ql 21:53 E.U./dL Strip Nitrite 7310000 Negativ complet Ur Ql 017 09 e ed Strip 21:53 Negativ e SCT Leukocy 5672424 Negativ complet te 017 00 e ed esteras 21:53 Moderat e Ur Ql e number Strip.a SCT uto Prot Ur 9684166 Negativ complet Ql 017 09 e ed Strip 21:53 Negativ e SCT Hgb Ur 6539816 Negativ complet Ql 017 09 e ed Strip.a 21:53 Negativ uto e SCT Bilirub 3751382 Negativ complet Ur Ql 017 09 e ed Strip 21:53 Negativ e SCT Ketones 1131922 Negativ complet Ur Ql 017 09 e ed Strip 21:53 Negativ e SCT Glucose 7570194 Negativ complet Ur 017 09 e ed Strip-m 21:53 Negativ Cnc e SCT Sp Gr 1.012 1.001-1 complet Ur 017 .030 ed Strip 21:53 pH Ur 5.5 5.0-8.0 complet Strip.a 017 ed uto 21:53 Clarity 8638579 Clear complet Ur 017 01 ed 21:53 Clear SCT Color 5255771 Yellow, complet Ur 017 09 Straw ed 21:53 Yellow color SCT UA Microscopic Pnl # Ur Auto (11-22-2016 21:53) Ref lab Automat complet test 017 ed ed method 21:53 Microsc opy Hyaline 0-6 0-6 complet Casts 017 /LPF ed Ur Ql 21:53 Auto Squamou 0-2 None complet s 017 /HPF Seen, ed #/area 21:53 0-2 UrnS HPF Bacteri 4604721 None complet a Ur Ql 017 00 Not Seen, ed Auto 21:53 detecte Trace d SCT /HPF WBC Ur 31-50 None complet Ql Auto 017 /HPF Seen ed 21:53 RBC # 06-07-2 0-2 None complet Ur 017 /HPF Seen, ed 21:53 0-2 Bacteria Bld Cult (11-22-2016 20:26) Bacteri --2 No complet a XXX 017 growth ed Aerobe 20:26 at 5 Cult days Bacteria Bld Cult (11-22-2016 20:20) Bacteri -07-2 No complet a XXX 017 growth ed Aerobe 20:20 at 5 Cult days Lactate SerPl-sCnc (11-22-2016 20:06) D-Lacta 1.6 0.5-2.0 complet te 017 mmol/L ed SerPl-s 20:06 Cnc Bacterial Susc Pnl Islt KEITH (11-22-2016 20:05) TMP SMX 2 <= 2 / complet Susc 017 38 ed Islt 20:05 ug/ml Tobramy 2 <= 4 complet linwood 017 ug/ml ed Susc 20:05 Islt Tetracy 2 > 8 complet guzmán 017 ug/ml ed Susc 20:05 Islt Pip+Woodrow 2 <= 16 complet o Susc 017 ug/ml ed Islt 20:05 Nitrofu 2 > 64 complet rantoin 017 ug/ml ed Susc 20:05 Islt Meropen 11-22-2 <= 1 complet em Susc 017 ug/ml ed Islt 20:05 Levoflo 11-22-2 <= 2 complet xacin 017 ug/ml ed Susc 20:05 Islt Gentami 11-22-2 <= 4 complet linwood 017 ug/ml ed Susc 20:05 Islt Ertapen 11-22-2 <= 1 complet em Susc 017 ug/ml ed Islt 20:05 Cephalo 11-22-2 <= 8 complet thin 017 ug/ml ed Susc 20:05 Islt Cefurox 11-22-2 <= 4 complet pankaj 017 ug/ml ed Hi 20:05 r Susc Islt Ceftria 11-22-2 <= 8 complet xone 017 ug/ml ed Susc 20:05 Islt Cefotax 11-22-2 <= 2 complet pankaj 017 ug/ml ed Susc 20:05 Islt Cefepim 06-07-2 <= 8 complet e Susc 017 ug/ml ed Islt 20:05 Aztreon <= 8 complet am Susc 017 ug/ml ed Islt 20:05 Ampicil <= 8 / complet isabel+Sul 017 4 ug/ml ed leesa 20:05 Susc Islt Ampicil <= 8 complet isabel 017 ug/ml ed Susc 20:05 Islt Bacteria Ur Cult (11-22-2016 20:05) Bacteri [id number] complet a XXX 017 8 ed Aerobe 20:05 Proteus Cult mirabil is SCT UA Microscopic Pnl # Ur Auto (11-22-2016 20:05) Ref lab Automat complet test 017 ed ed method 20:05 Microsc opy Hyaline 0-6 0-6 complet Casts 017 /LPF ed Ur Ql 20:05 Auto Squamou 0-2 None complet s 017 /HPF Seen, ed #/area 20:05 0-2 UrnS HPF Bacteri [id number] None complet a Ur Ql 017 00 Not Seen, ed Auto 20:05 detecte Trace d SCT /HPF WBC Ur Too None complet Ql Auto 017 Numerou Seen ed 20:05 s to Count /HPF RBC # 07-2 0-2 None complet Ur 017 /HPF Seen, ed 20:05 0-2 UA Dipstick Pnl Ur (11-22-2016 20:05) Urobili 0.2 0.2 - complet nogen 017 E.U./dL 1.0 ed Ur Ql 20:05 E.U./dL Strip Nitrite [id number] Negativ complet Ur Ql 017 09 e ed Strip 20:05 Negativ e SCT Leukocy [id number] Negativ complet te 017 00 e ed esteras 20:05 Moderat e Ur Ql e number Strip.a SCT uto Prot Ur [id number] Negativ complet Ql 017 09 e ed Strip 20:05 Negativ e SCT Hgb Ur [id number] Negativ complet Ql 017 09 e ed Strip.a 20:05 Negativ uto e SCT Bilirub [id number] Negativ complet Ur Ql 017 09 e ed Strip 20:05 Negativ e SCT Ketones [id number] Negativ complet Ur Ql 017 09 e ed Strip 20:05 Negativ e SCT Glucose 8546889 Negativ complet Ur 017 09 e ed Strip-m 20:05 Negativ Cnc e SCT Sp Gr 1.013 1.001-1 complet Ur 017 .030 ed Strip 20:05 pH Ur 5.5 5.0-8.0 complet Strip.a 017 ed uto 20:05 Clarity [id number] Clear complet Ur 017 01 ed 20:05 Clear SCT Color [id number] Yellow, complet Ur 017 09 Straw ed 20:05 Yellow color SCT LPL SerPl-cCnc (11-22-2016 18:53) Lipase 33 U/L 6-51 complet SerPl-c 017 ed Cnc 18:53 Comp Metab 1998 Pnl SerPl (11-22-2016 18:53) Anion 7.0 3.0-11. complet Gap3 017 mmol/L 0 ed SerPl-s 18:53 Cnc BUN/Cre 24.5 7.0-25. complet at 017 0 ed SerPl 18:53 Albumin 1.1 1.5-2.5 complet /Glob 017 g/dL ed SerPl 18:53 Globuli 3.5 complet n Ur 017 gm/dL ed Elph-mC 18:53 nc GFR/BSA 50 >60 complet .pred 017 mL/min/ ed SerPl 18:53 1.73 MDRD-Ar VRat Bilirub 0.2 0.3-1.2 complet 017 mg/dL ed SerPl-m 18:53 Cnc ALP 94 U/L 25-100 complet SerPl-c 017 ed Cnc 18:53 AST 19 U/L 0-33 complet SerPl-c 017 ed Cnc 18:53 ALT 19 U/L 7-40 complet SerPl w 017 ed 18:53 P-5'-P- cCnc Albumin 4.00 3.20-4. complet 017 g/dL 80 ed SerPl-m 18:53 Cnc Prot 7.5 5.7-8.2 complet SerPl-m 017 g/dL ed Cnc 18:53 Calcium 07 9.0 8.7-10. complet 017 mg/dL 4 ed XXX-sCn 18:53 c CO2 35.0 20.0-31 complet SerPl-s 017 mmol/L .0 ed Cnc 18:53 Chlorid 99 99-109 complet e 017 mmol/L ed SerPl-s 18:53 Cnc Potassi 3.6 3.5-5.5 complet um 017 mmol/L ed Bld-sCn 18:53 c Sodium 141 132-146 complet Bld-sCn 017 mmol/L ed c 18:53 Creat 1.10 0.60-1. complet Bld-mCn 017 mg/dL 30 ed c 18:53 BUN 2 27 9-23 complet Bld-mCn 017 mg/dL ed c 18:53 Glucose 111 70-100 complet 017 mg/dL ed Bld-mCn 18:53 c CBC W Diff pnl,unspecified Bld (11-22-2016 18:53) Neutrop 11-22-2 16.46 1.50-8. complet hils # 017 10*3/mm 30 ed Bld 18:53 3 Auto Imm 11-22-2 0.5 % 0.0-0.6 complet Granulo 017 ed cytes/l 18:53 euk NFr Bld Basophi 11-22-2 0.1 % 0.0-1.0 complet ls/leuk 017 ed NFr 18:53 Bld Auto Eosinop 11-22-2 0.2 % 0.0-3.0 complet hil/juanjose 017 ed k NFr 18:53 Bld Auto Monocyt 11-22-2 3.7 % 0.0-12. complet es/leuk 017 0 ed NFr 18:53 Bld Auto Lymphoc 2 14.7 % 24.0-44 complet ytes/le 017 .0 ed uk NFr 18:53 Bld Auto Neutrop 06-07-2 80.8 % 41.0-71 complet hils/le 017 .0 ed uk NFr 18:53 Bld Auto Platele 06-07-2 334 150-450 complet t # Bld 017 10*3/mm ed Auto 18:53 3 PMV Bld 06-07-2 10.6 fL 6.0-12. complet Auto 017 0 ed 18:53 RDW RBC 06-07-2 48.6 fl 37.0-54 complet Auto 017 .0 ed 18:53 RDW RBC 06-07-2 15.3 % 11.3-14 complet 017 .5 ed Auto-Rt 18:53 o MCHC 06-07-2 31.2 32.0-36 complet RBC 017 g/dL .0 ed Auto-mC 18:53 nc MCH RBC 06-07-2 27.4 pg 27.0-31 complet Qn 017 .0 ed Auto 18:53 MCV RBC 06-07-2 87.8 fL 80.0-99 complet Auto 017 .0 ed 18:53 Hct VFr 06-07-2 34.6 % 34.5-44 complet Bld 017 .0 ed Auto 18:53 Hgb 06-07-2 10.8 11.5-15 complet Bld-mCn 017 g/dL .5 ed c 18:53 RBC # 06-07-2 3.94 3.89-5. complet Bld 017 10*6/mm 14 ed Auto 18:53 3 WBC 06-07-2 20.37 3.50-10 complet nRBC 017 10*3/mm .80 ed cor # 18:53 3 Bld Imm 06-07-2 0.10 0.00-0. complet Granulo 017 10*3/mm 03 ed cytes # 18:53 3 Bld Basophi 06-07-2 0.02 0.00-0. complet ls # 017 10*3/mm 20 ed Bld 18:53 3 Auto Eosinop 06-07-2 0.05 0.10-0. complet hil # 017 10*3/mm 30 ed Bld 18:53 3 Auto Monocyt 06-07-2 0.75 0.00-1. complet es # 017 10*3/mm 00 ed Bld 18:53 3 Auto Lymphoc 2.99 0.60-4. complet ytes # 017 10*3/mm 80 ed Bld 18:53 3 Auto Urinalysis dipstick W Reflex Microscopic panel in Urine (11-12-2016 20:55) Bacteri 2+ O complet a 017 ed [Presen 20:55 ce] in Urine sedimen t by Light microsc opy Hyaline 20-50 NONE complet casts 017 ed [Presen 20:55 ce] in Urine sedimen t by Light microsc opy Erythro NONE 0 complet cytes 017 ed [Presen 20:55 ce] in Urine sedimen t by Light microsc opy Epithel TNTC 0#/hp complet ial 017 f - ed cells.s 20:55 5#/hp quamous f [Presen ce] in Urine sedimen t by Microsc opy high power field Leukocy 5-10 O complet didi 017 wbc/hpf ed [#/volu 20:55 me] in Urine Urinalysis dipstick W Reflex Microscopic panel in Urine (11-12-2016 20:55) Appeara CLEAR CLEAR complet nce of ed Urine 20:55 Bilirub NEGATIV NEG complet in 017 E ed [Presen 20:55 ce] in Urine by Test strip Erythro NEGATIV NEG complet cytes 017 E ed [Presen 20:55 ce] in Urine Color YELLOW YELLOW complet of 017 ed Urine 20:55 Ketones NEGATIV NEG complet 017 E ed [Presen 20:55 ce] in Urine by Automat ed test strip Mucus NEGATIV NEG complet [Presen 017 E ed ce] in 20:55 Urine sedimen t by Light microsc opy Nitrite NEGATIV NEG complet 017 E ed [Presen 20:55 ce] in Urine by Test strip Urobili 0.2 NEG complet nogen 017 ed [Presen 20:55 ce] in Urine by Test strip Troponin T SerPl Ql (04-09-2016 22:40) Troponi [...] SerPl-m 016 g/dL ed Cnc 22:29 Calcium 04-09- 8.4 8.7-10. complet 016 mg/dL 4 ed XXX-sCn 22:29 c CO2 31.0 20.0-31 complet SerPl-s 016 mmol/L .0 ed Cnc 22:29 Chlorid 108 99-109 complet e 016 mmol/L ed SerPl-s 22:29 Cnc Potassi 10-23-2 4.6 3.5-5.5 complet um 016 mmol/L ed Bld-sCn 22:29 c Sodium 04-09-2 146 132-146 complet Bld-sCn 016 mmol/L ed c 22:29 Creat 1023-2 1.00 0.60-1. complet Bld-mCn 016 mg/dL 30 ed c 22:29 BUN 10-23-2 16 9-23 complet Bld-mCn 016 mg/dL ed c 22:29 Glucose 1023-2 83 70-100 complet 016 mg/dL ed Bld-mCn 22:29 c CBC W Diff pnl,unspecified Bld (04-09-2016 22:29) Imm 10-23-2 0.02 0.00-0. complet Granulo 016 10*3/mm 03 ed cytes # 22:29 3 Bld Basophi 1023-2 0.02 0.00-0. complet ls # 016 10*3/mm 20 ed Bld 22:29 3 Auto Eosinop 1023-2 0.20 0.10-0. complet hil # 016 10*3/mm 30 ed Bld 22:29 3 Auto Monocyt 1023-2 0.55 0.00-1. complet es # 016 10*3/mm 00 ed Bld 22:29 3 Auto Lymphoc 1023-2 2.17 0.60-4. complet ytes # 016 10*3/mm [...] NFr 016 ed Bld 22:29 Auto Monocyt 10-23-2 7.4 % 0.0-12. complet es NFr 016 0 ed Bld 22:29 Auto Lymphoc 10-23-2 29.0 % 24.0-44 complet ytes 016 .0 ed NFr Bld 22:29 Auto Neutrop 04-09-2 60.3 % 41.0-71 complet hils 016 .0 ed NFr Bld 22:29 Auto Platele 04-09-2 207 150-450 complet t # Bld 016 10*3/mm ed Auto 22:29 3 PMV Bld 04-09-2 11.0 fL 6.0-12. complet Auto 016 0 ed 22:29 RDW RBC 04-09-2 49.7 fl 37.0-54 complet Auto 016 .0 ed 22:29 RDW RBC 1023-2 15.7 % 11.3-14 complet 016 .5 ed Auto-Rt 22:29 o MCHC 04-09-2 31.5 32.0-36 complet RBC 016 g/dL .0 ed Auto-mC 22:29 nc MCH RBC 04-09-2 27.2 pg 27.0-31 complet Qn 016 .0 ed Auto 22:29 MCV RBC 04-09-2 86.2 fL 80.0-99 complet Auto 016 .0 ed 22:29 Hct VFr 04-09-2 35.5 % 34.5-44 complet Bld 016 .0 ed Auto 22:29 Hgb 04-09-2 11.2 11.5-15 complet Bld-mCn 016 g/dL .5 ed c 22:29 RBC # 23-2 4.12 3.89-5. complet Bld 016 10*6/mm 14 [...] Cnc 03:13 aPTT PPP (04-02-2016 03:13) aPTT < 24.0 24.0-31 complet PPP 016 seconds .0 ed 03:13 PT PPP (04-02-2016 03:13) INR PPP 0.87 complet 016 ed 03:13 PT PPP 04-02-2 9.4 9.6-11. complet 016 Seconds 5 ed 03:13 CBC W Diff pnl,unspecified Bld (04-02-2016 03:13) Lymphoc 16-2 2.62 0.60-4. complet ytes # 016 10*3/mm 80 ed Bld 03:13 3 Auto Neutrop 04-02- 4.56 1.50-8. complet hils # 016 10*3/mm 30 ed Bld 03:13 3 Auto Imm 0.1 % 0.0-0.6 complet Granulo 016 ed cytes 03:13 NFr Bld Basophi 0.4 % 0.0-1.0 complet ls NFr 016 ed Bld 03:13 Auto Eosinop 2.8 % 0.0-3.0 complet hil NFr 016 ed Bld 03:13 Auto Monocyt 6.3 % 0.0-12. complet es NFr 016 0 ed Bld 03:13 Auto Lymphoc 33.0 % 24.0-44 complet ytes 016 .0 ed NFr Bld 03:13 Auto Neutrop 57.4 % 41.0-71 complet hils 016 .0 ed NFr Bld 03:13 Auto Platele 203 150-450 complet t # Bld 016 10*3/mm ed Auto 03:13 3 PMV Bld 11.2 fL 6.0-12. complet Auto 016 0 ed 03:13 RDW RBC 49.4 fl 37.0-54 complet Auto 016 .0 ed 03:13 RDW RBC 04-02- 15.5 % 11.3-14 complet 016 .5 ed Auto-Rt 03:13 o MCHC 31.9 32.0-36 complet RBC 016 g/dL .0 ed Auto-mC 03:13 nc MCH RBC 27.5 pg 27.0-31 complet Qn 016 .0 ed Auto 03:13 MCV RBC 86.3 fL 80.0-99 complet Auto 016 .0 ed 03:13 Hct VFr 34.5 % 34.5-44 complet Bld 016 .0 ed Auto 03:13 Hgb 04-02- 11.0 11.5-15 complet Bld-mCn 016 g/dL .5 ed c 03:13 RBC # 16-2 4.00 3.89-5. complet Bld 016 10*6/mm 14 ed Auto 03:13 3 WBC 04-02- 7.94 3.50-10 complet nRBC 016 10*3/mm .80 ed cor # 03:13 3 Bld Imm 0.01 0.00-0. complet Granulo 016 10*3/mm 03 ed cytes # 03:13 3 Bld Basophi 04-02- 0.03 0.00-0. complet ls # 016 10*3/mm 20 ed Bld 03:13 3 Auto Eosinop 04-02- 0.22 0.10-0. complet hil # 016 10*3/mm 30 ed Bld 03:13 3 Auto Monocyt 04-02- 0.50 0.00-1. complet es # 016 10*3/mm 00 ed Bld 03:13 3 Auto Comp Metab 1998 Pnl SerPl (04-02-2016 03:13) Anion 04-02- 7.0 3.0-11. complet Gap3 016 mmol/L 0 [...] 016 mmol/L ed SerPl-s 03:13 Cnc Potassi 4.4 3.5-5.5 complet um 016 mmol/L ed Bld-sCn 03:13 c Sodium 145 132-146 complet Bld-sCn 016 mmol/L ed c 03:13 Creat 1.10 0.60-1. complet Bld-mCn 016 mg/dL 30 ed c 03:13 BUN 20 9-23 complet Bld-mCn 016 mg/dL ed c 03:13 Glucose 116 70-100 complet 016 mg/dL ed Bld-mCn 03:13 c
--- OUTSIDE RECORDS SUMMARY | 2017-05-07 16:51 | External Medical Summary Rpt | CCD ---
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 Z79.52 senior living (current) use of systemic steroids Z79.82 senior living (current) use of aspirin Z79.899 Other group [...] ed #/area 23:34 0-2 UrnS HPF Bacteri [id number] None complet a Ur Ql 017 00 [...] ed Ur Ql 23:34 E.U./dL Strip Nitrite [id number] Negativ complet Ur Ql 017 09 e ed Strip 23:34 Negativ e SCT Leukocy [id number] Negativ complet te 017 09 e ed esteras 23:34 Negativ e Ur Ql e SCT Strip.a uto Prot Ur [id number] Negativ complet Ql 017 09 e ed Strip 23:34 Negativ e SCT Hgb Ur [id number] Negativ complet Ql 017 01 e ed Strip.a 23:34 Large uto SCT Bilirub [id number] Negativ complet Ur Ql 017 09 e ed Strip 23:34 Negativ e SCT Ketones [id number] Negativ complet Ur Ql 017 09 e ed Strip 23:34 Negativ e SCT Glucose [id number] Negativ complet Ur 017 09 e ed Strip-m 23:34 Negativ Cnc e SCT Sp Gr 1.012 1.001-1 complet Ur 017 .030 ed Strip 23:34 pH Ur 6.0 5.0-8.0 complet Strip.a 017 ed uto 23:34 Clarity [id number] Clear complet Ur 017 01 ed 23:34 Clear SCT Color [id number] Yellow, complet Ur 017 09 Straw ed [...] Auto Eosinop -26-2 4.3 % 0.0-3.0 complet hil/juanojse 017 ed k NFr 19:58 Bld Auto [...] Islt Bacteria Ur Cult (12-07-2016 21:23) Bacteri [id number] complet a XXX 017 8 ed Aerobe 21:23 Proteus Cult mirabil is SCT UA Microscopic Pnl # Ur Auto (12-07-2016 21:23) Ref lab Automat complet test 017 ed ed method 21:23 Microsc opy Hyaline 06-22-2 0-6 0-6 complet Casts 017 /LPF ed Ur Ql 21:23 Auto Squamou 0-2 None complet s 017 /HPF Seen, ed #/area 21:23 0-2 UrnS HPF Bacteri [id number] None complet a Ur Ql 017 00 [...] ed Ur Ql 21:23 E.U./dL Strip Nitrite [id number] Negativ complet Ur Ql 017 09 e ed Strip 21:23 Negativ e SCT Leukocy [id number] Negativ complet te 017 01 e ed esteras 21:23 Large e Ur Ql SCT Strip.a uto Prot Ur 30 Negativ complet Ql 017 mg/dL e ed Strip 21:23 (1+) Hgb Ur [id number] Negativ complet Ql 017 06 e ed Strip.a 21:23 Trace uto SCT Bilirub 5291134 Negativ complet Ur Ql 017 09 e ed Strip 21:23 Negativ e SCT Ketones [id number] Negativ complet Ur Ql 017 09 e ed Strip 21:23 Negativ e SCT Glucose 6333963 Negativ complet Ur 017 09 e ed Strip-m 21:23 Negativ Cnc e SCT Sp Gr 1.018 1.001-1 complet Ur 017 .030 ed Strip 21:23 pH Ur 5.5 5.0-8.0 complet Strip.a 017 ed uto 21:23 Clarity [id number] Clear complet Ur 017 5 ed 21:23 Cloudy SCT Color 9785484 Yellow, complet Ur 017 09 Straw ed [...] Islt Bacteria Ur Cult (11-22-2016 21:53) Bacteri [id number] complet a XXX 017 8 ed Aerobe 21:53 Proteus Cult mirabil is SCT UA Dipstick Pnl Ur (11-22-2016 21:53) Urobili 0.2 0.2 - complet nogen 017 E.U./dL 1.0 ed Ur Ql 21:53 E.U./dL Strip Nitrite [id number] Negativ complet Ur Ql 017 09 e ed Strip 21:53 Negativ e SCT Leukocy 5395254 Negativ complet te 017 00 e ed esteras 21:53 Moderat e Ur Ql e number Strip.a SCT uto Prot Ur 7515534 Negativ complet Ql 017 09 e ed Strip 21:53 Negativ e SCT Hgb Ur 6966544 Negativ complet Ql 017 09 e ed Strip.a 21:53 Negativ uto e SCT Bilirub 2427982 Negativ complet Ur Ql 017 09 e ed Strip 21:53 Negativ e SCT Ketones 9428436 Negativ complet Ur Ql 017 09 e ed Strip 21:53 Negativ e SCT Glucose 4161059 Negativ complet Ur 017 09 e ed Strip-m 21:53 Negativ Cnc e SCT Sp Gr 1.012 1.001-1 complet Ur 017 .030 ed Strip 21:53 pH Ur 5.5 5.0-8.0 complet Strip.a 017 ed uto 21:53 Clarity [id number] Clear complet Ur 017 01 ed 21:53 Clear SCT Color 8109036 Yellow, complet Ur 017 09 Straw ed 21:53 Yellow color SCT UA Microscopic Pnl # Ur Auto (11-22-2016 21:53) Ref lab Automat complet test 017 ed ed method 21:53 Microsc opy Hyaline 0-6 0-6 complet Casts 017 /LPF ed Ur Ql 21:53 Auto Squamou 0-2 None complet s 017 /HPF Seen, ed #/area 21:53 0-2 UrnS HPF Bacteri [id number] None complet a Ur Ql 017 00 [...] Islt Bacteria Ur Cult (11-22-2016 20:05) Bacteri [id number] complet a XXX 017 8 ed Aerobe 20:05 Proteus Cult mirabil is SCT UA Microscopic Pnl # Ur Auto (11-22-2016 20:05) Ref lab Automat complet test 017 ed ed method 20:05 Microsc opy Hyaline 0-6 0-6 complet Casts 017 /LPF ed Ur Ql 20:05 Auto Squamou 0-2 None complet s 017 /HPF Seen, ed #/area 20:05 0-2 UrnS HPF Bacteri 9495545 None complet a Ur Ql 017 00 [...] ed Ur Ql 20:05 E.U./dL Strip Nitrite 0051461 Negativ complet Ur Ql 017 09 e ed Strip 20:05 Negativ e SCT Leukocy 8170398 Negativ complet te 017 00 e ed esteras 20:05 Moderat e Ur Ql e number Strip.a SCT uto Prot Ur 9011644 Negativ complet Ql 017 09 e ed Strip 20:05 Negativ e SCT Hgb Ur 4618739 Negativ complet Ql 017 09 e ed Strip.a 20:05 Negativ uto e SCT Bilirub 1102411 Negativ complet Ur Ql 017 09 e ed Strip 20:05 Negativ e SCT Ketones 1247169 Negativ complet Ur Ql 017 09 e ed Strip 20:05 Negativ e SCT Glucose 5114538 Negativ complet Ur 017 09 e ed Strip-m 20:05 Negativ Cnc e SCT Sp Gr 1.013 1.001-1 complet Ur 017 .030 ed Strip 20:05 pH Ur 5.5 5.0-8.0 complet Strip.a 017 ed uto 20:05 Clarity [id number] Clear complet Ur 017 01 ed 20:05 Clear SCT Color 2166910 Yellow, complet Ur 017 09 Straw ed [...]
--- OUTSIDE RECORDS SUMMARY | 2017-05-07 16:52 | External Medical Summary Rpt | CCD ---
Author Author [employer] Organization [employer] Address Unknown Phone Unavailable Purpose Continuity of Care Document - through 2016
--- OUTSIDE RECORDS SUMMARY | 2017-05-07 16:52 | External Medical Summary Rpt | CCD ---
Author Author , IZAIAH BLISS Address Unknown Phone [email or web address] Support Name Relationship Address Phone SHANAE, Next Of Kin Unknown Unavailable AKIN Immunization Name Date Rout CVX Reac Dose Comm Prov Is Faci e tion ent ider Refu lity Give sed n Infl 09-2 Intr 140 0.5 Hist ELE4 No ELE4 uenz 7-20 amus mL oric 1 1 a, 17 cula al P-Fr r Info ee rmat ion - Sour ce Unsp ecif ied
--- OUTSIDE RECORDS SUMMARY | 2017-05-07 16:52 | External Medical Summary Rpt | CCD ---
Author Author , IZAIAH BLISS Address Unknown Phone [email or web address] Support Name Relationship Address Phone SHANAE, Next [...]
--- OUTSIDE RECORDS SUMMARY | 2017-05-07 16:53 | External Medical Summary Rpt ---
Author Author [employer], [employer] Organization [employer] Address Unknown Phone Unavailable Results CBC W Auto Differential panel in Blood Observa Value Referen Units Interpr Notes Date tion ce etation Range Basophils 0 - 0.2 K/MM3 Normal No Sep 15 informati 2017 6:20 [#/volume on in PM ] in source Blood by data Automated count Basophils 0.1 - 2.0 % Normal No Sep 15 /100 informati 2017 6:20 leukocyte on in PM s in source Blood by data Automated count Eosinophi 0.0 - 0.4 K/mm3 Normal No Sep 15 ls informati 2017 6:20 [#/volume on in PM ] in source Blood by data Automated count Eosinophi 0.1 - % Normal No Sep 15 ls/100 12.0 informati 2017 6:20 leukocyte on in PM s in source Blood by data Automated count Granulocy 1.8 - 7.8 K/mm3 Normal No Sep 15 didi informati 2017 6:20 [#/volume on in PM ] in source Blood by data Automated count Granulocy 37.0 - % Normal No Sep 15 didi/100 80.0 informati 2017 6:20 leukocyte on in PM s in source Blood by data Automated count Hematocri 37.0 - % Low No Sep 15 t [Volume 47.0 informati 2017 6:20 on in PM Fraction] source of Blood data Hemoglobi 12.2 - g/dL Low No Sep 15 n 16.2 informati 2017 6:20 [Mass/vol on in PM ume] in source Blood data Lymphocyt 0.7 - 4.5 K/mm3 Normal No Sep 15 es informati 2017 6:20 [#/volume on in PM ] in source Unspecifi data ed specimen by Automated count Lymphocyt 10 - 50.0 % Normal No Sep 15 es informati 2017 6:20 [#/volume on in PM ] in source Unspecifi data ed specimen by Automated count Erythrocy 27 - 31.2 pg Low No Sep 15 te mean informati 2017 6:20 corpuscul on in PM ar source hemoglobi data n [Entitic mass] Erythrocy 31.8 - g/dl Low No Sep 15 te mean 35.4 informati 2017 6:20 corpuscul on in PM ar source hemoglobi data n concentra tion [Mass/vol ume] by Automated count Erythrocy 82.2 - fl Low No Sep 15 te mean 97.8 informati 2017 6:20 corpuscul on in PM ar volume source [Entitic data volume] by Automated count Monocytes 0.1 - 1.0 K/mm3 Normal No Sep 15 informati 2017 6:20 [#/volume on in PM ] in source Blood by data Automated count Monocytes 1.7 - 9.3 % Normal No Sep 15 /100 informati 2017 6:20 leukocyte on in PM s in source Blood by data Automated count Platelet 7.4 - fl Normal No Sep 15 mean 10.4 informati 2017 6:20 volume on in PM [Entitic source volume] data in Blood by Automated count Platelets 142 - 424 K/mm3 Normal No Sep 15 informati 2017 6:20 [#/volume on in PM ] in source Blood data Erythrocy 4.2 - 5.4 M/mm3 Low No Sep 15 didi informati 2017 6:20 [#/volume on in PM ] in source Amniotic data fluid Erythrocy 11.5 - % Normal No Sep 15 te 17.5 informati 2017 6:20 distribut on in PM ion width source [Entitic data volume] by Automated count Leukocyte 4.8 - K/MM3 Normal No Sep 15 s 10.8 informati 2017 6:20 [#/volume on in PM ] in source Blood data Comprehensive metabolic 2000 panel in Serum or Plasma Observa Value Referen Units Interpr Notes Date tion ce etation Range Albumin/G 1.1 - 1.8 No Low No Sep 8 lobulin informati informati 2017 4:16 [Mass on in on in PM ratio] in source source Serum or data data Plasma Albumin 3.4 - 5.0 gm/dL Normal No Sep 8 [Mass/vol informati 2017 4:16 ume] in on in PM Serum or source Plasma data Alkaline 46 - 116 U/L High No Sep 8 phosphata informati 2017 4:16 se on in PM [Enzymati source c data activity/ volume] in Serum or Plasma Bilirubin 0.2 - 1.0 mg/dL Normal No Sep 8 .total informati 2017 4:16 [Mass/vol on in PM ume] in source Serum or data Plasma Urea 7 - 18 mg/dL High No Sep 8 nitrogen informati 2017 4:16 [Mass/vol on in PM ume] in source Serum or data Plasma Calcium 8.5 - mg/dL Normal No Sep 8 [Mass/vol 10.1 informati 2017 4:16 ume] in on in PM Serum or source Plasma data Chloride 98 - 107 mmoL/L Normal No Sep 8 [Moles/vo informati 2017 4:16 lume] in on in PM Serum or source Plasma data Carbon 21.0 - mmoL/L Normal No Sep 8 dioxide, 32.0 informati 2017 4:16 total on in PM [Moles/vo source lume] in data Serum or Plasma Creatinin 0.55 - mg/dL High No Sep 8 e 1.02 informati 2017 4:16 [Mass/vol on in PM ume] in source Serum or data Plasma Creatinin 50 - 200 ML/MIN Normal No Sep 8 e renal informati 2016 4:16 clearance on in PM source predicted data by Cockcroft -Gault formula Estimated 59- ML/MIN Low REFERENCE Sep 8 RANGE: 2017 4:16 glomerula >60 PM r ML/MIN/1. filtratio 73 SQUARE n rate METERSIf (GF this patient is -A merican, then multiply theresult by 1.210. Globulin 1.3 - 3.2 gm/dL High No Sep 8 [Mass/vol informati 2016 4:16 ume] in on in PM Serum source data Glucose 74 - 106 mg/dL Normal No Sep 8 [Mass/vol informati 2017 4:16 ume] in on in PM Serum or source Plasma data Potassium 3.5 - 5.1 mmoL/L Normal No Sep 8 informati 2017 4:16 [Moles/vo on in PM lume] in source Serum or data Plasma Sodium 136 - 145 mmoL/L Normal No Sep 8 [Moles/vo informati 2017 4:16 lume] in on in PM Serum or source Plasma data Aspartate 15 - 37 U/L Normal No Sep 8 informati 2017 4:16 aminotran on in PM sferase source [Enzymati data c activity/ volume] in Serum or Plasma Alanine 12 - 78 U/L Normal No Sep 8 aminotran informati 2017 4:16 sferase on in PM [Enzymati source c data activity/ volume] in Serum or Plasma Protein 6.4 - 8.2 gm/dL High No Sep 8 [Mass/vol informati 2017 4:16 ume] in on in PM Serum or source Plasma data CBC W Auto Differential panel in Blood Observa Value Referen Units Interpr Notes Date tion ce etation Range Basophils 0 - 0.2 K/MM3 Normal No Sep 8 informati 2016 4:16 [#/volume on in PM ] in source Blood by data Automated count Basophils 0.1 - 2.0 % Normal No Sep 8 /100 informati 2017 4:16 leukocyte on in PM s in source Blood by data Automated count Eosinophi 0.0 - 0.4 K/mm3 Normal No Sep 8 ls informati 2016 4:16 [#/volume on in PM ] in source Blood by data Automated count Eosinophi 0.1 - % Normal No Sep 8 ls/100 12.0 informati 2016 4:16 leukocyte on in PM s in source Blood by data Automated count Granulocy 1.8 - 7.8 K/mm3 Normal No Sep 8 didi informati 2016 4:16 [#/volume on in PM ] in source Blood by data Automated count Granulocy 37.0 - % Normal No Sep 8 didi/100 80.0 informati 2016 4:16 leukocyte on in PM s in source Blood by data Automated count Hematocri 37.0 - % Normal No Sep 8 t [Volume 47.0 informati 2016 4:16 on in PM Fraction] source of Blood data Hemoglobi 12.2 - g/dL Normal No Sep 8 n 16.2 informati 2016 4:16 [Mass/vol on in PM ume] in source Blood data Lymphocyt 0.7 - 4.5 K/mm3 Normal No Sep 8 es informati 2016 4:16 [#/volume on in PM ] in source Unspecifi data ed specimen by Automated count Lymphocyt 10 - 50.0 % Normal No Sep 8 es informati 2016 4:16 [#/volume on in PM ] in source Unspecifi data ed specimen by Automated count Erythrocy 27 - 31.2 pg Low No Sep 8 te mean informati 2016 4:16 corpuscul on in PM ar source hemoglobi data n [Entitic mass] Erythrocy 31.8 - g/dl Low No Sep 8 te mean 35.4 inform2016 4:16 corpuscul on in PM ar source hemoglobi data n concentra tion [Mass/vol ume] by Automated count Erythrocy 82.2 - fl Normal No Sep 8 te mean 97.8 2016 4:16 corpuscul on in PM ar volume source [Entitic data volume] by Automated count Monocytes 0.1 - 1.0 K/mm3 Normal No Sep 8 2016 4:16 [#/volume on in PM ] in source Blood by data Automated count Monocytes 1.7 - 9.3 % Normal No Feb 8 /100 inform2016 4:16 leukocyte on in PM s in source Blood by data Automated count Platelet 7.4 - fl Normal No Sep 8 mean 10.4 inform2016 4:16 volume on in PM [Entitic source volume] data in Blood by Automated count Platelets 142 - 424 K/mm3 Normal No Sep 8 2016 4:16 [#/volume on in PM ] in source Blood data Erythrocy 4.2 - 5.4 M/mm3 Normal No Sep 8 didi 2016 4:16 [#/volume on in PM ] in source Amniotic data fluid Erythrocy 11.5 - % Normal No Sep 8 te 17.5 informati 2016 4:16 distribut on in PM ion width source [Entitic data volume] by Automated count Leukocyte 4.8 - K/MM3 Normal No Sep 8 s 10.8 2016 4:16 [#/volume on in PM ] in source Blood data CBC W Auto Differential panel in Blood Observa Value Referen Units Interpr Notes Date tion ce etation Range Basophils 0 - 0.2 K/MM3 Normal No Dec 302016 6:15 [#/volume on in PM ] in source Blood by data Automated count Basophils 0.1 - 2.0 % Normal No Dec 30 informati 2016 6:15 leukocyte on in PM s in source Blood by data Automated count Eosinophi 0.0 - 0.4 K/mm3 Normal No Dec 30 ls 2016 6:15 [#/volume on in PM ] in source Blood by data Automated count Eosinophi 0.1 - % Normal No Dec 30 ls/100 12.0 informati 2016 6:15 leukocyte on in PM s in source Blood by data Automated count Granulocy 1.8 - 7.8 K/mm3 Normal No Dec 30 didi informati 2016 6:15 [#/volume on in PM ] in source Blood by data Automated count Granulocy 37.0 - % Normal No Dec 30 didi/100 80.0 informati 2016 6:15 leukocyte on in PM s in source Blood by data Automated count Hematocri 37.0 - % Normal No Dec 30 t [Volume 47.0 informati 2016 6:15 on in PM Fraction] source of Blood data Hemoglobi 12.2 - g/dL Low No Dec 30 n 16.2 informati 2016 6:15 [Mass/vol on in PM ume] in source Blood data Lymphocyt 0.7 - 4.5 K/mm3 Normal No Dec 30 es informati 2016 6:15 [#/volume on in PM ] in source Unspecifi data ed specimen by Automated count Lymphocyt 10 - 50.0 % Normal No Dec 30 es informati 2016 6:15 [#/volume on in PM ] in source Unspecifi data ed specimen by Automated count Erythrocy 27 - 31.2 pg Low No Dec 30 te mean informati 2016 6:15 corpuscul on in PM ar source hemoglobi data n [Entitic mass] Erythrocy 31.8 - g/dl Low No Dec 30 te mean 35.4 informati 2017 6:15 corpuscul on in PM ar source hemoglobi data n concentra tion [Mass/vol ume] by Automated count Erythrocy 82.2 - fl Normal No Dec 30 te mean 97.8 informati 2016 6:15 corpuscul on in PM ar volume source [Entitic data volume] by Automated count Monocytes 0.1 - 1.0 K/mm3 Normal No Dec 30 informati 2016 6:15 [#/volume on in PM ] in source Blood by data Automated count Monocytes 1.7 - 9.3 % Normal No Dec 30 /100 informati 2017 6:15 leukocyte on in PM s in source Blood by data Automated count Platelet 7.4 - fl Normal No Dec 30 mean 10.4 informati 2017 6:15 volume on in PM [Entitic source volume] data in Blood by Automated count Platelets 142 - 424 K/mm3 Normal No Dec 30 informati 2016 6:15 [#/volume on in PM ] in source Blood data Erythrocy 4.2 - 5.4 M/mm3 Normal No Dec 30 didi informati 2017 6:15 [#/volume on in PM ] in source Amniotic data fluid Erythrocy 11.5 - % Normal No Dec 30 te 17.5 informati 2016 6:15 distribut on in PM ion width source [Entitic data volume] by Automated count Leukocyte 4.8 - K/MM3 Normal No Dec 30 s 10.8 informati 2016 6:15 [#/volume on in PM ] in source Blood data CBC W Auto Differential panel in Blood Observa Value Referen Units Interpr Notes Date tion ce etation Range Basophils 0 - 0.2 K/MM3 Normal No November 12 informati 2016 9:50 [#/volume on in PM ] in source Blood by data Automated count Basophils 0.1 - 2.0 % Normal No November 12 /100 informati 2016 9:50 leukocyte on in PM s in source Blood by data Automated count Eosinophi 0.0 - 0.4 K/mm3 Normal No November 12 ls informati 2016 9:50 [#/volume on in PM ] in source Blood by data Automated count Eosinophi 0.1 - % Normal No November 12 ls/100 12.0 informati 2016 9:50 leukocyte on in PM s in source Blood by data Automated count Granulocy 1.8 - 7.8 K/mm3 Normal No November 12 didi informati 2016 9:50 [#/volume on in PM ] in source Blood by data Automated count Granulocy 37.0 - % Normal No November 12 didi/100 80.0 informati 2016 9:50 leukocyte on in PM s in source Blood by data Automated count Hematocri 37.0 - % Low No November 12 t [Volume 47.0 informati 2016 9:50 on in PM Fraction] source of Blood data Hemoglobi 12.2 - g/dL Low No November 12 n 16.2 informati 2016 9:50 [Mass/vol on in PM ume] in source Blood data Lymphocyt 0.7 - 4.5 K/mm3 Normal No November 12 es informati 2016 9:50 [#/volume on in PM ] in source Unspecifi data ed specimen by Automated count Lymphocyt 10 - 50.0 % Normal No November 12 es informati 2016 9:50 [#/volume on in PM ] in source Unspecifi data ed specimen by Automated count Erythrocy 27 - 31.2 pg Normal No November 12 te mean informati 2016 9:50 corpuscul on in PM ar source hemoglobi data n [Entitic mass] Erythrocy 31.8 - g/dl Normal No November 12 te mean 35.4 informati 2016 9:50 corpuscul on in PM ar source hemoglobi data n concentra tion [Mass/vol ume] by Automated count Erythrocy 82.2 - fl Normal No November 12 te mean 97.8 informati 2016 9:50 corpuscul on in PM ar volume source [Entitic data volume] by Automated count Monocytes 0.1 - 1.0 K/mm3 Normal No November 12 informati 2016 9:50 [#/volume on in PM ] in source Blood by data Automated count Monocytes 1.7 - 9.3 % Normal No November 12 /100 informati 2016 9:50 leukocyte on in PM s in source Blood by data Automated count Platelet 7.4 - fl Low No November 12 mean 10.4 informati 2016 9:50 volume on in PM [Entitic source volume] data in Blood by Automated count Platelets 142 - 424 K/mm3 Normal No November 12 informati 2016 9:50 [#/volume on in PM ] in source Blood data Erythrocy 4.2 - 5.4 M/mm3 Low No November 12 didi informati 2016 9:50 [#/volume on in PM ] in source Amniotic data fluid Erythrocy 11.5 - % Normal No November 12 te 17.5 informati 2016 9:50 distribut on in PM ion width source [Entitic data volume] by Automated count Leukocyte 4.8 - K/MM3 Normal No November 12 s 10.8 informati 2016 9:50 [#/volume on in PM ] in source Blood data Urate [Mass/volume] in Serum or Plasma Observa Value Referen Units Interpr Notes Date tion ce etation Range Urate 2.6 - 7.2 mg/dL High No November 12 [Mass/vol informati 2016 9:50 ume] in on in PM Serum or source Plasma data Comprehensive metabolic 2000 panel in Serum or Plasma Observa Value Referen Units Interpr Notes Date tion ce etation Range Albumin/G 1.1 - 1.8 No Low No November 12 lobulin informati informati 2016 9:50 [Mass on in on in PM ratio] in source source Serum or data data Plasma Albumin 3.4 - 5.0 gm/dL Normal No November 12 [Mass/vol informati 2017 9:50 ume] in on in PM Serum or source Plasma data Alkaline 46 - 116 U/L High No November 12 phosphata informati 2016 9:50 se on in PM [Enzymati source c data activity/ volume] in Serum or Plasma Bilirubin 0.2 - 1.0 mg/dL Normal No November 12 .total informati 2016 9:50 [Mass/vol on in PM ume] in source Serum or data Plasma Urea 7 - 18 mg/dL High No November 12 nitrogen informati 2016 9:50 [Mass/vol on in PM ume] in source Serum or data Plasma Calcium 8.5 - mg/dL Normal No November 12 [Mass/vol 10.1 informati 2016 9:50 ume] in on in PM Serum or source Plasma data Chloride 98 - 107 mmoL/L Normal No November 12 [Moles/vo informati 2016 9:50 lume] in on in PM Serum or source Plasma data Carbon 21.0 - mmoL/L Normal November 12 dioxide, 32.0 informati 2016 9:50 total on in PM [Moles/vo source lume] in data Serum or Plasma Creatinin 0.55 - mg/dL High No November 12 e 1.02 informati 2016 9:50 [Mass/vol on in PM ume] in source Serum or data Plasma Creatinin 50 - 200 ML/MIN Low No November 12 e renal informati 2016 9:50 clearance on in PM source predicted data by Cockcroft -Gault formula Estimated 59- ML/MIN Low REFERENCE November 12 RANGE: 2017 9:50 glomerula >60 PM r ML/MIN/1. filtratio 73 SQUARE n rate METERSIf (GF this patient is -A merican, then multiply theresult by 1.210. Globulin 1.3 - 3.2 gm/dL High No November 12 [Mass/vol informati 2016 9:50 ume] in on in PM Serum source data Glucose 74 - 106 mg/dL Normal No November 12 [Mass/vol informati 2016 9:50 ume] in on in PM Serum or source Plasma data Potassium 3.5 - 5.1 mmoL/L Normal POTASSIUM November 12October 9:50 [Moles/vo FLASELY PM lume] in ELEVATED Serum or DUE TO Plasma HEMOLYSIS Sodium 136 - 145 mmoL/L Normal No November 12 [Moles/vo informati 2017 9:50 lume] in on in PM Serum or source Plasma data Aspartate 15 - 37 U/L Normal AST OctoberNovember 12 BE 2017 9:50 aminotran FALSELY PM sferase ELEVATED [Enzymati DUE TO c HEMOLYSIS activity/ volume] in Serum or Plasma Alanine 12 - 78 U/L Normal No November 12 aminotran informati 2016 9:50 sferase on in PM [Enzymati source c data activity/ volume] in Serum or Plasma Protein 6.4 - 8.2 gm/dL High No November 12 [Mass/vol informati 2016 9:50 ume] in on in PM Serum or source Plasma data Urinalysis dipstick W Reflex Microscopic panel in Urine Observa Value Referen Units Interpr Notes Date tion ce etation Range Appeara CLEAR CLEAR No No No November 12 nce of informa informa informa 2016 Urine tion in tion in tion in 8:55 PM source source source data data data Bacteri 2+ O No No No November 12 a informa informa informa 2016 [Presen tion in tion in tion in 8:55 PM ce] in source source source Urine data data data sedimen t by Light microsc opy Bilirub NEGATIV NEG No No No November 12 in E informa informa informa 2016 [Presen tion in tion in tion in 8:55 PM ce] in source source source Urine data data data by Test strip Erythro NEGATIV NEG No No No November 12 cytes E informa informa informa 2016 [Presen tion in tion in tion in 8:55 PM ce] in source source source Urine data data data Color YELLOW YELLOW No No No November 12 of informa informa informa 2017 Urine tion in tion in tion in 8:55 PM source source source data data data Glucose NEG No No No November 12 [Mass/vol informati informati informati 2016 8:55 ume] in on in on in on in PM Urine by source source source Test data data data strip Hyaline 20-50 NONE #/lpf No No November 12 casts informa informa 2016 [Presen tion in tion in 8:55 PM ce] in source source Urine data data sedimen t by Light microsc opy Ketones NEGATIV NEG mg/dL No No November 12 E informa informa 2016 [Presen tion in tion in 8:55 PM ce] in source source Urine data data by Automat ed test strip Mucus NEGATIV NEG No No No November 12 [Presen E informa informa informa 2016 ce] in tion in tion in tion in 8:55 PM Urine source source source sedimen data data data t by Light microsc opy Nitrite NEGATIV NEG No No No November 12 E informa informa informa 2016 [Presen tion in tion in tion in 8:55 PM ce] in source source source Urine data data data by Test strip pH of 5.0 - 8.5 No Normal No November 12 Urine informati informati 2016 8:55 on in on in PM source source data data Protein NEG mg/dL No No November 12 [Mass/vol informati informati 2016 8:55 ume] in on in on in PM Urine by source source Automated data data test strip Erythro NONE 0 rbc/hpf No No November 12 cytes informa informa 2016 [Presen tion in tion in 8:55 PM ce] in source source Urine data data sedimen t by Light microsc opy Specific 1.005 - No Normal No November 12 gravity 1.030 informati informati 2016 8:55 of Urine on in on in PM source source data data Epithel TNTC 0 - 5 #/hpf No No November 12 ial informa informa 2016 cells.s tion in tion in 8:55 PM quamous source source data data [Presen ce] in Urine sedimen t by Microsc opy high power field Urobili 0.2 NEG E.U./dL No No November 12 nogen informa informa 2016 [Presen tion in tion in 8:55 PM ce] in source source Urine data data by Test strip Leukocy [5 O wbc/hpf No No November 12 didi wbc/hpf informa informa 2016 [#/volu ; 10 tion in tion in 8:55 PM me] in wbc/hpf source source Urine ] data data Urinalysis dipstick W Reflex Microscopic panel in Urine Observa Value Referen Units Interpr Notes Date tion ce etation Range Appeara CLEAR CLEAR No No No November 12 nce of informa informa informa 2016 Urine tion in tion in tion in 8:55 PM source source source data data data Bilirub NEGATIV NEG No No No November 12 in E informa informa informa 2016 [Presen tion in tion in tion in 8:55 PM ce] in source source source Urine data data data by Test strip Erythro NEGATIV NEG No No No November 12 cytes E informa informa informa 2016 [Presen tion in tion in tion in 8:55 PM ce] in source source source Urine data data data Color YELLOW YELLOW No No No November 12 of informa informa informa 2016 Urine tion in tion in tion in 8:55 PM source source source data data data Glucose NEG No No No November 12 [Mass/vol informati informati informati 2016 8:55 ume] in on in on in on in PM Urine by source source source Test data data data strip Ketones NEGATIV NEG mg/dL No No November 12 E informa informa 2016 [Presen tion in tion in 8:55 PM ce] in source source Urine data data by Automat ed test strip Mucus NEGATIV NEG No No No November 12 [Pres E informa informa informa 2016 ce] in tion in tion in tion in 8:55 PM Urine source source source sedimen data data data t by Light microsc opy Nitrite NEGATIV NEG No No No November 12 E informa informa informa 2016 [Presen tion in tion in tion in 8:55 PM ce] in source source source Urine data data data by Test strip pH of 5.0 - 8.5 No Normal No November 12 Urine informati informati 2016 8:55 on in on in PM source source data data Protein NEG mg/dL No No November 12 [Mass/vol informati informati 2016 8:55 ume] in on in on in PM Urine by source source Automated data data test strip Specific 1.005 - No Normal No November 12 gravity 1.030 informati informati 2016 8:55 of Urine on in on in PM source source data data Urobili 0.2 NEG E.U./dL No No November 12 nogen informa informa 2016 [Presen tion in tion in 8:55 PM ce] in source source Urine data data by Test strip CBC W Auto Differential panel in Blood Observa Value Referen Units Interpr Notes Date tion ce etation Range Basophils 0 - 0.2 K/MM3 Normal No November 09 inform2016 4:50 [#/volume on in PM ] in source Blood by data Automated count Basophils 0.1 - 2.0 % Normal No November 09 inform2016 4:50 leukocyte on in PM s in source Blood by data Automated count Eosinophi 0.0 - 0.4 K/mm3 Normal No November 09 ls informati 2016 4:50 [#/volume on in PM ] in source Blood by data Automated count Eosinophi 0.1 - % Normal No November 09 ls/100 12.0 informati 2016 4:50 leukocyte on in PM s in source Blood by data Automated count Granulocy 1.8 - 7.8 K/mm3 Normal No November 09 didi informati 2016 4:50 [#/volume on in PM ] in source Blood by data Automated count Granulocy 37.0 - % Normal No November 09 didi/100 80.0 informati 2016 4:50 leukocyte on in PM s in source Blood by data Automated count Hematocri 37.0 - % Normal No November 09 t [Volume 47.0 informati 2016 4:50 on in PM Fraction] source of Blood data Hemoglobi 12.2 - g/dL No November 09 n 16.2 informati informati 2016 4:50 [Mass/vol on in on in PM ume] in source source Blood data data Lymphocyt 0.7 - 4.5 K/mm3 Normal No November 09 es informati 2016 4:50 [#/volume on in PM ] in source Unspecifi data ed specimen by Automated count Lymphocyt 10 - 50.0 % Normal No November 09 es informati 2016 4:50 [#/volume on in PM ] in source Unspecifi data ed specimen by Automated count Erythrocy 27 - 31.2 pg Normal No November 09 te mean informati 2016 4:50 corpuscul on in PM ar source hemoglobi data n [Entitic mass] Erythrocy 31.8 - g/dl Normal No November 09 te mean 35.4 informati 2016 4:50 corpuscul on in PM ar source hemoglobi data n concentra tion [Mass/vol ume] by Automated count Erythrocy 82.2 - fl Normal No November 09 te mean 97.8 informati 2016 4:50 corpuscul on in PM ar volume source [Entitic data volume] by Automated count Monocytes 0.1 - 1.0 K/mm3 Normal No November 09 informati 2016 4:50 [#/volume on in PM ] in source Blood by data Automated count Monocytes 1.7 - 9.3 % Normal No November 09 informati 2016 4:50 leukocyte on in PM s in source Blood by data Automated count Platelet 7.4 - fl Low No November 09 mean 10.4 informati 2016 4:50 volume on in PM [Entitic source volume] data in Blood by Automated count Platelets 142 - 424 K/mm3 No November 09 informati informati 2016 4:50 [#/volume on in on in PM ] in source source Blood data data Erythrocy 4.2 - 5.4 M/mm3 Normal No November 09 didi informati 2016 4:50 [#/volume on in PM ] in source Amniotic data fluid Erythrocy 11.5 - % Normal No November 09 te 17.5 informati 2016 4:50 distribut on in PM ion width source [Entitic data volume] by Automated count Leukocyte 4.8 - K/MM3 Normal No November 09 s 10.8 informati 2016 4:50 [#/volume on in PM ] in source Blood data Urate [Mass/volume] in Serum or Plasma Observa Value Referen Units Interpr Notes Date tion ce etation Range Urate 2.6 - 7.2 mg/dL High No November 09 [Mass/vol informati 2016 4:50 ume] in on in PM Serum or source Plasma data
[2017-05-07 16:54] LABS: BUN 16 mg/dL (7-18); GFR (ESTIMATED) 46 ML/MIN (59-)
--- NOTE | 2017-05-07 18:25 | RADIOLOGY REPORT PS360 ---
CHEST(2 VIEWS-NOT PORTABLE) HISTORY: Chest pain PAIN ORDERING PHYSICIAN: Todd Samuels MD PATIENT AGE: 61 years COMPARISON: 03/02/2017 FINDINGS: The cardiomediastinal silhouette and pulmonary vascularity are within normal limits. There are atelectatic changes in the right lower lobe and right middle lobe.. There is kyphosis of the thoracic spine with mild wedging of mid dorsal vertebral bodies unchanged.. IMPRESSION: Right lower lobe and right middle lobe atelectasis
--- NOTE | 2017-05-07 19:54 | Emergency Room Report ---
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 N Clinical Suspician of Infection? N Mental Status: 1 - Regular (Normal Baseline) Sepsis Risk:Possible Sepsis Risk Have you (or family members/close friends) recently traveled outside the [place]? N If Yes, where/when: Have you had exposure to infectious disease within the past month? N TB? Other? 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 She had a heart cath in August 2016, resulting in 3 stents (Dr Figueroa). Patient took 2 SL Nitro pills with partial relief of her chest pain. Patient was 9/10 on onset, decreased to 3/10 after the Nitro taken at home. ALLERGIES Coded Allergies: adhesive tape (Intermediate, I-RASH +CLOTH TAPE 05/07/17) cephalexin (From KEFLEX) (Mild, 05/07/17) meloxicam (From MOBIC) (Mild, 05/07/17) simvastatin (From ZOCOR) (Mild, 05/07/17) penicillin G (05/07/17) Home Medications Active Scripts BISOPROLOL FUMARATE (Bisoprolol 5MG) 5 MG PO DAILY #30 TAB Ref 1 Prov: 09/12/16 Amlodipine Besylate 2.5 MG PO DAILY #30 TAB Ref 1 Prov: 09/12/16 Reported Medications Pantoprazole Sodium (Protonix 40MG TAB) 40 MG PO QHS Cyclobenzaprine Hcl (Flexeril) 10 MG PO BID Clonazepam (Clonazepam 1MG) 1 MG PO BIDP PRN ANXIETY/SLEEP #60 TAB Atorvastatin Calcium 20 MG PO QHS #30 TAB Isosorbide Mononitrate (Isosorbide Mononitrate ER) 60 MG PO DAILY #30 TAB Allopurinol (Zyloprim 300MG) 300 MG PO DAILY PROMETHAZINE HCL (Promethazine HCl) 12.5 MG PO TID #90 TAB Torsemide 50 MG PO BID #30 TAB GABAPENTIN (Gabapentin) 400 MG PO TID NITROGLYCERIN (Nitrostat) 0.4 MG SL [id number] PRN CHEST PAIN METHADONE HCL (Methadone Hydrochloride) 10 MG PO 5XDAY #150 TAB ASPIRIN (Aspirin) 81 MG PO DAILY CLOPIDOGREL BISULFATE (PLAVIX) 75 MG PO DAILY History Medical History General CAD? Yes Angina: Yes MD: No Hypertension? Yes Hyperlipidemia? Yes CHF? Yes DVT? No PE? No COPD? Yes Asthma? Yes Anemia? No GERD? Yes Gastric ulcers? No GI Bleed? No Hernia? Yes Thyroid Problems? No Hypothyroidism? No CVA? Yes Seizures? No Diabetes? No Renal Insuffiency? No End Stage Renal Disease? No UTI? Yes Stones? Yes GB Disease: Yes Nephritic Syndrome? No Asplenia? No Hepatitis? No Sickle Cell Disease? No Arthritis? Yes Migraines? No Cataracts? No Glaucoma? No MRSA? No HIV? No TB? No Anxiety? No Depression? No Cancer? No More? Yes Additional hx: 1. DDD of the lumbar spine 2. Cellulitis of the left lower leg 3. Pacemaker removal d/t infection 07/16/2016 4. Cardiac stents x 3 5. Neuropathy 6. 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 Family History Family Hx Diabetes Yes CAD Yes Hypertension Yes Hyperlipidemia Yes Cancer Yes TB No Social History Smoking Hx Smoker: Never Smoker Tobacco: No Packs/day N/A Alcohol Alcohol: No Review of Systems All Other Systems Reviewed and Negative Cardiovascular chest pain Physical Exam Vital Signs Vital Signs Date Time Temp Pulse Resp B/P Pulse O2 O2 Flow FiO2 Ox Delivery Rate 05/07 2036 98.0 93 20 105/74 97 05/07 2035 93 05/07 2035 97.4 81 14 127/80 05/07 2035 96 ROOM AIR 05/07 2035 98.0 93 20 105/74 97 05/07 1607 98.0 93 20 129/90 97 General Appearance normal appearance, WD/WN, mild distress Neck normal inspection, non-tender, supple, full range of motion Respiratory Status Yes: trachea midline, chest symmetrical, non tender chest. No: respiratory distress. Lung Sounds bilateral: normal breath sounds, lungs clear. 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 No Comment 19:50 - In view of the patient's multiple risk factors the patient will need to be hospitalized. She is chest pain free at this time. 20:00-case d/w Dr Figueroa, advised of the findings, agreeable with consultation and admission. 20:05-case d/w Dr Boyd, advised of the above, agreeable with hospitalization. care transferred to Dr Boyd at this time, will enter temporary admission orders per hospital protocol. Upon patient's arrival to the unit, the floor nurse will contact PCP in order to obtain full inpatient admisssion orders. Results/Orders Laboratory Tests 05/07/17 1610: Sodium 148 H, Potassium 4.0, Chloride 112 H, Carbon Dioxide 25, BUN 16, Creatinine 1.2 H, Estimated Creat Clear 79, Estimated GFR (MDRD) 46 L, Glucose 84, Calcium 8.5, Total Bilirubin 0.4, AST 26, ALT 21, Alkaline Phosphatase 131 H, Creatine Kinase 256 H, CK-MB (CK-2) Rel Index 1.8, CK and CKMB Interp 4.7 H , Troponin I < 0.02, Total Protein 7.1, Albumin 3.3 L, Globulin 3.8 H, Albumin /Globulin Ratio 0.9 L, WBC 5.3, RBC 3.99 L, Hgb 9.5 L, Hct 31.6 L, MCV 79.2 L, RDW 17.2, Plt Count 274, MPV 9.5, Gran % 62.5, Gran # 3.3, Lymphocytes % 28.3 , Monocytes % 5.9, Eosinophils % 2.8, Basophils % 0.5, Lymphocytes # 1.5, Monocytes # 0.3, Eosinophils # 0.2, Basophils # 0.0, PUBS MCHC 29.8 L, MCH 23.6 L Orders Procedure Date/time Status COMPLETE METABOLIC PANEL 05/08 06 Complete CBC WITH AUTO DIFF 05/08 06 Complete CARDIAC ENZYMES 05/08 0200 Complete CARDIAC ENZYMES 05/07 2200 Complete ELECTROCARDIOGRAM REQUEST 05/07 162 Active IV SALINE LOCK 05/07 162 Active CBC WITH AUTO DIFF 05/07 1627 Complete CARDIAC ENZYMES 05/07 162 Complete CHEM 12 PROFILE 05/07 1627 Complete ADMIT PATIENT 05/07 UNK Active PULSE OXIMETRY REQUEST 05/07 UNK Active Weigh Patient 05/07 UNK Active VITAL SIGNS 05/07 UNK Active 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 POM NURSE JULY HOSE ORDER 05/07 UNK Active CODE STATUS 05/07 UNK Active PATIENT ACTIVITY ORDER 05/07 UNK Active PHYSICIANS CONSULT 05/07 UNK Active [facility] PHYS CONSULT 05/07 UNK Active 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
--- NOTE | 2017-05-07 19:54 | Emergency Room Report ---
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 N Clinical Suspician of Infection? N Mental Status: 1 - Regular (Normal Baseline) Sepsis Risk:Possible Sepsis Risk Have you (or family members/close friends) recently traveled outside the [place]? N If Yes, where/when: Have you had exposure to infectious disease within the past month? N TB? Other? 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 She had a heart cath in August 2016, resulting in 3 stents (Dr Figueroa). Patient took 2 SL Nitro pills with partial relief of her chest pain. Patient was 9/10 on onset, decreased to 3/10 after the Nitro taken at home. ALLERGIES Coded Allergies: adhesive tape (Intermediate, I-RASH +CLOTH TAPE 05/07/17) cephalexin (From KEFLEX) (Mild, 05/07/17) meloxicam (From MOBIC) (Mild, 05/07/17) simvastatin (From ZOCOR) (Mild, 05/07/17) penicillin G (05/07/17) Home Medications Active Scripts BISOPROLOL FUMARATE (Bisoprolol 5MG) 5 MG PO DAILY #30 TAB Ref 1 Prov: 09/12/16 Amlodipine Besylate 2.5 MG PO DAILY #30 TAB Ref 1 Prov: 09/12/16 Reported Medications Pantoprazole Sodium (Protonix 40MG TAB) 40 MG PO QHS Cyclobenzaprine Hcl (Flexeril) 10 MG PO BID Clonazepam (Clonazepam 1MG) 1 MG PO BIDP PRN ANXIETY/SLEEP #60 TAB Atorvastatin Calcium 20 MG PO QHS #30 TAB Isosorbide Mononitrate (Isosorbide Mononitrate ER) 60 MG PO DAILY #30 TAB Allopurinol (Zyloprim 300MG) 300 MG PO DAILY PROMETHAZINE HCL (Promethazine HCl) 12.5 MG PO TID #90 TAB Torsemide 50 MG PO BID #30 TAB GABAPENTIN (Gabapentin) 400 MG PO TID NITROGLYCERIN (Nitrostat) 0.4 MG SL [id number] PRN CHEST PAIN METHADONE HCL (Methadone Hydrochloride) 10 MG PO 5XDAY #150 TAB ASPIRIN (Aspirin) 81 MG PO DAILY CLOPIDOGREL BISULFATE (PLAVIX) 75 MG PO DAILY History Medical History General CAD? Yes Angina: Yes [place]: No Hypertension? Yes Hyperlipidemia? Yes CHF? Yes DVT? No PE? No COPD? Yes Asthma? Yes Anemia? No GERD? Yes Gastric ulcers? No GI Bleed? No Hernia? Yes Thyroid Problems? No Hypothyroidism? No CVA? Yes Seizures? No Diabetes? No Renal Insuffiency? No End Stage Renal Disease? No UTI? Yes Stones? Yes GB Disease: Yes Nephritic Syndrome? No Asplenia? No Hepatitis? No Sickle Cell Disease? No Arthritis? Yes Migraines? No Cataracts? No Glaucoma? No MRSA? No HIV? No TB? No Anxiety? No Depression? No Cancer? No More? Yes Additional hx: 1. DDD of the lumbar spine 2. Cellulitis of the left lower leg 3. Pacemaker removal d/t infection 07/16/2016 4. Cardiac stents x 3 5. Neuropathy 6. 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 Family History Family Hx Diabetes Yes CAD Yes Hypertension Yes Hyperlipidemia Yes Cancer Yes TB No Social History Smoking Hx Smoker: Never Smoker Tobacco: No Packs/day N/A Alcohol Alcohol: No Review of Systems All Other Systems Reviewed and Negative Cardiovascular chest pain Physical Exam Vital Signs Vital Signs Date Time Temp Pulse Resp B/P Pulse O2 O2 Flow FiO2 Ox Delivery Rate 05/07 2036 98.0 93 20 105/74 97 05/07 2035 93 05/07 2035 97.4 81 14 127/80 05/07 2035 96 ROOM AIR 05/07 2035 98.0 93 20 105/74 97 05/07 1607 98.0 93 20 129/90 97 General Appearance normal appearance, WD/WN, mild distress Neck normal inspection, non-tender, supple, full range of motion Respiratory Status Yes: trachea midline, chest symmetrical, non tender chest. No: respiratory distress. Lung Sounds bilateral: normal breath sounds, lungs clear. 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 No Comment 19:50 - In view of the patient's multiple risk factors the patient will need to be hospitalized. She is chest pain free at this time. 20:00-case d/w Dr Figueroa, advised of the findings, agreeable with consultation and admission. 20:05-case d/w Dr Boyd, advised of the above, agreeable with hospitalization. care transferred to Dr Boyd at this time, will enter temporary admission orders per hospital protocol. Upon patient's arrival to the unit, the floor nurse will contact PCP in order to obtain full inpatient admisssion orders. Results/Orders Laboratory Tests 05/07/17 1610: Sodium 148 H, Potassium 4.0, Chloride 112 H, Carbon Dioxide 25, BUN 16, Creatinine 1.2 H, Estimated Creat Clear 79, Estimated GFR (MDRD) 46 L, Glucose 84, Calcium 8.5, Total Bilirubin 0.4, AST 26, ALT 21, Alkaline Phosphatase 131 H, Creatine Kinase 256 H, CK-MB (CK-2) Rel Index 1.8, CK and CKMB Interp 4.7 H , Troponin I < 0.02, Total Protein 7.1, Albumin 3.3 L, Globulin 3.8 H, Albumin /Globulin Ratio 0.9 L, WBC 5.3, RBC 3.99 L, Hgb 9.5 L, Hct 31.6 L, MCV 79.2 L, RDW 17.2, Plt Count 274, MPV 9.5, Gran % 62.5, Gran # 3.3, Lymphocytes % 28.3 , Monocytes % 5.9, Eosinophils % 2.8, Basophils % 0.5, Lymphocytes # 1.5, Monocytes # 0.3, Eosinophils # 0.2, Basophils # 0.0, PUBS MCHC 29.8 L, MCH 23.6 L Orders Procedure Date/time Status COMPLETE METABOLIC PANEL 05/08 06 Complete CBC WITH AUTO DIFF 05/08 06 Complete CARDIAC ENZYMES 05/08 0200 Complete CARDIAC ENZYMES 05/07 2200 Complete ELECTROCARDIOGRAM REQUEST 05/07 162 Active IV SALINE LOCK 05/07 162 Active CBC WITH AUTO DIFF 05/07 1627 Complete CARDIAC ENZYMES 05/07 162 Complete CHEM 12 PROFILE 05/07 1627 Complete ADMIT PATIENT 05/07 UNK Active PULSE OXIMETRY REQUEST 05/07 UNK Active Weigh Patient 05/07 UNK Active VITAL SIGNS 05/07 UNK 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 POM NURSE JULY HOSE ORDER 05/07 UNK Active CODE STATUS 05/07 UNK Active PATIENT ACTIVITY ORDER 05/07 UNK Active PHYSICIANS CONSULT 05/07 UNK Active [facility] PHYS CONSULT 05/07 UNK Active 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
--- OUTSIDE RECORDS SUMMARY | 2017-05-07 20:09 | External Medical Summary Rpt | CCD ---
Author Author , [facility] Organization [facility] Address Unknown Phone [email or web address] Purpose Continuity of Care Document - 04-02-2016 [...] ANGINA PECTORIS I25.10 ATHSCL HEART DISEASE OF [place] CORONARY ARTERY W/O ANG PCTRS I48.91 Unspecified atrial fibrillatio n J18.9 Pneumonia, unspecified organism J44.0 Chronic obstructive pulmonary disease with acute lower respiratory infection J98.11 ATELECTASIS L03.032 Cellulitis of left toe L03.116 Cellulitis of left lower limb L03.90 Cellulitis, unspecified L29.9 PRURITUS, UNSPECIFIED M10.9 GOUT, UNSPECIFIED M19.90 Unspecified osteoarthri tis, unspecified site 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 complet Bld 017 10*6/mm 14 ed Auto 14:48 3 Hgb 31-2 9.5 11.5-15 complet Bld-mCn 017 g/dL .5 ed c 14:48 Hct VFr 04-17-2 32.1 % 34.5-44 complet Bld 017 .0 ed Auto 14:48 MCV RBC 10-31-2 78.9 fL 80.0-99 complet Auto 017 .0 ed 14:48 MCH RBC 10-31-2 23.3 pg 27.0-31 complet Qn 017 .0 ed Auto 14:48 MCHC 10-31-2 29.6 32.0-36 complet RBC 017 g/dL .0 ed Auto-mC 14:48 nc RDW RBC 10-31-2 16.9 % 11.3-14 complet 017 .5 ed Auto-Rt 14:48 o RDW RBC 10-31-2 48.9 fl 37.0-54 complet Auto 017 .0 ed 14:48 PMV Bld 04-17-2 10.4 fL 6.0-12. complet Auto 017 0 ed 14:48 Platele 04-17-2 311 150-450 complet t # Bld 017 10*3/mm ed Auto 14:48 3 Neutrop 04-17- 74.9 % 41.0-71 complet hils/le 017 .0 ed uk NFr 14:48 Bld Auto Lymphoc 04-17-2 17.1 % 24.0-44 complet ytes/le 017 .0 ed uk NFr 14:48 Bld Auto Monocyt 04-17-2 5.9 % 0.0-12. complet es/leuk 017 0 ed NFr 14:48 Bld Auto Eosinop 04-17-2 1.6 % 0.0-3.0 complet hil/juanjose 017 ed k NFr 14:48 Bld Auto Basophi 04-17-2 0.4 % 0.0-1.0 complet ls/leuk 017 ed NFr 14:48 Bld Auto Imm 04-17-2 0.1 % 0.0-0.6 complet Granulo 017 ed cytes/l 14:48 euk NFr Bld Neutrop 04-17-2 5.48 1.50-8. complet hils # 017 10*3/mm 30 ed Bld 14:48 3 Auto Lymphoc 04-17-2 1.25 0.60-4. complet ytes # 017 10*3/mm 80 ed Bld 14:48 3 Auto Monocyt 04-17-2 0.43 0.00-1. complet es # 017 10*3/mm 00 ed Bld 14:48 3 Auto Eosinop 04-17-2 0.12 0.00-0. complet hil # 017 10*3/mm 30 ed Bld 14:48 3 Auto Basophi 04-17-2 0.03 0.00-0. complet ls # 017 10*3/mm 20 ed Bld 14:48 3 Auto Imm 10-2 0.01 0.00-0. complet Granulo 017 10*3/mm 03 ed cytes # 14:48 3 Bld Comp Metab 1998 Pnl SerPl (04-17-2017 14:47) Glucose 04-17-2 94 70-100 complet 017 mg/dL ed Bld-mCn 14:47 c BUN 12 9-23 complet Bld-mCn 017 mg/dL ed c 14:47 Creat 1.00 0.60-1. complet Bld-mCn 017 mg/dL 30 ed c 14:47 Sodium 137 132-146 complet Bld-sCn 017 mmol/L ed c 14:47 Potassi 4.2 3.5-5.5 complet um 017 mmol/L ed Bld-sCn 14:47 c Chlorid 106 99-109 complet e 017 mmol/L ed SerPl-s 14:47 Cnc CO2 19.0 20.0-31 complet SerPl-s 017 mmol/L .0 ed Cnc 14:47 Calcium 8.7 8.7-10. complet 017 mg/dL 4 ed XXX-sCn 14:47 c Prot 7.0 5.7-8.2 complet SerPl-m 017 g/dL ed Cnc 14:47 Albumin 3.80 3.20-4. complet 017 g/dL 80 ed SerPl-m 14:47 Cnc ALT 13 U/L 7-40 complet SerPl w 017 ed 14:47 P-5'-P- cCnc AST 25 U/L 0-33 complet SerPl-c 017 ed Cnc 14:47 ALP 128 U/L 25-100 complet SerPl-c 017 ed Cnc 14:47 Bilirub 0.3 0.3-1.2 complet 017 mg/dL ed SerPl-m 14:47 Cnc GFR/BSA 56 >60 complet .pred 017 mL/min/ ed SerPl 14:47 1.73 MDRD-Ar VRat Globuli 3.2 complet n Ur 017 gm/dL ed Elph-mC 14:47 nc Albumin 04-17- 1.2 1.5-2.5 complet /Glob 017 g/dL ed SerPl 14:47 BUN/Cre 12.0 7.0-25. complet at 017 0 ed SerPl 14:47 Anion 12.0 3.0-11. complet Gap3 017 mmol/L 0 ed SerPl-s 14:47 Cnc UA Dipstick Pnl Ur (12-11-2016 23:34) Color 7761841 Yellow, complet Ur 017 09 Straw ed 23:34 Yellow color SCT Clarity [id number] Clear complet Ur 017 01 ed 23:34 Clear SCT pH Ur 6.0 5.0-8.0 complet Strip.a 017 ed uto 23:34 Sp Gr 1.012 1.001-1 complet Ur 017 .030 ed Strip 23:34 Glucose 7753809 Negativ complet Ur 017 09 e ed Strip-m 23:34 Negativ Cnc e SCT Ketones 8365371 Negativ complet Ur Ql 017 09 e ed Strip 23:34 Negativ e SCT Bilirub 8135216 Negativ complet Ur Ql 017 09 e ed Strip 23:34 Negativ e SCT Hgb Ur 4631955 Negativ complet Ql 017 01 e ed Strip.a 23:34 Large uto SCT Prot Ur 8686472 Negativ complet Ql 017 09 e ed Strip 23:34 Negativ e SCT Leukocy 1369120 Negativ complet te 017 09 e ed esteras 23:34 Negativ e Ur Ql e SCT Strip.a uto Nitrite 9787968 Negativ complet Ur Ql 017 09 e ed Strip 23:34 Negativ e SCT Urobili 0.2 0.2 - complet nogen 017 E.U./dL 1.0 ed Ur Ql 23:34 E.U./dL Strip UA Microscopic Pnl # Ur Auto (12-11-2016 23:34) RBC # Too None complet Ur 017 Numerou Seen, ed 23:34 s to 0-2 Count /HPF WBC Ur 0-2 None complet Ql Auto 017 /HPF Seen ed 23:34 Bacteri [id number] None complet a Ur Ql 017 00 Not Seen, ed Auto 23:34 detecte Trace d SCT /HPF Squamou 0-2 None complet s 017 /HPF Seen, ed #/area 23:34 0-2 UrnS HPF Hyaline 2 0-6 0-6 complet Casts 017 /LPF ed Ur Ql 23:34 Auto Ref lab Automat complet test 017 ed ed method 23:34 Microsc opy Troponin T SerPl Ql (12-11-2016 20:00) Troponi 2 0.00 0.00-0. complet n I 017 ng/mL 07 ed SerPl-m 20:00 Cnc CBC W Diff pnl,unspecified Bld (12-11-2016 19:58) WBC 5.53 3.50-10 complet nRBC 017 10*3/mm .80 ed cor # 19:58 3 Bld RBC # 12-11-2 3.72 3.89-5. complet Bld 017 10*6/mm 14 ed Auto 19:58 3 Hgb 12-11-2 9.9 11.5-15 complet Bld-mCn 017 g/dL .5 ed c 19:58 Hct VFr 2 31.6 % 34.5-44 complet Bld 017 .0 ed Auto 19:58 MCV RBC 2 84.9 fL 80.0-99 complet Auto 017 .0 ed 19:58 MCH RBC 12-11-2 26.6 pg 27.0-31 complet Qn 017 .0 ed Auto 19:58 MCHC 12-11-2 31.3 32.0-36 complet RBC 017 g/dL .0 ed Auto-mC 19:58 nc RDW RBC 12-11-2 16.0 % 11.3-14 complet 017 .5 ed Auto-Rt 19:58 o RDW RBC 12-11-2 48.9 fl 37.0-54 complet Auto 017 .0 ed 19:58 PMV Bld 12-11-2 10.8 fL 6.0-12. complet Auto 017 0 ed 19:58 Platele 12-11-2 315 150-450 complet t # Bld 017 10*3/mm ed Auto 19:58 3 Neutrop 12-11-2 54.3 % 41.0-71 complet hils/le 017 .0 ed uk NFr 19:58 Bld Auto Lymphoc 06-26-2 31.6 % 24.0-44 complet ytes/le 017 .0 ed uk NFr 19:58 Bld Auto Monocyt 06-26-2 8.7 % 0.0-12. complet es/leuk 017 0 ed NFr 19:58 Bld Auto Eosinop -26-2 4.3 % 0.0-3.0 complet hil/juanjose 017 ed k NFr 19:58 Bld Auto Basophi 06-26-2 0.9 % 0.0-1.0 complet ls/leuk 017 ed NFr 19:58 Bld Auto Imm 06-26-2 0.2 % 0.0-0.6 complet Granulo 017 ed cytes/l 19:58 euk NFr Bld Neutrop 12-11-2 3.00 1.50-8. complet hils # 017 10*3/mm 30 ed Bld 19:58 3 Auto Lymphoc 06-26-2 1.75 0.60-4. complet ytes # 017 10*3/mm 80 ed Bld 19:58 3 Auto Monocyt -26-2 0.48 0.00-1. complet es # 017 10*3/mm 00 ed Bld 19:58 3 Auto Eosinop 06-26-2 0.24 0.00-0. complet hil # 017 10*3/mm 30 ed Bld 19:58 3 Auto Basophi 06-26-2 0.05 0.00-0. complet ls # 017 10*3/mm 20 ed Bld 19:58 3 Auto Imm 06-26-2 0.01 0.00-0. complet Granulo 017 10*3/mm 03 ed cytes # 19:58 3 Bld BNP SerPl-mCnc (12-11-2016 19:58) BNP 12-11-2 136.0 0.0-100 complet SerPl-m 017 pg/mL .0 ed Cnc 19:58 Comp Metab 1998 Pnl SerPl (12-11-2016 19:58) Glucose 90 70-100 complet 017 mg/dL ed Bld-mCn 19:58 c BUN 12-11-2 18 9-23 complet Bld-mCn 017 mg/dL ed c 19:58 Creat 2 1.40 0.60-1. complet Bld-mCn 017 mg/dL 30 ed c 19:58 Sodium 139 132-146 complet Bld-sCn 017 mmol/L ed c 19:58 Potassi 4.7 3.5-5.5 complet um 017 mmol/L ed Bld-sCn 19:58 c Chlorid 106 99-109 complet e 017 mmol/L ed SerPl-s 19:58 Cnc CO2 23.0 20.0-31 complet SerPl-s 017 mmol/L .0 ed Cnc 19:58 Calcium 9.6 8.7-10. complet 017 mg/dL 4 ed XXX-sCn 19:58 c Prot 7.0 5.7-8.2 complet SerPl-m 017 g/dL ed Cnc 19:58 Albumin 3.90 3.20-4. complet 017 g/dL 80 ed SerPl-m 19:58 Cnc ALT 40 U/L 7-40 complet SerPl w 017 ed 19:58 P-5'-P- cCnc AST 122 U/L 0-33 complet SerPl-c 017 ed Cnc 19:58 ALP 126 U/L 25-100 complet SerPl-c 017 ed Cnc 19:58 Bilirub 2 0.3 0.3-1.2 complet 017 mg/dL ed SerPl-m 19:58 Cnc GFR/BSA 38 >60 complet .pred 017 mL/min/ ed SerPl 19:58 1.73 MDRD-Ar VRat Globuli 2 3.1 complet n Ur 017 gm/dL ed Elph-mC 19:58 nc Albumin 12-11-2 1.3 1.5-2.5 complet /Glob 017 g/dL ed SerPl 19:58 BUN/Cre 12.9 7.0-25. complet at 017 0 ed SerPl 19:58 Anion 2 10.0 3.0-11. complet Gap3 017 mmol/L 0 ed SerPl-s 19:58 Cnc Troponin T SerPl Ql (12-07-2016 22:43) Troponi 06-22-2 0.00 0.00-0. complet n I 017 ng/mL 07 ed SerPl-m 22:43 Cnc CBC W Diff pnl,unspecified Bld (12-07-2016 22:39) Neutrop -22-2 3.98 1.50-8. complet hils # 017 10*3/mm 30 ed Bld 22:39 3 Auto Lymphoc -22-2 2.69 0.60-4. complet ytes # 017 10*3/mm 80 ed Bld 22:39 3 Auto Monocyt 22-2 0.38 0.00-1. complet es # 017 10*3/mm 00 ed Bld 22:39 3 Auto Eosinop -22-2 0.34 0.10-0. complet hil # 017 10*3/mm 30 ed Bld 22:39 3 Auto Basophi 22-2 0.04 0.00-0. complet ls # 017 10*3/mm 20 ed Bld 22:39 3 Auto Imm 22-2 0.02 0.00-0. complet Granulo 017 10*3/mm 03 ed cytes # 22:39 3 Bld WBC 12-07-2 7.45 3.50-10 complet nRBC 017 10*3/mm .80 ed cor # 22:39 3 Bld RBC # -22-2 3.87 3.89-5. complet Bld 017 10*6/mm 14 ed Auto 22:39 3 Hgb 12-07-2 10.4 11.5-15 complet Bld-mCn 017 g/dL .5 ed c 22:39 Hct VFr 12-07-2 33.8 % 34.5-44 complet Bld 017 .0 ed Auto 22:39 MCV RBC 12-07-2 87.3 fL 80.0-99 complet Auto 017 .0 ed 22:39 MCH RBC 22-2 26.9 pg 27.0-31 complet Qn 017 .0 ed Auto 22:39 MCHC 22-2 30.8 32.0-36 complet RBC 017 g/dL .0 ed Auto-mC 22:39 nc RDW RBC 22-2 16.0 % 11.3-14 complet 017 .5 ed Auto-Rt 22:39 o RDW RBC 22-2 50.8 fl 37.0-54 complet Auto 017 .0 ed 22:39 PMV Bld 11.3 fL 6.0-12. complet Auto 017 0 ed 22:39 Platele 270 150-450 complet t # Bld 017 10*3/mm ed Auto 22:39 3 Neutrop 53.4 % 41.0-71 complet hils/le 017 .0 ed uk NFr 22:39 Bld Auto Lymphoc 36.1 % 24.0-44 complet ytes/le 017 .0 ed uk NFr 22:39 Bld Auto Monocyt 5.1 % 0.0-12. complet es/leuk 017 0 ed NFr 22:39 Bld Auto Eosinop 4.6 % 0.0-3.0 complet hil/juanjose 017 ed k NFr 22:39 Bld Auto Basophi 0.5 % 0.0-1.0 complet ls/leuk 017 ed NFr 22:39 Bld Auto Imm 0.3 % 0.0-0.6 complet Granulo 017 ed cytes/l 22:39 euk NFr Bld CRP SerPl-mCnc (12-07-2016 22:39) CRP 0.99 0.00-1. complet SerPl-m 017 mg/dL 00 ed Cnc 22:39 BNP SerPl-mCnc (12-07-2016 22:39) BNP 268.0 0.0-100 complet SerPl-m 017 pg/mL .0 ed Cnc 22:39 Comp Metab 1998 Pnl SerPl (12-07-2016 22:39) Anion 10.0 3.0-11. complet Gap3 017 mmol/L 0 ed SerPl-s 22:39 Cnc Glucose 85 70-100 complet 017 mg/dL ed Bld-mCn 22:39 c BUN 13 9-23 complet Bld-mCn 017 mg/dL ed c 22:39 Creat 1.00 0.60-1. complet Bld-mCn 017 mg/dL 30 ed c 22:39 Sodium 140 132-146 complet Bld-sCn 017 mmol/L ed c 22:39 Potassi 3.7 3.5-5.5 complet um 017 mmol/L ed Bld-sCn 22:39 c Chlorid 109 99-109 complet e 017 mmol/L ed SerPl-s 22:39 Cnc CO2 21.0 20.0-31 complet SerPl-s 017 mmol/L .0 ed Cnc 22:39 Calcium 9.4 8.7-10. complet 017 mg/dL 4 ed XXX-sCn 22:39 c Prot 7.7 5.7-8.2 complet SerPl-m 017 g/dL ed Cnc 22:39 Albumin 4.10 3.20-4. complet 017 g/dL 80 ed SerPl-m 22:39 Cnc ALT 17 U/L 7-40 complet SerPl w 017 ed 22:39 P-5'-P- cCnc AST 21 U/L 0-33 complet SerPl-c 017 ed Cnc 22:39 ALP 139 U/L 25-100 complet SerPl-c 017 ed Cnc 22:39 Bilirub 0.2 0.3-1.2 complet 017 mg/dL ed SerPl-m 22:39 Cnc GFR/BSA 56 >60 complet .pred 017 mL/min/ ed SerPl 22:39 1.73 MDRD-Ar VRat Globuli 3.6 complet n Ur 017 gm/dL ed Elph-mC 22:39 nc Albumin 1.1 1.5-2.5 complet /Glob 017 g/dL ed SerPl 22:39 BUN/Cre 13.0 7.0-25. complet at 017 0 ed SerPl 22:39 LPL SerPl-cCnc (12-07-2016 22:39) Lipase 31 U/L 6-51 complet SerPl-c 017 ed Cnc 22:39 UA Dipstick Pnl Ur (12-07-2016 21:23) Color 3504527 Yellow, complet Ur 017 09 Straw ed 21:23 Yellow color SCT Clarity 1318640 Clear complet Ur 017 5 ed 21:23 Cloudy SCT pH Ur 5.5 5.0-8.0 complet Strip.a 017 ed uto 21:23 Sp Gr 1.018 1.001-1 complet Ur 017 .030 ed Strip 21:23 Glucose 7804746 Negativ complet Ur 017 09 e ed Strip-m 21:23 Negativ Cnc e SCT Ketones 3199387 Negativ complet Ur Ql 017 09 e ed Strip 21:23 Negativ e SCT Bilirub 5838721 Negativ complet Ur Ql 017 09 e ed Strip 21:23 Negativ e SCT Hgb Ur 6022962 Negativ complet Ql 017 06 e ed Strip.a 21:23 Trace uto SCT Prot Ur 30 Negativ complet Ql 017 mg/dL e ed Strip 21:23 (1+) Leukocy 6802673 Negativ complet te 017 01 e ed esteras 21:23 Large e Ur Ql SCT Strip.a uto Nitrite 8741132 Negativ complet Ur Ql 017 09 e ed Strip 21:23 Negativ e SCT Urobili 0.2 0.2 - complet nogen 017 E.U./dL 1.0 ed Ur Ql 21:23 E.U./dL Strip UA Microscopic Pnl # Ur Auto (12-07-2016 21:23) RBC # 12-07-2 3-6 None complet Ur 017 /HPF Seen, ed 21:23 0-2 WBC Ur Too None complet Ql Auto 017 Numerou Seen ed 21:23 s to Count /HPF Bacteri 3463831 None complet a Ur Ql 017 00 Not Seen, ed Auto 21:23 detecte Trace d SCT /HPF Squamou 0-2 None complet s 017 /HPF Seen, ed #/area 21:23 0-2 UrnS HPF Hyaline 0-6 0-6 complet Casts 017 /LPF ed Ur Ql 21:23 Auto Ref lab Automat complet test 017 ed ed method 21:23 Microsc opy Bacteria Ur Cult (12-07-2016 21:23) Bacteri 12-07- [id number] complet a XXX 017 8 ed Aerobe 21:23 Proteus Cult mirabil is SCT Bacterial Susc Pnl Islt KEITH (12-07-2016 21:23) Ampicil 22-2 <= 8 complet isabel 017 ug/ml ed Susc 21:23 Islt Ampicil 12-07-2 <= 8 / complet isabel+Sul 017 4 ug/ml ed leesa 21:23 Susc Islt Aztreon 12-07-2 <= 8 complet am Susc 017 ug/ml ed Islt 21:23 Cefepim 12-07-2 <= 8 complet e Susc 017 ug/ml ed Islt 21:23 Cefotax 12-07-2 <= 2 complet pankaj 017 ug/ml ed Susc 21:23 Islt Ceftria 12-07-2 <= 8 complet xone 017 ug/ml ed Susc 21:23 Islt Cefurox 12-07-2 <= 4 complet pankaj 017 ug/ml ed Hi 21:23 r Susc Islt Cephalo 12-07-2 <= 8 complet thin 017 ug/ml ed Susc 21:23 Islt Ertapen 12-07-2 <= 1 complet em Susc 017 ug/ml ed Islt 21:23 Gentami 12-07-2 <= 4 complet linwood 017 ug/ml ed Susc 21:23 Islt Levoflo 12-07-2 <= 2 complet xacin 017 ug/ml ed Susc 21:23 Islt Meropen 12-07-2 <= 1 complet em Susc 017 ug/ml ed Islt 21:23 Nitrofu 12-07-2 > 64 complet rantoin 017 ug/ml ed Susc 21:23 Islt Pip+Woodrow 12-07-2 <= 16 complet o Susc 017 ug/ml ed Islt 21:23 Tetracy 22-2 > 8 complet guzmán 017 ug/ml ed Susc 21:23 Islt Tobramy 12-07-2 <= 4 complet linwood 017 ug/ml ed Susc 21:23 Islt TMP SMX 12-07-2 <= 2 / complet Susc 017 38 ed Islt 21:23 ug/ml UA Microscopic Pnl # Ur Auto (11-22-2016 21:53) RBC # 11-22- 0-2 None complet Ur 017 /HPF Seen, ed 21:53 0-2 WBC Ur 31-50 None complet Ql Auto 017 /HPF Seen ed 21:53 Bacteri 3158837 None complet a Ur Ql 017 00 Not Seen, ed Auto 21:53 detecte Trace d SCT /HPF Squamou 0-2 None complet s 017 /HPF Seen, ed #/area 21:53 0-2 UrnS HPF Hyaline 0-6 0-6 complet Casts 017 /LPF ed Ur Ql 21:53 Auto Ref lab Automat complet test 017 ed ed method 21:53 Microsc opy UA Dipstick Pnl Ur (11-22-2016 21:53) Color 0275280 Yellow, complet Ur 017 09 Straw ed 21:53 Yellow color SCT Clarity 1711963 Clear complet Ur 017 01 ed 21:53 Clear SCT pH Ur 5.5 5.0-8.0 complet Strip.a 017 ed uto 21:53 Sp Gr 1.012 1.001-1 complet Ur 017 .030 ed Strip 21:53 Glucose 8212354 Negativ complet Ur 017 09 e ed Strip-m 21:53 Negativ Cnc e SCT Ketones 7243561 Negativ complet Ur Ql 017 09 e ed Strip 21:53 Negativ e SCT Bilirub 6392412 Negativ complet Ur Ql 017 09 e ed Strip 21:53 Negativ e SCT Hgb Ur 7347773 Negativ complet Ql 017 09 e ed Strip.a 21:53 Negativ uto e SCT Prot Ur 8026698 Negativ complet Ql 017 09 e ed Strip 21:53 Negativ e SCT Leukocy 6345758 Negativ complet te 017 00 e ed esteras 21:53 Moderat e Ur Ql e number Strip.a SCT uto Nitrite 7389022 Negativ complet Ur Ql 017 09 e ed Strip 21:53 Negativ e SCT Urobili 06-07-2 0.2 0.2 - complet nogen 017 E.U./dL 1.0 ed Ur Ql 21:53 E.U./dL Strip Bacteria Ur Cult (11-22-2016 21:53) Bacteri 2 6789380 complet a XXX 017 8 ed Aerobe 21:53 Proteus Cult mirabil is SCT Bacterial Susc Pnl Islt KEITH (11-22-2016 21:53) Ampicil 11-22-2 16 complet isabel 017 ug/ml ed Susc 21:53 Islt Ampicil -07-2 <= 8 / complet isabel+Sul 017 4 ug/ml ed leesa 21:53 Susc Islt Aztreon 11-22-2 <= 8 complet am Susc 017 ug/ml ed Islt 21:53 Cefepim -07-2 <= 8 complet e Susc 017 ug/ml ed Islt 21:53 Cefotax -07-2 <= 2 complet pankaj 017 ug/ml ed Susc 21:53 Islt Ceftria 11-22-2 <= 8 complet xone 017 ug/ml ed Susc 21:53 Islt Cefurox -07-2 <= 4 complet pankaj 017 ug/ml ed Hi 21:53 r Susc Islt Cephalo -07-2 <= 8 complet thin 017 ug/ml ed Susc 21:53 Islt Ertapen -07-2 <= 1 complet em Susc 017 ug/ml ed Islt 21:53 Gentami 06-07-2 <= 4 complet linwood 017 ug/ml ed Susc 21:53 Islt Levoflo -07-2 <= 2 complet xacin 017 ug/ml ed Susc 21:53 Islt Meropen -07-2 <= 1 complet em Susc 017 ug/ml ed Islt 21:53 Nitrofu 06-07-2 > 64 complet rantoin 017 ug/ml ed Susc 21:53 Islt Pip+Woodrow -07-2 <= 16 complet o Susc 017 ug/ml ed Islt 21:53 Tetracy 06-07-2 > 8 complet guzmán 017 ug/ml ed Susc 21:53 Islt Tobramy -07-2 <= 4 complet linwood 017 ug/ml ed Susc 21:53 Islt TMP SMX <= 2 / complet Susc 017 38 ed Islt 21:53 ug/ml Bacteria Bld Cult (11-22-2016 20:26) Bacteri No complet a XXX 017 growth ed Aerobe 20:26 at 5 Cult days Bacteria Bld Cult (11-22-2016 20:20) Bacteri No complet a XXX 017 growth ed Aerobe 20:20 at 5 Cult days Lactate SerPl-sCnc (11-22-2016 20:06) D-Lacta 1.6 0.5-2.0 complet te 017 mmol/L ed SerPl-s 20:06 Cnc UA Dipstick Pnl Ur (11-22-2016 20:05) Color 9383664 Yellow, complet Ur 017 09 Straw ed 20:05 Yellow color SCT Clarity 2251449 Clear complet Ur 017 01 ed 20:05 Clear SCT pH Ur 5.5 5.0-8.0 complet Strip.a 017 ed uto 20:05 Sp Gr 1.013 1.001-1 complet Ur 017 .030 ed Strip 20:05 Glucose 3639883 Negativ complet Ur 017 09 e ed Strip-m 20:05 Negativ Cnc e SCT Ketones 2861645 Negativ complet Ur Ql 017 09 e ed Strip 20:05 Negativ e SCT Bilirub 7722839 Negativ complet Ur Ql 017 09 e ed Strip 20:05 Negativ e SCT Hgb Ur 6534206 Negativ complet Ql 017 09 e ed Strip.a 20:05 Negativ uto e SCT Prot Ur 7686324 Negativ complet Ql 017 09 e ed Strip 20:05 Negativ e SCT Leukocy 3024619 Negativ complet te 017 00 e ed esteras 20:05 Moderat e Ur Ql e number Strip.a SCT uto Nitrite 9696799 Negativ complet Ur Ql 017 09 e ed Strip 20:05 Negativ e SCT Urobili 0.2 0.2 - complet nogen 017 E.U./dL 1.0 ed Ur Ql 20:05 E.U./dL Strip UA Microscopic Pnl # Ur Auto (11-22-2016 20:05) RBC # 07-2 0-2 None complet Ur 017 /HPF Seen, ed 20:05 0-2 WBC Ur 11-22-2 Too None complet Ql Auto 017 Numerou Seen ed 20:05 s to Count /HPF Bacteri [id number] None complet a Ur Ql 017 00 Not Seen, ed Auto 20:05 detecte Trace d SCT /HPF Squamou 2 0-2 None complet s 017 /HPF Seen, ed #/area 20:05 0-2 UrnS HPF Hyaline 0-6 0-6 complet Casts 017 /LPF ed Ur Ql 20:05 Auto Ref lab Automat complet test 017 ed ed method 20:05 Microsc opy Bacteria Ur Cult (11-22-2016 20:05) Bacteri [id number] complet a XXX 017 8 ed Aerobe 20:05 Proteus Cult mirabil is SCT Bacterial Susc Pnl Islt KEITH (11-22-2016 20:05) Ampicil 11-22-2 <= 8 complet isabel 017 ug/ml ed Susc 20:05 Islt Ampicil 2 <= 8 / complet isabel+Sul 017 4 ug/ml ed leesa 20:05 Susc Islt Aztreon 2 <= 8 complet am Susc 017 ug/ml ed Islt 20:05 Cefepim 11-22-2 <= 8 complet e Susc 017 ug/ml ed Islt 20:05 Cefotax 11-22-2 <= 2 complet pankaj 017 ug/ml ed Susc 20:05 Islt Ceftria 07-2 <= 8 complet xone 017 ug/ml ed Susc 20:05 Islt Cefurox 11-22-2 <= 4 complet pankaj 017 ug/ml ed Hi 20:05 r Susc Islt Cephalo 2 <= 8 complet thin 017 ug/ml ed Susc 20:05 Islt Ertapen 2 <= 1 complet em Susc 017 ug/ml ed Islt 20:05 Gentami 06-07-2 <= 4 complet linwood 017 ug/ml ed Susc 20:05 Islt Levoflo 06-07-2 <= 2 complet xacin 017 ug/ml ed Susc 20:05 Islt Meropen -07-2 <= 1 complet em Susc 017 ug/ml ed Islt 20:05 Nitrofu 07-2 > 64 complet rantoin 017 ug/ml ed Susc 20:05 Islt Pip+Woodrow 07-2 <= 16 complet o Susc 017 ug/ml ed Islt 20:05 Tetracy 0607-2 > 8 complet guzmán 017 ug/ml ed Susc 20:05 Islt Tobramy 07-2 <= 4 complet linwood 017 ug/ml ed Susc 20:05 Islt TMP SMX 07-2 <= 2 / complet Susc 017 38 ed Islt 20:05 ug/ml CBC W Diff pnl,unspecified Bld (11-22-2016 18:53) Lymphoc 06-07-2 2.99 0.60-4. complet ytes # 017 10*3/mm 80 ed Bld 18:53 3 Auto Monocyt 06-07-2 0.75 0.00-1. complet es # 017 10*3/mm 00 ed Bld 18:53 3 Auto Eosinop 06-07-2 0.05 0.10-0. complet hil # 017 10*3/mm 30 ed Bld 18:53 3 Auto Basophi 06-07-2 0.02 0.00-0. complet ls # 017 10*3/mm 20 ed Bld 18:53 3 Auto Imm 06-07-2 0.10 0.00-0. complet Granulo 017 10*3/mm 03 ed cytes # 18:53 3 Bld WBC 06-07-2 20.37 3.50-10 complet nRBC 017 10*3/mm .80 ed cor # 18:53 3 Bld RBC # 06-07-2 3.94 3.89-5. complet Bld 017 10*6/mm 14 ed Auto 18:53 3 Hgb 06-07-2 10.8 11.5-15 complet Bld-mCn 017 g/dL .5 ed c 18:53 Hct VFr -07-2 34.6 % 34.5-44 complet Bld 017 .0 ed Auto 18:53 MCV RBC 87.8 fL 80.0-99 complet Auto 017 .0 ed 18:53 MCH RBC 27.4 pg 27.0-31 complet Qn 017 .0 ed Auto 18:53 MCHC 31.2 32.0-36 complet RBC 017 g/dL .0 ed Auto-mC 18:53 nc RDW RBC 15.3 % 11.3-14 complet 017 .5 ed Auto-Rt 18:53 o RDW RBC 48.6 fl 37.0-54 complet Auto 017 .0 ed 18:53 PMV Bld 10.6 fL 6.0-12. complet Auto 017 0 ed 18:53 Platele 334 150-450 complet t # Bld 017 10*3/mm ed Auto 18:53 3 Neutrop 80.8 % 41.0-71 complet hils/le 017 .0 ed uk NFr 18:53 Bld Auto Lymphoc 14.7 % 24.0-44 complet ytes/le 017 .0 ed uk NFr 18:53 Bld Auto Monocyt 3.7 % 0.0-12. complet es/leuk 017 0 ed NFr 18:53 Bld Auto Eosinop 0.2 % 0.0-3.0 complet hil/juanjose 017 ed k NFr 18:53 Bld Auto Basophi 0.1 % 0.0-1.0 complet ls/leuk 017 ed NFr 18:53 Bld Auto Imm 0.5 % 0.0-0.6 complet Granulo 017 ed cytes/l 18:53 euk NFr Bld Neutrop 16.46 1.50-8. complet hils # 017 10*3/mm 30 ed Bld 18:53 3 Auto Comp Metab 1998 Pnl SerPl (11-22-2016 18:53) Glucose 111 70-100 complet 017 mg/dL ed Bld-mCn 18:53 c BUN 27 9-23 complet Bld-mCn 017 mg/dL ed c 18:53 Creat 1.10 0.60-1. complet Bld-mCn 017 mg/dL 30 ed c 18:53 Sodium 07-2 141 132-146 complet Bld-sCn 017 mmol/L ed c 18:53 Potassi 3.6 3.5-5.5 complet um 017 mmol/L ed Bld-sCn 18:53 c Chlorid 99 99-109 complet e 017 mmol/L ed SerPl-s 18:53 Cnc CO2 35.0 20.0-31 complet SerPl-s 017 mmol/L .0 ed Cnc 18:53 Calcium 9.0 8.7-10. complet 017 mg/dL 4 ed XXX-sCn 18:53 c Prot 7.5 5.7-8.2 complet SerPl-m 017 g/dL ed Cnc 18:53 Albumin 4.00 3.20-4. complet 017 g/dL 80 ed SerPl-m 18:53 Cnc ALT 19 U/L 7-40 complet SerPl w 017 ed 18:53 P-5'-P- cCnc AST 19 U/L 0-33 complet SerPl-c 017 ed Cnc 18:53 ALP 94 U/L 25-100 complet SerPl-c 017 ed Cnc 18:53 Bilirub 0.2 0.3-1.2 complet 017 mg/dL ed SerPl-m 18:53 Cnc GFR/BSA 50 >60 complet .pred 017 mL/min/ ed SerPl 18:53 1.73 MDRD-Ar VRat Globuli 3.5 complet n Ur 017 gm/dL ed Elph-mC 18:53 nc Albumin 2 1.1 1.5-2.5 complet /Glob 017 g/dL ed SerPl 18:53 BUN/Cre 24.5 7.0-25. complet at 017 0 ed SerPl 18:53 Anion 7.0 3.0-11. complet Gap3 017 mmol/L 0 ed SerPl-s 18:53 Cnc LPL SerPl-cCnc (11-22-2016 18:53) Lipase 33 U/L 6-51 complet SerPl-c 017 ed Cnc 18:53 Urinalysis dipstick W Reflex Microscopic panel in [...] Troponin T SerPl Ql (04-09-2016 22:40) Troponi 10-23-2 0.00 0.00-0. complet n I 016 ng/mL 60 ed SerPl-m 22:40 Cnc CBC W Diff pnl,unspecified Bld (04-09-2016 22:29) WBC 23-2 7.47 3.50-10 complet nRBC 016 10*3/mm .80 ed cor # 22:29 3 Bld RBC # 23-2 4.12 3.89-5. complet Bld 016 10*6/mm 14 ed Auto 22:29 3 Hgb 04-09-2 11.2 11.5-15 complet Bld-mCn 016 g/dL .5 ed c 22:29 Hct VFr 04-09-2 35.5 % 34.5-44 [...] 016 10*3/mm ed Auto 22:29 3 Neutrop 04-09-2 60.3 % 41.0-71 complet hils 016 .0 ed NFr Bld 22:29 Auto Lymphoc 23-2 29.0 % 24.0-44 complet ytes 016 .0 ed NFr Bld 22:29 Auto Monocyt 23-2 7.4 % 0.0-12. complet es NFr 016 0 ed Bld 22:29 Auto Eosinop 23-2 2.7 % 0.0-3.0 complet hil NFr 016 ed Bld 22:29 Auto Basophi 04-09-2 0.3 % 0.0-1.0 complet ls NFr 016 ed Bld 22:29 Auto Imm 1023-2 0.3 % 0.0-0.6 complet Granulo 016 ed cytes 22:29 NFr Bld Neutrop 04-09-2 4.51 1.50-8. complet hils # 016 10*3/mm 30 ed Bld 22:29 3 Auto Lymphoc 04-09-2 2.17 0.60-4. complet ytes # 016 10*3/mm 80 ed Bld 22:29 3 Auto Monocyt 1023-2 0.55 0.00-1. complet es # 016 10*3/mm 00 ed Bld 22:29 3 Auto Eosinop 1023-2 0.20 0.10-0. complet hil # 016 10*3/mm 30 ed Bld 22:29 3 Auto Basophi 04-09-2 0.02 0.00-0. complet ls # 016 10*3/mm 20 ed Bld 22:29 3 Auto Imm 1023-2 0.02 0.00-0. complet Granulo 016 10*3/mm 03 ed cytes # 22:29 3 Bld Comp Metab 1998 Pnl SerPl (04-09-2016 22:29) Glucose 04-09- 83 70-100 complet 016 mg/dL ed Bld-mCn 22:29 c BUN 04-09- 16 9-23 complet Bld-mCn 016 mg/dL ed c 22:29 Creat 04-09-2 1.00 0.60-1. complet Bld-mCn 016 mg/dL 30 ed c 22:29 Sodium 04-09- 146 132-146 complet Bld-sCn 016 mmol/L ed c 22:29 Potassi 04-09- 4.6 3.5-5.5 complet um 016 mmol/L ed Bld-sCn 22:29 c Chlorid 04-09- 108 99-109 complet e 016 mmol/L ed SerPl-s 22:29 Cnc CO2 04-09- 31.0 20.0-31 complet SerPl-s 016 mmol/L .0 ed Cnc 22:29 Calcium 04-09- 8.4 8.7-10. complet 016 mg/dL 4 ed XXX-sCn 22:29 c Prot 7.1 5.7-8.2 complet SerPl-m 016 g/dL ed Cnc 22:29 Albumin 3.70 3.20-4. complet 016 g/dL 80 ed SerPl-m 22:29 Cnc ALT 42 U/L 7-40 complet SerPl w 016 ed 22:29 P-5'-P- cCnc AST 44 U/L 0-33 complet SerPl-c 016 ed Cnc 22:29 ALP 101 U/L 25-100 complet SerPl-c 016 ed Cnc 22:29 Bilirub 0.3 0.3-1.2 complet 016 mg/dL ed SerPl-m 22:29 Cnc GFR/BSA 57 >60 complet .pred 016 mL/min/ ed SerPl 22:29 1.73 MDRD-Ar VRat Globuli 3.4 complet n Ur 016 gm/dL ed Elph-mC 22:29 nc Albumin 1.1 complet /Glob 016 g/dL ed SerPl 22:29 BUN/Cre 16.0 7.0-25. complet at 016 0 ed SerPl 22:29 Anion 7.0 3.0-11. complet Gap3 016 mmol/L 0 ed SerPl-s 22:29 Cnc BNP SerPl-mCnc (04-09-2016 22:29) BNP 78.0 0.0-100 complet SerPl-m 016 pg/mL .0 ed Cnc 22:29 Troponin T SerPl Ql (04-02-2016 03:22) Troponi 0.00 0.00-0. complet n I 016 ng/mL 60 ed SerPl-m 03:22 Cnc CBC W Diff pnl,unspecified Bld (04-02-2016 03:13) Monocyt 04-02- 0.50 0.00-1. complet es # 016 10*3/mm 00 ed Bld 03:13 3 Auto Eosinop 0.22 0.10-0. complet hil # 016 10*3/mm 30 ed Bld 03:13 3 Auto Basophi 10-16-2 0.03 0.00-0. complet ls # 016 10*3/mm 20 ed Bld 03:13 3 Auto Imm 16-2 0.01 0.00-0. complet Granulo 016 10*3/mm 03 ed cytes # 03:13 3 Bld WBC -16-2 7.94 3.50-10 complet nRBC 016 10*3/mm .80 ed cor # 03:13 3 Bld RBC # 1016-2 4.00 3.89-5. complet Bld 016 10*6/mm 14 ed Auto 03:13 3 Hgb 16-2 11.0 11.5-15 complet Bld-mCn 016 g/dL .5 ed c 03:13 Hct VFr 16-2 34.5 % 34.5-44 complet Bld 016 .0 ed Auto 03:13 MCV RBC 16-2 86.3 fL 80.0-99 complet Auto 016 .0 ed 03:13 MCH RBC 16- 27.5 pg 27.0-31 complet Qn 016 .0 ed Auto 03:13 MCHC 16-2 31.9 32.0-36 complet RBC 016 g/dL .0 ed Auto-mC 03:13 nc RDW RBC 04-02-2 15.5 % 11.3-14 complet 016 .5 ed Auto-Rt 03:13 o RDW RBC 16-2 49.4 fl 37.0-54 complet Auto 016 .0 ed 03:13 PMV Bld 16-2 11.2 fL 6.0-12. complet Auto 016 0 ed 03:13 Platele 16-2 203 150-450 complet t # Bld 016 10*3/mm ed Auto 03:13 3 Neutrop 16-2 57.4 % 41.0-71 complet hils 016 .0 ed NFr Bld 03:13 Auto Lymphoc 16-2 33.0 % 24.0-44 complet ytes 016 .0 ed NFr Bld 03:13 Auto Monocyt 16-2 6.3 % 0.0-12. complet es NFr 016 0 ed Bld 03:13 Auto Eosinop 16-2 2.8 % 0.0-3.0 complet hil NFr 016 ed Bld 03:13 Auto Basophi 0.4 % 0.0-1.0 complet ls NFr 016 ed Bld 03:13 Auto Imm 0.1 % 0.0-0.6 complet Granulo 016 ed cytes 03:13 NFr Bld Neutrop 4.56 1.50-8. complet hils # 016 10*3/mm 30 ed Bld 03:13 3 Auto Lymphoc 2.62 0.60-4. complet ytes # 016 10*3/mm [...] Cnc PT PPP (04-02-2016 03:13) PT PPP 9.4 9.6-11. complet 016 Seconds 5 ed 03:13 INR PPP 0.87 complet 016 ed 03:13 aPTT PPP (04-02-2016 03:13) aPTT < 24.0 24.0-31 complet PPP 016 seconds .0 ed 03:13 BNP SerPl-mCnc (04-02-2016 03:13) BNP 51.0 0.0-100 complet SerPl-m 016 pg/mL .0 ed Cnc 03:13
--- OUTSIDE RECORDS SUMMARY | 2017-05-07 20:09 | External Medical Summary Rpt | CCD ---
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 Unspecified [...] INIT Z23 Encounter for immunizatio n Z79.02 shirt hemmer (current) use of antithrombo tics/antipl atelets Z79.52 intermediate (current) use of systemic steroids Z79.82 intermediate (current) use of aspirin Z79.899 Other half-way (current) drug therapy Z86.59 PERSONAL HISTORY OF [...] UA Dipstick Pnl Ur (12-11-2016 23:34) Color [id number] Yellow, complet Ur 017 09 Straw ed 23:34 Yellow color SCT Clarity [id number] Clear complet Ur 017 01 ed 23:34 Clear SCT pH Ur 6.0 5.0-8.0 complet Strip.a 017 ed uto 23:34 Sp Gr 1.012 1.001-1 complet Ur 017 .030 ed Strip 23:34 Glucose 0848695 Negativ complet Ur 017 09 e ed Strip-m 23:34 Negativ Cnc e SCT Ketones 3407280 Negativ complet Ur Ql 017 09 e ed Strip 23:34 Negativ e SCT Bilirub 5544762 Negativ complet Ur Ql 017 09 e ed Strip 23:34 Negativ e SCT Hgb Ur 3430136 Negativ complet Ql 017 01 e ed Strip.a 23:34 Large uto SCT Prot Ur 3139916 Negativ complet Ql 017 09 e ed Strip 23:34 Negativ e SCT Leukocy 0146476 Negativ complet te 017 09 e ed esteras 23:34 Negativ e Ur Ql e SCT Strip.a uto Nitrite 9890597 Negativ complet Ur Ql 017 09 e [...] Auto 017 /HPF Seen ed 23:34 Bacteri [id number] None complet a Ur Ql 017 00 [...] UA Dipstick Pnl Ur (12-07-2016 21:23) Color 1439135 Yellow, complet Ur 017 09 Straw ed 21:23 Yellow color SCT Clarity 0860900 Clear complet Ur 017 5 ed 21:23 Cloudy SCT pH Ur 5.5 5.0-8.0 complet Strip.a 017 ed uto 21:23 Sp Gr 1.018 1.001-1 complet Ur 017 .030 ed Strip 21:23 Glucose 5779500 Negativ complet Ur 017 09 e ed Strip-m 21:23 Negativ Cnc e SCT Ketones 4818195 Negativ complet Ur Ql 017 09 e ed Strip 21:23 Negativ e SCT Bilirub 0425682 Negativ complet Ur Ql 017 09 e ed Strip 21:23 Negativ e SCT Hgb Ur 7696425 Negativ complet Ql 017 06 e ed Strip.a 21:23 Trace uto SCT Prot Ur 30 Negativ complet Ql 017 mg/dL e ed Strip 21:23 (1+) Leukocy 7711335 Negativ complet te 017 01 e ed esteras 21:23 Large e Ur Ql SCT Strip.a uto Nitrite 7929680 Negativ complet Ur Ql 017 09 e [...] ed 21:23 s to Count /HPF Bacteri 4325726 None complet a Ur Ql 017 00 Not Seen, ed Auto 21:23 detecte Trace d SCT /HPF Squamou 0-2 None complet s 017 /HPF Seen, ed #/area 21:23 0-2 UrnS HPF Hyaline 0-6 0-6 complet Casts 017 /LPF ed Ur Ql 21:23 Auto Ref lab Automat complet test 017 ed ed method 21:23 Microsc opy Bacteria Ur Cult (12-07-2016 21:23) Bacteri 12-07- 5043019 complet a XXX 017 8 ed Aerobe [...] Auto 017 /HPF Seen ed 21:53 Bacteri 5421151 None complet a Ur Ql 017 00 Not Seen, ed Auto 21:53 detecte Trace d SCT /HPF Squ[place]ou 0-2 None complet s 017 /HPF Seen, ed #/area 21:53 0-2 UrnS HPF Hyaline 0-6 0-6 complet Casts 017 /LPF ed Ur Ql 21:53 Auto Ref lab Automat complet test 017 ed ed method 21:53 Microsc opy UA Dipstick Pnl Ur (11-22-2016 21:53) Color 5628166 Yellow, complet Ur 017 09 Straw ed 21:53 Yellow color SCT Clarity 7012818 Clear complet Ur 017 01 ed 21:53 Clear SCT pH Ur 5.5 5.0-8.0 complet Strip.a 017 ed uto 21:53 Sp Gr 1.012 1.001-1 complet Ur 017 .030 ed Strip 21:53 Glucose 8570777 Negativ complet Ur 017 09 e ed Strip-m 21:53 Negativ Cnc e SCT Ketones 7849627 Negativ complet Ur Ql 017 09 e ed Strip 21:53 Negativ e SCT Bilirub 3314044 Negativ complet Ur Ql 017 09 e ed Strip 21:53 Negativ e SCT Hgb Ur 6889179 Negativ complet Ql 017 09 e ed Strip.a 21:53 Negativ uto e SCT Prot Ur 5881733 Negativ complet Ql 017 09 e ed Strip 21:53 Negativ e SCT Leukocy 1926365 Negativ complet te 017 00 e ed esteras 21:53 Moderat e Ur Ql e number Strip.a SCT uto Nitrite 1749179 Negativ complet Ur Ql 017 09 e ed Strip 21:53 Negativ e SCT Urobili 06-07-2 0.2 0.2 - complet nogen 017 E.U./dL 1.0 ed Ur Ql 21:53 E.U./dL Strip Bacteria Ur Cult (11-22-2016 21:53) Bacteri 2 0890018 complet a XXX 017 8 ed Aerobe [...] UA Dipstick Pnl Ur (11-22-2016 20:05) Color 7475774 Yellow, complet Ur 017 09 Straw ed 20:05 Yellow color SCT Clarity 7617801 Clear complet Ur 017 01 ed 20:05 Clear SCT pH Ur 5.5 5.0-8.0 complet Strip.a 017 ed uto 20:05 Sp Gr 1.013 1.001-1 complet Ur 017 .030 ed Strip 20:05 Glucose 0864712 Negativ complet Ur 017 09 e ed Strip-m 20:05 Negativ Cnc e SCT Ketones 6447114 Negativ complet Ur Ql 017 09 e ed Strip 20:05 Negativ e SCT Bilirub 4174720 Negativ complet Ur Ql 017 09 e ed Strip 20:05 Negativ e SCT Hgb Ur 7550329 Negativ complet Ql 017 09 e ed Strip.a 20:05 Negativ uto e SCT Prot Ur 9529452 Negativ complet Ql 017 09 e ed Strip 20:05 Negativ e SCT Leukocy 9987377 Negativ complet te 017 00 e ed esteras 20:05 Moderat e Ur Ql e number Strip.a SCT uto Nitrite 2347923 Negativ complet Ur Ql 017 09 e [...] ed 20:05 s to Count /HPF Bacteri 8068795 None complet a Ur Ql 017 00 Not Seen, ed Auto 20:05 detecte Trace d SCT /HPF Squamou 2 0-2 None complet s 017 /HPF Seen, ed #/area 20:05 0-2 UrnS HPF Hyaline 0-6 0-6 complet Casts 017 /LPF ed Ur Ql 20:05 Auto Ref lab Automat complet test 017 ed ed method 20:05 Microsc opy Bacteria Ur Cult (11-22-2016 20:05) Bacteri 5992141 complet a XXX 017 8 ed Aerobe [...]
--- OUTSIDE RECORDS SUMMARY | 2017-05-07 20:10 | External Medical Summary Rpt | CCD ---
Author Author , IZAIAH BLISS Address Unknown Phone [email or web address] Name Relationship Address Phone SHANAE, Next [...]
--- OUTSIDE RECORDS SUMMARY | 2017-05-07 20:10 | External Medical Summary Rpt | CCD ---
Author Author , IZAIAH BLISS Address Unknown Phone [email or web address] Support Name Relationship Address Phone SHANAE, Next [...]
--- OUTSIDE RECORDS SUMMARY | 2017-05-07 20:11 | External Medical Summary Rpt ---
Author Author [employer], [employer] Organization [employer] Address Unknown Phone Unavailable Results CBC W Auto Differential panel in Blood Observa Value Referen Units Interpr Notes Date tion ce etation Range Basophils 0 - 0.2 K/MM3 Normal No May 07 informati 2016 4:10 [#/volume on in PM ] in source Blood by data Automated count Basophils 0.1 - 2.0 % Normal No May 07 / informati 2017 4:10 leukocyte on in PM s in source Blood by data Automated count Eosinophi 0.0 - 0.4 K/mm3 Normal No May 07 ls informati 2017 4:10 [#/volume on in PM ] in source Blood by data Automated count Eosinophi 0.1 - % Normal No May 07 ls/100 12.0 informati 2017 4:10 leukocyte on in PM s in source Blood by data Automated count Granulocy 1.8 - 7.8 K/mm3 Normal No May 07 didi informati 2017 4:10 [#/volume on in PM ] in source Blood by data Automated count Granulocy 37.0 - % Normal No May 07 didi/100 80.0 informati 2017 4:10 leukocyte on in PM s in source Blood by data Automated count Hematocri 37.0 - % Low No May 07 t [Volume 47.0 informati 2016 4:10 on in PM Fraction] source of Blood data Hemoglobi 12.2 - g/dL Low No May 07 n 16.2 informati 2017 4:10 [Mass/vol on in PM ume] in source Blood data Lymphocyt 0.7 - 4.5 K/mm3 Normal No May 07 es informati 2016 4:10 [#/volume on in PM ] in source Unspecifi data ed specimen by Automated count Lymphocyt 10 - 50.0 % Normal No May 07 es informati 2016 4:10 [#/volume on in PM ] in source Unspecifi data ed specimen by Automated count Erythrocy 27 - 31.2 pg Low No May 07 te mean informati 2017 4:10 corpuscul on in PM ar source hemoglobi data n [Entitic mass] Erythrocy 31.8 - g/dl Low No May 07 te mean 35.4 informati 2017 4:10 corpuscul on in PM ar source hemoglobi data n concentra tion [Mass/vol ume] by Automated count Erythrocy 82.2 - fl Low No May 07 te mean 97.8 informati 2016 4:10 corpuscul on in PM ar volume source [Entitic data volume] by Automated count Monocytes 0.1 - 1.0 K/mm3 Normal No May 07 informati 2016 4:10 [#/volume on in PM ] in source Blood by data Automated count Monocytes 1.7 - 9.3 % Normal No May 07 / informati 2017 4:10 leukocyte on in PM s in source Blood by data Automated count Platelet 7.4 - fl Normal No May 07 mean 10.4 informati 2016 4:10 volume on in PM [Entitic source volume] data in Blood by Automated count Platelets 142 - 424 K/mm3 Normal No May 07 informati 2016 4:10 [#/volume on in PM ] in source Blood data Erythrocy 4.2 - 5.4 M/mm3 Low No May 07 didi informati 2017 4:10 [#/volume on in PM ] in source Amniotic data fluid Erythrocy 11.5 - % Normal No May 07 te 17.5 informati 2016 4:10 distribut on in PM ion width source [Entitic data volume] by Automated count Leukocyte 4.8 - K/MM3 Normal No May 07 s 10.8 informati 2016 4:10 [#/volume on in PM ] in source [...] K/mm3 Normal No Sep 15 ls informati 2016 6:20 [#/volume on in PM ] in [...] Normal No Sep 8 e renal informati 2017 4:16 clearance on in PM source predicted data by Cockcroft -Gault formula Estimated 59- ML/MIN Low REFERENCE Sep 8 RANGE: 2016 4:16 glomerula >60 PM r ML/MIN/1. filtratio 73 SQUARE n rate METERSIf (GF this patient is -A merican, then multiply theresult by 1.210. Globulin 1.3 - 3.2 gm/dL High No Sep 8 [Mass/vol informati 2016 4:16 ume] in on in PM Serum source data Glucose 74 - 106 mg/dL Normal No Sep 8 [Mass/vol informati 2016 4:16 ume] in on in PM Serum or source Plasma data Potassium 3.5 - 5.1 mmoL/L Normal No Sep 8 2016 4:16 [Moles/vo on in PM lume] in source Serum or data Plasma Sodium 136 - 145 mmoL/L Normal No Sep 8 [Moles/vo 2016 4:16 lume] in on in PM Serum or source Plasma data Aspartate 15 - 37 U/L Normal No Sep 8 2016 4:16 aminotran on in PM sferase source [Enzymati data c activity/ volume] in Serum or Plasma Alanine 12 - 78 U/L Normal No Sep 8 aminotran 2016 4:16 sferase on in PM [Enzymati source [...] - 0.2 K/MM3 Normal No Sep 8 2016 4:16 [#/volume on in PM ] in source Blood by data Automated count Basophils 0.1 - 2.0 % Normal No Sep 8 /100 inform2016 4:16 leukocyte on in PM s in source Blood by data Automated count Eosinophi 0.0 - 0.4 K/mm3 Normal No Sep 8 ls 2016 4:16 [#/volume on in PM ] in source Blood by data Automated count Eosinophi 0.1 - % Normal No Sep 8 ls/100 12.0 inform2016 4:16 leukocyte on in PM s in source Blood by data Automated count Granulocy 1.8 - 7.8 K/mm3 Normal No Sep 8 didi informati 2017 4:16 [#/volume on in PM ] in source Blood by data Automated count Granulocy 37.0 - % Normal No Sep 8 didi/100 80.0 informati 2017 4:16 leukocyte on in PM s in source Blood by data Automated count Hematocri 37.0 - % Normal No Sep 8 t [Volume 47.0 informati 2016 4:16 on in PM Fraction] source of Blood data Hemoglobi 12.2 - g/dL Normal No Sep 8 n 16.2 informati 2017 4:16 [Mass/vol on in PM ume] in source Blood data Lymphocyt 0.7 - 4.5 K/mm3 Normal No Sep 8 es informati 2017 4:16 [#/volume on in PM ] in [...] Low No Sep 8 te mean 35.4 informati 2016 4:16 corpuscul on in PM ar source hemoglobi data n concentra tion [Mass/vol ume] by Automated count Erythrocy 82.2 - fl Normal No Sep 8 te mean 97.8 informati 2016 4:16 corpuscul on in PM ar volume source [Entitic data volume] by Automated count Monocytes 0.1 - 1.0 K/mm3 Normal No Sep 8 informati 2016 4:16 [#/volume on in PM ] in source Blood by data Automated count Monocytes 1.7 - 9.3 % Normal No Sep 8 /100 informati 2017 4:16 leukocyte on in PM s in source Blood by data Automated count Platelet 7.4 - fl Normal No Sep 8 mean 10.4 informati 2016 4:16 volume on in PM [Entitic source volume] data in Blood by Automated count Platelets 142 - 424 K/mm3 Normal No Sep 8 informati 2016 4:16 [#/volume on in PM ] in source Blood data Erythrocy 4.2 - 5.4 M/mm3 Normal No Sep 8 didi informati 2016 4:16 [#/volume on in PM ] in source Amniotic data fluid Erythrocy 11.5 - % Normal No Feb 8 te 17.5 informati 2017 4:16 distribut on in PM ion width source [Entitic data volume] by Automated count Leukocyte 4.8 - K/MM3 Normal No Feb 8 s 10.8 informati 2017 4:16 [#/volume on in PM ] in source Blood data CBC W Auto Differential panel in Blood Observa Value Referen Units Interpr Notes Date tion ce etation Range Basophils 0 - 0.2 K/MM3 Normal No Dec 30 informati 2016 6:15 [#/volume on in PM ] in source Blood by data Automated count Basophils 0.1 - 2.0 % Normal No Dec 30 /100 informati 2017 6:15 leukocyte on in PM s in source Blood by data Automated count Eosinophi 0.0 - 0.4 K/mm3 Normal No Dec 30 ls informati 2016 6:15 [#/volume on in PM [...] Low No Dec 30 n 16.2 informati 2017 6:15 [Mass/vol on in PM ume] in [...] No Dec 30 te mean 35.4 informati 2016 6:15 corpuscul on in PM [...] - 9.3 % Normal No Dec 30 / informati 2016 6:15 leukocyte on in PM s in source Blood by data Automated count Platelet 7.4 - fl Normal No Dec 30 mean 10.4 informati 2016 6:15 volume on in PM [Entitic source volume] data in Blood by Automated count Platelets 142 - 424 K/mm3 Normal No Dec 30 informati 2016 6:15 [#/volume on in PM ] in source Blood data Erythrocy 4.2 - 5.4 M/mm3 Normal No Dec 30 didi informati 2016 [...] - 2.0 % Normal No November 12 informati 2016 9:50 leukocyte on in PM [...] Automated count Hematocri 37.0 - % Low November 12 t [Volume 47.0 informati 2016 [...] count Lymphocyt 10 - 50.0 % Normal November 12 es informati 2016 9:50 [#/volume on in PM ] in source Unspecifi data ed specimen by Automated count Erythrocy 27 - 31.2 pg Normal No November 12 te mean inform2016 9:50 corpuscul on in PM ar source hemoglobi data n [Entitic mass] Erythrocy 31.8 - g/dl Normal November 12 te mean 35.4 informati 2016 9:50 corpuscul on in PM ar source hemoglobi data n concentra tion [Mass/vol ume] by Automated count Erythrocy 82.2 - fl Normal November 12 te mean 97.8 informati 2016 9:50 corpuscul on in PM ar volume source [Entitic data volume] by Automated count Monocytes 0.1 - 1.0 K/mm3 Normal No November 12 informati 2016 9:50 [#/volume on in PM ] in source Blood by data Automated count Monocytes 1.7 - 9.3 % Normal No November 12 / informati 2017 9:50 leukocyte on in PM s in source Blood by data Automated count Platelet 7.4 - fl Low November 12 mean 10.4 informati 2016 9:50 volume on in PM [Entitic source volume] data in Blood by Automated count Platelets 142 - 424 K/mm3 Normal November 12 informati 2016 9:50 [#/volume on in PM ] in source Blood data Erythrocy 4.2 - 5.4 M/mm3 Low No November 12 didi informati 2016 9:50 [#/volume on in PM ] in source Amniotic data fluid Erythrocy 11.5 - % Normal November 12 te 17.5 informati 2016 9:50 [...] Range Urate 2.6 - 7.2 mg/dL High November 12 [Mass/vol informati 2016 9:50 ume] [...] Plasma Albumin 3.4 - 5.0 gm/dL Normal November 12 [Mass/vol informati 2016 9:50 ume] in on in PM Serum or source Plasma data Alkaline 46 - 116 U/L High November 12 phosphata informati 2016 9:50 se on in PM [Enzymati source c data activity/ volume] in Serum or Plasma Bilirubin 0.2 - 1.0 mg/dL Normal November 12 .total informati 2016 9:50 [Mass/vol on in PM ume] in source Serum or data Plasma Urea 7 - 18 mg/dL High November 12 nitrogen informati 2016 9:50 [Mass/vol on in PM ume] in source Serum or data Plasma Calcium 8.5 - mg/dL Normal November 12 [Mass/vol 10.1 informati 2016 9:50 ume] in on in PM Serum or source Plasma data Chloride 98 - 107 mmoL/L Normal No November 12 [Moles/vo informati 2016 9:50 lume] in on in PM Serum or source Plasma data Carbon 21.0 - mmoL/L Normal No November 12 dioxide, 32.0 informati 2016 9:50 [...] 59- ML/MIN Low REFERENCE November 12 RANGE: 2016 9:50 glomerula >60 PM r ML/MIN/1. filtratio [...] 15 - 37 U/L Normal AST OctoberNovember 122016 9:50 aminotran FALSELY PM sferase ELEVATED [Enzymati [...] data data Bacteri 2+ O No No November 12 a informa informa [...] No No November 12 ial informa informa 2017 cells.s tion in tion in 8:55 PM [...] November 12 nce of informa informa informa 2017 Urine tion [...] November 12 [Presen E informa informa informa 2017 ce] in tion in tion in tion [...] 0 - 0.2 K/MM3 Normal No November 092016 4:50 [#/volume on in PM ] in source Blood by data Automated count Basophils 0.1 - 2.0 % Normal No November 09 / informati 2016 4:50 leukocyte on in PM [...] Blood data Hemoglobi 12.2 - g/dL No No November 09 n 16.2 informati informati 2016 4:50 [Mass/vol on in on in PM ume] in source source Blood data data Lymphocyt 0.7 - 4.5 K/mm3 Normal No November 09 es inform2016 4:50 [#/volume on in PM ] [...] - 9.3 % Normal No November 09 / informati 2016 4:50 leukocyte on in PM s in source Blood by data Automated count Platelet 7.4 - fl Low No November 09 mean 10.4 informati 2016 4:50 volume on in PM [Entitic source volume] data in Blood by Automated count Platelets 142 - 424 K/mm3 No No November 09 informati informati 2016 4:50 [...] mg/dL High No November 09 [Mass/vol informati 2017 4:50 ume] in on in PM Serum or source Plasma data
[2017-05-07 20:35] VITALS: BP 127/80
[2017-05-07 20:58] VITALS: BP 127/80
[2017-05-07] MEDS ORDERED: GABAPENTIN 400400 MG PO (21:26)
[2017-05-08] VITALS (9 sets, daily range): BP systolic 99–149; BP diastolic 63–76
[2017-05-08 07:02] LABS: HEMOGLOBIN 10.2 g/dL (12.2-16.2); LYMPH # 0.9 K/mm3 (0.7-4.5); LYMPH % 12.5 % (10-50.0)
--- NOTE | 2017-05-08 07:22 | PHARMACY CLINIC NOTE ---
Patient Demographics Patient Demographics Admission date: 05/07/17 Date: 05/08/17 Time: 07 Allergies Coded Allergies: adhesive tape (Intermediate, I-RASH +CLOTH TAPE 05/07/17) cephalexin (From KEFLEX) (Mild, 05/07/17) meloxicam (From MOBIC) (Mild, 05/07/17) simvastatin (From ZOCOR) (Mild, 05/07/17) penicillin G (05/07/17) HEIGHT- FT: 5 IN: 7.00 K.226 VTE General Information Labs: Laboratory Tests 05/08 05/07 0630 1610 Hematology Hgb (12.2 - 16.2 g/dL) 10.2 L 9.5 L Hct (37.0 - 47.0 %) 31.5 L 31.6 L Plt Count (142 - 424 K/mm3) 243 [id number] Disclaimer The following section includes nursing documentation that has been pulled in for pharmacy review. Patient's VTE score: 5 Patient's VTE Risk: LOW RISK Clinical trial participant? No VTE prophylaxis NQF [id number] VTE prophylaxis ordered? Yes Type of prophylaxis/treatment: JULY at 0722
--- NOTE | 2017-05-08 07:22 | CONSULT NOTE ---
Standard Demographics Patient Demo Date of Consultation: 05/08/17 Referring Provider: Fanta Boyd MD Reason for Consultation: Chest pain PRIMARY DIAGNOSIS: CHEST PAIN Problem list Problem list: 1. CAD A. LAD LEYDA, 04/2016, On DAPT. Patent previous RCA stent with moderate non-flow limiting in-stent restenosis noted with indeterminate haziness thereafter. Normal EF. B. PPM placed 04/2016 due to asystole after spontaneous of V. Tach following cardiac cath. Removed 06/2016, due to pocket infection. C. Previous stent, 2003, [facility], [place], [place] D. History of Lexiscan Myoview, 07/2016 no ischemia with normal LV function. E. Cardiac cath, 08/2016, Patent stents without evidence of recurrent CAD. Normal LVEF. 2. Obesity 3. Methadone use with chronic back pain 4. HTN A. Echo, 04/2016, normal. 5. Hyperlipidemia, on statin. 6. COPD/asthma 7. CVA, 07/2015, right sided facial droop and garbled speech. 8. History of gastric bypass, 1998 9. CKD, stage II-III with history of renal artery stenosis. History of present illness: History of present illness: 61-year-old white female with known history of coronary disease and previous stenting presented to the emergency department for evaluation. Patient relates onset of left-sided "stretching" type chest pain that radiated around to the back into the armpit and down the LEFT arm. Symptoms onset while returning to her chair at home. She denies any falls, recent fever, chills, nausea, vomiting or diaphoresis associated with it. No increase in shortness of breath. She has had an occasional cough but states this does not exacerbate the chest pain. There is some chest wall tenderness but is a different type of pain. Electrocardiogram in the emergency department showed sinus rhythm with out acute abnormality. Patient was admitted for observation due to her history. Troponins have returned normal 3. Patient did have a stress test in July of this year and that showed no ischemia. Due to recurrent chest pain she had a subsequent cardiac cath in August of this year that showed patent stents with only mild to moderate coronary artery disease in other vessels. Medical therapy recommended. Patient denies any recent exertional symptoms. Cardiology consulted for evaluation and recommendations. Patient does relate 2 separate incidents of falling. She denies loss of consciousness. She believes that one incident may be related to pain from her hip and back with scoliosis and degenerative disc disease for which she sees the pain clinic. She is on chronic methadone therapy. The second incidents was in the kitchen and she does not remember any precipitating factors. She states she is unable to remember surrounding events. Past Medical History: General: Hypertension Yes CVA Yes Seizures No TB No COPD Yes Asthma Yes Diabetes No Angina Yes [place] No Hyperlipidemia Yes Urinary Yes Cancer No Rheumatic H.D. No Ulcers No MRSA No GB Disease Yes Additional hx 1. DDD of the lumbar spine 2. Cellulitis of the left lower leg 3. Pacemaker removal d/t infection 07/16/2016 4. Cardiac stents x 3 5. Neuropathy 6. Endometriosis, fibroids, DUB-hysterectomy Past Surgical HX: Previous Surgery?Y HYSTERECTOMY R KNEE SURGERY GASTRIC BYPASS FLAP REMOVED FROM ABD CARDIAC STENTS X2 KIDNEY STENTS AND REMOVED PACE MAKER PLACEMENT PACE MAKER REMOVED Allergies Coded Allergies: adhesive tape (Intermediate, I-RASH +CLOTH TAPE 05/07/17) cephalexin (From KEFLEX) (Mild, 05/07/17) meloxicam (From MOBIC) (Mild, 05/07/17) simvastatin (From ZOCOR) (Mild, 05/07/17) penicillin G (05/07/17) Home medications: Active Scripts BISOPROLOL FUMARATE (Bisoprolol 5MG) 5 MG PO DAILY #30 TAB Ref 1 Prov: 09/12/16 Amlodipine Besylate 2.5 MG PO DAILY #30 TAB Ref 1 Prov: 09/12/16 Reported Medications Pantoprazole Sodium (Protonix 40MG TAB) 40 MG PO QHS Cyclobenzaprine Hcl (Flexeril) 10 MG PO BID Clonazepam (Clonazepam 1MG) 1 MG PO BIDP PRN ANXIETY/SLEEP #60 TAB Atorvastatin Calcium 20 MG PO QHS #30 TAB Isosorbide Mononitrate (Isosorbide Mononitrate ER) 60 MG PO DAILY #30 TAB Allopurinol (Zyloprim 300MG) 300 MG PO DAILY PROMETHAZINE HCL (Promethazine HCl) 12.5 MG PO TID #90 TAB Torsemide 50 MG PO BID #30 TAB GABAPENTIN (Gabapentin) 400 MG PO TID NITROGLYCERIN (Nitrostat) 0.4 MG SL [id number] PRN CHEST PAIN METHADONE HCL (Methadone Hydrochloride) 10 MG PO 5XDAY #150 TAB ASPIRIN (Aspirin) 81 MG PO DAILY CLOPIDOGREL BISULFATE (PLAVIX) 75 MG PO DAILY Current Medications: Current Medications Aspirin 81 MG QHS PO Amlodipine Besylate 2.5 MG DAILY PO Bisoprolol Fumarate 5 MG QAM PO Clopidogrel Bisulfate 75 MG DAILY PO Isosorbide Mononitrate 60 MG DAILY PO Gabapentin 0 .STK-MED ONE .ROUTE (DC) Pantoprazole Sodium 0 .STK-MED ONE .ROUTE (DC) Gabapentin 0 .STK-MED ONE .ROUTE (DC) Methadone HCl 0 .STK-MED ONE .ROUTE (DC) Clonazepam 0 .STK-MED ONE PO (DC) Nitroglycerin 0.4 MG [id number] PRN SL Clonazepam 1 MG BID PO Gabapentin 400 MG TID PO Methadone HCl 10 MG QID PO Pantoprazole Sodium 40 MG QHS PO Aspirin 243 MG ONCE ONE PO (DCr) Sodium Chloride 10 ML PRN PRN IV Aspirin 0 .STK-MED ONE .ROUTE (DCr) Immunization HX DT/Tetanus Unknown Flu 2016-SN Pneumonia RECEIVED IN PAST TB Test in last year No Family history Family HX Family Hx Insignificant No Diabetes Yes CAD Yes Hypertension Yes Hyperlipidemia Yes Cancer Yes TB No Social Hx: Smoking HX Tobacco No Packs/day N/A Are you/the child exposed to second-hand smoke: No Alcohol Alcohol: No Hx of Drug Use Drug Use? No Patien't marital status is Patient's support system is good Review of systems: Constitutional No: no symptoms reported. Respiratory cough. Cardiovascular see HPI, chest pain Gastrointestinal/Abdominal No no symptoms reported Genitourinary No: no symptoms reported. Musculoskeletal back pain. Neurological No: no symptoms reported. Exam: Admission Vital Signs: 1ST Vital Signs Result Date Time Pulse Ox 97 05/07 1607 B/P 129/90 05/07 1607 Temp 98.0 05/07 160 Pulse 93 05/07 1607 Resp 05/07 1607 O2 Delivery ROOM AIR 05/07 2035 Last Vital Signs: Vital Signs Result Date Time Pulse Ox 94 05/08 430 B/P 99/68 05/08 430 O2 Delivery ROOM AIR 05/08 430 Temp 97.5 05/08 430 Pulse 74 05/08 430 Resp 16 11/21 0430 Exam General appearance: alert, awake, no acute distress Neck: no carotid bruit, no JVD Cardiovascular: regular rate & rhythm Respiratory: diminished breath sounds ABD: soft, no tenderness Extremities: moves all, no peripheral edema Neuro: alert, intact, oriented Laboratory data: Laboratory Tests 05/08/17 0630: Sodium 136, Potassium 3.2 L, Chloride 99, Carbon Dioxide 29, BUN 12, Creatinine 1.2 H, Estimated Creat Clear 83, Estimated GFR (MDRD) 46 L, Glucose 118 H, Calcium 8.6, Total Bilirubin 0.3, AST 69 H, ALT 48, Alkaline Phosphatase 113, Total Protein 6.0 L, Albumin 2.3 L, Globulin 3.7 H, Albumin/Globulin Ratio 0.6 L, WBC 7.3, RBC 3.84 L, Hgb 10.2 L, Hct 31.5 L, MCV 81.9 L, RDW 16.1, Plt Count 243, MPV 7.7, Gran % 77.8, Gran # 5.7, Lymphocytes % 12.5, Monocytes % 8.6, Eosinophils % 0.7, Basophils % 0.4, Lymphocytes # 0.9, Monocytes # 0.6, Eosinophils # 0.1, Basophils # 0.0, PUBS MCHC 32.3, MCH 26.5 L 05/08/17 0200: Creatine Kinase 156, CK-MB (CK-2) Rel Index 2.0, CK and CKMB Interp 3.1, Troponin I < 0.02 05/07/17 2200: Creatine Kinase 194 H, CK-MB (CK-2) Rel Index 2.0, CK and CKMB Interp 3.8 H, Troponin I < 0.02 05/07/17 1610: Sodium 148 H, Potassium 4.0, Chloride 112 H, Carbon Dioxide 25, BUN 16, Creatinine 1.2 H, Estimated Creat Clear 79, Estimated GFR (MDRD) 46 L, Glucose 84, Calcium 8.5, Total Bilirubin 0.4, AST 26, ALT 21, Alkaline Phosphatase 131 H, Creatine Kinase 256 H, CK-MB (CK-2) Rel Index 1.8, CK and CKMB Interp 4.7 H , Troponin I < 0.02, Total Protein 7.1, Albumin 3.3 L, Globulin 3.8 H, Albumin /Globulin Ratio 0.9 L, WBC 5.3, RBC 3.99 L, Hgb 9.5 L, Hct 31.6 L, MCV 79.2 L, RDW 17.2, Plt Count 274, MPV 9.5, Gran % 62.5, Gran # 3.3, Lymphocytes % 28.3 , Monocytes % 5.9, Eosinophils % 2.8, Basophils % 0.5, Lymphocytes # 1.5, Monocytes # 0.3, Eosinophils # 0.2, Basophils # 0.0, PUBS MCHC 29.8 L, MCH 23.6 L Plan Assessment: 1. Chest pain, etiology unknown. Normal troponins X 3 without acute EKG changes. Cardiac cath in 08/2016 showed patent stents. Will check echo and if LVEF is preserved, then no further workup. Chest x-ray shows some atelectasis in the RIGHT side. 2. HTN, controlled 3. CKD, stable. 4. Mild anemia 5. Coronary artery disease, history of coronary artery stenting with the last stents placed in 2015. Patient continues on dual antiplatelet therapy with aspirin and Plavix. Plan: Discussed with Dr. Figueroa. See above. at 0807
--- NOTE | 2017-05-08 07:46 | HISTORY AND PHYSICAL REPORT ---
See Addendum History and Physical ([facility]CA) Date of admission: 05/07/17 Chief complaint: chest pain History: History of Present Illness: Ms Kothari is a 61-year-old white female with known history of coronary disease and previous stenting presented to the emergency department for evaluation. Patient relates onset of left-sided "stretching" type chest pain that radiated around to the back into the armpit and down the LEFT arm. Symptoms onset while returning to her chair at home; She experienced associated SOB, nausea and diaphoresis; She denies any falls, recent fever, chills, or vomiting. She has had an occasional cough for the past 2 days but states this does not exacerbate the chest pain. There is some chest wall tenderness but it is a different type of pain. The pain lasted about 20 minutes and was relieved with NTG x2. Electrocardiogram in the emergency department showed sinus rhythm without acute abnormality. Patient was admitted for observation due to her history. Troponins have returned normal 3. Patient did have a stress test in July of this year and that showed no ischemia. Due to recurrent chest pain she had a subsequent cardiac cath in August of this year that showed patent stents with only mild to moderate coronary artery disease in other vessels. Medical therapy recommended. Patient denies any recent exertional symptoms. Cardiology consulted for evaluation and recommendations. Patient does relate 2 separate incidents of falling. She denies loss of consciousness. She believes that one incident may be related to pain from her hip and back with scoliosis and degenerative disc disease for which she sees the pain clinic. She is on chronic methadone therapy. The second incidents was in the kitchen and she does not remember any precipitating factors. She states she is unable to remember surrounding events. This AM she denies any CP and is breathing as per her norm. Cardiology has seen patient and she will have an ECHO. If this is normal she will most likely be discharged. Past Medical History: Medical History: CAD? Yes Angina: Yes [place]: No Hypertension? Yes Hyperlipidemia? Yes CHF? Yes DVT? No PE? No COPD? Yes Asthma? Yes Anemia? No GERD? Yes Gastric ulcers? No GI Bleed? No Hernia? No Thyroid Problems? No Hypothyroidism? No CVA? Yes Seizures? No Diabetes? No Renal Insuffiency? No UTI? Yes Stones? Yes GB Disease: Yes Nephritic Syndrome? No Asplenia? No Hepatitis? No Sickle Cell Disease? No Arthritis? Yes Migraines? No Cataracts? Yes Glaucoma? No MRSA? No HIV? No TB? No Anxiety? No Depression? No Cancer? No More? Yes Additional hx: 1. DDD of the lumbar spine 2. Cellulitis of the left lower leg 3. Pacemaker removal d/t infection 07/16/2016 4. Cardiac stents x 3 5. Neuropathy 6. Endometriosis, fibroids, DUB-hysterectomy Surgical history: Previous Surgery?Y HYSTERECTOMY R KNEE SURGERY GASTRIC BYPASS FLAP REMOVED FROM ABD CARDIAC STENTS X2 KIDNEY STENTS AND REMOVED PACE MAKER PLACEMENT PACE MAKER REMOVED Medications: Active Scripts BISOPROLOL FUMARATE (Bisoprolol 5MG) 5 MG PO DAILY #30 TAB Ref 1 Prov: 09/12/16 Amlodipine Besylate 2.5 MG PO DAILY #30 TAB Ref 1 Prov: 09/12/16 Reported Medications Pantoprazole Sodium (Protonix 40MG TAB) 40 MG PO QHS Cyclobenzaprine Hcl (Flexeril) 10 MG PO BID Clonazepam (Clonazepam 1MG) 1 MG PO BIDP PRN ANXIETY/SLEEP #60 TAB Atorvastatin Calcium 20 MG PO QHS #30 TAB Isosorbide Mononitrate (Isosorbide Mononitrate ER) 60 MG PO DAILY #30 TAB Allopurinol (Zyloprim 300MG) 300 MG PO DAILY PROMETHAZINE HCL (Promethazine HCl) 12.5 MG PO TID #90 TAB Torsemide 50 MG PO BID #30 TAB GABAPENTIN (Gabapentin) 400 MG PO TID NITROGLYCERIN (Nitrostat) 0.4 MG SL [id number] PRN CHEST PAIN METHADONE HCL (Methadone Hydrochloride) 10 MG PO 5XDAY #150 TAB ASPIRIN (Aspirin) 81 MG PO DAILY CLOPIDOGREL BISULFATE (PLAVIX) 75 MG PO DAILY Allergies: Coded Allergies: adhesive tape (Intermediate, I-RASH +CLOTH TAPE 05/07/17) cephalexin (From KEFLEX) (Mild, 05/07/17) meloxicam (From MOBIC) (Mild, 05/07/17) simvastatin (From ZOCOR) (Mild, 05/07/17) penicillin G (05/07/17) Family History: Family history: Postive for: CAD, DM, HTN, cancer, stroke. Social History: Smoking Hx Tobacco: No Smoker: Never Smoker Type: N/A Packs/day: N/A Are you exposed to second hand No Alcohol: Alcohol: No Hx of Drug Use: Drug Use? No Patien't marital status is: Review of Systems: ENT No: sore throat. Cardiovascular Positive for: chest pain. No: edema, palpitations. Respiratory Positive for: dyspnea on exertion, shortness of air, non-productive. No: hemoptysis. GI Positive for: nausea. No: abdominal pain, constipation, diarrhea, hematemeis, hematochezia, melena, vomitting. (female) No: frequency, hematuria. Neurological No: dizziness, headache, seizure, syncope. Musculoskeletal Positive for: joint pain, lumbar pain. Physical Exam: Vital signs: 1ST Vital Signs Result Date Time Pulse Ox 97 05/07 160 B/P 129/90 05/07 1607 Temp 98.0 05/07 160 Pulse 93 05/07 1607 Resp 20 05/07 160 O2 Delivery ROOM AIR 05/07 2035 Exam: General appearance: alert, no acute distress Eyes: anicteric, pupils reactive to light ENT: mucous membranes moist, pharynx normal Neck: no carotid bruit, full range of motion, lymphadenopathy (absent), thyroid (normal) Cardiovascular: regular rate & rhythm Respiratory: clear to auscultation (bilat anterior and posterior), diminished breath sounds (in bases bilaterally) ABD: non-distended, soft, no tenderness, no guarding, bowel sounds present Extremities: no peripheral edema, no calf tenderness Neuro: alert, oriented, speech clear Lab data: Labs: Laboratory Tests 05/08/17 0630: Sodium 136, Potassium 3.2 L, Chloride 99, Carbon Dioxide 29, BUN 12, Creatinine 1.2 H, Estimated Creat Clear 83, Estimated GFR (MDRD) 46 L, Glucose 118 H, Calcium 8.6, Total Bilirubin 0.3, AST 69 H, ALT 48, Alkaline Phosphatase 113, Total Protein 6.0 L, Albumin 2.3 L, Globulin 3.7 H, Albumin/Globulin Ratio 0.6 L, WBC 7.3, RBC 3.84 L, Hgb 10.2 L, Hct 31.5 L, MCV 81.9 L, RDW 16.1, Plt Count 243, MPV 7.7, Gran % 77.8, Gran # 5.7, Lymphocytes % 12.5, Monocytes % 8.6, Eosinophils % 0.7, Basophils % 0.4, Lymphocytes # 0.9, Monocytes # 0.6, Eosinophils # 0.1, Basophils # 0.0, PUBS MCHC 32.3, MCH 26.5 L 05/08/17 0200: Creatine Kinase 156, CK-MB (CK-2) Rel Index 2.0, CK and CKMB Interp 3.1, Troponin I < 0.02 05/07/17 2200: Creatine Kinase 194 H, CK-MB (CK-2) Rel Index 2.0, CK and CKMB Interp 3.8 H, Troponin I < 0.02 05/07/17 1610: Sodium 148 H, Potassium 4.0, Chloride 112 H, Carbon Dioxide 25, BUN 16, Creatinine 1.2 H, Estimated Creat Clear 79, Estimated GFR (MDRD) 46 L, Glucose 84, Calcium 8.5, Total Bilirubin 0.4, AST 26, ALT 21, Alkaline Phosphatase 131 H, Creatine Kinase 256 H, CK-MB (CK-2) Rel Index 1.8, CK and CKMB Interp 4.7 H , Troponin I < 0.02, Total Protein 7.1, Albumin 3.3 L, Globulin 3.8 H, Albumin /Globulin Ratio 0.9 L, WBC 5.3, RBC 3.99 L, Hgb 9.5 L, Hct 31.6 L, MCV 79.2 L, RDW 17.2, Plt Count 274, MPV 9.5, Gran % 62.5, Gran # 3.3, Lymphocytes % 28.3 , Monocytes % 5.9, Eosinophils % 2.8, Basophils % 0.5, Lymphocytes # 1.5, Monocytes # 0.3, Eosinophils # 0.2, Basophils # 0.0, PUBS MCHC 29.8 L, MCH 23.6 L Radiology results: Results: 05/07/17 CXR IMPRESSION: Right lower lobe and right middle lobe atelectasis Diagnosis(es): 1. CAD (coronary artery disease) Status: Chronic 2. Chest pain Status: Acute 3. Anxiety 4. DJD (degenerative joint disease) of thoracic spine 5. Anemia Plan: To have ECHO this AM; possibly home after this. at 0945 at 1328
[2017-05-08] MEDS ORDERED: PROMETHAZINE12.5 M2 PO (07:48)
--- NOTE | 2017-05-08 21:35 | RADIOLOGY REPORT PS360 ---
PROCEDURE: 2-D M-mode and color Doppler study INDICATIONS FOR THE TEST: Chest pain X COPD Heart Murmur Tobacco Smoking Palpitations Fatigue Syncope Edema HypertensionXDiabetes Mellitus Rheumatic Fever SOBXDOE ObesityXHyperlipidemiaX Family History HD Additional History PACER,CVA,CKD PATIENT INFORMATION HEIGHT: 67 WEIGHT:234 GENDER: Female B/P:99/68 2-D/M-MODE INTERPRETATION: 2-D MEASUREMENTS OBSERVED VALUES IN CMS Right Ventricular Dimension (RVDd) 2.6 Interventricular Septum (Thickness)(IVsd) 1.0 Left Ventricular Internal Dimensions(LVIDd) 5.5 Left Ventricular Posterior Wall (Thickness)(LVPWd) 1.2 Aortic Root 3.6 Aortic Cusp Separation 2.3 Left Atrial Dimensions (LAD) 3.8 2D 1. Left atrium is qualitatively moderately enlarged, left ventricle is normal size, there is mild concentric left ventricular hypertrophy, visually estimated ejection fraction 55% with no obvious regional wall motion abnormality. 2. The right atrium and right ventricle are mildly enlarged with normal contractility. 3. The aortic valve is minimally thickened and fibrosed. 4. The mitral and tricuspid valve leaflets are minimally thickened. 5. The pulmonic valve is poorly visualized. 6. No significant pericardial effusion noted. DOPPLER INTERROGATION: Doppler interrogation of the aortic, mitral and tricuspid valvular presence of moderate mitral and moderate tricuspid regurgitation, calculated right ventricular systolic pressure is 53 mmHg consistent with moderate pulmonary hypertension, grade 1 diastolic dysfunction seen with tissue Doppler evidence of raised left atrial pressure. CONCLUSION: 1. Biatrial enlargement, normal left ventricular size, mild concentric left ventricular hypertrophy, visually estimated ejection fraction 55% with no obvious regional wall motion abnormality, grade 1 diastolic dysfunction seen with tissue Doppler evidence of raised left atrial pressure. 2. Moderate mitral and tricuspid regurgitation, calculated right ventricular systolic pressure is 53 mmHg consistent with moderate pulmonary hypertension. 3. No significant pericardial effusion noted.
[2017-05-09 03:54] VITALS: BP 128/77
[2017-05-09 08:00] VITALS: BP 132/85
--- NOTE | 2017-05-09 08:36 | ACUTE CARE PROGRESS NOTE (QUA) ---
Progress Notes Subjective Date 05/09/17 Time 0833 Note 61 yo WF in bed in NAD. No complaints overnight. Ready to go home. Objective Findings Last VS-Temp:97.5 B/P:128/77 Pulse:72 Resp:18 SaO2:90 ROOM AIR Last weight lbs:235 oz:3 [id number] Method:Bed Scales Exam General appearance: alert, awake, no acute distress Cardiovascular: regular rate & rhythm Respiratory: clear to auscultation Extremities: moves all, no peripheral edema Reviewed: medications, vital signs, lab results Assessment/Plan Problem List 1. CAD (coronary artery disease) Status: Chronic 2. Chest pain Status: Acute 3. Anxiety 4. DJD (degenerative joint disease) of thoracic spine 5. Anemia Patient condition Stable Plan: Echo shows preserved LVEF. Mild to moderate valve disease. No further cardiac workup. OK for discharge home. Keep appointment scheduled for next week. Continue current meds. This inpt stay is expected to cross 2 MNs from start of care Yes at 0835
--- NOTE | 2017-05-09 08:39 | ACUTE CARE PROGRESS NOTE (QUA) ---
See Addendum Progress Notes Subjective Date 05/09/17 Time 0730 Note Feeling well; has had only had flashes of chest discomfort; breathing is as usual; did sleep last night; eating without problems. ECHO report reviewed and pt has been seen by cardiology; OK to discharge to home Objective Findings Last VS-Temp:97.5 B/P:128/77 Pulse:72 Resp:18 SaO2:90 ROOM AIR Last weight lbs:235 oz:3 [id number] Method:Bed Scales 05/08/17 ECHO CONCLUSION: 1. Biatrial enlargement, normal left ventricular size, mild concentric left ventricular hypertrophy, visually estimated ejection fraction 55% with no obvious regional wall motion abnormality, grade 1 diastolic dysfunction seen with tissue Doppler evidence of raised left atrial pressure. 2. Moderate mitral and tricuspid regurgitation, calculated right ventricular systolic pressure is 53 mmHg consistent with moderate pulmonary hypertension. 3. No significant pericardial effusion noted. Exam General appearance: alert, no acute distress, obese Cardiovascular: regular rate & rhythm Respiratory: left basilar crackles which cleared with coughing and deep breathing ABD: soft, no tenderness, obese Extremities: no peripheral edema, no calf tenderness Neuro: alert, oriented, speech clear Assessment/Plan Problem List 1. CAD (coronary artery disease) Status: Chronic 2. Chest pain Status: Acute 3. Anxiety 4. DJD (degenerative joint disease) of thoracic spine 5. Anemia Patient condition Improved Plan: will discharge to home This inpt stay is expected to cross 2 MNs from start of care No at 0839 at 0840
[2017-05-09 12:00] VITALS: BP 130/78
[2017-05-09 12:53] VITALS: BP 130/78
== END 2017-05-09 12:55 | disposition home or self-care (01) ==
LOC: ER 16:06 → 2ND 20:03
PROVIDERS: Emergency Medicine
DX: I25.10 Atherosclerotic heart disease of native coronary artery without angina pectoris (principal); R07.9 Chest pain, unspecified; E66.9 Obesity, unspecified; M54.9 Dorsalgia, unspecified; G89.29 Other chronic pain; E78.5 Hyperlipidemia, unspecified; J44.9 Chronic obstructive pulmonary disease, unspecified; I69.392 Facial weakness following cerebral infarction; I69.328 Other speech and language deficits following cerebral infarction; I12.9 Hypertensive chronic kidney disease with stage 1 through stage 4 chronic kidney disease, or unspecified chronic kidney disease; N18.3 Chronic kidney disease, stage 3 (moderate); Z98.84 Bariatric surgery status; Z95.5 Presence of coronary angioplasty implant and graft; Z88.3 Allergy status to other anti-infective agents; Z88.0 Allergy status to penicillin; Z88.8 Allergy status to other drugs, medicaments and biological substances; Z91.048 Other nonmedicinal substance allergy status; Z79.02 Long term (current) use of antithrombotics/antiplatelets; Z79.82 Long term (current) use of aspirin; Z79.891 Long term (current) use of opiate analgesic; Z79.899 Other long term (current) drug therapy; Z83.3 Family history of diabetes mellitus; Z82.49 Family history of ischemic heart disease and other diseases of the circulatory system; Z83.49 Family history of other endocrine, nutritional and metabolic diseases; Z80.9 Family history of malignant neoplasm, unspecified; D64.9 Anemia, unspecified; Z91.81 History of falling; F41.9 Anxiety disorder, unspecified; M47.894 Other spondylosis, thoracic region
CPT/HCPCS: G0378